=== PATIENT | female | born 1955 | race Caucasian/White ===

== ENCOUNTER → 2017-08-12 13:32 | Outpatient (CLI) | payer OTHER, SELFPAY ==
--- NOTE | 2017-08-12 13:33 | RAD_ITS ---
STUDY: X-RAY CHEST REASON FOR EXAM: Female, 62 years old. Cough TECHNIQUE: Frontal and lateral views of the chest COMPARISON: 02/28/2016 FINDINGS: The lungs are clear. There are no pleural effusions. There is no pneumothorax. The heart is normal in size. The visualized osseous structures are within normal limits. RAD/Chest PA and Lateral IMPRESSION: No acute thoracic pathology. Electronically Signed: Tk Caal, at 19:36 EST Tel , Service support ,
== END ==
PROVIDERS: Family Provider Family Medicine; PCP Family Medicine; Visit Provider Family Medicine
DX: J20.9 Acute bronchitis, unspecified (principal)
CPT/HCPCS: 71046

== ENCOUNTER → 2018-01-27 09:17 | Outpatient (CLI) | payer OTHER, SELFPAY ==
[2018-01-27 11:17] LABS: AST(SGOT) 17 U/L (15-37); Alanine Aminotransfer ALT/SGPT 22 U/L (13-56); Albumin, Serum 3.6 g/dL (3.2-5.0); Alkaline Phosphatase 52 U/L (45-117); Cholesterol 168 mg/dL (200); Globulin 3.5 g/dL (2.2-4.2); High Density Lipoprotein 66 mg/dL; Protein, Total 7.1 g/dL (6.4-8.2); Triglycerides 94 mg/dL; Very Low Density Lipoprotein 19 mg/dL (5-40)
== END ==
PROVIDERS: Family Provider Family Medicine; PCP Family Medicine; Visit Provider Internal Medicine Cardiovascular Disease
DX: I25.10 Atherosclerotic heart disease of native coronary artery without angina pectoris (principal); E78.5 Hyperlipidemia, unspecified
CPT/HCPCS: 36415; 80061; 80076

== ENCOUNTER → 2018-03-07 10:51 | Outpatient (CLI) | payer OTHER, SELFPAY ==
[2018-03-07 12:14] LABS: Absolute Lymphocyte Count 2.46 X10^3/ul (0.83-4.51); Absolute Neutrophil Count 2.7 X10^3/uL (2.0-7.7); Basophil# 0.04 X10^3/uL; Basophil% 0.7 % (0-1); Eosinophil# 0.13 X10^3/uL; Eosinophils% 2.2 % (0-5); Hemoglobin 13.2 g/dl (12.0-15.0); Lymphocyte # 2.46 X10^3/ul (4.0); Lymphocyte % 42.2 % (19-41); Mean Corpuscular Hgb 29.4 pg (27.0-32.0); Mean Corpuscular Volume 89.1 fL (81-99); Mean Platelet Vol. 9.1 fl (6.2-12.0); Monocyte# 0.52 X10^3/uL; Monocyte% 8.9 % (0-10); Neutrophil # 2.68 X10^3/uL (2.7-7.7); Platelet Count 282 K/mm3 (150-450); RBC Distribution Width CV 12.4 % (11.6-14.6); RBC Distribution Width SD 39.9 fl (35.1-43.9); Red Blood Count 4.49 M/mm3 (4.2-5.4); White Blood Count 5.8 K/mm3 (4.4-11.0)
[2018-03-07 12:22] LABS: Anion Gap 6 (5-15); BUN 19 mg/dL (7-18); BUN/Creat Ratio 20.3 RATIO (10-20); Calcium,Total 9.5 mg/dL (8.5-10.1); Chloride 101 mmol/L (98-107); Creatinine, Serum 0.94 mg/dL (0.55-1.02); EST Glomerular Filtration Rate 64 mL/min (>60); Est Glom Filt Rate - Afr Amer 77 mL/min (>60); Glucose 103 mg/dL (74-106); Potassium 4.2 mmol/L (3.5-5.1); Sodium Level 136 mmol/L (136-145); Thyroid Stim Hormone (TSH) 0.68 uIU/mL (0.358-3.74)
[2018-03-07 12:23] LABS: POSITIVE COUNT NO; POSITIVE DIFFERENTIAL NO; POSITIVE MORPHOLOGY NO
== END ==
PROVIDERS: Visit Provider Family Medicine
DX: I10 Essential (primary) hypertension (principal); F41.9 Anxiety disorder, unspecified
CPT/HCPCS: 36415; 80048; 84443; 85025

== ENCOUNTER → 2018-04-27 14:31 | Outpatient (CLI) | payer OTHER, SELFPAY ==
[2018-04-27 07:12] VITALS: BMI 27.8
== END ==
LOC: LAB 14:33 → LABSPEC 14:34
PROVIDERS: Referring Provider Nurse Practitioner Family; Visit Provider Nurse Practitioner Family
DX: J02.9 Acute pharyngitis, unspecified (principal)
CPT/HCPCS: 87880

== ENCOUNTER → 2018-09-08 13:14 | Outpatient (CLI) | payer OTHER, MEDICARE, SELFPAY ==
[2018-09-05 09:24] VITALS: BMI 27.8
--- NOTE | 2018-09-08 13:46 | CT_ITS ---
STUDY: CT MAXILLOFACIAL SINUSES REASON FOR EXAM: Female, 63 years old. Sinusitis. RADIATION DOSAGE (If Supplied By Facility): CTDIvol = ( 33.45 ) mGy, DLP = ( 834.91 ) mGycm TECHNIQUE: The patient was scanned in a multi detector CT scanner. High resolution axial imaging was performed without the administration of intravenous contrast material. Sagittal and coronal images were reconstructed. Individualized dose optimization techniques were used for this CT. COMPARISON: None. FINDINGS: FRONTAL SINUSES: Normal aeration, without mucosal inflammatory disease. ETHMOIDAL SINUSES: Normal aeration, without mucosal inflammatory disease. MAXILLARY SINUSES: Mild mucosal thickening of the left maxillary sinus. SPHENOIDAL SINUSES: Normal aeration, without mucosal inflammatory disease. There is patency of the bilateral maxillary infundibuli with normal uncinate processes, ethmoid bullae, and hiatus semilunaris. Normal bilateral middle turbinates. There is hypertrophy of the left inferior nasal turbinate. Normal midline nasal septum. There is patency of the bilateral nasal airways. The visualized osseous structures are normal. The visualized bilateral orbital contents are normal. CT/Sinus/Facial Bone IMPRESSION: Mild degree of mucosal thickening of left maxillary sinus with hypertrophy of the inferior turbinate in the left nasal fossa. Electronically Signed: Darryl Ramírez, at 14:59 EDT , Service support ,
== END ==
PROVIDERS: Family Provider Family Medicine; PCP Family Medicine; Referring Provider Otolaryngology; Visit Provider Otolaryngology
DX: J32.0 Chronic maxillary sinusitis (principal)
CPT/HCPCS: 70486; 87070; 87205

== ENCOUNTER 2018-10-20 05:28 | Day surgery (SDC) | payer OTHER, MEDICARE, SELFPAY ==
[2018-07-11 10:05] VITALS: BMI 27.8
[2018-10-10 11:51] VITALS: BMI 27.8
--- NOTE | 2018-10-11 04:01 | HP.PCM_ITS ---
- Problem List (1) Incomplete uterovaginal prolapse Status: Chronic Comment: combo case with urogyn, plan TVHBSO and pelvic floor repair (2) Stress incontinence Status: Chronic Comment: urogyn combo case planned History and Physical Date of Admission: 10/20/18 Intake Vital Signs 10/10/18 Body Mass Index (BMI) 27.8 10/10/18 Height 5 ft 8 in 10/10/18 Weight: 184 lb 10/10/18 Body Mass Index (BMI) 27.9 10/10/18 Blood Pressure 120/80 Intake Visit Reasons: [facility]AS [facility] VIVIAN LUGO Chief [facility] Darrion Lugo Forest Manager Required: No Is patient in pain?: No Allergies No Known Allergies Allergy (Verified 10/10/18 11:50) Medications Aspirin [Aspirin, Baby] 81 mg PO DAILY@0800 02/28/16 [History Confirmed 10/10/18] Calcium Carbonate/Vitamin D3 [Calcium 500 mg Chewable Tablet] 1 ea PO DAILY 02/28/16 [History Confirmed 10/10/18] Cholecalciferol (VIT D3) [Vitamin D3] 2,000 unit PO DAILY 02/28/16 [History Confirmed 10/10/18] Duloxetine HCl 30 mg PO DAILY 02/28/16 [History Confirmed 10/10/18] [place]-3 Fatty Acids [Fish Oil] 1,000 mg PO DAILY 02/28/16 [History Confirmed 10/10/18] Red Yeast Rice Extract [Red Yeast Rice] 600 mg PO BID 02/28/16 [History Confirmed 10/10/18] Ubidecarenone [Co Q-10] 100 mg PO DAILY 02/28/16 [History Confirmed 10/10/18] Vitamin E 1,000 unit PO DAILY 02/28/16 [History Confirmed 10/10/18] rosuvastatin 40 mg tablet 40 mg PO DAILY #90 tab 01/25/18 [Rx Confirmed 10/10/18] metoprolol tartrate 25 mg tablet 25 mg PO QDAY #90 tab 01/27/18 [Rx Confirmed 10/10/18] omeprazole 20 mg capsule,delayed release 20 mg PO DAILY 01/27/18 [History Confirmed 10/10/18] doxycycline hyclate 100 mg capsule 100 mg PO BID 21 Days #42 cap 09/05/18 [History Confirmed 10/10/18] trazodone 50 mg tablet 25 mg PO QHS tab 09/05/18 [History Confirmed 10/10/18] magnesium oxide 400 mg capsule 400 mg PO DAILY cap 10/10/18 [History Confirmed 10/10/18] Is last menstrual period known: No Post menopausal: No Patient : No : No PFSH Medical History Atherosclerosis of coronary artery of [place] heart without angina pectoris (Chronic) Back pain (Chronic) Heart disease (Chronic) Knee pain (Chronic) Migraines (Chronic) Fatigue (Resolved) Surgical History History of angioplasty (Chronic) History of knee replacement (Resolved) Family History Father Heart disease Sister Cancer Social History Smoking Status: Never smoker alcohol intake: never substance use type: does not use caffeine: Yes Type: tea Number of servings: 1 what type of physical activity do you participate in: walking seatbelt use: always do you feel safe at home: Yes HPI BETSY LUGO: Details: KELLEN GUY is a 63 year old who presents for Female Reproductive History Menopausal Symptoms: No night sweats Pregancy History 2 Elective abortions Hx Para 2 Spontaneous abortions Hx # Term Pregnancies Ectopic pregnancies Hx # Pregnancies Multiple births # of living children Past Pregnancies Del. Date Name GA/Weeks Outcome Route Bth Weight Gen Labor Lgth Anesthesia Del Locat Provider FOB Unknown Unknown ROS Const Constitutional: Denies fatigue, night sweats, weight gain or weight loss ENT ENT: Reports system reviewed and no additional complaints, except as docu Cardio Card: Denies chest pain Resp Resp: Denies cough or dyspnea GI GI: Reports as per HPI; denies abdominal pain, constipation, nausea or vomiting : Denies nipple discharge Musc Musc: Denies joint pain, back pain or muscle weakness Skin Skin/Breast: Denies hair loss, change in hair, dry skin, breast lump, breast pain, breast skin changes or nipple discharge Neuro Neuro: Reports system reviewed and no additional complaints, except as docu Psych Psych: Reports system reviewed and no additional complaints, except as docu Endo Endo: Denies cold intolerance, excessive sweating, heat intolerance or increased thirst Jostin/Lymph Hematologic/Lymphatic: Denies easy bleeding, Denies easy bruising, Denies enlarged lymph nodes Exam Const General: cooperative, no acute distress Nutritional Appearance: well nourished Orientation: oriented x3 [facility] Head: normal to inspection, normocephalic Ears: hearing grossly normal bilaterally, external ears normal Nose: external nose normal, nares normal Face and sinus: normal facial exam Neck Neck: normal visual inspection, no lymphadenopathy Thyroid: thyroid normal Chest Chest palpation & inspection: normal inspection of the chest Resp Effort & Inspection: normal respiratory effort Auscultation: clear to auscultation bilaterally Cardio Rate: regular rate Rhythm: regular rhythm Heart Sounds: S1 normal, S2 normal GI Inspection: normal to inspection, non-distended Palpation: soft, no hepatosplenomegaly General: bladder normal to palpation External Female Exam: normal external appearance, normal appearance of the urethra Urethra: normal appearance of the urethra Speculum Exam - Vagina: atrophic vaginal mucosa Speculum Exam - Cervix: normal appearance of the cervix Bimanual Exam- Vagina & Uterus: normal bimanual exam, bladder normal to palpation Bimanual Exam- Adnexa, other: normal adnexae, pelvic support normal Pelvic Support: normal Other: Pessary is laying flat in vagina-removed. No excoriations, lesions, bleeding or abnormal discharge. Previously had #4 and was replaced with #5 ring pessary with support and knob. Patient tolerated well Musc Other: gross motor intact no deficits, full bilateral strength Skin General: no rashes or lesions noted Neuro General: alert, awake, moves all extremities, no focal motor deficits Motor: muscle tone normal throughout Extrem General: normal to inspection, no pedal edema Psych Appearance: grossly normal Mental Status: mental status grossly normal Affect: normal affect Speech and Movement: speech and movement normal Assessment & Plan Problems 1. Stress incontinence N39.3 urogyn combo case planned 2. Incomplete uterovaginal prolapse N81.2 combo case with urogyn, plan TVHBSO and pelvic floor repair Plan plan TVHBSO and pelvic floor repair combo case with Urogyn. discussed surgical risks including risks of anesthesia, infection, bleeding, injury to bowel, bladder or blood vessels, and patient wishes to proceed with surgery. Coding Level of Care Code No Charge Diagnoses Stress incontinence N39.3 Incomplete uterovaginal prolapse N81.2 UPDATE- I have seen the patient and performed any clinically relevant updates to the history and physical exam. Heather Camejo MD
[2018-10-14 12:19] LABS: Hematocrit 37.3 % (37-47); Hemoglobin 12.3 g/dl (12.0-15.0); Mean Corpuscular Hgb 29.1 pg (27.0-32.0); Mean Corpuscular Volume 88.4 fL (81-99); Mean Platelet Vol. 9.4 fl (6.2-12.0); Platelet Count 287 K/mm3 (150-450); RBC Distribution Width CV 12.7 % (11.6-14.6); RBC Distribution Width SD 40.5 fl (35.1-43.9); Red Blood Count 4.22 M/mm3 (4.2-5.4); Scan Indicated on CBC? Y/N NO; White Blood Count 5.1 K/mm3 (4.4-11.0)
[2018-10-14 13:01] LABS: AST(SGOT) 15 U/L (15-37); Alanine Aminotransfer ALT/SGPT 28 U/L (13-56); Albumin, Serum 3.6 g/dL (3.2-5.0); Alkaline Phosphatase 59 U/L (45-117); Bilirubin, Direct 0.08 mg/dL (0.00-0.30); Cholesterol 157 mg/dL (200); High Density Lipoprotein 66 mg/dL; Protein, Total 6.6 g/dL (6.4-8.2); Triglycerides 63 mg/dL; Very Low Density Lipoprotein 13 mg/dL (5-40)
[2018-10-14 13:07] LABS: Anion Gap 8 (5-15); BUN 17 mg/dL (7-18); BUN/Creat Ratio 19.6 RATIO (10-20); Calcium,Total 8.9 mg/dL (8.5-10.1); Chloride 103 mmol/L (98-107); Creatinine, Serum 0.87 mg/dL (0.55-1.02); EST Glomerular Filtration Rate 70 mL/min (>60); Est Glom Filt Rate - Afr Amer 84 mL/min (>60); Glucose 95 mg/dL (74-106); Potassium 4.4 mmol/L (3.5-5.1); Sodium Level 135 mmol/L (136-145)
--- NOTE | 2018-10-18 08:34 | EKG12_ITS ---
Test Reason : PREOP Blood Pressure : / mmHG Vent. Rate : 056 BPM Atrial Rate : 056 BPM P-R Int : 160 ms QRS Dur : 078 ms QT Int : 424 ms P-R-T Axes : 044 017 036 degrees QTc Int : 409 ms Sinus bradycardia Otherwise normal ECG Confirmed by PERLA DAVILA, BJ ([id number]), newspaper copy editor FRANCY REA ([id number]) on 10/19/2018 1:51:07 PM Referred By: Heather Camejo Confirmed By:BJ DUNCAN MD
[2018-10-20] VITALS (13 sets, daily range): BP systolic 108–138; BP diastolic 64–80; PULSE 48–71; RESP 14–18; TEMP 36.1–36.8; O2SAT 95–100; BMI 27.3; BMI 27.2
--- NOTE | 2018-10-20 | HYST_PTH ---
PATIENT: KELLEN GUY LOC: [facility] [place] [facility] [place][id number] AGE/SX: 63/F ROOM: RE10/20/[address]: Dr. Heather Camejo MD : [id number] BED: DIS: 10/21/2018 SPEC #: [id number] RECD: 10/20/18 13:05 STATUS: ЕЛЕНА JENNIFER #: [id number] KAITLYN: 10/20/18 00:[address]: Heather Camejo DEPT: SURGICAL PATHOLOGY RECD BY: Jonh Verma ENTERED: 10/20/18 13:06 SP TYPE: HYSTERECT OTHR DR: MD Dr. Musa Queen MD Tissues: Uterus, NOS Procedures: Surgery Specimen Level V HEADER OPERATION: ERAS, hysterectomy, vaginal, total, bilateral salpingectomy PRE-OP DIAGNOSIS: Stress incontinence, incomplete uterovaginal prolapse TISSUE SUBMITTED: Uterus, bilateral fallopian tubes MICROSCOPIC DIAGNOSIS Uterus and bilateral fallopian tubes; vaginal hysterectomy with total bilateral salpingectomy: Cervix - chronic cervicitis with parakeratosis. Small nabothian cyst. Endometrium - adenomyomatous polyp with simple cystic change. Background inactive endometrium. Myometrium - adenomyosis. Leiomyomas with hyalinizing sclerosis. Fallopian tubes - no significant histopathologic finding. CE:madie 10/25/18 COMMENT Case has been reviewed in consultation with Dr. Cain who concurs with the above diagnosis. IDC:AM MICROSCOPIC DESCRIPTION Slides are reviewed. GROSS DESCRIPTION Received in fixative is one container labeled with the patient's name and designated uterus. The specimen consists of a uterus with attached cervix measuring 9.5 x 6 x 4.2 cm and weighing 78 gm. The ectocervix is unremarkable. The cervical os is oval in contour. The endocervical canal measures 4 cm in length and is grossly unremarkable. The triangular endometrial cavity measures 3.5 x 3 cm and contains a fleshy, pink polyp occupying 90% of the endometrial cavity and measuring 3 x 2.8 x 0.9 cm. The myometrium immediately beneath the polyp is not indurated. The endometrium is light staton, velvety and glistening and measures up to 0.1 cm in thickness. The myometrium is distorted by multiple spherical rubbery nodules ranging in size from 0.2 to 2 cm in greatest dimension. On cut sections, the nodules have a whorled appearance without areas of cyst formation or necrosis and with focal calcific change. The myometrium measures 1.5 cm in greatest thickness. Also present free in the container are two fallopian tube segments. One segment measures 2.2 cm in length and 0.4 cm in average diameter. The other fallopian tube segment measures 6 cm in length and 0.5 cm in average diameter. Watch Dial Stoner sections are submitted in ten cassettes as follows: 1 - anterior cervix, 2 - posterior cervix, 3 & 4 - endometrial polyp, 5 - anterior endometrial wall, 6 & 7 - posterior endometrial wall with myometrial nodules, 8 - largest, second largest and third largest myometrial masses, 9 - one fallopian tube, 10 - the other fallopian tube. / AM:madie 10/20/18 TC:1 CPT: 75806
[2018-10-20] MEDS: Gabapentin 600 MG Tablet PO (06:07)
[2018-10-20] MEDS: Acetaminophen 500 MG Tablet 1000 MG PO ×4 (06:07→23:23)
[2018-10-20] MEDS: Scopolamine 1mg/72hr Patch 1 PATCH TRANSDERM. (06:07)
[2018-10-20] MEDS: Celecoxib 200 MG Capsule 400 MG PO (06:08)
[2018-10-20] MEDS: Enoxaparin 40 MG/0.4 ML Syringe SC (06:08)
[2018-10-20 06:26] LABS: Bedside Glucose 101 mg/dL (70-110)
[2018-10-20] MEDS: Lactated Ringers 1,000 ML 40 ML IV (06:30)
[2018-10-20] MEDS: dexAMETHasone 10 MG/ML Vial 8 MG IV (06:33)
[2018-10-20] MEDS: Magnesium Sulfate 4gm/100mL 4 GM/100 ML IV.SOLN. IV (06:35)
[2018-10-20] MEDS: Cefazolin 2 GM in 0.9% Normal Saline 100 ML IV (07:28)
--- NOTE | 2018-10-20 07:40 | PCM.OPRPT ---
Problem List (1) Incomplete uterovaginal prolapse Status: Chronic Comment: combo case with urogyn, plan TVHBSO and pelvic floor repair (2) Stress incontinence Status: Chronic Comment: urogyn combo case planned Report of Operation Date of Procedure: 10/20/18 Pre-Operative Diagnosis: incomplete uterovaginal prolapse Post-Operative Diagnosis: Same Surgery/Procedure Performed:: tvh bs cysto a and p repair sling Description of Surgical Findings:: Normal uterus tubes and ovaries seafood and service meat manager: Aleksandra Mcmahon seafood and service meat manager: Flaca Lugo Type of Anesthesia:: General Specimen's removed: uterus tubes Drains: boland Estimated Blood Loss (mL): 150 cc Fluids Replaced: crystalloid Description of Procedure: Patient was taken to the operating room and was placed under general anesthesia was prepped and draped in normal sterile fashion in the dorsal lithotomy position. Preoperative antibiotics and SCDs and Boland catheter was placed inside the bladder. Weighted speculum was placed in the vagina and the anterior and posterior lip of the cervix was grasped with 2 Tommy clamps and circumferentially injected with dilute vasopressin. A circumferential incision was made with a scalpel and the posterior cul-de-sac was entered into sharply and a longneck speculum was placed. The anterior cul-de-sac was also dissected down and entered into sharply and the uterosacral ligaments were clamped cut and suture ligated bilaterally followed by the cardinal ligaments which were Clamped cut and suture ligated bilaterally with 0 Monocryl. The uterus serially descended and progressive bites were taken bilaterally up to the level of the utero-ovarian ligament bilaterally which was clamped transected and double ligated with 0 Monocryl suture and 0 Vicryl free tie. Bilateral fallopian tubes and ovaries were well visualized and noted be within normal limits and the bilateral fallopian tubes were transected across the base with a Raya clamp and removed and sutured with 0 Vicryl suture. Excellent hemostasis was noted. The vagina was closed with [id number] 0 Vicryl pop offs including the posterior and anterior peritoneum in the reapproximation. Excellent hemostasis was noted. See additional dictation for additional operative report. Grafts/Implants Used: See additional operative note - Complications None - Admit VTE Documentation VTE Present on Admission: No VTE Mechan Device Prophylaxis: SCD's
[2018-10-20] MEDS: Vasopressin 20 UNITS/ML Vial (08:00)
[2018-10-20] MEDS: Estrogens,Conj. 1 Tube 1 DOSE (10:13)
[2018-10-20] MEDS: Lubricating Jelly 60 GM Tube 30 GM TOPICAL (10:14)
--- NOTE | 2018-10-20 10:29 | PCM.OPRPT ---
Problem List (1) Stress incontinence Status: Chronic Comment: urogyn combo case planned (2) Incomplete uterovaginal prolapse Status: Chronic Comment: combo case with urogyn, plan TVHBSO and pelvic floor repair Report of Operation Date of Procedure: 10/20/18 Pre-Operative Diagnosis: Incomplete uterovaginal prolapse, stress urinary incontinence. Post-Operative Diagnosis: Same Surgery/Procedure Performed:: Anterior repair with dermis, bilateral sacrospinous ligament fixation, posterior repair, mid urethral sling and cystoscopy with bilateral ureteral catheterization. Description of Surgical Findings:: Patient did very well, the mass and the mid urethral sling both have very good positioning. sales floor team leader: None - Type of Anesthesia:: General Estimated Blood Loss (mL): 25 cc Description of Procedure: The patient is a 63-year-old female came to the office for evaluation and treatment of pelvic organ prolapse. She was evaluated with urodynamics and cystoscopy. After discussing all the risk benefits and alternatives, informed consent was obtained and she agreed to proceed with surgical intervention. Patient was taken to the operating room placed on the operating room table. Anesthesia monitored the head, neck, airway, IV access and vital signs throughout the case. Once anesthesia was appropriately administered the patient was placed into dorsal lithotomy position and was prepped and draped in usual sterile fashion. A Daly catheter was inserted and the bladder was drained. Dr. Siva Costello subsequently performed her portion of the case. Please see her operative report for details. Following closure of the vaginal cuff, the case was turned to wa. The anterior vaginal wall was injected submucosally with vasopressin. A midline vertical incision was made and sharp and blunt dissection ensued until bilaterally the initial spines were palpable in the sacral spinous ligaments were cleared and freed from surrounding tissues. The Capio device was used to obtain access to the sacral spinous ligament bilaterally with 2-0 Ethibond. At this time this was brought through the trimmed dermis. It was then brought through full thickness at the vaginal cuff. 2-0 PDS was used in intermittent suturing fashion to secure the dermis to the sidewall and the area adjacent to the bladder neck. Was also secured at the apex. The vaginal mucosa was then closed with running interlocking 2-0 Vicryl suture. The Ethibond sutures were tied down. Attention was then turned towards the posterior vaginal wall. The posterior submucosa was injected with vasopressin. An incision was made at the area of the perineal body. Blunt and sharp dissection was undertaken until the defect in the rectovaginal fascia was identified. The fascia was brought together and 2 layer closure with interrupted 2-0 Vicryl suture. Vaginal mucosa was then closed using 2-0 Vicryl in running interlocking fashion. At this time the attention was turned towards the area of the mid urethra which was injected submucosally with vasopressin as well. A midline vertical incision approximately 2 cm in length was then made and sharp and blunt dissection ensued into the periurethral spaces bilaterally until access was obtained to the obturator complexes. The alters mid urethral sling tines were passed using the trochars into the obturator complexes. The sling was tensioned using the tensioning suture and lay flat against the periurethral tissue without tension. At this time the tensioning suture was cut in the vaginal mucosa was closed using running interlocking 2-0 Vicryl. A cystourethroscopy was then performed. The patient had been given intravenous methylene blue. No ureteral jets were observed and the decision was made to intubate the ureteral orifices with a 5 [place] whistle-tip catheter. This was done and no occlusion was observed. The catheter passed easily to 25 cm bilaterally and there was no blood seen upon removal. At this time the scope was removed and the Daly catheter was replaced. The vagina was packed using Premarin cream and vaginal packing. The patient was awakened and taken to the recovery room in good condition. There were no immediate complications during this procedure. Grafts/Implants Used: [place] dermis - Complications None - Admit VTE Documentation VTE Present on Admission: Yes VTE Mechan Device Prophylaxis: SCD's VTE Pharm Prophylaxis ordered?: Yes
--- NOTE | 2018-10-20 10:36 | OP.PCM_ITS ---
Problem List (1) Stress incontinence Status: Chronic Comment: urogyn combo case planned (2) Incomplete uterovaginal prolapse Status: Chronic Comment: combo case with urogyn, plan TVHBSO and pelvic floor repair Report of Operation Date of Procedure: 10/20/18 Pre-Operative Diagnosis: Incomplete uterovaginal prolapse, stress urinary incontinence. Post-Operative Diagnosis: Same Surgery/Procedure Performed:: Anterior repair with dermis, bilateral sacrospinous ligament fixation, posterior repair, mid urethral sling and c ystoscopy with bilateral ureteral catheterization. Description of Surgical Findings:: Patient did very well, the mass and the mid urethral sling both have very good positioning. field geologist: None - Type of Anesthesia:: General Estimated Blood Loss (mL): 25 cc Description of Procedure: The patient is a 63-year-old female came to the office for evaluation and treatment of pelvic organ prolapse. She was evaluated with urodynamics and cystoscopy. After discussing all the risk benefits and alternatives, informed consent was obtained and she agreed to proceed with surgical intervention. Patient was taken to the operating room placed on the operating room table. Anesthesia monitored the head, neck, airway, IV access and vital signs throughout the case. Once anesthesia was appropriately administered the patient was placed into dorsal lithotomy position and was prepped and draped in usual sterile fashion. A Daly catheter was inserted and the bladder was drained. Dr. Siva Costello subsequently performed her portion of the case. Please see her operative report for details. Following closure of the vaginal cuff, the case was turned to ga. The anterior vaginal wall was injected submucosally with vasopressin. A midline vertical incision was made and sharp and blunt dissection ensued until bilaterally the initial spines were palpable in the sacral spinous ligaments were cleared and freed from surrounding tissues. The Capio device was used to obtain access to the sacral spinous ligament bilaterally with 2-0 Ethibond. At this time this was brought through the trimmed dermis. It was then brought through full thickness at the vaginal cuff. 2-0 PDS was used in intermittent suturing fashion to secure the dermis to the sidewall and the area adjacent to the bladder neck. Was also secured at the apex. The vaginal mucosa was then closed with running interlocking 2-0 Vicryl suture. The Ethibond sutures were tied down. Attention was then turned towards the posterior vaginal wall. The posterior submucosa was injected with vasopressin. An incision was made at the area of the perineal body. Blunt and sharp dissection was undertaken until the defect in the rectovaginal fascia was identified. The fascia was brought together and 2 layer closure with interrupted 2-0 Vicryl suture. Vaginal mucosa was then closed using 2-0 Vicryl in running interlocking fashion. At this time the attention was turned towards the area of the mid urethra which was injected submucosally with vasopressin as well. A midline vertical incision approximately 2 cm in length was then made and sharp and blunt dissection ensued into the periurethral spaces bilaterally until access was obtained to the obturator complexes. The alters mid urethral sling tines were passed using the trochars into the obturator complexes. The sling was tensioned using the tensioning suture and lay flat against the periurethral tissue without tension. At this time the tensioning suture was cut in the vaginal mucosa was closed using running interlocking 2-0 Vicryl. A cystourethroscopy was then performed. The patient had been given intravenous methylene blue. No ureteral jets were observed and the decision was made to intubate the ureteral orifices with a 5 [place] whistle-tip catheter. This was done and no occlusion was observed. The catheter passed easily to 25 cm bilaterally and there was no blood seen upon removal. At this time the scope was removed and the Daly catheter was replaced. The vagina was packed using Premarin cream and vaginal packing. The patient was awakened and taken to the recovery room in good condition. There were no immediate complications during this procedure. Grafts/Implants Used: [place] dermis - Complications None - Admit VTE Documentation VTE Present on Admission: Yes VTE Mechan Device Prophylaxis: SCD's VTE Pharm Prophylaxis ordered?: Yes
[2018-10-20] MEDS: Ondansetron 4 MG/2 ML Vial IV (10:57)
[2018-10-20] MEDS: Ketorolac 30 MG/ML Syringe IV ×3 (13:09→23:24)
[2018-10-20] MEDS: 0.9% NaCl Peripheral Flush Adult/Peds IV ×3 (13:09→23:24)
[2018-10-20] MEDS: Lactated Ringers 1,000 ML 70 ML IV (13:13)
[2018-10-20] MEDS: Cefazolin 1 GM/50 ML BAG IV ×2 (17:03→23:23)
[2018-10-20] MEDS: Atorvastatin Calcium 80 MG Tablet PO (20:59)
[2018-10-20] MEDS: traZODone 50 MG Tablet 25 MG PO (20:59)
[2018-10-20] MEDS: Docusate Sodium 100 MG Capsule PO (20:59)
[2018-10-21 05:22] VITALS: BP 129/70; PULSE 65; RESP 16; TEMP 37; O2SAT 95
[2018-10-21] MEDS: Ketorolac 30 MG/ML Syringe IV ×2 (05:26→12:31)
[2018-10-21] MEDS: 0.9% NaCl Peripheral Flush Adult/Peds IV (05:27)
[2018-10-21] MEDS: Acetaminophen 500 MG Tablet 1000 MG PO (06:25)
[2018-10-21 06:59] LABS: Hematocrit 34.8 % (37-47); Hemoglobin 11.6 g/dl (12.0-15.0); Mean Corp Hgb Conc 33.3 g/gl (32-36); Mean Corpuscular Hgb 29.4 pg (27.0-32.0); Mean Corpuscular Volume 88.1 fL (81-99); Platelet Count 258 K/mm3 (150-450); RBC Distribution Width CV 12.7 % (11.6-14.6); RBC Distribution Width SD 41.1 fl (35.1-43.9); Red Blood Count 3.95 M/mm3 (4.2-5.4); White Blood Count 11.1 K/mm3 (4.4-11.0)
[2018-10-21 07:00] LABS: Scan Indicated on CBC? Y/N NO
[2018-10-21 07:04] VITALS: O2SAT 97
--- NOTE | 2018-10-21 07:49 | NURSING ---
Both this patient and [facility], STRIKE PLATE ATTACHER aware that when pt has to void this morning that this nurse needs to perform a bladder scan and call the doctor with results. Pt not voided yet.
[2018-10-21 08:27] VITALS: BP 131/69; PULSE 61; RESP 18; TEMP 36.8; O2SAT 96
[2018-10-21] MEDS: Docusate Sodium 100 MG Capsule PO (08:51)
[2018-10-21] MEDS: DULoxetine Hcl 30 MG Capsule PO (08:51)
[2018-10-21] MEDS: Enoxaparin 40 MG/0.4 ML Syringe SC (08:51)
[2018-10-21] MEDS: Calcium Carb/Vitamin D 1 TABLET Tablet PO (08:51)
[2018-10-21 08:52] VITALS: PULSE 62
[2018-10-21] MEDS: Metoprolol Tartrate 25 MG Tablet PO (08:52)
[2018-10-21] MEDS: Pantoprazole Sodium 20 MG Tablet PO (08:59)
--- NOTE | 2018-10-21 09:05 | NURSING ---
Walked around the Unit twice with this nurse's assistance. Back in bed but informed that when she gets up to urinate, to sit up in chair. Pt feels urge to void but wants to wait a little longer.
--- NOTE | 2018-10-21 09:06 | PCM.PN.OB ---
Subjective: doing well no complaints pain controlled toelrating po and voiding - Physical Exam General: Alert, Oriented x3 Vital Signs Temp Pulse Resp BP Pulse Ox 98.2 F 62 18 131/69 H 96 10/21/18 08:27 10/21/18 08:52 10/21/18 08:27 10/21/18 08:27 10/21/18 08:27 Oxygen Flow Rate (L/min) 6 Oxygen Delivery Method Room Air Weight: 179 lb 14.355 oz Body Mass Index (BMI) 27.2 Intake and Output for Last 24 Hours 10/19/18 10/20/18 10/21/18 23:59 23:59 23:59 Intake Total 4050 / 4050 1190 / 1190 Output Total 1979 / 1979 1200 / 1200 Balance 2069 / 2069 - / Laboratory Tests Past 24 Hrs 10/21/18 06:15 WBC 11.1 H RBC 3.95 L Hgb 11.6 L Hct 34.8 L MCV 88.1 MCH 29.4 MCHC 33.3 RDW 12.7 RDW Differential 41.1 Plt Count 258 MPV 9.0 Medical Necessity - Tobacco Use Smoking Status: Never smoker Tobacco Use: Non-smoker Assessment/Plan All Active Problems (Last Reviewed 10/10/18 @ 11:51 by Nivia Burt) Pessary maintenance (Acute) Sinusitis (Acute) MILKA (acute kidney injury) (Acute) DVT (deep venous thrombosis) (Acute) pod 1 s/p tvh pelvic floor repair h/o dvt- 2 weeks of lovenox routien postop care
--- NOTE | 2018-10-21 09:09 | PCM.DC.VHY ---
Discharge Diet: No Restrictions Discharge Activity: Return to Normal Activity, May Not Drive, May Shower May resume sexual activity in: 6-8 weeks Call your doctor if your incision/area has: Continuous Slow Oozing, Sudden Increased Bleeding, Increased Pain/ Swelling, Increased Redness, Foul Smelling Discharge Call your doctor if you observe: Fever of 101 or Higher, Inability to urinate, Inability to have a bowel movement, Using more than one pad per hour Allergies/Adverse Reactions: Allergies No Known Allergies Allergy (Verified 10/13/18 10:52) Medications to take at Discharge Aspirin [Aspirin, Baby] 81 mg PO DAILY@0800 02/28/16 Calcium Carbonate/Vitamin D3 [Calcium 500 mg Chewable Tablet] 1 ea PO DAILY 02/28/16 Cholecalciferol (VIT D3) [Vitamin D3] 2,000 unit PO DAILY 02/28/16 Duloxetine HCl 30 mg PO DAILY 02/28/16 Dinosaur-3 Fatty Acids [Fish Oil] 1,000 mg PO DAILY 02/28/16 Red Yeast Rice Extract [Red Yeast Rice] 600 mg PO BID 02/28/16 Ubidecarenone [Co Q-10] 100 mg PO DAILY 02/28/16 Vitamin E 1,000 unit PO DAILY 02/28/16 rosuvastatin 40 mg tablet 40 mg PO DAILY #90 tab 01/25/18 metoprolol tartrate 25 mg tablet 25 mg PO QDAY #90 tab 01/27/18 omeprazole 20 mg capsule,delayed release 20 mg PO DAILY 01/27/18 trazodone 50 mg tablet 25 mg PO QHS tab 09/05/18 magnesium oxide 400 mg capsule 400 mg PO DAILY cap 10/10/18 Enoxaparin Sodium [Lovenox] 40 mg SQ DAILY 14 Days #20 ml 10/20/18 Naproxen [Naprosyn] 250 - 500 mg PO Q8H PRN PRN #30 tablet 10/20/18 Oxycodone HCl/Acetaminophen [Percocet 5-325] 1 - 2 tablet PO Q4H PRN PRN 7 Days #15 tablet 10/20/18 The following prescriptions were given: Oxycodone HCl/Acetaminophen [Percocet 5-325] 1 - 2 tablet PO Q4H PRN PRN 7 Days #15 tablet PRN Reason: Pain Naproxen [Naprosyn] 250 - 500 mg PO Q8H PRN PRN #30 tablet PRN Reason: MILD PAIN Enoxaparin Sodium [Lovenox] 40 mg SQ DAILY 14 Days #20 ml Primary Care Physician: Musa Rodríguez MD [Primary Care Provider] - Test Results: Test results from this visit will be discussed in further detail at your follow-up appointment, if applicable. Please Follow Up With: Heather Camejo MD - [phone]
--- NOTE | 2018-10-21 12:21 | NURSING ---
Bladder scanned pt after voiding 500cc. Bladder scanned showed 139 x1 and then with second picture showed 544ml. Both pictures, it urine inside the bladder was in all 4 qaudrants of the scanner. Not sure if Bladder Scanner working properly, so this nurse then had a different bladder scanner and scanned for 689ml. About 30min later, this nurse in to see if pt could void again. She did and voided 300ml and then was bladder scanned again using the second bladder scanner and obtained 388ml. This nurse called Dr. Lugo and informed. Order to Perform another post void residual when she voids next and that Dr. Lugo will be coming in to see her.
--- NOTE | 2018-10-21 12:31 | PCM.PN.GU ---
Physical Exam Subjective: Feeling great, no pain, wants to go home. Boland out and voiding. Objective: Bladder scan PVR 380cc after 300cc void. - Physical Exam Vital Signs Temp 98.2 F 10/21/18 08:27 Pulse 62 10/21/18 08:52 Resp 18 10/21/18 08:27 BP 131/69 H 10/21/18 08:27 Pulse Ox 96 10/21/18 08:27 Intake & Output 10/19/18 10/20/18 10/21/18 23:59 23:59 23:59 Intake Total 4050 / 4050 2590 / 2590 Output Total 1979 Balance 2070 / 2070 590 / 590 Weight: 81.6 kg Intake: Oral 1850 / 1850 1999 IV fluid/meds 2200 / 2200 590 / 590 IV #2 1500 / 1500 Output: Urine 1979 General: Alert, Oriented x3, Cooperative, No apparent distress HEENT: Atraumatic, Normocephalic Oral: Moist Mucosa Neck: Supple Lungs: Normal air movement Cardiovascular: Regular rate Abdomen: Soft Rectal: Exam deferred Laboratory Tests Past 24 Hrs 10/21/18 06:15 WBC 11.1 H RBC 3.95 L Hgb 11.6 L Hct 34.8 L MCV 88.1 MCH 29.4 MCHC 33.3 RDW 12.7 RDW Differential 41.1 Plt Count 258 MPV 9.0 Medical Necessity - Tobacco Use Smoking Status: Never smoker Tobacco Use: Non-smoker Assessment/Plan All Active Problems (Last Reviewed 10/10/18 @ 11:51 by Nivia Burt) Pessary maintenance (Acute) Sinusitis (Acute) MILKA (acute kidney injury) (Acute) DVT (deep venous thrombosis) (Acute) POD#1 pelvic floor reconstruction and hysterectomy. Home today with or without boland...await repeat void with PVR. Pain control, antibiotics, lovenox for 2 weeks.
--- NOTE | 2018-10-21 12:34 | DCINST_ITS ---
Discharge Diet: No Restrictions Discharge Activity: Return to Normal Activity, May Not Drive, May Shower May resume sexual activity in: 6-8 weeks Additional Activity Instructions:: no lifting over 5 pounds, no strenuous activity, no exercise, no intercourse, nothing per vagina except must continue estrogen cream. Call your doctor if your incision/area has: Continuous Slow Oozing, Sudden Increased Bleeding, Increased Pain/ Swelling, Increased Redness, Foul Smelling Discharge Call your doctor if you observe: Fever of 101 or Higher, Inability to urinate, Inability to have a bowel movement, Using more than one pad per hour, Calf disc omfort, Uncontrolled pain Allergies/Adverse Reactions: Allergies No Known Allergies Allergy (Verified 10/13/18 10:52) Medications to take at Discharge Aspirin [Aspirin, Baby] 81 mg PO DAILY@0800 02/28/16 Calcium Carbonate/Vitamin D3 [Calcium 500 mg Chewable Tablet] 1 ea PO DAILY 02/28/16 Cholecalciferol (VIT D3) [Vitamin D3] 2,000 unit PO DAILY 02/28/16 Duloxetine HCl 30 mg PO DAILY 02/28/16 [place]-3 Fatty Acids [Fish Oil] 1,000 mg PO DAILY 02/28/16 Red Yeast Rice Extract [Red Yeast Rice] 600 mg PO BID 02/28/16 Ubidecarenone [Co Q-10] 100 mg PO DAILY 02/28/16 Vitamin E 1,000 unit PO DAILY 02/28/16 rosuvastatin 40 mg tablet 40 mg PO DAILY #90 tab 01/25/18 metoprolol tartrate 25 mg tablet 25 mg PO QDAY #90 tab 01/27/18 omeprazole 20 mg capsule,delayed release 20 mg PO DAILY 01/27/18 trazodone 50 mg tablet 25 mg PO QHS tab 09/05/18 magnesium oxide 400 mg capsule 400 mg PO DAILY cap 10/10/18 Enoxaparin Sodium [Lovenox] 40 mg SQ DAILY 14 Days #20 ml 10/20/18 Naproxen [Naprosyn] 250 - 500 mg PO Q8H PRN PRN #30 tablet 10/20/18 Oxycodone HCl/Acetaminophen [Percocet 5-325] 1 - 2 tablet PO Q4H PRN PRN 7 Days #15 tablet 10/20/18 The following prescriptions were given: Oxycodone HCl/Acetaminophen [Percocet 5-325] 1 - 2 tablet PO Q4H PRN PRN 7 Days #15 tablet PRN Reason: Pain Naproxen [Naprosyn] 250 - 500 mg PO Q8H PRN PRN #30 tablet PRN Reason: MILD PAIN Enoxaparin Sodium [Lovenox] 40 mg SQ DAILY 14 Days #20 ml Primary Care Physician: Musa Rodríguez MD [Primary Care Provider] - Test Results: Test results from this visit will be discussed in further detail at your follow- up appointment, if applicable. Please Follow Up With: Flaca Lugo MD When: call office for appt Proposed Discharge Date: 10/21/18
--- NOTE | 2018-10-21 15:25 | NURSING ---
Pt bladder scanned after voiding 100ml. Bladder scan for 169ml. PT does not feel uncomfortable and is asymptomatic with the 169ml. Dr. Lugo is aware and is okay with pt going home but wants her to go to office on Wednesday10/24/18 for a bladder scan and to call if become asymptomatic before hand.
[2018-10-21 16:28] VITALS: BP 152/79; PULSE 64; RESP 16; TEMP 36.8; O2SAT 94
== END 2018-10-21 16:30 | disposition home or self-care (01) ==
LOC: SDC 05:29 → AC 05:30 → MS3 07:09
PROVIDERS: Internal Medicine Cardiovascular Disease; Urology; Family Provider Family Medicine; PCP Family Medicine; Referring Provider Obstetrics & Gynecology; Visit Provider Obstetrics & Gynecology
PROC: (CPT 58260; principal; 2018-10-20 07:10)
PROC: (CPT 57260; 2018-10-20 07:10)
DX: N81.2 Incomplete uterovaginal prolapse (principal); N39.3 Stress incontinence (female) (male); Z79.899 Other long term (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; Z79.82 Long term (current) use of aspirin; I25.10 Atherosclerotic heart disease of native coronary artery without angina pectoris; F32.9 Major depressive disorder, single episode, unspecified; I25.2 Old myocardial infarction; R00.1 Bradycardia, unspecified; I10 Essential (primary) hypertension; Z86.718 Personal history of other venous thrombosis and embolism
CPT/HCPCS: 57260; 57282; 57288; 58262; 36415; 80048; 80061; 80076; 82962; 85027; 86850; 86900; 88307; 93005; 94762; J7120; A4216; C1758; J2405; J3490; Q9968

== ENCOUNTER → 2018-12-19 | Outpatient (CLI) | payer OTHER, MEDICARE, SELFPAY ==
[2018-11-28 10:15] VITALS: BMI 27.2
[2018-12-19 18:02] LABS: Rheumatoid Factor < 10.0 IU/mL (<15)
[2018-12-19 18:17] LABS: Absolute Lymphocyte Count 2.01 X10^3/ul (0.83-4.51); Absolute Neutrophil Count 2.6 X10^3/uL (2.0-7.7); Basophil# 0.04 X10^3/uL; Basophil% 0.7 % (0-1); Eosinophil# 0.15 X10^3/uL; Eosinophils% 2.8 % (0-5); Hematocrit 39.3 % (37-47); Hemoglobin 12.9 g/dl (12.0-15.0); Lymphocyte # 2.01 X10^3/ul (4.0); Lymphocyte % 37.2 % (19-41); Mean Corp Hgb Conc 32.8 g/gl (32-36); Mean Corpuscular Volume 88.3 fL (81-99); Mean Platelet Vol. 9.7 fl (6.2-12.0); Monocyte# 0.58 X10^3/uL; Monocyte% 10.7 % (0-10); Neutrophil # 2.61 X10^3/uL (2.7-7.7); Neutrophil % 48.4 % (47-70); Platelet Count 338 K/mm3 (150-450); RBC Distribution Width CV 12.5 % (11.6-14.6); RBC Distribution Width SD 39.6 fl (35.1-43.9); Red Blood Count 4.45 M/mm3 (4.2-5.4); White Blood Count 5.4 K/mm3 (4.4-11.0)
[2018-12-19 18:29] LABS: POSITIVE COUNT NO; POSITIVE DIFFERENTIAL NO; POSITIVE MORPHOLOGY NO
[2018-12-19 18:35] LABS: Erythrocyte Sedimentation Rate 6 mm/hr (0-30)
[2018-12-21 16:07] LABS: SJOGREN'S Anti-SS-A test < 0.2 AI (0.0-0.9); SJOGREN'S Anti-SS-B test < 0.2 AI (0.0-0.9)
[2018-12-22 11:39] LABS: Anti-Nuclear Antibody Test Negative (.)
[2018-12-22 11:46] LABS: Angiotensin Convert Enzyme 25 U/L (14-82); Cytoplasmic Ab (C-ANCA) <1:20 titer (Neg:<1:20); Perinuclear Ab (P-ANCA) <1:20 titer (Neg:<1:20)
== END | disposition home or self-care (01) ==
PROVIDERS: Family Provider Family Medicine; PCP Family Medicine; Referring Provider Otolaryngology; Visit Provider Otolaryngology
DX: J31.0 Chronic rhinitis (principal)
CPT/HCPCS: 36415; 82164; 85025; 85652; 86038; 86235; 86256; 86431

== ENCOUNTER → 2019-03-29 08:14 | Outpatient (CLI) | payer OTHER, MEDICARE, SELFPAY ==
[2019-01-31 08:48] VITALS: BMI 27.2
[2019-03-29 14:28] LABS: Absolute Lymphocyte Count 2.04 X10^3/uL (0.83-4.51); Absolute Neutrophil Count 2.7 X10^3/uL (2.0-7.7); Basophil# 0.06 X10^3/uL; Basophil% 1.1 % (0-1); Eosinophil# 0.12 X10^3/uL; Eosinophils% 2.2 % (0-5); Hematocrit 41.3 % (37-47); Hemoglobin 13.4 g/dL (12.0-15.0); Lymphocyte # 2.04 X10^3/ul (4.0); Lymphocyte % 37.4 % (19-41); Mean Corp Hgb Conc 32.4 g/dL (32-36); Mean Corpuscular Hgb 29.5 pg (27.0-32.0); Mean Platelet Vol. 9.7 fl (6.2-12.0); Monocyte% 9.2 % (0-10); NRBC Flagged by Analyzer 0 % (0-5); Neutrophil # 2.73 X10^3/uL (2.7-7.7); Neutrophil % 49.9 % (47-70); Platelet Count 303 K/mm3 (150-450); RBC Distribution Width CV 12.2 % (11.6-14.6); RBC Distribution Width SD 40.4 fl (35.1-43.9); Red Blood Count 4.54 M/mm3 (4.2-5.4); White Blood Count 5.5 K/mm3 (4.4-11.0)
[2019-03-29 14:49] LABS: Vitamin D,25 Hydroxy 56.7 ng/mL (29.95-100.01)
[2019-03-29 15:00] LABS: ALB/GLOB Ratio 1.2 RATIO (0.9-2.4); AST(SGOT) 14 U/L (15-37); Alanine Aminotransfer ALT/SGPT 25 U/L (13-56); Albumin, Serum 3.9 g/dL (3.2-5.0); Alkaline Phosphatase 68 U/L (45-117); Anion Gap 7 (5-15); BUN 19 mg/dL (7-18); BUN/Creat Ratio 19.4 RATIO (10-20); Calcium,Total 9.1 mg/dL (8.5-10.1); Chloride 101 mmol/L (98-107); Cholesterol 176 mg/dL (200); Creatinine, Serum 0.98 mg/dL (0.55-1.02); EST Glomerular Filtration Rate 60 mL/min (>60); Est Glom Filt Rate - Afr Amer 73 mL/min (>60); Globulin 3.3 g/dL (2.2-4.2); Glucose 89 mg/dL (74-106); High Density Lipoprotein 71 mg/dL; Potassium 4.5 mmol/L (3.5-5.1); Protein, Total 7.2 g/dL (6.4-8.2); Sodium Level 133 mmol/L (136-145); T4 Free Direct 1.05 ng/dL (0.76-1.46); Thyroid Stim Hormone (TSH) 1.24 uIU/mL (0.358-3.74); Triglycerides 49 mg/dL; Very Low Density Lipoprotein 10 mg/dL (5-40)
== END ==
PROVIDERS: Family Provider Family Medicine; PCP Family Medicine; Visit Provider Family Medicine
DX: F33.9 Major depressive disorder, recurrent, unspecified (principal); I10 Essential (primary) hypertension; M85.80 Other specified disorders of bone density and structure, unspecified site; E78.5 Hyperlipidemia, unspecified
CPT/HCPCS: 36415; 80053; 80061; 82306; 84439; 84443; 85025

== ENCOUNTER → 2019-05-01 07:21 | Outpatient (CLI) | payer OTHER, MEDICARE, SELFPAY ==
[2019-01-31 08:48] VITALS: BMI 27.2
[2019-04-17 06:31] VITALS: BMI 27.2
--- NOTE | 2019-05-01 07:24 | BI_ITS ---
MAMMOGRAPHY - BILATERAL SCREENING - CAD and ERDD IMAGES REASON FOR EXAM: Female, 63 years old. Routine annual screening examination. PERTINENT HISTORY: Sister with breast cancer. TECHNIQUE: Digital examination. Mediolateral oblique (MLO) and craniocaudad (CC) views of both breasts were obtained. CAD: CAD was performed on this study. Redd images were reviewed. COMPARISON: Mammograms dated 03/31/2017, 10/16/2015 and 10/10/2014 FINDINGS: Breast Composition: There are scattered areas of fibroglandular density. There are no suspicious masses, suspicious cluster of microcalcifications, architectural distortion or secondary sign of malignancy identified in either breast. Focal fibroglandular densities are noted bilaterally. There are 2 well-circumscribed, stable, 2 mm isodense masses in the superior outer aspect of the right breast. Benign round calcifications are seen in the left breast. No other significant abnormalities are identified. CAD and Redd were reviewed. BI/SCREEN MAMM (CAD) W/REDD BILAT IMPRESSION: Stable bilateral screening mammogram. ASSESSMENT CATEGORY: BIRADS Category 2: Benign. A letter regarding these results will be sent to the patient by the facility within 30 days. FOLLOW UP RECOMMENDATION: Yearly follow up mammogram recommended. (A) Approximately 10% of breast cancers are not detected by mammography. A normal mammogram should not delay biopsy of a clinically suspicious abnormality. [id number] Electronically Signed: Magi Hubbard DO at 10:21 EST Tel , Service support ,
== END ==
PROVIDERS: Family Provider Family Medicine; PCP Family Medicine; Referring Provider Family Medicine; Visit Provider Family Medicine
DX: Z12.31 Encounter for screening mammogram for malignant neoplasm of breast (principal)
CPT/HCPCS: 77063; 77067

== ENCOUNTER 2020-03-17 18:28 | Emergency (ER) | payer OTHER, MEDICARE, SELFPAY ==
[2020-02-06 08:56] VITALS: BMI 25.0
[2020-03-17 18:28] VITALS: BP 142/76; PULSE 79; RESP 16; TEMP 36.3; O2SAT 97; BMI 24.7
[2020-03-17 18:31] VITALS: BP 142/76; PULSE 79; RESP 16; TEMP 36.3; O2SAT 97
--- NOTE | 2020-03-17 18:52 | CT_ITS ---
STUDY: CT BRAIN WITHOUT CONTRAST REASON FOR EXAM: Female, 64 years old. POE RADIATION DOSAGE (If Supplied By Facility): CTDIvol = ( 44.99 ) mGy, DLP = ( 796.11 ) mGycm TECHNIQUE: Transaxial CT imaging of the brain was performed without administration of intravenous contrast material. Individualized dose optimization techniques were used for this CT. COMPARISON: No relevant priors. FINDINGS: Normal soft tissue structures. Normal calvarium. Normal size ventricles and extra-axial spaces for the patient''s age. Normal white matter tracts of the cerebral hemispheres. Normal basal ganglia and thalami. Normal brainstem. Normal cerebellum. There is no intracranial hemorrhage. There are no findings of an acute ischemic infarction. There is complete opacification of the left maxillary sinus. CT/Brain/Head without Contrast IMPRESSION: Normal unenhanced CT scan of the brain. Electronically Signed: Sina Urbano MD at 20:13 EDT , Service support ,
--- NOTE | 2020-03-17 18:53 | ED.VIS.GEN ---
History of Present Illness Chief Complaint: Headache Informant: Patient Onset: Today Current Severity: Moderate Maximum Severity: Moderate Narrative: Patient present secondary to headache, body aches, and chills. She woke this morning with left-sided headache which wraps around the left side of the head into her neck. She had body aches and chills. [facility] which returned negative. Her respiratory panel is currently pending. Patient took Tylenol this morning and 1 tab of oxycodone approximately 6 hours ago. She does report nausea but no vomiting. She denies light sensitivity. She denies head trauma. - Past Medical History (1) Atherosclerosis of coronary artery of [place] heart without angina pectoris Status: Chronic (2) Essential (primary) hypertension Status: Chronic (3) Hyperlipidemia Status: Chronic (4) Old inferior wall myocardial infarction Status: Chronic (5) Paroxysmal supraventricular tachycardia Status: Chronic Comment: RFA-12/2006 (6) History of coronary artery stent placement Status: Resolved Comment: ECK-Yddru-DAT 01/1999 Past Medical History - Allergies and Home Meds Allergies/Adverse Reactions: Allergies No Known Allergies Allergy (Verified 03/17/20 19:12) Primary Care Physician: Musa Rodríguez MD [Primary Care Provider] - Surgical History: - - knee surgery, angioplasty of a main coronary artery in the past after chest pain. Lives: Spouse/ Significant Other Smoking Status: Never smoker - Family History Maternal Family History: Family History (Last Reviewed 02/06/20 @ 09:[address] Jagdeep Chauhan MD) Father Heart disease Sister Cancer Family History: Reports: No pertinent history Review of Systems General: Reports: Chills. Denies: Fever Eyes: Denies: Visual changes - bilaterally ENT: Denies: Bilateral ear pain, Sore throat Cardiovascular: Denies: Chest pain Respiratory: Denies: Dyspnea Gastrointestinal: Reports: Nausea. Denies: Abdominal pain, Vomiting Musculoskeletal: Reports: Myalgias. Denies: Swelling, Extremity Pain Neurological: Reports: Headache Hematologic: Denies: Easy bruising, Easy bleeding Allergy: Denies: Uticaria Physical Exam Vital Signs/Narrative: Vital Signs Temp Pulse Resp BP Pulse Ox 03/17/20 18:28 97.4 F L 79 16 142/76 H 97 Inital Vital Signs reviewed: Yes General: Well nourished, Well developed Head: Normocephalic ENT: Moist mucous membranes, Sinus tenderness, - - No meningismus Neck: Supple Cardiovascular: Regular rate, Regular rhythm Respiratory: No distress, CTA bilaterally Abdomen: Soft, Nontender Back: Nontender Extremities: Nontender Skin: Normal color Neurological: Alert, Oriented x3, Normal Strength, Normal Sensation Psychological: Normal affect Diagnostic/Tx/Re-eval Impressions Brain CT 03/17/20 18:52 IMPRESSION: Normal unenhanced CT scan of the brain. Electronically Signed: Sina Urbano MD at 20:13 EDT , Service support , 03/17/20 18:52 Brain/Head without Contrast [CT] Stat - Medical Decision Making Patient was given Toradol, Reglan, Benadryl, and IV fluids. Head CT is unremarkable. On repeat evaluation headache is significantly improved. She will be discharged home with her at this time. ED Disposition - Plan for ED Patient: Disposition: Home or Assisted Living Diagnosis: Cephalgia Instructions: ED Headache Unspecified Referrals: Musa Rodríguez MD [Primary Care Provider] - As Needed
[2020-03-17] MEDS: Metoclopramide 10 MG/2 ML Vial IV (19:04)
[2020-03-17] MEDS: Ketorolac 30 MG/ML Syringe IV (19:04)
[2020-03-17] MEDS: DiphenhydrAMINE 50 MG/ML Syringe 25 MG IV (19:04)
[2020-03-17] MEDS: 0.9% Normal Saline 1,000 ML 999 ML IV (19:04)
[2020-03-17 19:49] VITALS: BP 116/88; PULSE 68; RESP 16
[2020-03-17 21:00] VITALS: BP 137/78; PULSE 69; RESP 18
== END 2020-03-17 21:01 | disposition home or self-care (01) ==
PROVIDERS: Emergency Provider Emergency Medicine; PCP Family Medicine
DX: R51.9 Headache, unspecified (principal); M79.10 Myalgia, unspecified site; R68.83 Chills (without fever); R11.0 Nausea; I10 Essential (primary) hypertension; I25.2 Old myocardial infarction; E78.5 Hyperlipidemia, unspecified; I25.10 Atherosclerotic heart disease of native coronary artery without angina pectoris; Z95.5 Presence of coronary angioplasty implant and graft; Z79.82 Long term (current) use of aspirin; Z79.899 Other long term (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
CPT/HCPCS: 70450; 96361; 96374; 96375; 99283; A4216

== ENCOUNTER → 2020-05-28 09:35 | Outpatient (CLI) | payer OTHER, MEDICARE, SELFPAY ==
[2020-05-28 12:28] LABS: Absolute Lymphocyte Count 1.82 X10^3/uL (0.83-4.51); Absolute Neutrophil Count 3.8 X10^3/uL (2.0-7.7); Basophil# 0.06 X10^3/uL; Eosinophil# 0.09 X10^3/uL; Eosinophils% 1.4 % (0-5); Lymphocyte # 1.82 X10^3/ul (4.0); Lymphocyte % 29.3 % (19-41); Mean Corp Hgb Conc 32.5 g/dL (32-36); Mean Corpuscular Hgb 29.5 pg (27.0-32.0); Mean Corpuscular Volume 90.7 fL (81-99); Mean Platelet Vol. 9.1 fl (6.2-12.0); Monocyte# 0.48 X10^3/uL; Monocyte% 7.7 % (0-10); NRBC Flagged by Analyzer 0 % (0-5); Neutrophil # 3.75 X10^3/uL (2.7-7.7); Neutrophil % 60.4 % (47-70); Platelet Count 306 K/mm3 (150-450); RBC Distribution Width SD 39.8 fl (35.1-43.9); Red Blood Count 4.41 M/mm3 (4.2-5.4); White Blood Count 6.2 K/mm3 (4.4-11.0)
[2020-05-28 12:35] LABS: Cholesterol 162 mg/dL (200); High Density Lipoprotein 74 mg/dL; T4 Free Direct 1.04 ng/dL (0.76-1.46); Triglycerides 53 mg/dL; Very Low Density Lipoprotein 11 mg/dL (5-40); Vitamin D,25 Hydroxy 51.1 ng/mL
== END ==
PROVIDERS: PCP Family Medicine; Visit Provider Family Medicine
DX: I10 Essential (primary) hypertension (principal); I25.10 Atherosclerotic heart disease of native coronary artery without angina pectoris; M85.80 Other specified disorders of bone density and structure, unspecified site
CPT/HCPCS: 36415; 80061; 82306; 84439; 84443; 85025

== ENCOUNTER → 2020-06-21 07:24 | Outpatient (CLI) | payer OTHER, MEDICARE, SELFPAY ==
--- NOTE | 2020-06-21 07:25 | BI_ITS ---
MAMMOGRAPHY - BILATERAL SCREENING REASON FOR EXAM: Female, 64 years old. Routine annual screening examination. PERTINENT HISTORY: Sister with breast cancer. TECHNIQUE: Digital bilateral breast redd (3D mammographic acquisition) in the CC and MLO projections. 2-D mediolateral oblique (MLO) and craniocaudad (CC) views of both breasts were obtained. CAD: Full Field Digital Mammography with Computer Added Detection was performed. COMPARISON: Comparison is made with prior study dated 05/01/2019 and 03/31/2017. FINDINGS: Breast Composition: There are scattered areas of fibroglandular density. There are no dominant masses or suspicious calcifications. Stable 2 adjacent well-circumscribed 2 mm nodules in the superior outer aspect of the right breast. No other significant abnormalities are identified. There has been no significant change since the prior study. BI/SCRN MAMM (CAD)W/REDD BILAT IMPRESSION: Stable bilateral screening mammogram. Yearly follow-up mammogram recommended. (A) ASSESSMENT CATEGORY: BIRADS Category 2: Benign. A letter regarding these results will be sent to the patient by the facility within 30 days. Approximately 10% of breast cancers are not detected by mammography. A normal mammogram should not delay biopsy of a clinically suspicious abnormality. [id number] Electronically Signed: Darryl Ramírez, at 8:33 EST , Service support ,
== END ==
PROVIDERS: PCP Family Medicine; Referring Provider Family Medicine; Visit Provider Family Medicine
DX: Z12.31 Encounter for screening mammogram for malignant neoplasm of breast (principal)
CPT/HCPCS: 77063; 77067

== ENCOUNTER → 2021-04-08 | Outpatient (CLI) | payer MEDICARE, OTHER, SELFPAY | END | disposition home or self-care (01) | PROVIDERS: PCP Family Medicine; Referring Provider Otolaryngology; Visit Provider Otolaryngology | DX: Z03.818 Encounter for observation for suspected exposure to other biological agents ruled out (principal); Z11.59 Encounter for screening for other viral diseases | CPT/HCPCS: 87635; U0005; U0003 ==

== ENCOUNTER 2021-08-09 13:13 | Emergency (ER) | payer MEDICARE, OTHER, SELFPAY ==
[2021-08-09 13:13] VITALS: BP 142/83; PULSE 80; RESP 16; TEMP 36.6; O2SAT 100; BMI 27.3
--- NOTE | 2021-08-09 13:56 | ED.RN ---
Pt called out stating that her nose was bleeding again. Into room, pt states MD had just taken her nose clamp off. Clamp replaced. Dr Lange notified.
--- NOTE | 2021-08-09 13:59 | EX.ED.DYSGE1 ---
HPI History of Present Illness Chief Complaint: Nosebleed Informant: patient Onset/Context/Timing Onset: Today Context: Sudden Onset Timing: Continuous Quality: Red bleeding Location: Bilateral nares, left greater than right Worsened by: Sitting Relieved by: Walking Narrative Narrative: Patient presents with epistaxis that began today. Patient states she was washing dishes when she noted blood coming from her left nares. Patient states that it then started coming out of the right nares and then going down the back of her throat. Patient states it has been constant. Patient states it was better when she was up and walking. Patient states it seemed to get worse when she was sitting down. Patient denies any trauma or injury. Patient is not on any anticoagulants. [facility] Medical History Atherosclerosis of coronary artery of [place] heart without angina pectoris Back pain Blepharitis DVT (deep venous thrombosis) Essential (primary) hypertension Fatigue Hyperlipidemia Incomplete uterovaginal prolapse Knee pain Migraines Old inferior wall myocardial infarction (1998) Paroxysmal supraventricular tachycardia Stress incontinence Home Medications aspirin 81 mg PO DAILY@0800 02/28/16 [History Last Taken 02/28/16 08:00] cholecalciferol (vitamin D3) 2,000 unit PO DAILY 02/28/16 [History Last Taken 02/28/16 08:00] coenzyme Q10 100 mg PO DAILY 02/28/16 [History Last Taken 02/28/16 08:00] duloxetine 30 mg PO DAILY 02/28/16 [History Last Taken 02/28/16 08:00] omega 1-urq-fit-fish oil 1,000 mg PO DAILY 02/28/16 [History Last Taken 02/28/16 08:00] vitamin E 1,000 unit PO DAILY 02/28/16 [History Last Taken 02/28/16 08:00] omeprazole 20 mg capsule,delayed release 20 mg PO DAILY 01/27/18 [History Last Taken 10/20/18 04:30 20 MG] trazodone 50 mg tablet 25 mg PO QHS tab 09/05/18 [History Last Taken Unknown] calcium carbonate 600 mg-vitamin D3 12.5 mcg (500 unit) capsule 1 cap PO DAILY cap 02/06/20 [History Last Taken Unknown] metoprolol tartrate 25 mg tablet 25 mg PO QDAY #90 tab 02/06/20 [Rx Last Taken Unknown] red yeast rice extract (bulk) 1,200 ea PO DAILY g 02/06/20 [History Last Taken Unknown] rosuvastatin 40 mg tablet 40 mg PO DAILY #90 tab 02/21/21 [Rx Last Taken Unknown] cephalexin 500 mg PO Q6 #20 capsule 08/09/21 [Rx Last Taken Unknown] Allergy/AdvReac Type Severity Reaction Status Date / Time No Known Allergies Allergy Verified 08/09/21 13:13 Family History Father Heart disease Sister Cancer Surgical History History of coronary artery stent placement (01/1999) History of knee replacement History of left heart catheterization (12/2006) History of radiofrequency ablation procedure for cardiac arrhythmia (12/2006) History of total vaginal hysterectomy (TVH) (10/20/18) History of urologic surgery Social History Smoking Status: Never smoker alcohol intake: never substance use type: does not use caffeine: Yes Type: tea Number of servings: 1 what type of physical activity do you participate in: walking seatbelt use: always do you feel safe at home: Yes ROS ROS ED Constitutional Constitutional ED: Denies chills or fever(s) Eyes Eyes: Denies blurry vision or change in vision ENT ENT ED: Denies rhinorrhea or sore throat Cardiovascular Cardiovascular: Denies chest pain or palpitations Respiratory/Chest Respiratory/Chest: Denies cough or dyspnea Gastrointestinal Gastrointestinal: Denies nausea or vomiting Genitourinary Genitourinary ED: Denies dysuria or hematuria Musculoskeletal Musculoskeletal: Reports neck pain; Denies back pain Integumentary Denies abscess or rash Neurologic Neurologic: Reports headache(s); Denies weakness Allergic/Immunologic Allergic/Immunologic ED: Denies mouth swelling or urticaria EXAM Physical Exam Const Vital Signs: 08/09/21 13:13 Temperature 97.9 F Temperature Source Temporal Pulse Rate 80 Respiratory Rate 16 Blood Pressure 142/83 H Blood Pressure Mean 102 Pulse Ox 100 Oxygen Delivery Method Room Air Positive well nourished and well developed General Appearance ED: well developed and NAD HEENT Reports moist mucous membranes HEENT Narrative: There is dried blood noted in the left anterior nasal septum. There is no dried blood in the right nares. There is no bleeding in the oropharynx noted. There is no septal deviation or septal hematoma noted. Neck supple and no JVD Neuro oriented x3, CN's II-XII intact bilaterally and no sensory deficits noted Sensorium / Orientation: alert Motor Exam: strength 5/5 throughout Psych mental status grossly normal MDM MDM MDM Narrative Medical decision making narrative: The nasal clip was removed. There is no bleeding on initial exam however, patient did start bleeding later. Nasal clip was reapplied. Cottonballs soaked with [place] solution were applied. A moderate size clot was removed there is still some epistaxis noted from the anterior nasal septum in the left nares. An anterior rapid Rhino nasal packing was applied. The balloon was inflated. Patient tolerated the procedure well. There is no further bleeding around the packing. Patient wants to go home. Patient follows with Dr. Ngo for ENT. Patient was instructed to follow-up with him or her primary care physician in 2 days for packing removal. Patient was given a prescription for Keflex. Patient understood and was agreeable with the plan. All questions were answered. Lab Data Attestation: I reviewed the patient's lab results. Discharge Plan Triage Chief Complaint: Nosebleed ED Provider: López Lange Dx/Rx/DC Orders Clinical Impression: Anterior epistaxis Instructions: ED Epistaxis (Adult) Prescriptions: New cephalexin [cephalexin] 500 MG capsule 500 mg PO Q6 Qty: 20 RF: 0 No Action omeprazole 20 mg capsule,delayed release(DR/EC) 20 mg PO DAILY RF: 0 trazodone 50 mg tablet 25 mg PO QHS RF: 0 calcium carbonate-vitamin D3 [Calcium 600 with Vitamin D3] 600 mg(1,500mg) -500 unit capsule 1 cap PO DAILY RF: 0 metoprolol tartrate 25 mg tablet 25 mg PO QDAY Qty: 90 RF: 3 aspirin 81 MG tablet,chewable 81 mg PO DAILY@0800 RF: 0 cholecalciferol (vitamin D3) 1,000 UNIT tablet 2,000 unit PO DAILY RF: 0 omega 4-vae-mgk-fish oil 500 MG capsule,delayed release(DR/EC) 1,000 mg PO DAILY RF: 0 vitamin E 1,000 UNIT capsule 1,000 unit PO DAILY RF: 0 coenzyme Q10 100 MG capsule 100 mg PO DAILY RF: 0 duloxetine 30 MG capsule,delayed release(DR/EC) 30 mg PO DAILY RF: 0 red yeast rice extract (bulk) Powder 1,200 ea PO DAILY RF: 0 rosuvastatin 40 mg tablet 40 mg PO DAILY Qty: 90 RF: 3 Primary Care Provider: Musa Rodríguez Referrals: Erick Ngo MD [STAFF PHYSICIAN] - 2 Days Musa Rodríguez MD [Primary Care Provider] - Keep Hung appointment Disposition Disposition: Home, Self Care
[2021-08-09] MEDS: Mixture 30 ML Bottle TOPICAL (14:30)
== END 2021-08-09 15:45 | disposition home or self-care (01) ==
PROVIDERS: Emergency Provider Emergency Medicine; PCP Family Medicine; Visit Provider Emergency Medicine
DX: R04.0 Epistaxis (principal); I25.10 Atherosclerotic heart disease of native coronary artery without angina pectoris; E78.5 Hyperlipidemia, unspecified; I10 Essential (primary) hypertension; Z86.718 Personal history of other venous thrombosis and embolism; I25.2 Old myocardial infarction; G43.909 Migraine, unspecified, not intractable, without status migrainosus; Z79.82 Long term (current) use of aspirin; Z79.899 Other long term (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; Z95.5 Presence of coronary angioplasty implant and graft
CPT/HCPCS: 30901; 99282

== ENCOUNTER 2021-08-29 10:16 | Outpatient (CLI) | payer MEDICARE, OTHER, SELFPAY ==
--- NOTE | 2021-08-29 10:24 | BI_ITS ---
MAMMOGRAPHY - BILATERAL SCREENING REASON FOR EXAM: Female, 66 years old. Routine annual screening examination. PERTINENT HISTORY: Sister with breast cancer. TECHNIQUE: Digital bilateral breast redd (3D mammographic acquisition) in the CC and MLO projections. 2-D mediolateral oblique (MLO) and craniocaudad (CC) views of both breasts were obtained. CAD: Full Field Digital Mammography with Computer Added Detection was performed. COMPARISON: Comparison is made with prior study dated 12/19/2020 and 05/01/2019. FINDINGS: Breast Composition: There are scattered areas of fibroglandular density. There are no dominant masses or suspicious calcifications. No other significant abnormalities are identified. There has been no significant change since the prior study. BI/SCRN MAMM (CAD)W/REDD BILAT IMPRESSION: Stable bilateral screening mammogram. Yearly follow-up mammogram recommended. (A) ASSESSMENT CATEGORY: BIRADS Category 1: Negative. A letter regarding these results will be sent to the patient by the facility within 30 days. Approximately 10% of breast cancers are not detected by mammography. A normal mammogram should not delay biopsy of a clinically suspicious abnormality. [id number] Electronically Signed: Darryl Ramírez MD at 11:20 EDT ,
== END 2021-08-29 23:59 | disposition home or self-care (01) ==
PROVIDERS: PCP Family Medicine; Referring Provider Family Medicine; Visit Provider Family Medicine
DX: Z12.31 Encounter for screening mammogram for malignant neoplasm of breast (principal)
CPT/HCPCS: 77063; 77067

== ENCOUNTER → 2022-04-14 | Outpatient (CLI) | payer MEDICARE, OTHER, SELFPAY ==
[2022-04-14 11:13] LABS: AST(SGOT) 12 U/L (15-37); Alanine Aminotransfer ALT/SGPT 23 U/L (13-56); Albumin, Serum 3.5 g/dL (3.2-5.0); Alkaline Phosphatase 75 U/L (45-117); Bilirubin, Direct 0.14 mg/dL (0.00-0.30); Cholesterol 180 mg/dL (200); Globulin 3.4 g/dL (2.2-4.2); High Density Lipoprotein 81 mg/dL; Protein, Total 6.9 g/dL (6.4-8.2); Triglycerides 37 mg/dL; Very Low Density Lipoprotein 7 mg/dL (5-40)
== END | disposition home or self-care (01) ==
LOC: LAB 10:16
PROVIDERS: PCP Family Medicine; Referring Provider Internal Medicine Cardiovascular Disease; Visit Provider Internal Medicine Cardiovascular Disease
DX: E78.00 Pure hypercholesterolemia, unspecified (principal)
CPT/HCPCS: 36415; 80061; 80076

== ENCOUNTER 2022-05-07 16:21 | Outpatient (CLI) | payer MEDICARE, OTHER, SELFPAY | END 2022-05-07 23:59 | disposition home or self-care (01) | LOC: LABSPEC 16:23 | PROVIDERS: PCP Family Medicine; Visit Provider Otolaryngology | DX: J32.9 Chronic sinusitis, unspecified (principal) | CPT/HCPCS: 87070; 87077; 87186; 87205 ==

== ENCOUNTER 2022-05-11 06:44 | Outpatient (CLI) | payer MEDICARE, OTHER, SELFPAY ==
--- NOTE | 2022-05-11 06:45 | ECHOD_ITS ---
Reason For Study: CAD/ASHD Procedure This was a 2D Doppler, Color Flow transthoracic echocardiogram. Exam performed in department. Left Ventricle Normal LV size. Left ventricular systolic function is normal. The estimated ejection fraction is 60 %. No regional wall motion abnormalities noted. Right Ventricle Normal RV size. Normal systolic function. Atria Normal left atrium. Normal right atrium. Mitral Valve Normal mitral valve. Tricuspid Valve Normal tricuspid valve. Aortic Valve Normal aortic valve. Pulmonic Valve Normal pulmonic valve. Great Vessels Normal aortic root. The pulmonary artery is normal size. Normal inferior vena cava. Pericardium/Pleural No pericardial effusion. MMode/2D Measurements & Calculations LVIDd: 4.2 cm IVSd: 1.0 cm Ao root diam: 3.3 cm LVIDs: 2.3 cm LVPWd: 1.2 cm FS: 44.6 % LAV(MOD-bp): 35.0 ml LVAd ap4: 19.5 cm2 LVAd ap2: 18.3 cm2 LAV(MOD-bp) Indexed: 18.1 ml/m2 LVLd ap4: 7.5 cm LVLd ap2: 6.8 cm LAV(MOD-sp2): 40.0 ml EDV(MOD-sp4): 40.6 ml EDV(MOD-sp2): 39.2 ml LAV(MOD-sp4): 27.7 ml EDV(sp4-el): 43.2 ml EDV(sp2-el): 41.7 ml LVAs ap4: 8.0 cm2 LVAs ap2: 9.1 cm2 LVLs ap4: 6.0 cm LVLs ap2: 5.8 cm ESV(MOD-sp4): 8.9 ml ESV(MOD-sp2): 11.7 ml ESV(sp4-el): 9.1 ml ESV(sp2-el): 12.2 ml EF(MOD-sp4): 78.0 % EF(MOD-sp2): 70.1 % EF(sp4-el): 78.9 % SV(MOD-sp4): 31.6 ml SV(MOD-sp2): 27.4 ml SV(sp4-el): 34.1 ml LA dimension(2D): 3.2 cm LA A4 area: 12.6 cm2 RA A4 area: 9.9 cm2 Time Measurements MV dec time: 0.21 sec Doppler Measurements & Calculations MV E max solomon: 61.8 cm/sec Lat Peak E' Solomon: 7.9 cm/sec Med Peak E' Solomon: 5.4 cm/sec MV A max solomon: 60.7 cm/sec E/E' lat: 7.8 E/E' med: 11.4 MV E/A: 1.0 MV V2 max: 70.8 cm/sec MV dec slope: 292.6 cm/sec2 Ao V2 max: 126.5 cm/sec MV max P.0 mmHg Ao max P.4 mmHg MV V2 mean: 48.4 cm/sec Ao V2 mean: 92.8 cm/sec MV mean P.0 mmHg Ao mean P.8 mmHg MV V2 VTI: 21.0 cm Ao V2 VTI: 27.2 cm AV (velocity ratio): 0.76 LV V1 max: 100.1 cm/sec PA V2 max: 107.3 cm/sec LV V1 max P.0 mmHg PA V2 mean: 77.4 cm/sec LV V1 mean P.5 mmHg LV V1 mean: 74.6 cm/sec LV V1 VTI: 20.6 cm ECHO/Echo Complete Interpretation Summary Normal LV size. Left ventricular systolic function is normal. The estimated ejection fraction is 60 %. Normal left atrium. Ordering Physician: Jagdeep Chauhan Referring Physician: Musa Rodríguez Performed By: Janay Han RCS
== END 2022-05-11 23:59 | disposition home or self-care (01) ==
LOC: CVS 06:45
PROVIDERS: PCP Family Medicine; Visit Provider Internal Medicine Cardiovascular Disease
DX: I25.10 Atherosclerotic heart disease of native coronary artery without angina pectoris (principal); Z95.5 Presence of coronary angioplasty implant and graft
CPT/HCPCS: 78452; 93017; 93306; A9500; A4216

== ENCOUNTER → 2022-10-30 | Outpatient (CLI) | payer MEDICARE, OTHER, SELFPAY ==
[2022-10-30 10:21] LABS: Absolute Lymphocyte Count 1.29 X10^3/uL (0.83-4.51); Absolute Neutrophil Count 2.4 X10^3/uL (2.0-7.7); Basophil# 0.05 X10^3/uL; Basophil% 1.2 % (0-1); Eosinophil# 0.12 X10^3/uL; Eosinophils% 2.8 % (0-5); Hematocrit 36.1 % (37-47); Hemoglobin 11.5 g/dL (12.0-15.0); Lymphocyte # 1.29 X10^3/ul (0.83-4.51); Lymphocyte % 29.9 % (19-41); Mean Corp Hgb Conc 31.9 g/dL (32-36); Mean Corpuscular Hgb 29.4 pg (27.0-32.0); Mean Corpuscular Volume 92.3 fL (81-99); Mean Platelet Vol. 9.5 fl (6.2-12.0); Monocyte# 0.47 X10^3/uL; Monocyte% 10.9 % (0-10); NRBC Flagged by Analyzer 0 % (0-5); Neutrophil # 2.38 X10^3/uL (2.7-7.7); Platelet Count 313 K/mm3 (150-450); RBC Distribution Width CV 12.9 % (11.6-14.6); RBC Distribution Width SD 43.6 fl (35.1-43.9); Red Blood Count 3.91 M/mm3 (4.2-5.4); White Blood Count 4.3 K/mm3 (4.4-11.0)
[2022-10-30 10:31] LABS: AST(SGOT) 20 U/L (15-37); Alanine Aminotransfer ALT/SGPT 23 U/L (13-56); Albumin, Serum 3.4 g/dL (3.2-5.0); Alkaline Phosphatase 68 U/L (45-117); Bilirubin, Direct 0.12 mg/dL (0.00-0.30); Cholesterol 140 mg/dL (200); Globulin 3.1 g/dL (2.2-4.2); High Density Lipoprotein 67 mg/dL; Protein, Total 6.5 g/dL (6.4-8.2); Triglycerides 33 mg/dL; Very Low Density Lipoprotein 7 mg/dL (5-40); Vitamin B12 1369 pg/mL (211-911); Vitamin D,25 Hydroxy 79.5 ng/mL
[2022-10-30 10:36] LABS: ALB/GLOB Ratio 0.9 RATIO (0.9-2.4); AST(SGOT) 18 U/L (15-37); Alanine Aminotransfer ALT/SGPT 23 U/L (13-56); Albumin, Serum 3.3 g/dL (3.2-5.0); Alkaline Phosphatase 68 U/L (45-117); Anion Gap 9 (5-15); BUN 11 mg/dL (7-18); BUN/Creat Ratio 13.8 RATIO (10-20); Calcium,Total 9.2 mg/dL (8.5-10.1); Chloride 101 mmol/L (98-107); EST Glomerular Filtration Rate 76 mL/min (>60); Est Glom Filt Rate - Afr Amer 91 mL/min (>60); Ferritin 44 ng/mL (8-252); Globulin 3.5 g/dL (2.2-4.2); Glucose 114 mg/dL (74-106); Potassium 4.1 mmol/L (3.5-5.1); Protein, Total 6.8 g/dL (6.4-8.2); Sodium Level 137 mmol/L (136-145); Thyroid Stim Hormone (TSH) 1.65 uIU/mL (0.358-3.74)
== END | disposition home or self-care (01) ==
LOC: MTLAB 07:28
PROVIDERS: Internal Medicine Cardiovascular Disease; PCP Family Medicine; Referring Provider Family Medicine; Visit Provider Family Medicine
DX: G25.81 Restless legs syndrome (principal); K21.9 Gastro-esophageal reflux disease without esophagitis; I10 Essential (primary) hypertension; E78.00 Pure hypercholesterolemia, unspecified
CPT/HCPCS: 36415; 80053; 80061; 80076; 82306; 82607; 82728; 84443; 85025

== ENCOUNTER → 2022-11-10 | Outpatient (CLI) | payer MEDICARE, OTHER, SELFPAY ==
--- NOTE | 2022-11-10 13:07 | BI_ITS ---
MAMMOGRAPHY - BILATERAL SCREENING REASON FOR EXAM: Female, 67 years old. Routine annual screening examination. PERTINENT HISTORY: Sister with breast cancer. TECHNIQUE: Digital bilateral breast redd (3D mammographic acquisition) in the CC and MLO projections. 2-D mediolateral oblique (MLO) and craniocaudad (CC) views of both breasts were obtained. CAD: Full Field Digital Mammography with Computer Added Detection was performed. COMPARISON: Comparison is made with prior examination August 29, 2021 and June 21, 2020. FINDINGS: Breast Composition: There are scattered areas of fibroglandular density. There are no dominant masses or suspicious calcifications. No other significant abnormalities are identified. There has been no significant change since the prior study. BI/SCRN MAMM (CAD)W/REDD BILAT IMPRESSION: Stable bilateral screening mammogram. Yearly follow-up mammogram recommended. (A) ASSESSMENT CATEGORY: BIRADS Category 1: Negative. A letter regarding these results will be sent to the patient by the facility within 30 days. Approximately 10% of breast cancers are not detected by mammography. A normal mammogram should not delay biopsy of a clinically suspicious abnormality. [id number] Electronically Signed: Darryl Ramírez MD at 14:23 EDT ,
--- NOTE | 2022-11-10 13:28 | BD_ITS ---
STUDY: DUAL ENERGY X-RAY ABSORPTIOMETRY / DXA REASON FOR EXAM: Female, 67 years old. M810 TECHNIQUE: Bone Mineral Density (BMD) measurements of lumbar spine and bilateral hips were obtained. COMPARISON: Comparison is made with prior study dated December 03, 2016. FINDINGS: Lumbar Spine (L1-L4): g/cm2 (0.871) / T-score (-1.7) / Z-score (0.4) Findings are suggestive of osteopenia with a moderate fracture risk. Left Femur Total: g/cm2 (0.677) / T-score (-2.2) / Z-score (-0.7) Left Femoral Neck: g/cm2 (0.615) / T-score (-2.1) / Z-score (-0.4) Right Femur Total: g/cm2 (0.662) / T-score (-2.3) / Z-score (-0.8) Right Femoral Neck: g/cm2 (0.644) / T-score (-1.8) / Z-score (-0.1) The T-Scores on the most recent prior examination were: Lumbar Spine (L1-L4): There has been worsening of bone density since the previous examination. Left Femur Total: which represents a worsening of 2.9%. Right Femur Total: which represents a worsening of 0.2%. BD/Dexa Bone Density Study IMPRESSION: The patient is considered osteoporotic as outlined below according to World Ryan Organization (WHO) criteria with a high fracture risk. There has been worsening of bone density since the previous examination. Reference Information: The T-score is the number of standard deviations above or below the standard which is normal for young adults at their peak bone mineral density. The World Health Organization (WHO) interprets the T-scores as follows: Above -1 Normal bone density Between -1 and -2.5 Osteopenia Equal to / or below -2.5 Osteoporosis As a practical clinical guideline, osteopenia may be graded as follows: Mild -1 through -1.5 Moderate -1.6 through -2.0 Severe -2.1 through -2.4 The Z-score is the number of standard deviations above or below age-matched controls. A Z-score of less than -1.5 would be considered abnormal. References: 1. NIH Osteoporosis and Related Bone Diseases www osteo.org 2. International Society for Clinical Densitometry www iscd.org 3. National Osteoporosis Foundation www nof.org Electronically Signed: Darryl Ramírez MD at 14:04 EDT ,
== END | disposition home or self-care (01) ==
LOC: OPBD 13:05
PROVIDERS: PCP Family Medicine; Referring Provider Family Medicine; Visit Provider Family Medicine
DX: Z12.31 Encounter for screening mammogram for malignant neoplasm of breast (principal); Z13.820 Encounter for screening for osteoporosis; M81.0 Age-related osteoporosis without current pathological fracture; Z80.3 Family history of malignant neoplasm of breast
CPT/HCPCS: 77063; 77067; 77080

== ENCOUNTER 2022-12-21 07:07 | Outpatient (RCR) | payer MEDICARE, OTHER, SELFPAY ==
--- NOTE | 2022-12-21 07:59 | HP.PTEVAL ---
Patient's Visit Information Visit Information Visit Information: KELLEN GUY is a 67 year old F referred to Physical Therapy by Jessica Cintron DO with a diagnosis of OP. Date of Evaluation: 12/21/22 Physical Therapist: López Romero, DPT, OCS, CSCS Visit Plan Frequency: 5x /Week Plan: Educated patient on a few tweaks to her regular ex program which is already very comprehensive. Will relate these tweaks to her personal trainer and she will implement them without further skilled intervention. Add pull down and hip abduction to machine program add unilateral cheung carry to program add minisquat/minilung and step ups to lower body program. These have been emailed to her personal trainer at her request and verbally reviewed today. Subjective Subjective: Had bone density screen 4 yrs ago and was on boniva for 3 yrs, then off for a year and another bone density and still osteopenia. Works out with weights 3x/week, MWF weights on machines and dumbbells and 15 min cardio Spinning class o0n Thrusday. Also walks daily 6x/week 1.5-3 miles. Has had falls tripping on things(sidewalk) but has not broken anything. No spinning dizzyness, No neuropathy or DM. Sleep is OK. Not employed. Hobbies: Ex and yard work and cross words. Basic ADLs are going well. Pain in shoulders and elbows and LB and R knee needs TKA, had one on L. Likely form OA. Sometimes up to 5/10, 3/10 on daily basis. Workout: Leg press, hip adduction, walking 1.5-3 miles per day. elliptical MWF 15 minutes. Upper body: chest press, , shoulder press, tricep dips assisted, rows, then bicep curls 12#, bent over row 15#, modified push up, tricep extension. training with Gabrielle pedraza every now and then. Objective Objective: Walking normal, trasnfers easy and I bed and chair, steps reciprocal without rail. Good balance. strength hips 4/5, knees 4+/5 and ankles 4+/5 Flexibility is good in quad and HS. reflexes 2/3 patella and achilles coordination to reciprocal heel , toe and hand tap are good, heel to rios test is good. Sensation to gross slight touch in LE is WNL LE and UE AROM is WNL Balance/Special Test Scores Functional Gait Assessment Score: 29 % Disability: 3.3400 CATSIB Score (Max score 120 seconds): 120 Lower Extremity Functional Score: 41 Rehabilitation Potential Physical Therapy Diagnosis: OP diagnosis being managed well but could benefit from a few tweaks. Anticipated Interventions Text: Thank you for the opportunity to evaluate your patient. For Medicare and Medicare HMO plans, please review the plan of care and approve it. It will need to be FAXED BACK to us at [phone] for Medicare purposes. For Medicare only, by signing this I certify the plan of care. Please let me know if there are questions or concerns regarding this plan of care. Physician Signature: Date:
== END 2022-12-21 19:00 | disposition home or self-care (01) ==
LOC: PT 07:07
PROVIDERS: PCP Family Medicine; Referring Provider Family Medicine; Visit Provider Family Medicine
DX: M85.80 Other specified disorders of bone density and structure, unspecified site (principal)
CPT/HCPCS: 97161

== ENCOUNTER → 2023-04-13 | Outpatient (CLI) | payer MEDICARE, OTHER, SELFPAY ==
[2023-04-13 09:28] LABS: AST(SGOT) 18 U/L (15-37); Alanine Aminotransfer ALT/SGPT 24 U/L (13-56); Albumin, Serum 3.4 g/dL (3.2-5.0); Alkaline Phosphatase 73 U/L (45-117); Bilirubin, Direct 0.13 mg/dL (0.00-0.30); Cholesterol 157 mg/dL (200); Globulin 3.3 g/dL (2.2-4.2); High Density Lipoprotein 75 mg/dL; Protein, Total 6.7 g/dL (6.4-8.2); Triglycerides 45 mg/dL; Very Low Density Lipoprotein 9 mg/dL (5-40)
== END | disposition home or self-care (01) ==
LOC: LAB 08:12
PROVIDERS: PCP Family Medicine; Referring Provider Internal Medicine Cardiovascular Disease; Visit Provider Internal Medicine Cardiovascular Disease
DX: E78.00 Pure hypercholesterolemia, unspecified (principal)
CPT/HCPCS: 36415; 80061; 80076

== ENCOUNTER → 2023-09-20 | Outpatient (CLI) | payer MEDICARE, OTHER, SELFPAY ==
[2023-09-20 17:50] LABS: Absolute Lymphocyte Count 2.37 X10^3/uL (0.83-4.51); Absolute Neutrophil Count 3.2 X10^3/uL (2.0-7.7); Basophil# 0.06 X10^3/uL; Basophil% 0.9 % (0-1); Eosinophil# 0.13 X10^3/uL; Hematocrit 39.8 % (37-47); Hemoglobin 13.2 g/dL (12.0-15.0); Lymphocyte # 2.37 X10^3/ul (0.83-4.51); Lymphocyte % 36.7 % (19-41); Mean Corp Hgb Conc 33.2 g/dL (32-36); Mean Corpuscular Hgb 29.6 pg (27.0-32.0); Mean Corpuscular Volume 89.2 fL (81-99); Mean Platelet Vol. 8.9 fl (6.2-12.0); Monocyte% 10.9 % (0-10); NRBC Flagged by Analyzer 0 % (0-5); Neutrophil # 3.18 X10^3/uL (2.7-7.7); Neutrophil % 49.3 % (47-70); Platelet Count 332 K/mm3 (150-450); RBC Distribution Width SD 38.7 fl (35.1-43.9); Red Blood Count 4.46 M/mm3 (4.2-5.4); White Blood Count 6.5 K/mm3 (4.4-11.0)
[2023-09-20 18:14] LABS: ALB/GLOB Ratio 1.1 RATIO (0.9-2.4); AST(SGOT) 19 U/L (15-37); Alanine Aminotransfer ALT/SGPT 25 U/L (13-56); Albumin, Serum 3.8 g/dL (3.2-5.0); Alkaline Phosphatase 80 U/L (45-117); Anion Gap 6 (5-15); BUN 28 mg/dL (7-18); BUN/Creat Ratio 30.1 RATIO (10-20); Calcium,Total 9.5 mg/dL (8.5-10.1); Chloride 99 mmol/L (98-107); Creatinine, Serum 0.93 mg/dL (0.55-1.02); EST Glomerular Filtration Rate 63 mL/min (>60); Est Glom Filt Rate - Afr Amer 77 mL/min (>60); Globulin 3.4 g/dL (2.2-4.2); Glucose 110 mg/dL (74-106); Potassium 3.8 mmol/L (3.5-5.1); Protein, Total 7.2 g/dL (6.4-8.2); Sodium Level 134 mmol/L (136-145); Thyroid Stim Hormone (TSH) 0.97 uIU/mL (0.358-3.74); Troponin-I HS 4 pg/mL (3.0-54.0)
== END | disposition home or self-care (01) ==
LOC: MTLAB 15:54
PROVIDERS: PCP Family Medicine; Referring Provider Family Medicine; Visit Provider Family Medicine
DX: R07.9 Chest pain, unspecified (principal)
CPT/HCPCS: 36415; 80053; 84443; 84484; 85025

== ENCOUNTER → 2023-11-23 | Outpatient (CLI) | payer MEDICARE, OTHER, SELFPAY ==
--- NOTE | 2023-11-23 16:56 | STRESSREP_ITS ---
Stress Test Report Exercise myocardial perfusion stress test. 68-year-old lady with a history of chest pain Stress protocol: Resting EKG demonstrates normal sinus rhythm with a rate of 60 bpm resting blood pressure is 122/72 mmHg. The patient exercised according to the regular Matt protocol for a total duration of 9 minutes attaining a maximum heart rate of 144 bpm which was 96% of maximum predicted heart rate; the maximum workload was 10.1 metabolic equivalents. At rest there were no ST or T wave changes noted to suggest ischemia and at peak exercise upsloping ST changes only were noted which did not meet the criteria for ischemia. No clinical angina was noted the test was terminated due to the target heart rate being achieved/fatigue. The peak blood pressure was 170/80 mmHg. Rate-pressure product was 24,400. Myocardial perfusion protocol. 11.2 mCi of technetium 99m sestamibi was injected at rest. The patient exercised according to regular Matt protocol for total duration of 9 minutes and at peak exercise 33 point mCi of technetium 99m sestamibi was injected stress images were obtained stress and rest images were reconstructed in com paring the short axis vertical long and horizontal long axis. Gated images were also obtained. Perfusion SPECT analysis: Review of the stress images demonstrate normal uptake of tracer noted in all areas of the myocardium. The resting images similarly demonstrate normal uptake of tracer noted in all areas of the myocardium. No areas of reversibility are noted to suggest ischemia no previous infarct was noted. Gated SPECT analysis: The gated ejection fraction is 77%. Conclusion: Normal exercise myocardial perfusion stress test at a high workload Preserved ejection fraction.
== END | disposition home or self-care (01) ==
LOC: CVS 06:53
PROVIDERS: PCP Family Medicine; Referring Provider Physician Assistant Medical; Visit Provider Physician Assistant Medical
DX: R07.9 Chest pain, unspecified (principal); Z95.5 Presence of coronary angioplasty implant and graft
CPT/HCPCS: 78452; 93017; A9500; A4216

== ENCOUNTER → 2024-03-15 | Outpatient (CLI) | payer MEDICARE, OTHER, SELFPAY ==
[2024-03-15 10:15] LABS: Absolute Lymphocyte Count 1.29 X10^3/uL (0.83-4.51); Absolute Neutrophil Count 2.5 X10^3/uL (2.0-7.7); Basophil# 0.05 X10^3/uL; Basophil% 1.2 % (0-1); Eosinophil# 0.11 X10^3/uL; Eosinophils% 2.5 % (0-5); Hematocrit 36.6 % (37-47); Lymphocyte # 1.29 X10^3/ul (0.83-4.51); Lymphocyte % 29.7 % (19-41); Mean Corp Hgb Conc 32.8 g/dL (32-36); Mean Corpuscular Hgb 29.9 pg (27.0-32.0); Mean Platelet Vol. 9.1 fl (6.2-12.0); Monocyte% 9.2 % (0-10); NRBC Flagged by Analyzer 0 % (0-5); Neutrophil # 2.48 X10^3/uL (2.7-7.7); Neutrophil % 57.2 % (47-70); Platelet Count 313 K/mm3 (150-450); RBC Distribution Width CV 11.7 % (11.6-14.6); RBC Distribution Width SD 39.2 fl (35.1-43.9); Red Blood Count 4.02 M/mm3 (4.2-5.4); White Blood Count 4.3 K/mm3 (4.4-11.0)
[2024-03-15 11:20] LABS: ALB/GLOB Ratio 1.2 RATIO (0.9-2.4); AST(SGOT) 17 U/L (15-37); Alanine Aminotransfer ALT/SGPT 21 U/L (13-56); Albumin, Serum 3.5 g/dL (3.2-5.0); Alkaline Phosphatase 76 U/L (45-117); Anion Gap 7 (5-15); BUN 13 mg/dL (7-18); BUN/Creat Ratio 15.4 RATIO (10-20); Calcium,Total 9.2 mg/dL (8.5-10.1); Chloride 100 mmol/L (98-107); Creatinine, Serum 0.84 mg/dL (0.55-1.02); EST Glomerular Filtration Rate 71 mL/min (>60); Est Glom Filt Rate - Afr Amer 86 mL/min (>60); Glucose 114 mg/dL (74-106); Potassium 4.1 mmol/L (3.5-5.1); Protein, Total 6.5 g/dL (6.4-8.2); Sodium Level 133 mmol/L (136-145)
== END | disposition home or self-care (01) ==
LOC: MTLAB 07:08
PROVIDERS: PCP Family Medicine; Referring Provider Family Medicine; Visit Provider Family Medicine
DX: Z01.818 Encounter for other preprocedural examination (principal)
CPT/HCPCS: 36415; 80053; 85025

== ENCOUNTER → 2024-03-16 | Outpatient (CLI) | payer MEDICARE, OTHER, SELFPAY ==
--- NOTE | 2024-03-16 07:34 | CT_ITS ---
STUDY: CT RIGHTLOWER EXTREMITY WITHOUT CONTRAST REASON FOR EXAM: Female, 68 years old. templating for right TKA RADIATION DOSAGE (If Supplied By Facility): CTDIvol = ( 18.76 ) mGy, DLP = ( 2339.27 ) mGycm TECHNIQUE: Thin section transaxial imaging of the right extremity from the hip down to the ankle was obtained, with sagittal and coronal reconstructed images. Individualized dose optimization techniques were used for this CT. COMPARISON: X-ray of the right knee dated March 18, 2022 Hip findings: Mild proximal narrowing of the right hip joint. No fractures or avascular necrosis or loose bodies. The visualized hemipelvic structures are unremarkable. The soft tissues are unremarkable. Normal visualized soft tissue structures of the pelvis. Right pelvic surgical clip noted. Knee findings: Severe narrowing in the lateral compartment of the knee joint with [id number] contact and bulky peripheral and medial cortical osteophyte formation as well as osteoarthritic sclerosis and subchondral cystic changes which are milder. Mild DJD and peripheral cortical spurring in the medial compartment. Intact proximal tibiofibular articulation, with mild secondary osteoarthritis and cortical spurring. No demonstrated acute fractures of the knee joint. Small joint effusion noted. Moderate degenerative narrowing and osteoarthritis of the patellofemoral compartment. The quadriceps tendon is grossly normal. The patellar tendon is grossly normal. Normal Hoffa''s fat pad. The soft tissues are unremarkable. Ankle findings: Normal visualized distal tibia and fibula. Normal tibiotalar articulation and talar dome. Normal talus, calcaneus, navicular and cuboid tarsal bones. Normal subtalar, talonavicular and calcaneocuboid articulations. Normal navicular-cuneiform, cuneiform tarsal bones and intercuneiform articulations. Normal tarsometatarsal articulations and visualized metatarsi. The soft tissue structures are grossly normal. CT/Extremity Lower without Contra IMPRESSION: 1. Severe DJD of the lateral compartment of the knee joint. Electronically Signed: Davy Everett MD at 14:27 EDT ,
== END | disposition home or self-care (01) ==
LOC: CT 07:33
PROVIDERS: PCP Family Medicine
DX: M17.11 Unilateral primary osteoarthritis, right knee (principal)
CPT/HCPCS: 73700

== ENCOUNTER 2024-04-04 13:39 | Inpatient (IN) | payer MEDICARE, OTHER, SELFPAY ==
--- NOTE | 2024-03-16 08:15 | EKG12_ITS ---
Test Reason : PREOP Blood Pressure : / mmHG Vent. Rate : 049 BPM Atrial Rate : 049 BPM P-R Int : 156 ms QRS Dur : 080 ms QT Int : 438 ms P-R-T Axes : 056 040 054 degrees QTc Int : 395 ms Marked sinus bradycardia Abnormal ECG Confirmed by ELLIOT MERCHANT MD ([id number]), research editor FRANCY REA ([id number]) on 03/17/2024 5:57:03 AM Referred By: CRISTAL TAMAYO Confirmed By:ELLIOT MERCHANT MD
[2024-03-27 10:29] LABS: International Normalized Ratio 0.9; Prothrombin Time (Protime)PT. 12.6 SECONDS (11.7-14.9)
[2024-03-27 10:30] LABS: Partial Thromboplast Time 29.2 Seconds (24.1-36.2)
[2024-03-27 10:38] LABS: Magnesium 1.9 mg/dL (1.6-2.6)
[2024-03-27 11:46] LABS: Hemoglobin A1c 5.6 % (3.8-5.6)
[2024-03-28 04:08] LABS: Fructosamine 211 umol/L (0-285)
[2024-04-04] VITALS (13 sets, daily range): BP systolic 114–146; BP diastolic 54–105; PULSE 45–61; RESP 16; TEMP 36.1–36.9; O2SAT 97–100; BMI 23.6
--- NOTE | 2024-04-04 09:00 | SUR.PREOP ---
DR. HILL WAS CALLED ABOUT BLOOD GLUCOSE OF 48. PATIENT STATES THAT SHE DOESN'T EAT SUGAR AND BLOOD GLUCOSE ACTUALLY DROPS WITH SUGAR. SHE IS ASYMPTOMATIC. DR. HILL SAID HE IS GOING TO WAIT TO HANG ANY DEXTROSE BECAUSE HE IS AFRAID HER BG WILL DROP MORE.
[2024-04-04] MEDS: Lactated Ringers 1,000 ML 15 ML IV (09:22)
[2024-04-04] MEDS: Scopolamine 1mg/72hr Patch 1 PATCH TD (09:22)
[2024-04-04] MEDS: Magnesium 2 GM for ERAS IV (09:22)
[2024-04-04] MEDS: Celecoxib 200 MG Capsule 400 MG PO (09:23)
[2024-04-04] MEDS: Acetaminophen 500 MG Tablet 1000 MG PO ×3 (09:23→21:15)
[2024-04-04] MEDS: Gabapentin 600 MG Tablet PO (09:23)
--- NOTE | 2024-04-04 09:50 | PCM.PRE.AN2 ---
ASA Classification* ASA Classification ASA Classification: 3 Assessment & Plan Anesthesia* Anesthesia Assessment Anesthesia Assessment: Discussed sedation and/or anesthesia options, risks, benefits, and alternatives with patient/parents/legal guardian/POA. Questions invited. The patient/parents/legal guardian/POA seems to understand and agrees to proceed with anesthesia plan. Reviewed the physical assessment, medical history, allergy history and patient home medications list prior to surgery/procedure/anesthetic and documented any changes. Performed airway and anesthesia risk assessments. Anesthesia Type Anesthesia Type: Spinal and Block (Patient is consented for adductor canal block.) History Source History Obtained from:: Patient and Chart Anesthesia Focused Assessment* Temperature: 98 F Pulse Rate: 51 Blood Pressure: 134/86 Respiratory Rate: 16 Pulse Ox: 98 Oxygen Delivery Method: Room Air Airway Assessment Mouth opens: >3 cm Mallampati Score: II Teeth Condition: Caps/Crowns (Patient has a left lower implant. It is tight) and Partial (Patient has permanent bridge on top and bottom.) Neck Range of motion (ROM): Full ROM Focused Labs Anesthesia Preop lab: CBC WBC 4.3 K/mm3 (4.4-11.0) L 03/15/24 07:15 RBC 4.02 M/mm3 (4.2-5.4) L 03/15/24 07:15 Hgb 12.0 g/dL (12.0-15.0) 03/15/24 07:15 Hct 36.6 % (37-47) L 03/15/24 07:15 Plt Count 313 K/mm3 (150-450) 03/15/24 07:15 CHEMISTRY Potassium 4.1 mmol/L (3.5-5.1) 03/15/24 07:15 Sodium 133 mmol/L (136-145) L 03/15/24 07:15 Magnesium 1.9 mg/dL (1.6-2.6) 03/27/24 07:24 Phosphorus 3.6 mg/dL (2.5-4.9) 12/01/13 08:50 BUN 13 mg/dL (7-18) 03/15/24 07:15 Creatinine 0.84 mg/dL (0.55-1.02) 03/15/24 07:15 Glucose 114 mg/dL (74-106) H 03/15/24 07:15 POC Glucose 101 mg/dL (70-110) 10/20/18 06:05 TSH 0.97 uIU/mL (0.358-3.74) 09/20/23 15:57 COAG PT 12.6 SECONDS (11.7-14.9) 03/27/24 07:24 Pre-Assessment Diagnosis/Proposed Procedure Planned Operative Procedure(s): RIGHT TOTAL KNEE ARTHROPLASTY Anesthesia History Anesthesia History - director zone: Anesthesia History - director zone Hx Hospitalization No 03/24/24 11:34 Any Problems With Anesthesia No 03/24/24 11:34 Cholinesterase deficiency No 03/24/24 11:34 You/Your Family Experience No 03/24/24 11:34 fever (hyperthermia) with Relationship Recent Exposure to Contagious No 04/04/24 09:11 Disease Does patient have nerve No 03/24/24 11:34 stimulator Patient instructed to have device shut off --Does patient have Pacemaker No 04/04/24 09:11 or ICD? When Was Last Pacemaker Check QUESTION #4 FULL TEXT: You/Your Family Experience fever (hyperthermia) with Anesthesia Last Oral Intake Last Oral intake: Last Oral Intake NPO since 06:45 04/04/24 09:11 Meds taken in AM with sips of Yes 04/04/24 09:11 water? Meds patient instructed to PRILOSEC,METOPROLOL,LOSARTAN 04/04/24 09:11 take am of surgery ,CYMBALTA Any additional information?: Yes NPO since: 06:45 (Patient took her presurgical Ensure at 6:45 AM.) PONV PONV - director zone: PONV - director zone Female Yes 03/24/24 11:34 HX of Motion Sickness No 03/24/24 11:34 HX of N/V After Surgery No 03/24/24 11:34 Non-Smoker Yes 03/24/24 11:34 Duration of Surgery greater Yes 03/24/24 11:34 than 60 minutes Number of Risk Factors 3 03/24/24 11:34 PONV Score Moderate Risk 03/24/24 11:34 Height & Weight Height & Weight: Anesthesia: Height & Weight Height 5 ft 8 in 04/04/24 09:11 Weight: 70.6 kg 04/04/24 09:11 Body Mass Index (BMI) 23.6 04/04/24 09:11 Respiratory Assessment Respiratory Assessment - director zone: Respiratory Tract Infection Hx - director zone Hx Respiratory Tract Infection No 03/24/24 11:34 STOP Sleep Apnea STOP Sleep Apnea - director zone: STOP Sleep Apnea - director zone Hx Hypertension Yes: CONTROLLED WITH MED 03/24/24 11:34 Hx Sleep Apnea No 03/24/24 11:34 CPAP BIPAP Do you snore loudly (louder No 03/24/24 11:34 than talking or can be heard Do you often feel tired/ Yes 03/24/24 11:34 fatigued/ sleepy during daytime? Has anyone observed you stop No 03/24/24 11:34 breathing during sleep? STOP Results Positive 03/24/24 11:34 QUESTION #5 FULL TEXT : Do you snore loudly (louder than talking or can be heard through closed doors)? 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 Specify any problems Hx of Preganancy in last 3 No 03/24/24 11:34 Months Nurse Filling Out Transfusion DSCHRIBER 03/24/24 11:34 & Questions: Date: 03/24/24 03/24/24 11:34 Time: 11:35 03/24/24 11:34 Patient unable to answer at this time (ie. confused, unrespo /Reproduction History /Reproductive History - director zone: /Reproductive Hx- director zone Hx Now No 03/24/24 11:34 Gestational Age (in weeks): EDC: Hx Hx Para Hx Section SAB No 03/24/24 11:34 Active Medications Active Medications: Current Medications Generic Name Dose Route Start Last Admin Trade Name Freq PRN Reason Stop Dose Admin Acetaminophen 1,000 mg 04/04/24 10:45 04/04/24 09:23 Acetaminophen 500 Mg Tablet PO 04/04/24 10:46 1,000 mg X1 ONE Administration Celecoxib 400 mg 04/04/24 10:45 04/04/24 09:23 Celecoxib 200 Mg Capsule PO 04/04/24 10:46 400 mg X1 ONE Administration Dexamethasone Sodium Phosphate 10 mg 04/04/24 10:45 Dexamethasone 10 Mg/Ml Vial IV 04/04/24 10:46 X1 ONE Gabapentin 600 mg 04/04/24 10:45 04/04/24 09:23 Gabapentin 600 Mg Tablet PO 04/04/24 10:46 600 mg X1 ONE Administration Tranexamic Acid 1,000 mg/ 110 mls @ 660 mls/hr 04/04/24 10:45 Sodium Chloride IV 04/04/24 10:54 X1 ONE Tranexamic Acid 1,000 mg/ 110 mls @ 660 mls/hr 04/04/24 10:45 Sodium Chloride IV 04/04/24 10:54 X1 ONE Lactated Ringer's 1,000 mls @ 125 mls/hr 04/04/24 10:45 IV 04/04/24 18:44 .Q8H YAHAIRA Cefazolin Sodium 2 gm/ N/A 20 mls @ 400 mls/hr 04/04/24 10:45 IV 04/04/24 10:47 PREOP ONE Magnesium Sulfate 2 gm/ 104 mls @ 208 mls/hr 04/04/24 10:45 04/04/24 09:22 Dextrose IV 04/04/24 11:14 208 mls/hr X1 ONE Administration Lactated Ringer's 1,000 mls @ 15 mls/hr 04/04/24 09:00 04/04/24 09:22 IV 04/09/24 22:19 15 mls/hr .Q48H YAHAIRA Administration Protocol Insulin Human Lispro 1 - 6 unit 04/04/24 10:45 Insulin Lispro 100 Unit/Ml Insuln.Pen SC 04/04/24 18:00 Q4H PRN PRN BG>/= 180, SEE PROTOCOL Protocol Scopolamine HBr 1 patch 04/04/24 10:45 04/04/24 09:22 Scopolamine 1mg/72hr Patch TD 10/29/24 10:46 1 mg X1 ONE Administration PFSH Medical History (Updated 03/24/24 @ 11:41 by Olga Swenson) Wears glasses Post-menopausal Depression Arthritis Restless legs Back pain Gastric reflux Non-smoker History of pain when walking History of echocardiogram History of stress test Cardiology follow-up encounter Cellulitis, face Osteoarthritis of right knee Right knee pain Blepharitis COVID Acute right otitis media Paroxysmal supraventricular tachycardia Old inferior wall myocardial infarction (1998) Hyperlipidemia Essential (primary) hypertension Incomplete uterovaginal prolapse Atherosclerosis of coronary artery of [place] heart without angina pectoris Fatigue DVT (deep venous thrombosis) Home Medications ?Medication ?Instructions ?Recorded ?Last Taken ?Type aspirin 81 mg chewable tablet 81 mg PO DAILY@0800 SUPPLEMENT 02/28/16 03/27/24 History cholecalciferol (vitamin D3) 25 2,000 unit PO DAILY SUPPLEMENT 02/28/16 03/27/24 History mcg (1,000 unit) tablet coenzyme Q10 100 mg capsule 100 mg PO DAILY SUPPLEMENT 02/28/16 03/27/24 History omega 3-dha 60 mg-epa 90 mg-fish 1,000 mg PO DAILY SUPPLEMENT 02/28/16 03/27/24 History oil 500 mg capsule, delayed release omeprazole 20 mg capsule,delayed 20 mg PO DAILY GERD 01/27/18 04/04/24 History release trazodone 50 mg tablet 25 mg PO QHS SLEEP 09/05/18 04/03/24 History ibuprofen 200 mg capsule 800 mg PO Q6H PRN pain 03/18/22 Unknown History zinc sulfate 50 mg zinc (220 mg) 50 mg PO DAILY SUPPLEMENT 03/18/22 03/27/24 History capsule collagen,hydrolysate 500 mg-biotin 1 cap PO DAILY SUPPLEMENT 04/14/22 03/27/24 History 800 mcg-ascorbic acid 50 mg capsule (Collagen 1500 Plus C) duloxetine 60 mg capsule,delayed 60 mg PO DAILY DEPRESSION 04/14/22 04/04/24 History release fluticasone propionate 50 2 spray intranasal DAILY NASAL 04/14/22 04/04/24 History mcg/actuation nasal CONGESTION spray,suspension turmeric root extract 500 mg 500 mg PO BID SUPPLEMENT 04/14/22 03/13/24 History capsule rosuvastatin 40 mg tablet 40 mg PO DAILY CHOLESTEROL #90 tabs 01/18/23 04/04/24 Rx losartan 50 mg tablet 50 mg PO DAILY BP #90 tabs 03/17/23 04/04/24 Rx beet supplement 1 gummy PO DAILY SUPPLEMENT 10/20/23 03/27/24 History metoprolol tartrate 25 mg tablet 25 mg PO DAILY HEART 03/24/24 04/04/24 History Allergy/AdvReac Type Severity Reaction Status Date / Time No Known Allergies Allergy Verified 04/04/24 09:08 Family History Father Heart disease Sister Cancer Surgical History History of total left knee replacement History of left heart catheterization (12/2006) History of radiofrequency ablation procedure for cardiac arrhythmia (12/2006) History of coronary artery stent placement (01/1999) History of urologic surgery History of total vaginal hysterectomy (TVH) (10/20/18) History of knee replacement Social History Smoking Status: Never smoker alcohol intake: never substance use type: does not use caffeine: Yes Type: tea Number of servings: 1 what type of physical activity do you participate in: walking seatbelt use: always do you feel safe at home: Yes Review of Systems (Anesthesia) ROS Narrative System reviewed and no additional complaints, except as documented.
--- NOTE | 2024-04-04 09:54 | PCM.HP.BLA ---
History and Physical Date of Admission: 04/04/24 [facility] [address] [place] [address] OFFICE VISIT Date of Service: 03/24/24 MR#: [id number] Acct: [id number] Name: KELLEN GUY Rep #: [id number] : 1955 Provider: Dr. Marquis Jackson DO Age/Sex: 68/F [place] [facility] [place]: Signed Intake Vital Signs 11/26/2407:12 Height 5 ft 8 in Weight: 159 lb 8 oz BMI 24.2 Intake Visit Reasons: right knee Chief Complaint: right knee Accompanied by: Self Is patient in pain?: No Allergies No Known Allergies Allergy (Verified 03/24/24 10:08) Medications ?Medication ?Instructions ?Recorded ?Confirmed ?Type aspirin 81 mg chewable tablet 81 mg PO DAILY@0800 02/28/16 03/24/24 History cholecalciferol (vitamin D3) 25 2,000 unit PO DAILY 02/28/16 03/24/24 History mcg (1,000 unit) tablet coenzyme Q10 100 mg capsule 100 mg PO DAILY 02/28/16 03/24/24 History omega 3-dha 60 mg-epa 90 mg-fish 1,000 mg PO DAILY 02/28/16 03/24/24 History oil 500 mg capsule, delayed release omeprazole 20 mg capsule,delayed 20 mg PO DAILY 01/27/18 03/24/24 History release trazodone 50 mg tablet 25 mg PO QHS 09/05/18 03/24/24 History ibuprofen 200 mg capsule 800 mg PO Q6H PRN 03/18/22 03/24/24 History zinc sulfate 50 mg zinc (220 mg) 50 mg PO DAILY 03/18/22 03/24/24 History capsule collagen,hydrolysate 500 mg-biotin 1 cap PO 04/14/22 03/24/24 History 800 mcg-ascorbic acid 50 mg capsule (Collagen 1500 Plus C) duloxetine 60 mg capsule,delayed 60 mg PO DAILY 04/14/22 03/24/24 History release fluticasone propionate 50 1 spray intranasal DAILY 04/14/22 03/24/24 History mcg/actuation nasal spray,suspension turmeric root extract 500 mg 500 mg PO BID 04/14/22 03/24/24 History capsule rosuvastatin 40 mg tablet 40 mg PO DAILY #90 tabs 01/18/23 03/24/24 Rx losartan 50 mg tablet 50 mg PO DAILY #90 tabs 03/17/23 03/24/24 Rx beet supplement PO 10/20/23 03/24/24 History metoprolol tartrate 25 mg tablet See Rx Instructions .Route 01/10/24 03/24/24 Rx .COMPLEX #90 tabs Have you fallen in the past year?: No PFSH Medical History (Updated 11/26/23 @ 08:[address] Marquis Jackson DO) Osteoarthritis of right knee Cellulitis, face Right knee pain Blepharitis COVID Acute right otitis media Paroxysmal supraventricular tachycardia Old inferior wall myocardial infarction (1998) Hyperlipidemia Essential (primary) hypertension Stress incontinence Incomplete uterovaginal prolapse Atherosclerosis of coronary artery of [place] heart without angina pectoris Back pain Knee pain Migraines Fatigue DVT (deep venous thrombosis) Surgical History History of total left knee replacement History of left heart catheterization (12/2006) History of radiofrequency ablation procedure for cardiac arrhythmia (12/2006) History of coronary artery stent placement (01/1999) History of urologic surgery History of total vaginal hysterectomy (TVH) (10/20/18) History of knee replacement Family History Father Heart diseaseSister Cancer Social History Smoking Status: Never smoker alcohol intake: never substance use type: does not use caffeine: Yes Type: tea Number of servings: 1 what type of physical activity do you participate in: walking seatbelt use: always do you feel safe at home: Yes HPI right knee Details: This documentation accurately reflects the service provided and the decisions made by me, Dr. Marquis Jackson DO 03/24/24 0811. Part of today?s visit was documented by Hilda KAPADIA , acting as scribe. KELLEN GUY is a 68 year old F here today for Right knee Iovera treatment for her Right TKA d.o.s 04/04/2024. Explained how the Iovera treatment is done. Patient signed the consent for surgery and Iovera treatment. Patient was given the information and soap and drinks needed for surgery. Patient had no other questions. Ortho Exam General General: Yes no acute distress Neurologic: Yes alert Psychologic: Yes reasonable and appropriate Right Knee Skin/Wound: No erythema, No ecchymosis and No swelling Homans Sign: No Knee ROM: No ROM-Extension -20 to 0 (lacking 12) and No ROM-Flexion 0-140 (112) Examination: No Med jt line tenderness, Yes Lat jt line tenderness, Yes TTP inf pole patella, Yes Crepitus and Yes Pain with flexion Stability: NML: Anterior Drawer, NML: Posterior Drawer, NML: Valgus 0, NML: Valgus 30, NML: Varus 0 and NML: Varus 30 Patella Grind: No KNEE: no joint effusion no patellar instability no masses fixed valgus deformity noted Head: Normocephalic Atraumatic Chest: symmetrical rise, non-labored breathing, no audible wheeze Abdomen: no guarding, non-rigid Office Procedures Iovera Procedure Details:: Preoperative diagnosis :chronic knee pain Postoperative diagnosis: Same Procedure: Cryotherapy with Iovera device to anterior femoral cutaneous nerve and 2 branches of the infrapatellar saphenous nerve. Three nerves in total. Description of procedure: Patient was brought back to the procedure room the operative extremity was identified by both patient and physician. Entire extremity was cleaned with alcohol. The superior inferior and medial lateral borders of the patella were marked followed by the center of the patella. We then measured 12 cm proximal to this and with the knee in flexion marked the medial and lateral edges of the patella continuing proximally to give us our proximal treatment line.This was our treatment line for the anterior femoral cutaneous nerve. A second treatment line was made 5 cm medial to the inferior pole of the patella and 5 cm distally. The treatment lines were then prepped with Betadine and 1 last time with alcohol. Lidocaine 1% with epi was injected subcutaneously along the treatment lines. Using the Iovera device on the marked treatment lines device was activated allowing it to freeze and defrost with 1 minute cycles. Once all 3 nerve branches were treated across the 2 treatment lines patient was cleaned and a light dressing with 4 x 4 and Mk wrap was applied. Patient tolerated the procedure without complication. Supplemental Info 03/18/2022 x-ray right knee: Advanced lateral compartment arthrosis with valgus deformity moderate patellofemoral arthrosis mild to moderate medial compartment arthrosis 03/18/2022 x-ray left knee: Status post posterior stabilized cemented total knee arthroplasty with good interfaces and positioning Coding Level of Care Code Attention Shravan Diagnoses Primary osteoarthritis of right knee M17.11 Osteoarthritis type: primary Assessment and Plan Assessment and Plan (1) Osteoarthritis of right knee: Status: Acute Qualifiers: Osteoarthritis type: primary Qualified Code(s): M17.11 - Unilateral primary osteoarthritis, right knee Plan Iovera procedure performed today patient tolerated well Clinical Quality Measures Falls Risk Screening/Assistive Devices Have you fallen in the past year?: No 03/24/24 1059 <Electronically signed by Marquis Jackson DO> Date Marquis Jackson DO Cosigner Signature: Date (if applicable) CC: ~ I have examined the patient and the H&P has been reviewed. There are no clinical changes since date of exam.
[2024-04-04 10:17] LABS: Bedside Glucose 48 mg/dL (74-106)
[2024-04-04] MEDS: Cefazolin 2 GM in Syringe IV ×3 (10:45→22:29)
--- NOTE | 2024-04-04 10:45 | KNEE_PTH ---
PATHOLOGY RESULTS PATIENT: KELLEN GUY LOC: [facility]3 U#:[id number] AGE/SX: 68/F ROOM: KS319 RE04/04/[address]: Dr. Marquis Jackson DO : 1955 BED: 1 DIS: 04/05/2024 SPEC #: [id number] RECD: 04/04/24 13:58 STATUS: ЕЛЕНА RODRIGUEZ #: [id number] KAITLYN: 04/04/24 10:[address]: Marquis Jackson DEPT: SURGICAL PATHOLOGY RECD BY: Tyrone Newton ENTERED: 04/04/24 14:08 SP TYPE: TOTAL KNEE OTHR DR: María Cintron, [facility], DO Tissues: Knee, NOS Procedures: Decalcification bone/plaque Surgery Specimen Level IV HEADER OPERATION: Right total knee replacement robotic arm assist PRE-OP DIAGNOSIS: Osteoarthritis of right knee TISSUE SUBMITTED: Bone and soft tissue right knee MICROSCOPIC DIAGNOSIS Bone and soft tissue, right knee, total knee replacement/resection: Pieces of bone with degenerative osteoarthritic changes. CHRYSTAL: 04/07/2024 MICROSCOPIC DESCRIPTION Slides are reviewed. GROSS DESCRIPTION Received is one container designated bone and soft tissue right knee. The specimen consists of multiple fragments of staton-yellow bone measuring in aggregate 11.0 x 9.0 x 3.0 cm. No soft tissue is identified. A number of bony fragments contain articular surfaces consistent with tibial plateau and femoral condyle and displaying prominent osteophyte formation, eburnation and bone erosion. Car Rider sections are submitted in one cassette after decalcification. / CHRYSTAL. 04/04/2024 TC:5 CPT: 24694, 57908
[2024-04-04] MEDS: dexAMETHasone 10 MG/ML Vial IV (11:00)
[2024-04-04] MEDS: TXA 1000mg in NS100 100ml (IVPB at Incision) 660 MG IV (11:00)
[2024-04-04] MEDS: TXA 1000mg in NS100 100ml (IVPB at Closure) 660 MG IV (11:24)
[2024-04-04] MEDS: dexAMETHasone 4 MG/ML Vial (12:26)
[2024-04-04] MEDS: Epinephrine (1 mg/ml) 1 MG/ML VIAL (12:26)
[2024-04-04] MEDS: Bupivacaine 0.5% PF 10 ML VIAL (12:26)
[2024-04-04] MEDS: 0.9% Normal Saline (Pres. free 10 ML Vial (12:26)
--- NOTE | 2024-04-04 13:29 | OP.PCM_ITS ---
Operative Report (Standard) Operative Information Surgery/Procedure Performed: Right total knee arthroplasty Surgeon: Marquis Jackson Date of Procedure: 04/04/24 Procedure Start Time: 11:13 Procedure Stop Time: 13:15 Pre-Operative Diagnosis: Right knee DJD with valgus deformity Post-Operative Diagnosis: Same Select all DRAINS/GRAFTS/IMPLANTS that apply: None Type of Anesthesia: Spinal Estimated Blood Loss: 175 Specimen collected: Yes Description of specimen(s) removed: Bone and soft tissue Description of surgery: Preoperative diagnosis: Right knee DJD with valgus deformity Postoperative diagnosis: Same Procedure: Right total knee arthroplasty CT guided Robotic Assisted Implant: Carlin triathlon cemented, femoral component size4, tibial baseplate size 3, asymmetric patella size 35, polyethylene X3 size 10 CS Anesthesia: Spinal with adductor canal block Tourniquet time: 14 up then down and up another 13 during cementing minutes at 300 mmHg Complications: None Condition: Stable to PACU Estimated blood loss: 175 cc Care Partner Ady Olea. My physician grants assistant was a vital part of this case. He was important in appropriate retraction during the case, and protection of soft tissues during procedure. His intimate knowledge of the case and my steps aided in safe and expedient completion of the procedure as well as appropriate position of the extremity during the case. He was also vital in assisting with closure under my direct supervision. Indication for procedure: This is a 68-year-old female with long standing degenerative joint disease of the knee who has failed conservative treatment and wished to proceed with elective total knee arthroplasty. Risk benefits and alternatives were reviewed including; risk of bleeding, infection, nerve artery and tissue damage, continued pain, postoperative stiffness, venous thromboembolism, need for postoperative rehabilitation, mechanical feel to the knee, and expected postoperative course. The pre- operative CT and templating was performed with component sizing. Procedure: The patient was met in the preoperative holding area. The operative extremity was identified by both patient and physician and was marked. Patient was met by anesthesia. An adductor canal block was placed by anesthesia postoperatively the patient was brought back to the operating room on a wheeled cart and transferred to the operating table in the supine position. Anesthesia was started. A well-padded tourniquet was placed on the operative extremity. The patient was prepped and draped in the usual sterile fashion. A timeout was called to ensure the proper patient procedure and extremity were being contemplated. An esmarch was used to exsanguinate the extremity. The tourniquet was inflated. A 10 blade scalpel was used to make a midline incision down through the skin and subcutaneous tissue. Skin retractors placed. Bovie and Aquamantis were used to perform meticulous hemostasis. full-thickness flaps were elevated medial and lateral along the joint capsule. A deep blade scalpel was used to perform a medial parapatellar arthrotomy. The knee was brought to full extension. A bovie was used to release the soft tissues off the most proximal aspect of the medial tibial plateau, a three-quarter inch curved osteotome was also used in this process. The infrapatellar fat pad was excised. The suprapatellar fat pad was excised partially anteriorolateraly and portion t he anterioromedial pad was elevated from the femur. At this point our intra- articular femoral array was placed at a 45 degree angle proximal and posterior to the medial epicondyle. femoral checkpoint was placed at this time. Our tibial array was placed partially intra incisional 1 stab incision was made for the inferior pin with a 15 blade scaple, and pins were placed and attached to the tibial array , tibial checkpoint was placed in the proximal tibial metaphysis. Tourniquet was let down. At this point registration kent were taken throughout the knee . Once the knee was registered we then tensioned the medial and lateral ligaments in extension and 90 degrees of flexion. We then used these numbers to adjust our components within parameters to balance the knee in both flexion and extension once this was done on our monitor we then proceeded with using the robotic arm to make our tibial plateau cut, anterior and posterior chamfer and distal femur cuts. we removed the cut fragments with the use of a bovie and José, we did use a lamina patrol commander to insure we visualized and removed all posterior osteophytes and at this time also used the Aquamantis on the posterior joint capsule. we then trialed and achieved the desired plan with a well-balanced knee. we used the green probe to elvis the corresponding tibial rotation based on our CT template. Lug holes were drilled in the femur the tibia preparation was completed with the appropriate sized base plate pinned based on previous rotation elvsi. An appropriate sized fin punch was used on the tibia and the patella was prepared by first using a caliper to ensure sufficient bone stock and a patellar reamer to remove the desired amount of bone. lug holes drilled for an asymmetric poly. We then brought the knee through range of motion with excellent patellar tracking. We thoroughly irrigated the knee. Trial components were removed a posterior capsular injection was preformed with our standard cocktail. In addition the aqua Mantis was also used to aid in hemostasis. Components were cemented into place excess cement was removed with a Gordo elevator a Betadine rinse was allowed to sit for 5 minutes while the cement hardened. The Betadine was thoroughly irrigated with the pulse lavage followed by an Aricept rinse Aricept rinse was then used followed by several more liters of irrigation after it was allowed to sit. The joint capsule was closed with #1 Ethibond [id number] in the upper part of the arthrotomy and #1 Vicryl in the lower part of the arthrotomy. , Followed by 2-0 Vicryl in the subcutaneous tissues with abdirashid in the skin. Arrays and checkpoints were removed prior to closure all counts were correct stab incisions were closed with a staple standard dressing in the form of Mepi ilan AG for the main incision and a small Mepilex over the pin holes. Thigh-high CLOTILDE hose applied over top of dressing. Patient tolerated the procedure well and was directed to PACU in stable condition . There were no intraoperative complications. Surgical Findings: Degenerative joint disease Carbon Paper Machine Operator open cut examiner: Yes Pearl Glue Operator: Ady Olea Tasks completed by email marketing assistant: Closing and Retracting Complications Complications: No
--- NOTE | 2024-04-04 13:40 | RAD_ITS ---
STUDY: X-RAY - RIGHT KNEE REASON FOR EXAM: Female, 68 years old. Post op -- AP and Lateral xray of operative knee in PACU TECHNIQUE: 2 view(s) of the knee. COMPARISON: Comparison is made with prior study dated March 18, 2022. FINDINGS: Normal visualized distal femur. Normal visualized proximal tibia and fibula. Normal proximal tibiofibular articulation. The patient is status post total knee replacement. There is good alignment. Postoperative soft tissue changes appear RAD/Knee 1 or 2 Views IMPRESSION: Status post total knee replacement. There is good alignment. Postoperative soft tissue changes. Electronically Signed: Darryl Ramírez MD at 13:55 EDT ,
--- NOTE | 2024-04-04 13:51 | PCM.POST.ANE ---
Anesthesia: Postop Eval I Current Vital Signs Temperature: 97 F Pulse Rate: 56 Blood Pressure: 116/54 Respiratory Rate: 16 Pulse Ox: 98 Oxygen Delivery Method: Room Air Assessment Airway patent: Yes Spontaneous unlabored respirations: Yes Mental status: Awake and Calm nausea: No Vomiting: No Anesthesia Complication: No Fluid Hydration Crystalloid volume administer (ml): 1,000 Total IV fluid infused: 1,000 Progress Note Anesthesia document: Postop Eval 1 completed: Yes
[2024-04-04] MEDS: 0.9% Normal Saline (1000mL) 1,000 ML 125 ML IV (14:14)
[2024-04-04 14:32] LABS: Bedside Glucose 111 mg/dL (74-106)
--- NOTE | 2024-04-04 14:38 | POSTOPAN2_ITS ---
Anesthesia Postop Eval I Sum Postop Eval Completion status Anesthesia document: Postop Eval 1 completed: Yes Anesthesia Postop Eval I Summary Anesthesia Postop Eval I Summary: Anesthesia Postop Eval I: Assessment Summary Airway patent Yes 04/04/24 13:52 [email or web address] Spontaneous unlabored Yes 04/04/24 13:52 [email or web address] [email or web address] respirations Mental status Awake,Calm 04/04/24 13:52 [email or web address] nausea No 04/04/24 13:52 [email or web address] Vomiting No 04/04/24 13:52 [email or web address] Anesthesia Postop Eval I: Fluid Summary Crystalloid volume administer 1,000 04/04/24 13:52 [email or web address] (ml) Colloids volume administered ( ml) Blood Product volume administered (ml) Total IV fluid infused 1,000 04/04/24 13:52 [email or web address] Anesthesia Postop Eval I: Summary Notes Anesthesia Complication No 04/04/24 13:52 [email or web address] Anesthesia Complication Comment: Post-operative progress note Anesthesia: Postop Eval II Evaluation Mental status: Awake Pain Level: 0 nausea: No Vomiting: No
--- NOTE | 2024-04-04 14:38 | PCM.POSTANE2 ---
Anesthesia Postop Eval I Sum Postop Eval Completion status Anesthesia document: Postop Eval 1 completed: Yes Anesthesia Postop Eval I Summary Anesthesia Postop Eval I Summary: Anesthesia Postop Eval I: Assessment Summary Airway patent Yes 04/04/24 13:52 WAITER/WAITRESS [email or web address] Spontaneous unlabored Yes 04/04/24 13:52 WAITER/WAITRESS DINING [email or web address] respirations Mental status Awake,Calm 04/04/24 13:52 WAITER/WAITRESS DINING [email or web address] nausea No 04/04/24 13:52 WAITER/WAITRESS DINING [email or web address] Vomiting No 04/04/24 13:52 WAITER/WAITRESS DINING [email or web address] Anesthesia Postop Eval I: Fluid Summary Crystalloid volume administer 1,000 04/04/24 13:52 WAITER/WAITRESS DINING [email or web address] (ml) Colloids volume administered ( ml) Blood Product volume administered (ml) Total IV fluid infused 1,000 04/04/24 13:52 WAITER/WAITRESS DINING [email or web address] Anesthesia Postop Eval I: Summary Notes Anesthesia Complication No 04/04/24 13:52 WAITER/WAITRESS DINING [email or web address] Anesthesia Complication Comment: Post-operative progress note Anesthesia: Postop Eval II Evaluation Mental status: Awake Pain Level: 0 nausea: No Vomiting: No
[2024-04-04] MEDS: 0.9% Saline Lock 10 ML Syringe IV (20:24)
[2024-04-04] MEDS: Ketorolac 15 MG/ML Vial IV (20:24)
[2024-04-04] MEDS: traZODone 50 MG Tablet 25 MG PO (21:14)
[2024-04-04] MEDS: Senna/Docusate Sodium 1 Tablet 2 TABLET PO (21:15)
[2024-04-05 00:30] VITALS: BP 151/55; PULSE 48; RESP 14; TEMP 37.2; O2SAT 100
[2024-04-05 05:41] LABS: Hematocrit 30.7 % (37-47); Mean Corp Hgb Conc 32.6 g/dL (32-36); Mean Corpuscular Hgb 29.4 pg (27.0-32.0); Mean Corpuscular Volume 90.3 fL (81-99); Mean Platelet Vol. 9.2 fl (6.2-12.0); Platelet Count 299 K/mm3 (150-450); RBC Distribution Width CV 11.6 % (11.6-14.6); RBC Distribution Width SD 38.3 fl (35.1-43.9); White Blood Count 14.1 K/mm3 (4.4-11.0)
[2024-04-05] MEDS: Cefazolin 2 GM in Syringe IV (05:59)
[2024-04-05] MEDS: Acetaminophen 500 MG Tablet 1000 MG PO (06:00)
[2024-04-05] MEDS: APIXABAN 2.5 MG TABLET (WCH) PO (06:00)
[2024-04-05 06:03] LABS: Anion Gap 5 (5-15); BUN 13 mg/dL (7-18); BUN/Creat Ratio 14.3 RATIO (10-20); Calcium,Total 9.2 mg/dL (8.5-10.1); Chloride 105 mmol/L (98-107); Creatinine, Serum 0.91 mg/dL (0.55-1.02); EST Glomerular Filtration Rate 65 mL/min (>60); Est Glom Filt Rate - Afr Amer 79 mL/min (>60); Estimated Creatinine Clearance 58.03 ml/min; Glucose 169 mg/dL (74-106); Potassium 4.4 mmol/L (3.5-5.1); Sodium Level 136 mmol/L (136-145)
[2024-04-05] MEDS: Ketorolac 15 MG/ML Vial IV ×2 (06:10→13:41)
[2024-04-05 06:47] VITALS: BP 135/72; PULSE 56; RESP 14; TEMP 37; O2SAT 99
[2024-04-05 08:30] VITALS: BP 141/67; PULSE 61; RESP 16; TEMP 36.6; O2SAT 100
[2024-04-05] MEDS: Pantoprazole Sodium 20 MG Tablet PO (08:32)
[2024-04-05] MEDS: DULoxetine Hcl 60 MG Capsule PO (08:32)
[2024-04-05] MEDS: Cholecalciferol (VIT D3) 25 MCG TABLET (1,000 UNITS) 50 MCG PO (08:32)
[2024-04-05] MEDS: Senna/Docusate Sodium 1 Tablet 2 TABLET PO (08:32)
[2024-04-05] MEDS: Losartan Potassium 50 MG Tablet PO (08:32)
[2024-04-05 08:33] VITALS: PULSE 61
[2024-04-05] MEDS: Metoprolol Tartrate 25 MG Tablet PO (08:33)
--- OUTSIDE RECORDS SUMMARY | 2024-04-05 09:08 | XMS RPT_ITS | CCD ---
Author Organization [facility] Inform ion Partnership [facility] Care Team Providers Care Supervisor Sewer Maintenance Name Role Phone Heather Camejo MD Unavailable [phone] Valerie Lozada Unavailable Valerie Lozada Unavailable Heather Camejo MD Unavailable [phone] Nia Cintron DO Primary Care Provider NIA CINTRON Primary Care Unavailable Medications Completed/Discontinued Medications Medication Drug Class(es) Dates Sig (Normalized) Sig (Original) acetaminophen / HYDROcodone (12 sources) Opioid Agonist Start: 02-27-2010 End: 08-16-2012 VICODIN 5-500 MG TABS one to two tabs four times a day as needed for pain HYDROCODONE-ACETAMI NOPHEN [id number] Marlin Enciso Start: 02-27-2010 VICODIN 5-500 MG TABS one to two tabs four times a day as needed for pain HYDROCODONE-ACETAMINOPHEN [id number] Pascual Silva MD amoxicillin 500 mg oral tablet (12 sources) Penicillin-class Antibacterial Start: 06-09-2012 End: 10-11-2012 AMOXICILLIN 500 MG TABS Four tablets by mouth 30-60 minutes prior to procedure as needed AMOXICILLIN [id number] Faustino Luque MD aspirin 81 mg oral tablet (20 sources) Nonsteroidal Anti-inflammatory Drug Start: 11-22-2009 take 1 tablet by mouth once daily ASPIRIN 325 MG TABS One tablet by mouth daily ASPIRIN [id number] Josie Bergeron MS,PA-C Start: 11-22-2009 take 1 tablet by jeramie th once daily ASPIRIN 81 MG TABS One tablet by mouth daily ASPIRIN [id number] Jagdeep Chauhan MD Start: 11-22-2009 take 1 tablet by jeramie th once daily ASPIRIN 81 MG TABS One tablet by mouth daily ASPIRIN [id number] Jagdeep Chauhan MD Start: 11-22-2009 take 1 tablet by jeramie th once daily ASPIRIN EC 81 MG TBEC One tablet by mouth daily ASPIRIN [id number] Mesha Hernandez RN Calcium (1 source) Phosphate Binder, Calcium Start: 06-15-2008 CALCIUM 500 MG TAB Take one(1) tablet twice daily. 0 06/15/2008 Active Comment on above: Take one(1) tablet t wice daily. cefadroxil 500 mg oral capsule (12 sources) Cephalosporin Antibacterial Start: 02-27-2010 End: 10-11-2012 CEFADROXIL 500 MG CAPS one tab twice a day CEFADROXIL [id number] Jagdeep Chauhan MD CHOLECALCIFEROL, VITAMIN D3, (VITAMIN D-3 ORAL) (1 source) CHOLECALCIFEROL, VITAMIN D3, (VITAMIN D-3 ORAL) Take by mouth. 0 Active Comment on above: Take by mouth. CYANOCOBALAMIN, VITAMIN B-12, (VITAMIN B-12 ORAL) (1 source) CYANOCOBALAMIN, VITAMIN B-12, (VITAMIN B-12 ORAL) Take by mouth. 0 Active Comment on above: Take by mouth. DULoxetine 30 mg delayed release oral capsule (7 sources) Serotonin and Norepinephrine Reuptake Inhibitor Start: 06-30-2016 take 1 tablet by mouth once daily DULOXETINE HCL 30 MG CPEP One tablet by mouth daily DULOXETINE HCL [id number] Jagdeep Chauhan MD take 1 capsule by mouth once jaguar ly DULoxetine (CYMBALTA) 20 mg capsule Take 20 mg by mouth once daily. 0 Active Comment on above: Take 20 mg by mouth once daily. NAPROXEN-ESOMEPRA ZOLE (12 sources) Proton Pump Inhibitor, Nonsteroidal Anti-inflammatory Drug Start: 05-15-2013 End: 08-13-2013 take 1 tablet by mouth once daily VIMOVO 500-20 MG TBEC One tablet by mouth daily NAPROXEN-ESOMEPRAZOL E [id number] Neva Lindsay Start: 05-15-2013 End: 08-13-2013 take 1 tablet by mouth once daily VIMOVO 500-20 MG TBEC One tablet by mout h daily NAPROXEN-ESOMEPRAZOLE [id number] Neva Lindsay Start: 08-16-2012 take 1 tablet by jeramie th once daily VIMOVO 500-20 MG TBEC One tablet by mout h daily NAPROXEN-ESOMEPRAZOLE [id number] Marlin Enciso Start: 08-16-2012 End: 08-13-2013 take 1 tablet by mouth once daily VIMOVO 500-20 MG TBEC One tablet by mout h daily NAPROXEN-ESOMEPRAZOLE [id number] Neva Lindsay Start: 08-16-2012 take 1 tablet by jeramie th once daily VIMOVO 500-20 MG TBEC One tablet by mout h daily NAPROXEN-ESOMEPRAZOLE [id number] Marlin Enciso 12 hr guaiFENesin 600 mg extended release oral tablet (1 source) Start: 05-16-2017 take 2 tablets by mouth twice daily guaiFENesin (MUCINEX) 600 mg 12 hr tablet Indications: Acute bacterial rhinosinusitis Take 2 tablets by mouth twice daily. 30 tablet 0 05/16/2017 Active Comment on above: Take 2 tablets by mo uth twice daily. ibandronic acid 150 mg oral tablet (6 sources) Bisphosphonate Start: 01-26-2017 take 1 tablet by mouth every month BONIVA 150 MG TABS One tablet by mouth a month IBANDRONATE SODIUM [id number] Jagdeep Chauhan MD meloxicam 15 mg oral tablet (12 sources) Nonsteroidal Anti-inflammatory Drug Start: 11-24-2011 End: 08-16-2012 take 1 tablet by mouth once daily MOBIC 15 MG TABS One tablet by mouth daily MELOXICAM [id number] Marlin Lopeze metoprolol tartrate 25 mg oral tablet (20 sources) beta-Adrenergic Dasha Start: 02-06-2010 take 1 tablet by mouth once daily METOPROLOL TARTRATE 25 MG TABS One tablet by mouth daily METOPROLOL TARTRATE [id number] Jagdeep Chauhan MD Start: 02-06-2010 METOPROLOL TAR TRATE 25 MG TABS 1/2 tab in the morning METOPROLOL TARTRATE [id number] Jagdeep Chauhan MD Start: 09-14-2008 metoprolol suc cinate(TOPROL XL 25 MG 24 HR TAB) Take one/half(1/2) tablet daily. 0 0 09/14/2008 Active Comment on above: Take one/half(1/2) t ablet daily. MULTIPLE VITAMIN (10 sources) Start: 05-11-2011 MULTIVITAMINS TABS MULTIPLE VITAMIN [id number] Mili Allison Start: 05-11-2011 End: 10-27-2013 MULTIVITAMINS TABS 5 MULTIPLE VITAMIN [id number] Jagdeep Chauhan MD MULTIPLE VITAMIN (2 sources) Start: 05-11-2011 End: 10-27-2013 MULTIVITAMINS TABS 5 MULTIPLE VITAMIN [id number] Jagdeep Chauhan MD Start: 05-11-2011 MULTIVITAMINS TABS MULTIPLE VITAMIN [id number] Mili Allison nabumetone 750 mg oral tablet (12 sources) Nonsteroidal Anti-inflammatory Drug Start: 11-22-2009 End: 10-27-2013 take 1 tablet by mouth once daily NABUMETONE 750 MG TABS One tablet by mouth daily NABUMETONE [id number] Josie Bergeron MS,PA-C omega-3 fatty acids/vitamin e(FISH OIL 1,000 MG CAP) (1 source) Start: 01-15-2010 omega-3 fatty acids/vitamin e(FISH OIL 1,000 MG CAP) Take one tablet two times daily. 0 01/15/2010 Active Comment on above: Take one tablet two times daily. omeprazole 20 mg delayed release oral capsule (7 sources) Proton Pump Inhibitor Start: 07-02-2015 take 1 tablet by mouth once daily OMEPRAZOLE 20 MG CPDR One tablet by mouth daily OMEPRAZOLE [id number] Jagdeep Chauhan MD take 1 capsule by mouth once jaguar ly omeprazole (PRILOSEC) 10 mg capsule Take 10 mg by mouth once daily. 0 Active Comment on above: Take 10 mg by mouth once daily. RED YEAST RICE ORAL (1 source) RED YEAST RICE O RAL Take by mouth. 0 Active Comment on above: Take by mouth. rivaroxaban 10 mg oral tablet (20 sources) Factor Xa Inhibitor Start: 11-24-2011 End: 08-16-2012 take 1 tablet by mouth once daily XARELTO 10 MG TABS One tablet by mouth daily RIVAROXABAN [id number] Marlin Enciso Start: 09-07-2011 End: 11-08-2011 take 1 tablet by mouth once daily XARELTO 10 MG TABS One tablet by mouth daily RIVAROXABAN [id number] Neva Lindsay rOPINIRole 1 mg oral tablet (12 sources) Nonergot Dopamine Agonist Start: 05-08-2014 End: 07-02-2015 take 1 tablet by mouth once daily at bedtime as needed REQUIP 1 MG TABS One tablet by mouth daily at bedtime for restless leg as needed ROPINIROLE HCL [id number] Jagdeep Chauhan MD rosuvastatin calcium 40 mg oral tablet (19 sources) HMG-CoA Reductase Inhibitor Start: 11-22-2009 rosuvastatin calcium(CRESTOR 40 MG TAB) Take one tablet daily. 0 01/15/2010 Active Comment on above: Take one tablet malik y. traZODone hydrochloride 300 mg oral tablet (7 sources) Serotonin Reuptake Inhibitor Start: 06-30-2016 take 0.5 tablet by mouth at bedtime TRAZODONE HCL 300 MG TABS 1/2 tablet by mouth at bedtime for restless legs TRAZODONE HCL [id number] Jagdeep Chauhan MD traZODone (DESYR EL) 50 mg tablet Take 25 mg by mouth daily at bedtime. 0 Active Comment on above: Take 25 mg by mouth daily at bedtime. UBIDECARENONE/VITAMIN E MIXED (COQ10 SG 100 ORAL) (1 source) UBIDECARENONE/ TAMIN E MIXED (COQ10 SG 100 ORAL) Take by mouth. 0 Active Comment on above: Take by mouth. vitamin e 268 mg oral capsule (1 source) Start: 06-15-2008 VITAMIN E 400 UNIT CAP Take one(1) tablet twice daily. 0 06/15/2008 Active Comment on above: Take one(1) tablet t wice daily. Problems Active Problems Problem Classification Problem Date Documented Date Episodic/Chronic Coronary atherosclerosis and other heart disease (12 sources) Atherosclerotic heart disease of [place] coronary artery without angina pectoris; Translations: [Coronary arteriosclerosis] Onset: 10-15-2011 06-26-2016 Chronic Disorders of lipid metabolism (12 sources) Hypercholesterolemia; Translations: [Hyperlipidemia] Onset: 10-15-2011 10-15-2011 Chronic Heart valve disorders (12 sources) Mitral valve prolapse; Translations: [Nonrheumatic mitral (valve) prolapse] Onset: 10-15-2011 06-26-2016 Chronic Osteoarthritis (6 sources) Osteoarthritis of knee; Translations: [Osteoarthritis of knee, unspecified] 05-16-2013 Chronic Other upper respiratory infections (7 sources) Upper respiratory infection; Translations: [Acute upper respiratory infection] Onset: 11-22-2009 Resolved: 12-13-2009 11-22-2009 Episodic Unclassified (3 sources) Gynecologic examination ; Translations: [Encounter for gynecological examination (general) (routine) without abnormal findings] Onset: 02-09-2017 02-09-2017 Unclassified (3 sources) Screening for malignant neoplasm of cervix ; Translations: [Encounter for screening for malignant neoplasm of cervix] Onset: 02-09-2017 02-09-2017 Unclassified (3 sources) Screening for malignant neoplasm of colon ; Translations: [Encounter for screening for malignant neoplasm of colon] Onset: 02-09-2017 02-09-2017 Unclassified (2 sources) Long-term drug therapy; Translations: [Long-term (current) use of other medications] Onset: 05-07-2011 05-07-2011 Unclassified (2 sources) Procedure carried out on subject; Translations: [Encounter for other screening for malignant neoplasm of breast] Onset: 02-09-2017 02-09-2017 Past or Other Problems Problem Classification Problem Date Documented Da te Episodic/Chronic Immunizations and screening for infectious disease (3 sources) Encounter for screening for human papillomavirus (HPV); Translations: [Encounter for screening for human papillomavirus (HPV)] Onset: 02-09-2017 02-09-2017 Episodic Joint disorders and dislocations; trauma-related (12 sources) Tear of lateral meniscus of knee; Translations: [Other tear of lateral meniscus, current injury, left knee] Resolved: 09-28-2012 08-31-2011 Episodic Neoplasms of unspecified nature or uncertain behavior (6 sources) Neoplasm of uncertain behavior of skin; Translations: [Neoplasm of uncertain behavior of skin] Onset: 02-06-2010 02-26-2010 Episodic Other aftercare (10 sources) Other vermin exterminator (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; Translations: [Long-term (current) use of other medications] Onset: 05-07-2011 07-12-2015 Episodic Other and unspecified benign neoplasm (1 source) History of polyp of colon; Translations: [Personal history of colonic polyps] Onset: 06-15-2008 06-15-2008 Episodic Other connective tissue disease (11 sources) Pes anserinus bursitis; Translations: [Trochanteric bursitis] Onset: 05-11-2011 09-27-2012 Episodic Other connective tissue disease (1 source) Trochanteric bursitis; Translations: [Enthesopathy of hip region] Onset: 05-11-2011 05-11-2011 Episodic Other ear and sense organ disorders (6 sources) Unspecified perichondritis of external ear, unspecified ear; Translations: [Unspecified perichondritis of external ear, unspecified ear] Onset: 02-06-2010 02-26-2010 Episodic Other non-epithelial cancer of skin (6 sources) Personal history of other malignant neoplasm of skin; Translations: [Personal history of other malignant neoplasm of skin] Onset: 02-06-2010 02-26-2010 Episodic Other non-traumatic joint disorders (20 sources) Knee pain; Translations: [Hand joint pain] Onset: 09-26-2012 05-16-2013 Episodic Other non-traumatic joint disorders (1 source) Disorder of wrist joint; Translations: [Other specific arthropathies, not elsewhere classified, left wrist] Onset: 09-26-2012 09-26-2012 Episodic Other non-traumatic joint disorders (1 source) Hand joint pain; Translations: [Pain in unspecified hand] 09-27-2012 Episodic Other non-traumatic joint disorders (1 source) Knee joint effusion; Translations: [Effusion, unspecified knee] 08-25-2013 Episodic Other nutritional; endocrine; and metabolic disorders (6 sources) Body mass index (BMI) 26.0-26.9, adult; Translations: [Body mass index (BMI) 26.0-26.9, adult] Onset: 01-26-2017 01-26-2017 Episodic Phlebitis; thrombophlebitis and thromboembolism (6 sources) Deep venous thrombosis; Translations: [Acute embolism and thrombosis of unspecified vein] 08-31-2011 Episodic Spondylosis; intervertebral disc disorders; other back problems (6 sources) Sciatica; Translations: [Sciatica, unspecified side] 06-02-2011 Episodic Unclassified (3 sources) Encounter for other screening for malignant neoplasm of breast; Translations: [Encounter for other screening for malignant neoplasm of breast] Onset: 02-09-2017 02-09-2017 Episodic Unclassified (10 sources) Preoperative cardiovascular examination ; Translations: [Encounter for preprocedural cardiovascular examination] Onset: 10-27-2013 Resolved: 06-26-2016 10-27-2013 Results Test Name Value Interpretation Reference Range Facility [facility] 10-07-2022 [facility] Office Visit (UCWSTR ) JENN GUY ([id number]) 1955 F Date Time Provider Department 10/07/22 11:00 AM HÉCTOR TORREZ [facility] During your visit today, we recorded the following information about you: Temperature Pulse Respiration Blood pressure 98.5 degrees 94/minute 21/minute 108/64 Weight 68.8 kg MIKAELA Brady 10/07/2022 11:17 AM Signed This note was created using NoteWriter. Subjective Jenn Guy is a 67 year old female. HPI 67-year-old female presents for right ear pain, cough and body aches. Patient has had cough for the past few days. She also has right ear pain and body aches. No history of COPD or asthma. No fevers. She has had a runny nose. No sick contacts that she is aware. She has been taking Motrin. 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 Personal history of colonic polyps Pure hypercholesterolemia Unspecified sinusitis (chronic) PAST SURGICAL HISTORY Procedure Laterality Date ADENOIDECTOMY PRIMARY Adenoidectomy ARTHROSCOPY KNEE DIAGNOSTIC W/WO SYNOVIAL BX SPX 08/26/2011 Arthroscopy, knee ARTHRP KNE CONDYLEANDPLATU MEDIALANDLAT COMPARTMENTS 02/07/14 Knee replacement, total left COLONOSCOPY FLX DX W/COLLJ SPEC WHEN PFRMD 04/2004 Colonoscopy COLONOSCOPY FLX DX W/COLLJ SPEC WHEN PFRMD 09/14/08 CORONARY ENDARTERCOMY OPEN ANY METHOD Angioplasty ENDOMETRIAL BX W/WO ENDOCERVIX BX W/O DILAT SPX January 15, 2010 LIG/TRNSXJ FLP TUBE ABDL/VAG APPR UNI/BI Tubal ligation PAST SURGICAL HISTORY OF 2001 left knee arthroscopy PAST SURGICAL HISTORY OF 1996 left foot bunionectomy TONSILLECTOMY PRIMARY/SECONDARY Tonsillectomy ALLERGIES Patient has no known allergies. MEDICATIONS guaiFENesin (MUCINEX) 600 mg 12 hr tablet Take 2 tablets by mouth twice daily. CYANOCOBALAMIN, VITAMIN B-12, (VITAMIN B-12 ORAL) Take by mouth. omeprazole (PRILOSEC) 10 mg capsule Take 10 mg by mouth once daily. DULoxetine (CYMBALTA) 20 mg capsule Take 20 mg by mouth once daily. traZODone (DESYREL) 50 mg tablet Take 25 mg by mouth daily at bedtime. UBIDECARENONE/VITAMIN E MIXED (COQ10 SG 100 ORAL) Take by mouth. RED YEAST RICE ORAL Take by mouth. CHOLECALCIFEROL, VITAMIN D3, (VITAMIN D-3 ORAL) Take by mouth. rosuvastatin calcium(CRESTOR 40 MG TAB) Take one tablet daily. omega-3 fatty acids/vitamin e(FISH OIL 1,000 MG CAP) Take one tablet two times daily. metoprolol succinate(TOPROL XL 25 MG 24 HR TAB) Take one/half(1/2) tablet daily. CALCIUM 500 MG TAB Take one(1) tablet twice daily. VITAMIN E 400 UNIT CAP Take one(1) tablet twice daily. FAMILY HISTORY Problem Relation Age of Onset Cancer Paternal Aunt BREAST Cancer Paternal Aunt BREAST Cancer Paternal Grandmother COLON Heart Paternal Grandfather Heart Father Breast Cancer Sister 60 2011 Social History Tobacco Use Smoking status: Never Smokeless tobacco: Never Substance Use Topics Alcohol use: No Drug use: No Review of Systems Constitutional: Negative for chills and fever. HENT: Positive for ear pain and rhinorrhea. Negative for congestion and sore throat. Respiratory: Positive for cough. Negative for shortness of breath. Cardiovascular: Negative for chest pain. Gastrointestinal: Negative for diarrhea and vomiting. Musculoskeletal: Positive for myalgias. Objective BP 108/64 Pulse 94 Temp 36.9 ?C (98.5 ?F) Resp 21 Wt 68.8 kg (151 lb 9.6 oz) LMP 04/29/2006 SpO2 99% BMI 23.39 kg/m? Physical Exam Vitals and nursing note reviewed. Constitutional: General: She is not in acute distress. Appearance: Normal appearance. She is not toxic-appearing. HENT: Right Ear: Ear canal normal. A middle ear effusion is present. Left Ear: Tympanic membrane and ear canal normal. Ears: Comments: Small amount of clear fluid behind TM. Nose: Nose normal. Mouth/Throat: Mouth: Mucous membranes are moist. Pharynx: No oropharyngeal exudate or posterior oropharyngeal erythema. Eyes: Conjunctiva/sclera: Conjunctivae normal. Cardiovascular: Rate and Rhythm: Normal rate and regular rhythm. Pulmonary: Effort: Pulmonary effort is normal. Breath sounds: Normal breath sounds. Neurological: Mental Status: She is alert. Assessment and Plan ASSESSMENT/PLAN: 1. URI, acute - ICD9: 465.9, ICD10: J06.9 - Discussed viral etiology and rationale for treatment. - Symptomatic treatment with prn analgesia - Supportive care with fluids and rest -Recommend Flonase -Declines COVID/flu swab Diagnosis and treatment plan were discussed and questions were answered to the patient's satisfaction. Pt acknowledged understanding of concepts and follow up (more content not included)... Normal [facility] Lab Report: PAP I-G HPV Hi R iskon 02-13-2017 GE use only - for LinkLogic import when terms are not otherwise specified Negative Invalid Interpretation Code Negative [facility] Office Visit: new annualon 0 02-09-2017 Documentation of current medications (procedure) Done Invalid Interpretation Code [facility] Fall risk assessment No Invalid Interpretation Code [facility] Hemoglobin.gastroint estinal Ql (St) not done Invalid Interpretation Code [facility] Protein mass conc Done [facility] Tobacco smoking status NHIS Never Invalid Interpretation Code [facility] Tobacco smoking status NHIS Never smoker [facility] Tobacco use [facility] Never smoker Invalid Interpretation Code [facility] Office Visiton 01-26-2017 Documentation of current medications (procedure) Done Invalid Interpretation Code [facility] Work Phone: [phone] Fall risk assessment No Invalid Interpretation Code [facility] Work Phone: [phone] Lab Report: Lipid Profileon 07-10-2016 Cholesterol 157 mg/dL Invalid Interpretation Code 200 [facility] Work Phone: [phone] HDL Cholesterol 67 mg/dL Invalid Interpretation Code [facility] Work Phone: [phone] LDL Cholesterol 80 mg/dL Invalid Interpretation Code 0-130 [facility] Work Phone: [phone] Triglyceride 49 mg/dL Invalid Interpretation Code [facility] Phone: [phone] very low density lipoproteins 10 mg/dL Invalid Interpretation Code 5-40 [facility] Work Phone: [phone] Lab Report: Liver Profileon 07-10-2016 Alanine aminotransferase (ALT) 28 U/L Invalid Interpretation Code 12-78 [facility] Work Phone: [phone] Albumin 3.8 g/dL Invalid Interpretation Code 3.4-5.0 [facility] Work Phone: [phone] Alkaline phosphatase (ALP) 78 U/L Invalid Interpretation Code 45-117 [facility] Work Phone: [phone] ALP enzyme act/vol (Bld) 78 U/L 45-117 [facility] Aspartate aminotransferase (AST) 20 U/L Invalid Interpretation Code 15-37 [facility] Work Phone: [phone] Bilirubin (direct) 0.08 mg/dL Invalid Interpretation Code 0.00-0.30 [facility] Work Phone: [phone] Bilirubin (total) 0.40 mg/dL Invalid Interpretation Code 0.20-1.00 [facility] Work Phone: [phone] Globulin 3.2 g/dL Invalid Interpretation Code 2.3-3.5 [facility] Work Phone: [phone] Globulin mass conc (S) 3.2 g/dL 2.3-3.5 [facility] Protein 7.0 g/dL Invalid Interpretation Code 6.4-8.2 [facility] Work Phone: [phone] Clinical Lists 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: 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 Left ventricular Ejection fraction 60 % Invalid Interpretation Code [facility] Work Phone: [phone] Office Visit: new annualon 0 01-06-2016 MG Breast screening Normal Bilateral Invalid Interpretation Code [facility] Office Visiton 07-02-2015 Tobacco use [facility] Never smoker Invalid Interpretation Code [facility] Work Phone: [phone] Clinical Lists Update: 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 06-17-2015 BUN/Creatinine Ratio 26 mg/mg Invalid Interpretation Code [facility] Work Phone: [phone] Calcium 9.6 mg/dL Invalid Interpretation Code [facility] Work Phone: [phone] Chloride 101 mmol/L Invalid Interpretation Code [facility] Work Phone: [phone] CO2 23 mmol/L Invalid Interpretation Code [facility] Work Phone: [phone] CO2 ppres (BldV) 23 mmol/L [facility] Creatinine 0.72 mg/dL Invalid Interpretation Code [facility] Work Phone: [phone] Erythrocyte distribution width Ratio (RBC) 13.4 % [facility] Erythrocytes (RBC) 4.37 10*6/uL Invalid Interpretation Code [facility] Work Phone: [phone] Globulin 2.0 g/dL Invalid Interpretation Code [facility] Work Phone: [phone] Globulin mass conc (S) 2.0 g/dL [facility] Glucose 89 mg/dL Invalid Interpretation Code [facility] Work Phone: [phone] Glucose mass conc 89 mg/dL [facility] Hematocrit (HCT) 37.8 % Invalid Interpretation Code [facility] Work Phone: [phone] Hematocrit Volume Fraction (Bld) 37.8 % [facility] Hemoglobin (HGB) 12.9 g/dL Invalid Interpretation Code [facility] Work Phone: [phone] LDL/HDL ratio, serum 1.0 Invalid Interpretation Code [facility] Work Phone: [phone] MCH 29.5 pg Invalid Interpretation Code [facility] Work Phone: [phone] MCH Entitic mass (RBC) 29.5 pg [facility] MCHC 34.1 g/dL Invalid Interpretation Code [facility] Work Phone: [phone] MCHC mass conc (RBC) 34.1 g/dL [facility] MCV 87 fL Invalid Interpretation Code [facility] Work Phone: [phone] MCV Entitic volume (RBC) 87 fL [facility] Platelets 351 10*3/mm3 Invalid Interpretation Code [facility] Work Phone: [phone] Platelets #/vol (Bld) 351 10*3/mm3 [facility] Potassium 4.5 mmol/L Invalid Interpretation Code [facility] Work Phone: [phone] RBC #/vol (Bld) 4.37 10*6/uL [facility] RDW-CA 13.4 % Invalid Interpretation Code [facility] Work Phone: [phone] Sodium 138 mmol/L Invalid Interpretation Code [facility] Work Phone: [phone] Urea nitrogen 19 mg/dL Invalid Interpretation Code [facility] Work Phone: [phone] WBC #/vol (Bld) 5.6 10*3/uL [facility] WBC (Leukocytes) 5.6 10*3/uL Invalid Interpretation Code [facility] Work Phone: [phone] Lab Report: Maci 12-02-20 14 ALK 88 U/L Normal 50-136 [facility] GE use only - for LinkLogic import when terms are not otherwise specified 88 U/L Normal 50-136 [facility] Work Phone: [phone] Office Visiton 05-08-2014 cardiac risk group C Invalid Interpretation Code [facility] Work Phone: [phone] General cardiovascular disease 10Y risk [#] [place]D'Agost[place] o N/A Invalid Interpretation Code [facility] Work Phone: [phone] Lab Report: CBCDon 4 Absolute Neutrophil count 1.6 X10 3/UL Low 2.0-7.7 [facility] Work Phone: [phone] ANC 1.6 X10 3/UL Low 2.0-7.7 [facility] Basophils/100 leukocytes 1.1 % High 0-1 [facility] Work Phone: [phone] Basophils/100 WBC (Bld) 1.1 % High 0-1 [facility] Eosinophils/100 leukocytes 3.1 % Normal 0-5 [facility] Work Phone: [phone] Eosinophils/100 WBC (Bld) 3.1 % Normal 0-5 [facility] Lymphocytes/100 leukocytes 42.5 % High 19-41 [facility] Work Phone: [phone] Lymphocytes/100 WBC (Bld) 42.5 % High 19-41 [facility] Monocytes/100 leukocytes 8.2 % Normal 0-10 [facility] Work Phone: [phone] Monocytes/100 WBC (Bld) 8.2 % Normal 0-10 [facility] Neutrophils/100 leukocytes 45.1 % Low 47-70 [facility] Work Phone: [phone] Neutrophils/100 WBC (Bld) 45.1 % Low 47-70 [facility] Platelet mean volume Entitic volume (Bld) 9.6 fL Normal 6.2-12.0 [facility] PMV by Casimiro 9.6 fL Normal 6.2-12.0 [facility] Work Phone: [phone] Lab Report: CMPon 12-01-2013 Albumin/Globulin Ratio 1.2 {ratio} Normal 0.9-2.4 [facility] Work Phone: [phone] Anion gap 5 mmol/L Normal 5-15 [facility] Work Phone: [phone] Anion gap molar conc 5 mmol/L Normal 5-15 [facility] eGFR (non-black) 95 mL/min/{1.73_m2} Normal >60 [facility] Work Phone: [phone] eGFR (non-black) 78 mL/min/{1.73_m2} Normal >60 [facility] Work Phone: [phone] GFRAA 95 mL/min Normal >60 [facility] Lab Report: PHOSon 4 PHOS 3.6 mg/dL Normal 2.5-4.9 [facility] Phosphorus Concentratation-[place] om 3.6 mg/dL Normal 2.5-4.9 [facility] Work Phone: [phone] Lab Report: PTHINon 12-02-19 14 Parathyrin intact (PTH) 71 pg/mL Normal 14-72 [facility] Work Phone: [phone] Lab Report: TSHon 12-01-2013 Thyroid stimulating hormone (TSH) 0.87 u[iU]/mL Normal 0.358-3.74 [facility] Work Phone: [phone] Lab Report: VITDon 4 vitamin D 25-hydroxy, serum [id number] ng/mL Normal Units converted. See lab report for original value. [facility] Work Phone: [phone] VITD [id number] ng/mL Normal Units converted. See lab report for original value. [facility] Replaced Document: Anna Rice CG Observationson 10-27-2013 EKG QRS axis 30 deg [facility] electrocardiogram interpretation Sinus Bradycardia WITHIN NORMAL LIMITS Invalid Interpretation Code [facility] Work Phone: [phone] Interpretation Sinus Bradycardia WITHIN NORMAL LIMITS [facility] P [place] 46 deg [facility] P wave axis, electrocardiogram 46 deg Invalid Interpretation Code [facility] Work Phone: [phone] CA Interval 164 ms [facility] CA interval, electrocardiogram 164 ms Invalid Interpretation Code [facility] Work Phone: [phone] Pulse (Heart Rate) 53 /min Invalid Interpretation Code [facility] Work Phone: [phone] QRS axis, electrocardiogram 30 deg Invalid Interpretation Code [facility] Work Phone: [phone] QRS Duration 92 ms [facility] QRS duration, electrocardiogram 92 ms Invalid Interpretation Code [facility] Work Phone: [phone] QT Interval new path ms [facility] QT interval, electrocardiogram new path ms Invalid Interpretation Code [facility] Work Phone: [phone] [address] [place] 27 deg [facility] T wave axis, electrocardiogram 27 deg Invalid Interpretation Code [facility] Work Phone: [phone] Lab Reporton 04-22-2012 C reactive protein (CRP) mg/L Invalid Interpretation Code [facility] Work Phone: [phone] Replaced Document: AMYon Amylase 46 U/L Normal 25-115 [facility] Work Phone: [phone] Replaced Document: CRPon C reactive protein (CRP) mg/L Normal 0.0-3.0 [facility] Work Phone: [phone] Replaced Document: LIPASEon 04-22-2012 LIPASE 259 U/L Normal 70-290 [facility] lipase, serum 259 U/L Normal 70-290 [facility] Work Phone: [phone] Replaced Document: SEDon Erythrocyte sedimentation rate 14 mm/h Normal 0-30 [facility] Work Phone: [phone] Vital Signs Date Time Vital Sign Value Performing Clinician Faci litliza 10-07-2022 11:08-0400 Body temperature 98.49 [degF] Héctor AL Work Phone: [facility] 10-07-2022 11:08-0400 Body weight 68.77 kg Héctor AL Work Phone: [facility] 10-07-2022 11:08-0400 Diastolic blood pressure 64 mm[Hg] Krislyn Aberegg PA Work Phone: [facility] 10-07-2022 11:08-0400 Heart rate 94 /min Krislyn Aberegg PA Work Phone: [facility] 10-07-2022 11:08-0400 Respiratory rate 21 /min Krislyn Aberegg PA Work Phone: [facility] 10-07-2022 11:08-0400 SaO2% (BldA) [Mass fraction] 99 % Krislyn Aberegg PA Work Phone: [facility] 10-07-2022 11:08-0400 Systolic blood pressure 108 mm[Hg] Krislyn Aberegg PA Work Phone: [facility] 02-09-2017 08:16-0400 BMI (Body Mass Index) 27.94 kg/m2 Heather Camejo MD [facility] 02-09-2017 08:16-0400 Body Temperature 96.3 [degF] Heather Camejo MD [facility] 02-09-2017 08:16-0400 BP Diastolic 79 mm[Hg] Heather Camejo MD [facility] 02-09-2017 08:16-0400 BP Systolic 130 mm[Hg] Heather Camejo MD [facility] 02-09-2017 08:16-0400 Height 172.72 cm Heather Camejo MD [facility] 02-09-2017 08:16-0400 Pulse (Heart Rate) 60 /min Heather Camejo MD [facility] 02-09-2017 08:16-0400 Respiratory Rate 16 /min Heather Camejo MD [facility] 02-09-2017 08:16-0400 Weight 83.37 kg Heather Camejo MD [facility] 01-26-2017 09:17-0400 BMI (Body Mass Index) 26.66 kg/m2 [facility] Work Phone: 01-26-2017 09:17-0400 BP Diastolic 72 mm[Hg] [facility] Work Phone: 01-26-2017 09:17-0400 BP Systolic 130 mm[Hg] [facility] Work Phone: 01-26-2017 09:170400 Height 175.26 cm [facility] Work Phone: 01-26-2017 09:17-0400 Pulse (Heart Rate) 56 /min [facility] Work Phone: 01-26-2017 09:17-0400 Respiratory Rate 20 /min [facility] Work Phone: 01-26-2017 09:17-0400 Weight 81.9 kg [facility] Work Phone: 06-30-2016 10:12-0500 BSA (Body Surface Area) 1.97 m2 [facility] Work Phone: 10-27-2013 09:00-0400 Heart rate 53 /min Heather Camejo MD [facility] 03-06-2010 14:10-0400 Body Temperature 96.2 [degF] [facility] Work Phone: Encounters Encounter Date Encounter Type Care Provider Facility Start: 10-07-2022 End: 10-07-2022 ambulatory NIA CINTRON Facility:[facility] Start: 10-07-2022 End: 10-07-2022 Patient encounter procedure Héctor AL Work Phone: [facility] Comment on above: URI, acute (Primary Dx) Procedures Date Procedure Procedure Detail Performing Clinician Start: 02-09-2017 Gynecologic examination Composition Teacher annual exam Heather castillo MD Start: 02-09-2017 Screening for malignant neoplasm of cervix Screening for cervical cancer Heather Camejo MD Start: 02-09-2017 Screening for malignant neoplasm of colon Screening for colon cancer Heather Camejo MD Start: 01-26-2017 End: 01-26-2017 BENNETT Chauhan MD Start: 01-26-2017 End: 01-26-2017 Follow Up Appt 1 year Jagdeep Chauhan MD Start: 07-07-2016 End: 07-10-2016 *Hepatic Function Panel [facility] Start: 07-07-2016 End: 07-10-2016 Lipid panel [AGGREGATE] [facility] Start: 06-30-2016 End: 06-30-2016 Follow Up Appt 6 months [facility] Start: 06-30-2016 End: 06-30-2016 MMM Jagdeep Chauhan MD Start: 10-16-2015 Mallory AL Work Phone: Start: 07-02-2015 End: 07-02-2015 BENNETT Chauhan MD Start: 07-02-2015 End: 07-02-2015 Follow Up Appt 1 year Jagdeep Chauhan MD Start: 11-05-2014 End: 07-12-2015 Lipid panel [AGGREGATE] [facility] Start: 05-08-2014 End: 05-08-2014 DITCHING MACHINE OPERATOR Jagdeep Chauhan MD Start: 05-08-2014 End: 05-08-2014 Follow Up Appt 1 year Jagdeep Chauhan MD Start: 05-07-2014 End: 05-08-2014 *Hepatic Function Panel [facility] Start: 05-07-2014 End: 05-08-2014 Lipid panel [AGGREGATE] [facility] B[facility] Start: 11-05-2013 End: 12-01-2013 *Hepatic Function Panel [facility] Start: 11-05-2013 End: 12-01-2013 Lipid panel [AGGREGATE] [facility] Start: 10-27-2013 End: 10-27-2013 BENNETT Chauhan MD Start: 10-27-2013 End: 11-24-2013 Echocardiography Jagdeep Chauhan MD Start: 10-27-2013 End: 10-27-2013 Electrocardiogram, complete Jagdeep Chauhan MD Start: 10-27-2013 End: 11-24-2013 Nuclear stress test -adenosine Jagdeep Chauhan MD Start: 10-27-2013 End: 06-26-2016 Preoperative cardiovascular examination PRE-OPERATIVE CARDIOVASCULAR EXAMINATION Heather Camejo MD Start: 08-10-2013 End: 11-24-2013 *Hepatic Function Panel [facility] B[facility] Start: 08-10-2013 End: 11-24-2013 Lipid panel [AGGREGATE] Vonnie Boo Start: 05-01-2013 End: 05-11-2013 *Hepatic Function Panel Vonnie Boo Start: 05-01-2013 End: 05-11-2013 Lipid panel [AGGREGATE] [facility] Start: 10-11-2012 End: 05-08-2014 DITCHING MACHINE OPERATOR Jagdeep Chauhan MD Start: 10-11-2012 End: 05-08-2014 Follow Up Appt 1 year Jagdeep Chauhan MD Start: 10-05-2012 End: 10-11-2012 *Hepatic Function Panel Faustino Luque MD Start: 10-05-2012 End: 10-11-2012 Lipid panel [AGGREGATE] Faustino Luque MD Start: 04-13-2012 End: 04-25-2012 *Hepatic Function Panel Faustino Luque MD Start: 04-13-2012 End: 04-25-2012 Lipid panel [AGGREGATE] Faustino Luque MD Start: 10-15-2011 End: 10-15-2011 Follow Up Appt 1 year Faustino Luque MD Start: 10-09-2011 End: 10-09-2011 *Hepatic Function Panel Faustino Luque MD Start: 10-09-2011 End: 10-09-2011 Lipid panel [AGGREGATE] Faustino Luque MD Start: 09-14-2008 Gina AL Work Phone: Plan of Treatment Date Care Activity Detail Author Start: 02-05-2023 [facility] Start: 06-07-2022 ADVANCE DIRECTIVE DISCUSSION ADVANCE DIRECTIVE DISCUSSION [facility] Start: 06-07-2022 DEPRESSION ASSESSMENT DEPRESSION ASSESSMENT [facility] Start: 10-06-2021 Urine microalbumin profile DTAP,TDAP,TD (2 - Td or Tdap) [facility] Start: 07-10-2021 LIPID SCREEN LIPID SCREEN [facility] Start: 2018 BONE DENSITY BONE DENSITY [facility] Start: 2018 PNEUMOCOCCAL: 65+ (1 - PCV) PNEUMOCOCCAL: 65+ (1 - PCV) [facility] Start: 01-27-2018 End: 01-27-2018 Appointment Appointment [facility] Work Phone: Start: 02-09-2017 End: 02-09-2017 Appointment Appointment [facility] Work Phone: Start: 02-09-2017 End: 03-03-2017 Mammogram, screening Mammogram, Screening, both breasts [facility] Start: 02-08-2017 DIABETES SCREEN DIABETES SCREEN [facility] Start: 01-26-2017 End: 01-26-2017 DITCHING MACHINE OPERATOR DITCHING MACHINE OPERATOR [facility] Work Phone: Start: 01-26-2017 End: 01-26-2017 Follow Up Appt 1 year Follow Up Appt 1 year [facility] Work Phone: Start: 01-07-2017 End: 07-10-2016 *Hepatic Function Panel *Hepatic Function Panel [facility] Work Phone: Start: 01-07-2017 End: 07-10-2016 Lipid panel [AGGREGATE] *Lipid Profile CC PCP [facility] Work Phone: Start: 10-15-2016 Mammography MAMMOGRAM [facility] Start: 07-07-2016 End: 07-03-2016 *Hepatic Function Panel *Hepatic Function Panel [facility] Work Phone: Start: 07-07-2016 End: 07-03-2016 Lipid panel [AGGREGATE] *Lipid Profile CC PCP [facility] Work Phone: Start: 06-30-2016 End: 06-30-2016 Follow Up Appt 6 months Follow Up Appt 6 months [facility] Work Phone: Start: 06-30-2016 End: 06-30-2016 MMM MMM [facility] Work Phone: Start: 07-02-2015 End: 07-02-2015 DITCHING MACHINE OPERATOR DITCHING MACHINE OPERATOR [facility] Work Phone: Start: 07-02-2015 End: 07-02-2015 Follow Up Appt 1 year Follow Up Appt 1 year [facility] Work Phone: Start: 11-05-2014 End: 07-12-2015 Lipid panel [AGGREGATE] *Lipid Profile CC PCP [facility] Work Phone: Start: 05-08-2014 End: 05-08-2014 DITCHING MACHINE OPERATOR DITCHING MACHINE OPERATOR [facility] Work Phone: Start: 05-08-2014 End: 05-08-2014 Follow Up Appt 1 year Follow Up Appt 1 year [facility] Work Phone: Start: 05-07-2014 End: 05-08-2014 *Hepatic Function Panel *Hepatic Function Panel [facility] Work Phone: Start: 05-07-2014 End: 05-08-2014 Lipid panel [AGGREGATE] *Lipid Profile CC PCP [facility] Work Phone: Start: 11-05-2013 End: 12-01-2013 *Hepatic Function Panel *Hepatic Function Panel [facility] Work Phone: Start: 11-05-2013 End: 12-01-2013 Lipid panel [AGGREGATE] *Lipid Profile CC PCP [facility] Work Phone: Start: 10-27-2013 End: 10-27-2013 DITCHING MACHINE OPERATOR DITCHING MACHINE OPERATOR [facility] Work Phone: Start: 10-27-2013 End: 10-27-2013 Echocardiography Echocardiogram (complete) [facility] Work Phone: Start: 10-27-2013 End: 10-27-2013 Electrocardiogram, complete EKG (In office) [facility] Work Phone: Start: 10-27-2013 End: 10-27-2013 Follow Up Appt 6 months Follow Up Appt 6 months [facility] Work Phone: Start: 10-27-2013 End: 10-27-2013 Nuclear stress test -adenosine Nuclear stress test -adenosine [facility] Work Phone: Start: 09-14-2013 Colonoscopy COLONOSCOPY [facility] Start: 09-14-2013 COLORECTAL CANCER SCREENING COLORECTAL CANCER SCREENING [facility] Start: 08-10-2013 End: 11-24-2013 *Hepatic Function Panel *Hepatic Function Panel [facility] Work Phone: Start: 08-10-2013 End: 11-24-2013 Lipid panel [AGGREGATE] *Lipid Profile CC PCP [facility] Work Phone: Start: 05-01-2013 End: 05-11-2013 *Hepatic Function Panel *Hepatic Function Panel [facility] Work Phone: Start: 05-01-2013 End: 05-11-2013 Lipid panel [AGGREGATE] *Lipid Profile CC PCP [facility] Work Phone: Start: 10-11-2012 End: 05-08-2014 DITCHING MACHINE OPERATOR DITCHING MACHINE OPERATOR [facility] Work Phone: Start: 10-11-2012 End: 05-08-2014 Follow Up Appt 1 year Follow Up Appt 1 year [facility] Work Phone: Start: 10-05-2012 End: 10-11-2012 *Hepatic Function Panel *Hepatic Function Panel [facility] Work Phone: Start: 10-05-2012 End: 10-11-2012 Lipid panel [AGGREGATE] *Lipid Profile [facility] Work Phone: Start: 04-13-2012 End: 04-25-2012 *Hepatic Function Panel *Hepatic Function Panel [facility] Work Phone: Start: 04-13-2012 End: 04-25-2012 Lipid panel [AGGREGATE] *Lipid Profile [facility] Work Phone: Start: 11-06-2011 End: 10-09-2011 *Hepatic Function Panel *Hepatic Function Panel [facility] Work Phone: Start: 11-06-2011 End: 10-09-2011 Lipid panel [AGGREGATE] *Lipid Profile [facility] Work Phone: Start: 10-15-2011 End: 10-15-2011 Follow Up Appt 1 year Follow Up Appt 1 year [facility] Work Phone: Start: 2003 SHINGRIX VACCINE (1 of 2) SHINGRIX VACCINE (1 of 2) [facility] Start: 1998 COLOGUARD (FIT-DNA) COLOGUARD (FIT-DNA) [facility] Start: [address] COLONOGRAPHY [facility] Start: 1998 FECAL OCCULT BLOOD FECAL OCCULT BLOOD [facility] Start: 1998 SIGMOIDOSCOPY SIGMOIDOSCOPY [facility] Start: 1971 HEPATITIS C SCREENING HEPATITIS C SCREENING [facility] Start: 01-26-1956 COVID-19 VACCINE (#1) COVID-19 VACCINE (#1) [facility] Patient Education [facility] Work Phone: Immunizations Immunization Date Immunization Notes Care Provider John leonardo 10-07-2011 tetanus toxoid, redu aria diphtheria toxoid, and acellular pertussis vaccine, adsorbed Héctor Torrez PA Work Phone: [facility] Payers Date Payer Category Payer Unknown MMO MMO [employer] PPO [id number] 2019-Present [phone] [address] [place] [address] PPO [id number] 2019 Unknown [id number] 2018 Medicare MEDICARE MEDICAR E A AND B [id number] 2018-Present [phone] [address] [address] [place] [address] Medicare 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) [facility] Start: 1955 Sex Assigned At Not on file C [facility] Medical Equipment Procedure Code Equipment Code Equipment Original Text Equipment Identifier Dates Felice Bn Smpx P Radpq Fd Strl - [id number] Start: 02-07-2014 Comment on above: Description: simplex P bone cement Ins Tib 4 9mm Kn X3 Uhmwpe Ps - [id number] Start: 02-07-2014 Comment on above: Description: triathl on X3 tibial bearing insert - ps Comp Pat 10mm 35mm Asym Trthln - [id number] Start: 02-07-2014 Comment on above: Description: triathl on X3 asymmetric patella Baseplt Tib Trthln 4 Kn [facility] - [id number] Start: 02-07-2014 Comment on above: Description: triathl on primary tibial baseplate Progress note 10-07-2022 Note Date & Type Note Facility 10-07-2022 Note HNO ID: [id number] Author: MIKAELA Brady Service: ? Author Type: Physician Distribution Clerk Type: Progress Notes Filed: 10/07/2022 11:17 AM Note Text: This note was created using [employer]. Subjective Jenn Guy is a 67 year old female. HPI 67-year-old female presents for right ear pain, cough and body aches. Patient has had cough for the past few days. She also has right ear pain and body aches. No history of COPD or asthma. No fevers. She has had a runny nose. No sick contacts that she is aware. She has been taking Motrin. 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 Personal history of colonic polyps Pure hypercholesterolemia Unspecified sinusitis (chronic) PAST SURGICAL HISTORY Procedure Laterality Date ADENOIDECTOMY PRIMARY Adenoidectomy ARTHROSCOPY KNEE DIAGNOSTIC W/WO SYNOVIAL BX SPX 08/26/2011 Arthroscopy, knee ARTHRP KNE CONDYLEANDPLATU MEDIALANDLAT COMPARTMENTS 02/07/14 Knee replacement, total left COLONOSCOPY FLX DX W/COLLJ SPEC WHEN PFRMD 04/2004 Colonoscopy COLONOSCOPY FLX DX W/COLLJ SPEC WHEN PFRMD 09/14/08 CORONARY ENDARTERCOMY OPEN ANY METHOD Angioplasty ENDOMETRIAL BX W/WO ENDOCERVIX BX W/O DILAT SPX January 15, 2010 LIG/TRNSXJ FLP TUBE ABDL/VAG APPR UNI/BI Tubal ligation PAST SURGICAL HISTORY OF 2001 left knee arthroscopy PAST SURGICAL HISTORY OF 1996 left foot bunionectomy TONSILLECTOMY PRIMARY/SECONDARY Tonsillectomy ALLERGIES Patient has no known allergies. MEDICATIONS guaiFENesin (MUCINEX) 600 mg 12 hr tablet Take 2 tablets by mouth twice daily. CYANOCOBALAMIN, VITAMIN B-12, (VITAMIN B-12 ORAL) Take by mouth. omeprazole (PRILOSEC) 10 mg capsule Take 10 mg by mouth once daily. DULoxetine (CYMBALTA) 20 mg capsule Take 20 mg by mouth once daily. traZODone (DESYREL) 50 mg tablet Take 25 mg by mouth daily at bedtime. UBIDECARENONE/VITAMIN E MIXED (COQ10 SG 100 ORAL) Take by mouth. RED YEAST RICE ORAL Take by mouth. CHOLECALCIFEROL, VITAMIN D3, (VITAMIN D-3 ORAL) Take by mouth. rosuvastatin calcium(CRESTOR 40 MG TAB) Take one tablet daily. omega-3 fatty acids/vitamin e(FISH OIL 1,000 MG CAP) Take one tablet two times daily. metoprolol succinate(TOPROL XL 25 MG 24 HR TAB) Take one/half(1/2) tablet daily. CALCIUM 500 MG TAB Take one(1) tablet twice daily. VITAMIN E 400 UNIT CAP Take one(1) tablet twice daily. FAMILY HISTORY Problem Relation Age of Onset Cancer Paternal Aunt BREAST Cancer Paternal Aunt BREAST Cancer Paternal Grandmother COLON Heart Paternal Grandfather Heart Father Breast Cancer Sister 60 2012 Social History Tobacco Use Smoking status: Never Smokeless tobacco: Never Substance Use Topics Alcohol use: No Drug use: No Review of Systems Constitutional: Negative for chills and fever. HENT: Positive for ear pain and rhinorrhea. Negative for congestion and sore throat. Respiratory: Positive for cough. Negative for shortness of breath. Cardiovascular: Negative for chest pain. Gastrointestinal: Negative for diarrhea and vomiting. Musculoskeletal: Positive for myalgias. Objective BP 108/64 Pulse 94 Temp 36.9 ?C (98.5 ?F) Resp 21 Wt 68.8 kg (151 lb 9.6 oz) LMP 04/29/2006 SpO2 99% BMI 23.39 kg/m? Physical Exam Vitals and nursing note reviewed. Constitutional: General: She is not in acute distress. Appearance: Normal appearance. She is not toxic-appearing. HENT: Right Ear: Ear canal normal. A middle ear effusion is present. Left Ear: Tympanic membrane and ear canal normal. Ears: Comments: Small amount of clear fluid behind TM. Nose: Nose normal. Mouth/Throat: Mouth: Mucous membranes are moist. Pharynx: No oropharyngeal exudate or posterior oropharyngeal erythema. Eyes: Conjunctiva/sclera: Conjunctivae normal. Cardiovascular: Rate and Rhythm: Normal rate and regular rhythm. Pulmonary: Effort: Pulmonary effort is normal. Breath sounds: Normal breath sounds. Neurological: Mental Status: She is alert. Assessment and Plan ASSESSMENT/PLAN: 1. URI, acute - ICD9: 465.9, ICD10: J06.9 - Discussed viral etiology and rationale for treatment. - Symptomatic treatment with prn analgesia - Supportive care with fluids and rest -Recommend Flonase -Declines COVID/flu swab Diagnosis and treatment plan were discussed and questions were answered to the patient's satisfaction. Pt acknowledged understanding of concepts and follow up plan. Specific signs and symptoms that would indicate the need for higher level of care were discussed in detail warranting prompt ER evaluation. MIKAELA Brady [facility] History of Present illness Narrative 10-07-2022 MIKAELA Brady - 10/07/2022 11:15 AM EDT Note Date & Type Note Facility 10-07-2022 History of Presen t illness Narrative This note was created using [employer] a Division of [employer]. Subjective Jenn Guy is a 67 year old female. HPI 67-year-old female presents for right ear pain, cough and body aches. Patient has had cough for the past few days. She also has right ear pain and body aches. No history of COPD or asthma. No fevers. She has had a runny nose. No sick contacts that she is aware. She has been taking Motrin. 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 Personal history of colonic polyps Pure hypercholesterolemia Unspecified sinusitis (chronic) PAST SURGICAL HISTORY Procedure Laterality Date ADENOIDECTOMY PRIMARY <AGE 10 Adenoidectomy ARTHROSCOPY KNEE DIAGNOSTIC W/WO SYNOVIAL BX SPX 08/26/2011 Arthroscopy, knee ARTHRP KNE CONDYLE&PLATU MEDIAL&LAT COMPARTMENTS 02/07/14 Knee replacement, total left COLONOSCOPY FLX DX W/COLLJ SPEC WHEN PFRMD 04/2004 Colonoscopy COLONOSCOPY FLX DX W/COLLJ SPEC WHEN PFRMD 09/14/08 CORONARY ENDARTERCOMY OPEN ANY METHOD Angioplasty ENDOMETRIAL BX W/WO ENDOCERVIX BX W/O DILAT SPX January 15, 2010 LIG/TRNSXJ FLP TUBE ABDL/VAG APPR UNI/BI Tubal ligation PAST SURGICAL HISTORY OF 2001 left knee arthroscopy PAST SURGICAL HISTORY OF 1996 left foot bunionectomy TONSILLECTOMY PRIMARY/SECONDARY <AGE 10 Tonsillectomy ALLERGIES Patient has no known allergies. MEDICATIONS guaiFENesin (MUCINEX) 600 mg 12 hr tablet Take 2 tablets by mouth twice daily. CYANOCOBALAMIN, VITAMIN B-12, (VITAMIN B-12 ORAL) Take by mouth. omeprazole (PRILOSEC) 10 mg capsule Take 10 mg by mouth once daily. DULoxetine (CYMBALTA) 20 mg capsule Take 20 mg by mouth once daily. traZODone (DESYREL) 50 mg tablet Take 25 mg by mouth daily at bedtime. UBIDECARENONE/VITAMIN E MIXED (COQ10 SG 100 ORAL) Take by mouth. RED YEAST RICE ORAL Take by mouth. CHOLECALCIFEROL, VITAMIN D3, (VITAMIN D-3 ORAL) Take by mouth. rosuvastatin calcium(CRESTOR 40 MG TAB) Take one tablet daily. omega-3 fatty acids/vitamin e(FISH OIL 1,000 MG CAP) Take one tablet two times daily. metoprolol succinate(TOPROL XL 25 MG 24 HR TAB) Take one/half(1/2) tablet daily. CALCIUM 500 MG TAB Take one(1) tablet twice daily. VITAMIN E 400 UNIT CAP Take one(1) tablet twice daily. FAMILY HISTORY Problem Relation Age of Onset Cancer Paternal Aunt BREAST Cancer Paternal Aunt BREAST Cancer Paternal Grandmother COLON Heart Paternal Grandfather Heart Father Breast Cancer Sister 60 2012 Social History Tobacco Use Smoking status: Never Smokeless tobacco: Never Substance Use Topics Alcohol use: No Drug use: No Review of Systems Constitutional: Negative for chills and fever. HENT: Positive for ear pain and rhinorrhea. Negative for congestion and sore throat. Respiratory: Positive for cough. Negative for shortness of breath. Cardiovascular: Negative for chest pain. Gastrointestinal: Negative for diarrhea and vomiting. Musculoskeletal: Positive for myalgias. Objective BP 108/64 Pulse 94 Temp 36.9 C (98.5 F) Resp 21 Wt 68.8 kg (151 lb 9.6 oz) LMP 04/29/2006 SpO2 99% BMI 23.39 kg/m Physical Exam Vitals and nursing note reviewed. Constitutional: General: She is not in acute distress. Appearance: Normal appearance. She is not toxic-appearing. HENT: Right Ear: Ear canal normal. A middle ear effusion is present. Left Ear: Tympanic membrane and ear canal normal. Ears: Comments: Small amount of clear fluid behind TM. Nose: Nose normal. Mouth/Throat: Mouth: Mucous membranes are moist. Pharynx: No oropharyngeal exudate or posterior oropharyngeal erythema. Eyes: Conjunctiva/sclera: Conjunctivae normal. Cardiovascular: Rate and Rhythm: Normal rate and regular rhythm. Pulmonary: Effort: Pulmonary effort is normal. Breath sounds: Normal breath sounds. Neurological: Mental Status: She is alert. Assessment and Plan ASSESSMENT/PLAN: 1. URI, acute - ICD9: 465.9, ICD10: J06.9 - Discussed viral etiology and rationale for treatment. - Symptomatic treatment with prn analgesia - Supportive care with fluids and rest -Recommend Flonase -Declines COVID/flu swab Diagnosis and treatment plan were discussed and questions were answered to the patient's satisfaction. Pt acknowledged understanding of concepts and follow up plan. Specific signs and symptoms that would indicate the need for higher level of care were discussed in detail warranting prompt ER evaluation. MIKAELA Brady documented in this encounter [facility] Evaluation note Note Date & Type Note Facility Evaluation note Diagnosis URI, acute- Primary Acute upper respiratory infections of unspecified site documented in this encounter [facility] Summary Purpose Family History No Family History Records Found Advance Directives No Advanced Directives Records Found Additional Source Comments Source Comments (unrecognize d section and content) In the event this informatio n is protected by the Federal Confidentiality of Alcohol and Drug Abuse Patient Records regulations: The Federal rules restrict any use of the information to criminally investigate or prosecute any alcohol or drug abuse patient.[facility] Reason for Visit (unrecogniz ed section and content) Reason Comments Ear Pain Right ear pain, coug h, body aches x 2 days Care Teams (unrecognized sec tion and content) 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 This clinical summary was aggregated from multiple sources. Caution should be exercised in using it in the provision of clinical care. This summary normalizes information from multiple sources, and as a consequence, information in this document may materially change the coding, format and clinical context of patient data. In addition, data may be omitted in some cases. CLINICAL DECISIONS SHOULD BE BASED ON THE PRIMARY CLINICAL RECORDS. [employer] provides no warranty or guarantee of the accuracy or completeness of information in this document.
--- NOTE | 2024-04-05 12:02 | DCINST_ITS ---
Discharge Instructions Diet Discharge Diet: No restrictions Dressing / Incision Call your doctor if you observe: Shortness of breath and Chest pain Additional Dressing/Incision Instructions:: Ice and elevate lower extremities 2 weeks while not ambulating. Ambulation is encouraged. Weight bearing as tolerated. Use assistive devise for stability. Encourage FULL knee extension and flexion 1 time EVERY time you get up and down and MULTIPLE times per day. No showering until 72 hours after surgery. May begin showering postop day #3. Remove the dressing prior to shower and gently wash with warm water and antibacterial soap then pat dry and place abdominal pad (or plain gauze) and CLOTILDE hose over top. This is to be done daily. Do not submerge for 3 weeks. If not showering daily after the initial 72 hours then you must clean incision and change dressing daily after the dressing comes off, must come off by 7 days postop. Do not allow animals near the incision area. Keep clean. Follow anti- coagulation recommendations as prescribed. Do not take any NSAIDs while on blood thinner. Do not take any additional narcotic pain medication other than what was prescribed on your surgery day without discussing with physician. Narcotic medication can be addictive. Do not drink alcohol while taking narcotics. Supplement narcotic prescription with acetaminophen 1000 mg 4 times a day. Start physical therapy. If you are not currently scheduled for physical therapy or you are unsure of appointment time please call office [facility] to arrange. Call Dr. Jackson with any concerns. Follow Up Care Please Follow Up With: Marquis Jackson DO When: 2 weeks Test Results: Test results from this visit will be discussed in further detail at your follow- up appointment, if applicable. Discharge Plan Admission Admit Date/Time: 04/04/24 13:39 Primary Reason for Your Visit: Right total knee arthroplasty Attending Provider: Marquis Jackson Primary Care Provider: María Cintron Discharge Orders/Prescriptions Prescriptions: New acetaminophen 500 mg tablet 1,000 mg PO Q6H PRN (Reason: fever or pain) Qty: 90 0RF oxycodone 5 mg tablet 5 - 10 mg PO Q6H PRN (Reason: pain) 7 Days Qty: 60 0RF Eliquis 2.5 mg tablet 2.5 mg PO BID Qty: 28 0RF Rx Instructions: Begin morning after surgery. Continued omeprazole 20 mg capsule,delayed release(DR/EC) 20 mg PO DAILY trazodone 50 mg tablet 25 mg PO QHS duloxetine 60 mg capsule,delayed release(DR/EC) 60 mg PO DAILY fluticasone propionate 50 mcg/actuation spray,suspension 2 spray intranasal DAILY turmeric root extract 500 mg capsule 500 mg PO BID Collagen 1500 Plus C 500 mg-800 mcg- 50 mg capsule 1 cap PO DAILY zinc sulfate 50 mg zinc (220 mg) capsule 50 mg PO DAILY beet supplement 1 gummy PO DAILY aspirin 81 MG tablet,chewable 81 mg PO DAILY@0800 Patient Comments: [facility] cholecalciferol (vitamin D3) 1,000 UNIT tablet 2,000 unit PO DAILY Patient Comments: Supplement omega 8-urn-kwh-fish oil 500 MG capsule,delayed release(DR/EC) 1,000 mg PO DAILY Patient Comments: Supplement coenzyme Q10 100 MG capsule 100 mg PO DAILY metoprolol tartrate 25 mg tablet 25 mg PO DAILY Rx Instructions: TAKE 1 TABLET DAILY rosuvastatin 40 mg tablet 40 mg PO DAILY Qty: 90 3RF losartan 50 mg tablet 50 mg PO DAILY Qty: 90 3RF Held ibuprofen 200 mg capsule 800 mg PO Q6H PRN (Reason: pain) Hold Instructions: May resume after completion of blood thinner if needed Other Ambulatory Orders: 12 Lead EKG (Routine) Timeframe: 20240316 Location: None Selected Ordered By: Dr. Marquis Jackson Referrals / Follow Up: María Cintron DO [Primary Care Provider] - Disposition Disposition (needs filled in before D/C Order can be placed): Home, Self Care
--- NOTE | 2024-04-05 12:10 | PCM.PN.ORT ---
Subjective Subjective Seen and examined.. She states she has 0 out of 10 pain. No complaints or concerns wishes to be discharged home performing straight leg raises ambulating well Objective Data Objective Data Vital Signs: Vital Signs Temp Pulse Resp BP Pulse Ox O2 Del Method O2 Flow Rate 97.8 F 61 16 141/67 H 100 Room Air 2 04/05/24 08:30 04/05/24 08:33 04/05/24 08:30 04/05/24 08:30 04/05/24 08:30 04/05/24 08:30 04/04/24 14:56 Oxygen Flow Rate (L/min) 2 Oxygen Delivery Method Room Air Weight: 155 lb 10.342 oz Body Mass Index (BMI) 23.6 Intake & Output: Intake and Output for Last 24 Hours 04/03/24 04/04/24 04/05/24 23:59 23:59 23:59 Intake Total 3084 / 3084 270 / 270 Balance 3084 / 3084 270 / 270 Lab / Micro Data 04/05/24 04:53 04/05/24 04:53 Labs: Laboratory Results - last 24 hr 04/04/24 14:11: POC Glucose 111 H 04/05/24 04:53: WBC 14.1 H, RBC 3.40 L, Hgb 10.0 L, Hct 30.7 L, MCV 90.3, MCH 29.4, MCHC 32.6, RDW Std Deviation 38.3, RDW Coeff of Iris 11.6, Plt Count 299, MPV 9.2, Sodium 136, Potassium 4.4, Chloride 105, Carbon Dioxide 26.0, Anion Gap 5, BUN 13, Creatinine 0.91, Estim Creat Clear Calc 58.03, Est GFR (MDRD) Af Amer 79, Est GFR (MDRD) Non-Af 65, BUN/Creatinine Ratio 14.3, Glucose 169 H, Calcium 9.2 Micro: Microbiology 03/27/24 07:24 Swab (Method) Nasal Screen MRSA/MSSA - Final Radiography Diagnostic Testing: Radiology Impression Knee X-Ray 04/04/24 13:40 IMPRESSION: Status post total knee replacement. There is good alignment. Postoperative soft tissue changes. Electronically Signed: Darryl Ramírez MD at 13:55 EDT , Physical Exam Const alert, oriented x3 and no apparent distress General Appearance: cooperative Extremity Extremity Narrative: Right knee dressing clean dry intact compartments soft neurovascular intact EHL tibialis anterior gastrocsoleus intact sensation light touch Assessment & Plan Assessment/Plan (1) S/P total knee arthroplasty: QUALIFIERS: Laterality: right Qualified Code(s): Z96.651 - Presence of right artificial knee joint PLAN: Plan Postop day #1 right total knee arthroplasty. Patient is doing very well her pain is controlled she wishes to be discharged home follow-up in the office in 2 weeks
--- NOTE | 2024-04-05 12:12 | DS.PCM_ITS ---
Providers Date of Admission: 04/04/24 Primary Care Physician: María Cintron DO Reason For Visit: ERAS, Right Total Knee Replacement Robotic Arm Ass Diagnosis Discharge Diagnosis (1) S/P total knee arthroplasty: Status: Acute Code(s): Z96.659 - Presence of unspecified artificial knee joint Qualifiers: Laterality: right Qualified Code(s): Z96.651 - Presence of right artificial knee joint Plan Postop day #1 right total knee arthroplasty. Patient is doing very well her pain is controlled she wishes to be discharged home follow-up in the office in 2 weeks Medications at Discharge Home Medications aspirin 81 mg chewable tablet 81 mg PO DAILY@0800 SUPPLEMENT 02/28/16 cholecalciferol (vitamin D3) 25 mcg (1,000 unit) tablet 2,000 unit PO DAILY SUPPLEMENT 02/28/16 coenzyme Q10 100 mg capsule 100 mg PO DAILY SUPPLEMENT 02/28/16 omega 3-dha 60 mg-epa 90 mg-fish oil 500 mg capsule, delayed release 1,000 mg PO DAILY SUPPLEMENT 02/28/16 omeprazole 20 mg capsule,delayed release 20 mg PO DAILY GERD 01/27/18 trazodone 50 mg tablet 25 mg PO QHS SLEEP 09/05/18 ibuprofen 200 mg capsule 800 mg PO Q6H PRN pain 03/18/22 zinc sulfate 50 mg zinc (220 mg) capsule 50 mg PO DAILY SUPPLEMENT 03/18/22 collagen,hydrolysate 500 mg-biotin 800 mcg-ascorbic acid 50 mg capsule (Collagen 1500 Plus C) 1 cap PO DAILY SUPPLEMENT 04/14/22 duloxetine 60 mg capsule,delayed release 60 mg PO DAILY DEPRESSION 04/14/22 fluticasone propionate 50 mcg/actuation nasal spray,suspension 2 spray intranasal DAILY NASAL CONGESTION 04/14/22 turmeric root extract 500 mg capsule 500 mg PO BID SUPPLEMENT 04/14/22 rosuvastatin 40 mg tablet 40 mg PO DAILY CHOLESTEROL #90 tabs 01/18/23 losartan 50 mg tablet 50 mg PO DAILY BP #90 tabs 03/17/23 beet supplement 1 gummy PO DAILY SUPPLEMENT 10/20/23 metoprolol tartrate 25 mg tablet 25 mg PO DAILY HEART 03/24/24 acetaminophen 500 mg tablet 1,000 mg (2 x 500 mg) PO Q6H PRN fever or pain #90 tabs 04/05/24 apixaban 2.5 mg tablet (Eliquis) 2.5 mg PO BID #28 tabs 04/05/24 oxycodone 5 mg tablet 5 - 10 mg (1 - 2 x 5 mg) PO Q6H PRN pain 7 days #60 tabs 04/05/24 Hospital Course Operations total knee replacement Summary of Care Provided Hospital Course: Who has long history of degenerative joint disease to the knee who has failed conservative treatment and wished to undergo elective total knee arthroplasty. Patient underwent the aformentioned procedure on the admission date without any intraoperative complications. Patient did receive pre-and postoperative antibiotics which were discontinued within 23 hours postoperatively. Patient did receive spinal anesthesia as well as an adductor canal block postoperatively. pain was controlled with IV and transition to p.o. pain medication Patient will be discharged home with oxycodone and will continue Tylenol as well. Patient had minimal intraoperative blood loss and 2gm tranexamic acid was administered there was no need for postoperative blood transfusion Patients vital signs remained stable. Patient was started on both mechanical and chemical DVT per prophylaxis postoperatively in the form of SCDs CLOTILDE hose and Eliquis 2.5 mg twice daily for which she will continue for 2 additional weeks post hospital discharge. thigh high clotilde hose placed over top of the meplix silver dressing. This should be removed 72 hrs post operatively and showering begun daily at that time with warm water and antibacterial soap. not to submerge for 3 weeks. To change dressing daily after first dressing change. Patient will follow-up in the office in 2 weeks. No intrahospital complications. Weight / BMI Weight Weight: 155 lb 10.342 oz Body Mass Index (BMI) 23.6 ABG / Lab / Microbiology Data 04/05/24 04:53 04/05/24 04:53 Laboratory: Laboratory Results - last 24 hr 04/04/24 14:11: POC Glucose 111 H 04/05/24 04:53: WBC 14.1 H, RBC 3.40 L, Hgb 10.0 L, Hct 30.7 L, MCV 90.3, MCH 29.4, MCHC 32.6, RDW Std Deviation 38.3, RDW Coeff of Iris 11.6, Plt Count 299, MPV 9.2, Sodium 136, Potassium 4.4, Chloride 105, Carbon Dioxide 26.0, Anion Gap 5, BUN 13, Creatinine 0.91, Estim Creat Clear Calc 58.03, Est GFR (MDRD) Af Amer 79, Est GFR (MDRD) Non-Af 65, BUN/Creatinine Ratio 14.3, Glucose 169 H, Calcium 9.2 Microbiology: Microbiology 03/27/24 07:24 Swab (Method) Nasal Screen MRSA/MSSA - Final Radiography Diagnostic Testing: Radiology Impression Knee X-Ray 04/04/24 13:40 IMPRESSION: Status post total knee replacement. There is good alignment. Postoperative soft tissue changes. Electronically Signed: Darryl Ramírez MD at 13:55 EDT , D/C Instructions Discharge Diet: No restrictions Call your doctor if you observe: Shortness of breath and Chest pain Additional Dressing/Incision Instructions: Ice and elevate lower extremities 2 weeks while not ambulating. Ambulation is encouraged. Weight bearing as tolerated. Use assistive devise for stability. Encourage FULL knee extension and flexion 1 time EVERY time you get up and down and MULTIPLE times per day. No showering until 72 hours after surgery. May begin showering postop day #3. Remove the dressing prior to shower and gently wash with warm water and antibacterial soap then pat dry and place abdominal pad (or plain gauze) and CLOTILDE hose over top. This is to be done daily. Do not submerge for 3 weeks. If not showering daily after the initial 72 hours then you must clean incision and change dressing daily after the dressing comes off, must come off by 7 days postop. Do not allow animals near the incision area. Keep clean. Follow anti- coagulation recommendations as prescribed. Do not take any NSAIDs while on blood thinner. Do not take any additional narcotic pain medication other than what was prescribed on your surgery day without discussing with physician. Narcotic medication can be addictive. Do not drink alcohol while taking narcotics. Supplement narcotic prescription with acetaminophen 1000 mg 4 times a day. Start physical therapy. If you are not currently scheduled for physical therapy or you are unsure of appointment time please call office [facility] to arrange. Call Dr. Jackson with any concerns. Please Follow Up With: Marquis Jackson DO When: 2 weeks Meaningful Use Info Meaningful Use Meaningful Use Diagnoses (Choose all that apply): None applicable Ischemic Stroke Statin Dosing Therapy Reference: STATIN DOSE THERAPY REFERENCE: * Patients > 75 years receive moderate or high dose statin therapy. * Patients 75 years or YOUNGER should receive HIGH intensity statin dose unless contraindicated. You will be required to document reason for non-treatment if statin daily dose does not meet guidelines. HIGH DOSE STATIN THERAPY DAILY Atorvastatin > than or = to 40 mg Rosuvastatin > than or = to 20 mg Amlodipine + Atorvastatin > than or = to 2.5/40 mg Ezetimibe + Simvastatin 10/80 mg Simvastatin 80mg Discharge Plan Admission Admit Date/Time: 04/04/24 13:39 Primary Reason for Your Visit: Right total knee arthroplasty Attending Provider: Marquis Jackson Primary Care Provider: María Cintron Discharge Orders/Prescriptions Prescriptions: New acetaminophen 500 mg tablet 1,000 mg PO Q6H PRN (Reason: fever or pain) Qty: 90 0RF oxycodone 5 mg tablet 5 - 10 mg PO Q6H PRN (Reason: pain) 7 Days Qty: 60 0RF Eliquis 2.5 mg tablet 2.5 mg PO BID Qty: 28 0RF Rx Instructions: Begin morning after surgery. Continued omeprazole 20 mg capsule,delayed release(DR/EC) 20 mg PO DAILY trazodone 50 mg tablet 25 mg PO QHS duloxetine 60 mg capsule,delayed release(DR/EC) 60 mg PO DAILY fluticasone propionate 50 mcg/actuation spray,suspension 2 spray intranasal DAILY turmeric root extract 500 mg capsule 500 mg PO BID Collagen 1500 Plus C 500 mg-800 mcg- 50 mg capsule 1 cap PO DAILY zinc sulfate 50 mg zinc (220 mg) capsule 50 mg PO DAILY beet supplement 1 gummy PO DAILY aspirin 81 MG tablet,chewable 81 mg PO DAILY@0800 Patient Comments: [facility] cholecalciferol (vitamin D3) 1,000 UNIT tablet 2,000 unit PO DAILY Patient Comments: Supplement omega 0-new-uqo-fish oil 500 MG capsule,delayed release(DR/EC) 1,000 mg PO DAILY Patient Comments: Supplement coenzyme Q10 100 MG capsule 100 mg PO DAILY metoprolol tartrate 25 mg tablet 25 mg PO DAILY Rx Instructions: TAKE 1 TABLET DAILY rosuvastatin 40 mg tablet 40 mg PO DAILY Qty: 90 3RF losartan 50 mg tablet 50 mg PO DAILY Qty: 90 3RF Held ibuprofen 200 mg capsule 800 mg PO Q6H PRN (Reason: pain) Hold Instructions: May resume after completion of blood thinner if needed Other Ambulatory Orders: 12 Lead EKG (Routine) Timeframe: [id number] Location: None Selected Ordered By: Dr. Marquis Jackson Referrals / Follow Up: Mraía Cintron DO [Primary Care Provider] - Disposition Disposition (needs filled in before D/C Order can be placed): Home, Self Care
--- NOTE | 2024-04-05 12:20 | CASEMGMT ---
HOMER SPRING Assessment: Face to Face with pt for initial transition planning/care coordination assessment. HOMER SPRING introduced self and role at [facility], pt voices understanding and consents to assessment. Pt is A&O x4 and answers all questions appropriately at this time. Pt sitting up in chair in no distress ready for dc. Care providers, pharmacy, and demographics verified/updated. Admitting Dx: R TKR Strata Score: 1 PCP:Abdulaziz Specialists:Renetta, ortho; Huber, ENT; Tien, cardio Preferred Pharmacy: [facility] as meds have already been called in Insurance: [facility], MMO Prescription Benefit: yes [place]: Jono Courtney, ; Sue Mott, dtr Living Arrangements: Pt lives in a single story home with 3 steps to enter with a rail. Pt reports prior to surgery she was I in ADL/IADLs. Pt denies concerns at home. Transportation: Pt drives self and denies concerns with transportation. Pt will transport her until she can drive again. DME:bennie, [facility], [facility] HHC/SNF: Denies hx of Pt states no concerns with going home at time of dc. Pt has outpt therapy set up at [facility] to start on Wednesday. Pt states no further concerns/needs. CM to follow. Advised pt to ask CM if any further question/concerns/needs arise, voices understanding. Pt Goal: Home with outpt therapy Plan: Home with outpt therapy [facility] CM
--- NOTE | 2024-04-05 12:38 | CASEMGMT ---
TC to [facility], cost of eliquis is zero as savings card applied.
[2024-04-05] MEDS: 0.9% Saline Lock 10 ML Syringe IV (13:41)
[2024-04-05 13:45] VITALS: BP 132/61; PULSE 57; RESP 18; TEMP 36.7; O2SAT 100
--- NOTE | 2024-04-05 14:58 | PHA.DC_ITS ---
Pharmacy [place] Med Reconciliation Pharmacy Service has performed discharge medication reconciliation for this patient. Medication education papers prepared, patient discharged when counseling attempted. The patient's discharge medication list was reviewed for discrepancies and discrepancies were resolved. Medications at Discharge Home Medications aspirin 81 mg chewable tablet 81 mg PO DAILY@0800 SUPPLEMENT 02/28/16 cholecalciferol (vitamin D3) 25 mcg (1,000 unit) tablet 2,000 unit PO DAILY SUP PLEMENT 02/28/16 coenzyme Q10 100 mg capsule 100 mg PO DAILY SUPPLEMENT 02/28/16 omega 3-dha 60 mg-epa 90 mg-fish oil 500 mg capsule, delayed release 1,000 mg PO DAILY SUPPLEMENT 02/28/16 omeprazole 20 mg capsule,delayed release 20 mg PO DAILY GERD 01/27/18 trazodone 50 mg tablet 25 mg PO QHS SLEEP 09/05/18 ibuprofen 200 mg capsule 800 mg PO Q6H PRN pain 03/18/22 zinc sulfate 50 mg zinc (220 mg) capsule 50 mg PO DAILY SUPPLEMENT 03/18/22 collagen,hydrolysate 500 mg-biotin 800 mcg-ascorbic acid 50 mg capsule (Collagen 1500 Plus C) 1 cap PO DAILY SUPPLEMENT 04/14/22 duloxetine 60 mg capsule,delayed release 60 mg PO DAILY DEPRESSION 04/14/22 fluticasone propionate 50 mcg/actuation nasal spray,suspension 2 spray intranasal DAILY NASAL CONGESTION 04/14/22 turmeric root extract 500 mg capsule 500 mg PO BID SUPPLEMENT 04/14/22 rosuvastatin 40 mg tablet 40 mg PO DAILY CHOLESTEROL #90 tabs 01/18/23 losartan 50 mg tablet 50 mg PO DAILY BP #90 tabs 03/17/23 beet supplement 1 gummy PO DAILY SUPPLEMENT 10/20/23 metoprolol tartrate 25 mg tablet 25 mg PO DAILY HEART 03/24/24 acetaminophen 500 mg tablet 1,000 mg (2 x 500 mg) PO Q6H PRN fever or pain #90 tabs 04/05/24 apixaban 2.5 mg tablet (Eliquis) 2.5 mg PO BID #28 tabs 04/05/24 oxycodone 5 mg tablet 5 - 10 mg (1 - 2 x 5 mg) PO Q6H PRN pain 7 days #60 tabs 04/05/24
== END 2024-04-05 14:14 | disposition home or self-care (01) | DRG 470 ==
LOC: MS3 04-05 08:18 → ACINP 04-05 08:43
PROVIDERS: Anesthesiology; Admitting Provider Orthopaedic Surgery; PCP Family Medicine; Referring Provider Orthopaedic Surgery; Visit Provider Orthopaedic Surgery
PROC: 0SRC0JZ Replacement of Right Knee Joint with Synthetic Substitute, Open Approach (ICD-10-PCS; CPT 27447; principal; 2024-04-04 10:15)
DX: M17.11 Unilateral primary osteoarthritis, right knee (principal); E78.5 Hyperlipidemia, unspecified; I10 Essential (primary) hypertension; I25.10 Atherosclerotic heart disease of native coronary artery without angina pectoris; I25.2 Old myocardial infarction; M21.061 Valgus deformity, not elsewhere classified, right knee; G89.29 Other chronic pain; Z79.01 Long term (current) use of anticoagulants; Z79.82 Long term (current) use of aspirin; Z79.899 Other long term (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; Z95.5 Presence of coronary angioplasty implant and graft; Z96.652 Presence of left artificial knee joint
CPT/HCPCS: 36415; 73560; 80048; 82962; 82985; 83036; 83735; 85027; 85610; 85730; 86850; 86900; 86901; 87077; 87081; 88305; 88311; 93005; 94668; 97162; 97166; C1776; J7030; J7120; A4216; J3490

== ENCOUNTER → 2024-04-20 | Outpatient (CLI) | payer MEDICARE, OTHER, SELFPAY ==
[2024-04-20 12:22] LABS: Absolute Lymphocyte Count 1.01 X10^3/uL (0.83-4.51); Absolute Neutrophil Count 7.6 X10^3/uL (2.0-7.7); Basophil# 0.08 X10^3/uL; Basophil% 0.9 % (0-1); Eosinophil# 0.07 X10^3/uL; Eosinophils% 0.8 % (0-5); Hematocrit 31.1 % (37-47); Hemoglobin 10.2 g/dL (12.0-15.0); Lymphocyte # 1.01 X10^3/ul (0.83-4.51); Lymphocyte % 10.8 % (19-41); Mean Corp Hgb Conc 32.8 g/dL (32-36); Mean Corpuscular Hgb 30.7 pg (27.0-32.0); Mean Corpuscular Volume 93.7 fL (81-99); Mean Platelet Vol. 8.5 fl (6.2-12.0); Monocyte# 0.51 X10^3/uL; Monocyte% 5.5 % (0-10); NRBC Flagged by Analyzer 0 % (0-5); Neutrophil % 81.6 % (47-70); Platelet Count 463 K/mm3 (150-450); RBC Distribution Width CV 12.7 % (11.6-14.6); RBC Distribution Width SD 43.3 fl (35.1-43.9); Red Blood Count 3.32 M/mm3 (4.2-5.4); White Blood Count 9.3 K/mm3 (4.4-11.0)
[2024-04-20 13:28] LABS: ALB/GLOB Ratio 0.9 RATIO (0.9-2.4); AST(SGOT) 11 U/L (15-37); Alanine Aminotransfer ALT/SGPT 14 U/L (13-56); Albumin, Serum 3.2 g/dL (3.2-5.0); Alkaline Phosphatase 86 U/L (45-117); Anion Gap 7 (5-15); BUN 14 mg/dL (7-18); BUN/Creat Ratio 15.4 RATIO (10-20); Calcium,Total 9.5 mg/dL (8.5-10.1); Chloride 99 mmol/L (98-107); Creatinine, Serum 0.91 mg/dL (0.55-1.02); EST Glomerular Filtration Rate 65 mL/min (>60); Est Glom Filt Rate - Afr Amer 78 mL/min (>60); Globulin 3.5 g/dL (2.2-4.2); Glucose 114 mg/dL (74-106); Magnesium 1.8 mg/dL (1.6-2.6); Potassium 4.1 mmol/L (3.5-5.1); Protein, Total 6.7 g/dL (6.4-8.2); Sodium Level 132 mmol/L (136-145); Thyroid Stim Hormone (TSH) 0.814 uIU/mL (0.358-3.740)
[2024-04-20 13:38] LABS: Vitamin B12 463 pg/mL (211-911)
== END | disposition home or self-care (01) ==
LOC: VSLAB 11:04
PROVIDERS: PCP Family Medicine; Visit Provider Family Medicine
DX: R55 Syncope and collapse (principal); R42 Dizziness and giddiness; R68.89 Other general symptoms and signs
CPT/HCPCS: 36415; 80053; 82607; 83735; 84443; 85025

== ENCOUNTER → 2024-05-05 | Outpatient (CLI) | payer MEDICARE, OTHER, SELFPAY ==
[2024-05-05 10:16] LABS: Absolute Lymphocyte Count 0.87 X10^3/uL (0.83-4.51); Absolute Neutrophil Count 3.9 X10^3/uL (2.0-7.7); Basophil# 0.06 X10^3/uL; Basophil% 1.1 % (0-1); Color, Urine Yellow (Yellow); Eosinophil# 0.08 X10^3/uL; Eosinophils% 1.5 % (0-5); Glucose, Dipstick Normal (Normal); Hematocrit 35.8 % (37-47); Hemoglobin 11.4 g/dL (12.0-15.0); Ketone-Dipstick Negative (Negative); Leukocyte Esterase-Dipstick 500 /ul (Negative); Lymphocyte # 0.87 X10^3/ul (0.83-4.51); Lymphocyte % 16.1 % (19-41); Mean Corp Hgb Conc 31.8 g/dL (32-36); Mean Corpuscular Hgb 29.4 pg (27.0-32.0); Mean Corpuscular Volume 92.3 fL (81-99); Mean Platelet Vol. 8.7 fl (6.2-12.0); Monocyte# 0.48 X10^3/uL; Monocyte% 8.9 % (0-10); NRBC Flagged by Analyzer 0 % (0-5); Neutrophil # 3.92 X10^3/uL (2.7-7.7); Neutrophil % 72.2 % (47-70); Nitrite-Dipstick Negative (Negative); Occult Blood-Urine 50 /ul (Negative); Platelet Count 523 K/mm3 (150-450); Protein-Dipstick 15 mg/dl (Negative); RBC Distribution Width CV 12.7 % (11.6-14.6); RBC Distribution Width SD 42.8 fl (35.1-43.9); Red Blood Count 3.88 M/mm3 (4.2-5.4); Specific Gravity, Urine 1.015 (1.002-1.030); Urine Bilirubin Dipstick Negative (Negative); Urine Clarity Sl. Cloudy (Clear); Urine Urobilinogen Normal (Normal); Urine pH 6.5 (5.0 - 8.0); White Blood Count 5.4 K/mm3 (4.4-11.0)
[2024-05-05 10:36] LABS: AST(SGOT) 9 U/L (15-37); Alanine Aminotransfer ALT/SGPT 12 U/L (13-56); Albumin, Serum 3.4 g/dL (3.2-5.0); Alkaline Phosphatase 96 U/L (45-117); Anion Gap 6 (5-15); BUN 13 mg/dL (7-18); CRP < 2.90 mg/L (0.0-3.0); Calcium,Total 9.7 mg/dL (8.5-10.1); Chloride 105 mmol/L (98-107); EST Glomerular Filtration Rate 58 mL/min (>60); Est Glom Filt Rate - Afr Amer 70 mL/min (>60); Globulin 3.5 g/dL (2.2-4.2); Glucose 119 mg/dL (74-106); Potassium 3.7 mmol/L (3.5-5.1); Protein, Total 6.9 g/dL (6.4-8.2); Sodium Level 136 mmol/L (136-145)
[2024-05-05 10:38] LABS: Erythrocyte Sedimentation Rate 11 mm/hr (0-30)
== END | disposition home or self-care (01) ==
LOC: MTLAB 09:15
PROVIDERS: PCP Family Medicine; Referring Provider Family Medicine; Visit Provider Family Medicine
DX: R63.4 Abnormal weight loss (principal); R53.83 Other fatigue
CPT/HCPCS: 36415; 80053; 81002; 85025; 85652; 86140

== ENCOUNTER → 2024-05-06 | Outpatient (CLI) | payer MEDICARE, OTHER, SELFPAY | END | disposition home or self-care (01) | LOC: LAB 11:19 | PROVIDERS: PCP Family Medicine; Visit Provider Family Medicine | DX: R63.4 Abnormal weight loss (principal); R53.83 Other fatigue | CPT/HCPCS: 82274 ==

== ENCOUNTER → 2024-05-12 | Outpatient (CLI) | payer MEDICARE, OTHER, SELFPAY ==
--- NOTE | 2024-05-12 16:11 | CT_ITS ---
STUDY: CTA CHEST REASON FOR EXAM: Female, 68 years old. FELDMAN, R/O PE, SOB RADIATION DOSAGE (If Supplied By Facility): CTDIvol = ( 7.37 ) mGy, DLP = ( 274.76 ) mGycm TECHNIQUE: The examination was performed with the intravenous administration of IV 100mL Isovue-370. Post-processing of the angiographic images was performed, with multiplanar reformation and 3D reconstruction. The protocol utilizes one or more of the following dose reduction techniques: automated exposure control, adjustment of mA and/or kV according to patient size,and/or use of iterative reconstruction technique. COMPARISON: FINDINGS: Normal enhancement of the main pulmonary artery and right and left pulmonary arteries. Normal enhancement of the bilateral peripheral pulmonary arteries. There is no demonstrated pulmonary embolism. Normal thoracic aorta and visualized great vessels. There is no demonstrated aortic dissection. Normal heart and pericardium. Normal mediastinum. Normal hilar regions. Normal visualized trachea and bronchi. The lungs are well expanded. Normal pulmonary parenchyma. Normal pleura. Normal chest wall structures. Normal osseous structures. Normal visualized upper abdomen. CT/CTA Chest W/WO Contrast IMPRESSION: No demonstrated pulmonary embolism or arterial dissection. Electronically Signed: Erik Lea DO at 16:57 EST ,
== END | disposition home or self-care (01) ==
LOC: CT 16:10
PROVIDERS: PCP Family Medicine; Referring Provider Physician Assistant Medical; Visit Provider Physician Assistant Medical
DX: R06.09 Other forms of dyspnea (principal)
CPT/HCPCS: 71275; Q9967

== ENCOUNTER 2024-05-23 05:55 | Day surgery (SDC) | payer MEDICARE, OTHER, SELFPAY ==
--- NOTE | 2024-05-19 13:55 | PAT.ANE_ITS ---
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 When Was Last Pacemaker Check QUESTION #4 FULL TEXT: You/Your Family Experience fever (hyperthermia) with Anesthesia Last Oral Intake Last Oral intake: Last Oral Intake NPO since Meds taken in AM with sips of water? Meds patient instructed to take am of surgery PONV PONV - simulation specialist: PONV - simulation specialist Female Yes 05/19/24 13:27 HX of Motion Sickness No 05/19/24 13:27 HX of N/V After Surgery No 05/19/24 13:27 Non-Smoker Yes 05/19/24 13:27 Duration of Surgery greater No 05/19/24 13:27 than 60 minutes Number of Risk Factors 2 05/19/24 13:27 PONV Score Moderate Risk 05/19/24 13:27 Height & Weight Height & Weight: Anesthesia: Height & Weight Height 5 ft 8 in 05/11/24 10:52 Respiratory Assessment Respiratory Assessment - simulation specialist: Respiratory Tract Infection Hx - simulation specialist Hx Respiratory Tract Infection No 05/19/24 13:27 STOP Sleep Apnea STOP Sleep Apnea - simulation specialist: STOP Sleep Apnea - simulation specialist Hx Hypertension Yes: CONTROLLED WITH MED 05/19/24 13:27 Hx Sleep Apnea No 05/19/24 13:27 CPAP BIPAP Do you snore loudly (louder No 05/19/24 13:27 than talking or can be heard Do you often feel tired/ Yes 05/19/24 13:27 fatigued/ sleepy during daytime? Has anyone observed you stop No 05/19/24 13:27 breathing during sleep? STOP Results Positive 05/19/24 13:27 QUESTION #5 FULL TEXT : Do you snore loudly (louder than talking or can be heard through closed doors)? 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 Specify any problems Hx of Preganancy in last 3 No 05/19/24 13:27 Months Nurse Filling Out Transfusion DSCHRIBER 05/19/24 13:27 & Questions: Date: 05/19/24 05/19/24 13:27 Time: 13:05/19/24 13:27 Patient unable to answer at this time (ie. confused, unrespo /Reproduction History /Reproductive History - simulation specialist: /Reproductive Hx- simulation specialist Hx Now Gestational Age (in weeks): EDC: Hx Hx Para Hx Section SAB No 05/19/24 13:27 PFSH Medical History (Updated 05/17/24 @ 09:02 by Dianna Capellan) Wears glasses Post-menopausal Depression Arthritis Restless legs Back pain Gastric reflux Non-smoker History of pain when walking History of echocardiogram History of stress test Cardiology follow-up encounter Chest pain Acute sinusitis Cellulitis, face Osteoarthritis of right knee Right knee pain Blepharitis COVID Acute right otitis media Paroxysmal supraventricular tachycardia Old inferior wall myocardial infarction (1998) Hyperlipidemia Essential (primary) hypertension Incomplete uterovaginal prolapse Atherosclerosis of coronary artery of [place] heart without angina pectoris Fatigue DVT (deep venous thrombosis) Home Medications ?Medication ?Instructions ?Recorded ?Last Taken ?Type aspirin 81 mg chewable tablet 81 mg PO DAILY@0800 SUPPLEMENT 02/28/16 03/27/24 History cholecalciferol (vitamin D3) 25 2,000 unit PO DAILY SUPPLEMENT 02/28/16 03/27/24 History mcg (1,000 unit) tablet coenzyme Q10 100 mg capsule 100 mg PO DAILY SUPPLEMENT 02/28/16 03/27/24 History omega 3-dha 60 mg-epa 90 mg-fish 1,000 mg PO DAILY SUPPLEMENT 02/28/16 03/27/24 History oil 500 mg capsule, delayed release omeprazole 20 mg capsule,delayed 20 mg PO DAILY GERD 01/27/18 04/04/24 History release trazodone 50 mg tablet 25 mg PO QHS SLEEP 09/05/18 04/03/24 History zinc sulfate 50 mg zinc (220 mg) 50 mg PO DAILY SUPPLEMENT 03/18/22 03/27/24 History capsule collagen,hydrolysate 500 mg-biotin 1 cap PO DAILY SUPPLEMENT 04/14/22 03/27/24 History 800 mcg-ascorbic acid 50 mg capsule (Collagen 1500 Plus C) duloxetine 60 mg capsule,delayed 60 mg PO DAILY DEPRESSION 04/14/22 04/04/24 History release fluticasone propionate 50 2 spray intranasal DAILY NASAL 04/14/22 04/04/24 History mcg/actuation nasal CONGESTION spray,suspension turmeric root extract 500 mg 1,000 mg PO DAILY SUPPLEMENT 04/14/22 03/13/24 History capsule rosuvastatin 40 mg tablet 40 mg PO DAILY CHOLESTEROL #90 tabs 01/18/23 04/04/24 Rx losartan 50 mg tablet 50 mg PO DAILY BP #90 tabs 03/17/23 04/04/24 Rx beet supplement 1 gummy PO DAILY SUPPLEMENT 10/20/23 03/27/24 History metoprolol tartrate 25 mg tablet 25 mg PO DAILY HEART 03/24/24 04/04/24 History acetaminophen 500 mg tablet 1,000 mg (2 x 500 mg) PO Q6H PRN 04/05/24 Unknown Rx fever or pain #90 tabs Allergy/AdvReac Type Severity Reaction Status Date / Time No Known Allergies Allergy Verified 05/19/24 13:24 Family History Father Heart disease Sister Cancer Surgical History (Updated 05/19/24 @ 13:39 by Olga Swenson) Hx of total knee arthroplasty History of total left knee replacement History of left heart catheterization (12/2006) History of radiofrequency ablation procedure for cardiac arrhythmia (12/2006) History of coronary artery stent placement (01/1999) History of urologic surgery History of total vaginal hysterectomy (TVH) (10/20/18) History of knee replacement Social History Smoking Status: Never smoker alcohol intake: never substance use type: does not use caffeine: Yes Type: tea Number of servings: 1 what type of physical activity do you participate in: walking seatbelt use: always do you feel safe at home: Yes Audit: Pertinent Findings Pertinent Findings EKG Perinent findings: 03/2024 SB Stress test pertinent findings: 11/2017 neg, ef77% Consult pertinent findings: cardio 10/20/23 CAD RCA stent SVT stable Recommendation Anesthesia Recommendation Anesthesia recommendation: OPTIMIZED for anesthesia
[2024-05-23] VITALS (8 sets, daily range): BP systolic 125–146; BP diastolic 76–83; PULSE 59–71; RESP 16–18; TEMP 36.2–36.6; O2SAT 97–100; BMI 22.4
[2024-05-23] MEDS: 0.9% Normal Saline (1000mL) 1,000 ML 15 ML IV (06:33)
--- NOTE | 2024-05-23 07:04 | PCM.PRE.AN2 ---
ASA Classification* ASA Classification ASA Classification: 3 Assessment & Plan Anesthesia* Anesthesia Assessment Anesthesia Assessment: Discussed sedation and/or anesthesia options, risks, benefits, and alternatives with patient/parents/legal guardian/POA. Questions invited. The patient/parents/legal guardian/POA seems to understand and agrees to proceed with anesthesia plan. Reviewed the physical assessment, medical history, allergy history and patient home medications list prior to surgery/procedure/anesthetic and documented any changes. Performed airway and anesthesia risk assessments. Anesthesia Type Anesthesia Type: General Anesthesia Focused Assessment* Temperature: 97.9 F Pulse Rate: 71 Blood Pressure: 125/81 Respiratory Rate: 18 Pulse Ox: 100 Airway Assessment Mouth opens: >3 cm Mallampati Score: II Focused Labs Anesthesia Preop lab: CBC WBC 5.4 K/mm3 (4.4-11.0) 05/05/24 09:17 RBC 3.88 M/mm3 (4.2-5.4) L 05/05/24 09:17 Hgb 11.4 g/dL (12.0-15.0) L 05/05/24 09:17 Hct 35.8 % (37-47) L 05/05/24 09:17 Plt Count 523 K/mm3 (150-450) H 05/05/24 09:17 CHEMISTRY Potassium 3.7 mmol/L (3.5-5.1) 05/05/24 09:17 Sodium 136 mmol/L (136-145) 05/05/24 09:17 Magnesium 1.8 mg/dL (1.6-2.6) 04/20/24 11:05 Phosphorus 3.6 mg/dL (2.5-4.9) 12/01/13 08:50 BUN 13 mg/dL (7-18) 05/05/24 09:17 Creatinine 1.00 mg/dL (0.55-1.02) 05/05/24 09:17 Glucose 119 mg/dL (74-106) H 05/05/24 09:17 POC Glucose 111 mg/dL (74-106) H 04/04/24 14:11 TSH 0.814 uIU/mL (0.358-3.740) 04/20/24 11:05 COAG PT 12.6 SECONDS (11.7-14.9) 03/27/24 07:24 Pre-Assessment Diagnosis/Proposed Procedure Planned Operative Procedure(s): RIGHT KNEE MANIPULATION UNDER ANDESTHESIA/STEROID INJECTION IN OR Anesthesia History 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 When Was Last Pacemaker Check QUESTION #4 FULL TEXT: You/Your Family Experience fever (hyperthermia) with Anesthesia Last Oral Intake Last Oral intake: Last Oral Intake NPO since 22:00 05/23/24 06:27 Meds taken in AM with sips of Yes 05/23/24 06:27 water? 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 installer Female Yes 05/19/24 13:27 HX of Motion Sickness No 05/19/24 13:27 HX of N/V After Surgery No 05/19/24 13:27 Non-Smoker Yes 05/19/24 13:27 Duration of Surgery greater No 05/19/24 13:27 than 60 minutes Number of Risk Factors 2 05/19/24 13:27 PONV Score Moderate Risk 05/19/24 13:27 Height & Weight Height & Weight: Anesthesia: Height & Weight Height 5 ft 8 in 05/23/24 06:27 Weight: 67 kg 05/23/24 06:27 Body Mass Index (BMI) 22.4 05/23/24 06:27 Respiratory Assessment Respiratory Assessment - solar electric/photovoltaic installer: Respiratory Tract Infection Hx - solar electric/photovoltaic installer Hx Respiratory Tract Infection No 05/19/24 13:27 STOP Sleep Apnea STOP Sleep Apnea - solar electric/photovoltaic installer: STOP Sleep Apnea - solar electric/photovoltaic installer Hx Hypertension Yes: CONTROLLED WITH MED 05/19/24 13:27 Hx Sleep Apnea No 05/19/24 13:27 CPAP BIPAP Do you snore loudly (louder No 05/19/24 13:27 than talking or can be heard Do you often feel tired/ Yes 05/19/24 13:27 fatigued/ sleepy during daytime? Has anyone observed you stop No 05/19/24 13:27 breathing during sleep? STOP Results Positive 05/19/24 13:27 QUESTION #5 FULL TEXT : Do you snore loudly (louder than talking or can be heard through closed doors)? 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 Specify any problems Hx of Preganancy in last 3 No 05/19/24 13:27 Months Nurse Filling Out Transfusion DSCHRIBER 05/19/24 13:27 & Questions: Date: 05/19/24 05/19/24 13:27 Time: 13:28 05/19/24 13:27 Patient unable to answer at this time (ie. confused, unrespo /Reproduction History /Reproductive History - solar electric/photovoltaic installer: /Reproductive Hx- solar electric/photovoltaic installer Hx Now Gestational Age (in weeks): EDC: Hx Hx Para Hx Section SAB No 05/19/24 13:27 Active Medications Active Medications: Current Medications Generic Name Dose Route Start Last Admin Trade Name Freq PRN Reason Stop Dose Admin Cefazolin Sodium 2 gm/ N/A 20 mls @ 400 mls/hr 05/23/24 07:30 IV 05/23/24 07:32 PREOP ONE Sodium Chloride 1,000 mls @ 15 mls/hr 05/23/24 06:10 05/23/24 06:33 IV 05/26/24 00:49 15 mls/hr .Q48H YAHAIRA Administration Protocol PFSH Medical History Wears glasses Post-menopausal Depression Arthritis Restless legs Back pain Gastric reflux Non-smoker History of pain when walking History of echocardiogram History of stress test Cardiology follow-up encounter Chest pain Acute sinusitis Cellulitis, face Osteoarthritis of right knee Right knee pain Blepharitis COVID Acute right otitis media Paroxysmal supraventricular tachycardia Old inferior wall myocardial infarction (1998) Hyperlipidemia Essential (primary) hypertension Incomplete uterovaginal prolapse Atherosclerosis of coronary artery of [place] heart without angina pectoris Fatigue DVT (deep venous thrombosis) Home Medications ?Medication ?Instructions ?Recorded ?Last Taken ?Type aspirin 81 mg chewable tablet 81 mg PO DAILY@0800 SUPPLEMENT 02/28/16 05/22/24 History cholecalciferol (vitamin D3) 25 2,000 unit PO DAILY SUPPLEMENT 02/28/16 05/22/24 History mcg (1,000 unit) tablet coenzyme Q10 100 mg capsule 100 mg PO DAILY SUPPLEMENT 02/28/16 05/22/24 History omega 3-dha 60 mg-epa 90 mg-fish 1,000 mg PO DAILY SUPPLEMENT 02/28/16 05/22/24 History oil 500 mg capsule, delayed release omeprazole 20 mg capsule,delayed 20 mg PO DAILY GERD 01/27/18 05/23/24 History release trazodone 50 mg tablet 25 mg PO QHS SLEEP 09/05/18 05/22/24 History zinc sulfate 50 mg zinc (220 mg) 50 mg PO DAILY SUPPLEMENT 03/18/22 05/22/24 History capsule collagen,hydrolysate 500 mg-biotin 1 cap PO DAILY SUPPLEMENT 04/14/22 05/22/24 History 800 mcg-ascorbic acid 50 mg capsule (Collagen 1500 Plus C) duloxetine 60 mg capsule,delayed 60 mg PO DAILY DEPRESSION 04/14/22 04/04/24 History release fluticasone propionate 50 2 spray intranasal DAILY NASAL 04/14/22 05/23/24 History mcg/actuation nasal CONGESTION spray,suspension turmeric root extract 500 mg 1,000 mg PO DAILY SUPPLEMENT 04/14/22 05/22/24 History capsule rosuvastatin 40 mg tablet 40 mg PO DAILY CHOLESTEROL #90 tabs 01/18/23 05/22/24 Rx losartan 50 mg tablet 50 mg PO DAILY BP #90 tabs 03/17/23 05/23/24 Rx beet supplement 1 gummy PO DAILY SUPPLEMENT 10/20/23 05/22/24 History metoprolol tartrate 25 mg tablet 25 mg PO DAILY HEART 03/24/24 05/23/24 History acetaminophen 500 mg tablet 1,000 mg (2 x 500 mg) PO Q6H PRN 04/05/24 05/22/24 Rx fever or pain #90 tabs Allergy/AdvReac Type Severity Reaction Status Date / Time No Known Allergies Allergy Verified 05/19/24 13:24 Family History Father Heart disease Sister Cancer Surgical History Hx of total knee arthroplasty History of total left knee replacement History of left heart catheterization (12/2006) History of radiofrequency ablation procedure for cardiac arrhythmia (12/2006) History of coronary artery stent placement (01/1999) History of urologic surgery History of total vaginal hysterectomy (TVH) (10/20/18) History of knee replacement Social History Smoking Status: Never smoker alcohol intake: never substance use type: does not use caffeine: Yes Type: tea Number of servings: 1 what type of physical activity do you participate in: walking seatbelt use: always do you feel safe at home: Yes Review of Systems (Anesthesia) ROS Narrative System reviewed and no additional complaints, except as documented.
--- NOTE | 2024-05-23 07:24 | PCM.HP.BLA ---
History and Physical Date of Admission: 05/23/24 [facility] [address] [place] [address] OFFICE VISIT Date of Service: 05/17/24 MR#: [id number] Acct: [id number] Name: KELLEN GUY Rep #: [id number] : 1955 Provider: Dr. Marquis Jackson DO Age/Sex: 68/F Location: [facility] Status: Signed Intake Vital Signs 04/04/2415:51 Height 5 ft 8 in Intake Visit Reasons: RIGHT KNEE Chief Complaint: 6 week post-op Accompanied by: Self Is patient in pain?: Yes Pain scale (1-10): 1 Allergies No Known Allergies Allergy (Verified 05/17/24 09:01) Medications ?Medication ?Instructions ?Recorded ?Confirmed ?Type aspirin 81 mg chewable tablet 81 mg PO DAILY@0800 SUPPLEMENT 02/28/16 05/17/24 History cholecalciferol (vitamin D3) 25 2,000 unit PO DAILY SUPPLEMENT 02/28/16 05/17/24 History mcg (1,000 unit) tablet coenzyme Q10 100 mg capsule 100 mg PO DAILY SUPPLEMENT 02/28/16 05/17/24 History omega 3-dha 60 mg-epa 90 mg-fish 1,000 mg PO DAILY SUPPLEMENT 02/28/16 05/17/24 History oil 500 mg capsule, delayed release omeprazole 20 mg capsule,delayed 20 mg PO DAILY GERD 01/27/18 05/17/24 History release trazodone 50 mg tablet 25 mg PO QHS SLEEP 09/05/18 05/17/24 History zinc sulfate 50 mg zinc (220 mg) 50 mg PO DAILY SUPPLEMENT 03/18/22 05/17/24 History capsule collagen,hydrolysate 500 mg-biotin 1 cap PO DAILY SUPPLEMENT 04/14/22 05/17/24 History 800 mcg-ascorbic acid 50 mg capsule (Collagen 1500 Plus C) duloxetine 60 mg capsule,delayed 60 mg PO DAILY DEPRESSION 04/14/22 05/17/24 History release fluticasone propionate 50 2 spray intranasal DAILY NASAL 04/14/22 05/17/24 History mcg/actuation nasal CONGESTION spray,suspension turmeric root extract 500 mg 500 mg PO BID SUPPLEMENT 04/14/22 05/17/24 History capsule rosuvastatin 40 mg tablet 40 mg PO DAILY CHOLESTEROL #90 tabs 01/18/23 05/17/24 Rx losartan 50 mg tablet 50 mg PO DAILY BP #90 tabs 03/17/23 05/17/24 Rx beet supplement 1 gummy PO DAILY SUPPLEMENT 10/20/23 05/17/24 History metoprolol tartrate 25 mg tablet 25 mg PO DAILY HEART 03/24/24 05/17/24 History acetaminophen 500 mg tablet 1,000 mg (2 x 500 mg) PO Q6H PRN 04/05/24 05/17/24 Rx fever or pain #90 tabs Have you fallen in the past year?: No PFSH Medical History Chest pain Acute sinusitis Wears glasses Post-menopausal Depression Arthritis Restless legs Back pain Gastric reflux Non-smoker History of pain when walking History of echocardiogram History of stress test Cardiology follow-up encounter Cellulitis, face Osteoarthritis of right knee Right knee pain Blepharitis COVID Acute right otitis media Paroxysmal supraventricular tachycardia Old inferior wall myocardial infarction (1998) Hyperlipidemia Essential (primary) hypertension Incomplete uterovaginal prolapse Atherosclerosis of coronary artery of [place] heart without angina pectoris Fatigue DVT (deep venous thrombosis) Surgical History History of total left knee replacement History of left heart catheterization (12/2006) History of radiofrequency ablation procedure for cardiac arrhythmia (12/2006) History of coronary artery stent placement (01/1999) History of urologic surgery History of total vaginal hysterectomy (TVH) (10/20/18) History of knee replacement Family History Father Heart diseaseSister Cancer Social History Smoking Status: Never smoker alcohol intake: never substance use type: does not use caffeine: Yes Type: tea Number of servings: 1 what type of physical activity do you participate in: walking seatbelt use: always do you feel safe at home: Yes HPI RIGHT KNEE Details: This documentation accurately reflects the service provided and the decisions made by me, Dr. Marquis Jackson, DO 05/17/24 0753. Part of today?s visit was documented by Dianna Arellano ATC, acting as scribe. KELLEN GUY is a 68 year old F here today for s/p right total knee arthroplasty CT guided Robotic Assisted DOS 04/04/2024. Patient rates her pain a 1/10 today. She states she has not been feeling well for the past 4 weeks, she feels nauseous and shaky all of the time. Last week she was diagnosed with a UTI and currently taking medication for that. Patient states she was prescribed Tramadol from us and she stopped taking it. She took it two times and it didn't do anything. She states since she hasn't been taking any pain medication because she has been feeling good. Patient states physical therapy is going alright. She states she has been doing everything they ask but she is not getting her range of motion back. She states some days are hard and she can't finish because of feeling sick. Ortho Exam General General: Yes no acute distress and Yes well groomed Neurologic: Yes alert and Yes oriented x3 Psychologic: Yes reasonable and appropriate Right Knee Skin/Wound: No erythema, No ecchymosis and No swelling Knee ROM: No ROM-Extension -20 to 0 (12) and No ROM-Flexion 0-140 (98) Stability: NML: Valgus 0, NML: Valgus 30, NML: Varus 0 and NML: Varus 30 Patella Translation: 1 Patella Grind: No KNEE: lacking 12 degrees EXT 98 FLEX Left Knee Patella Translation: 1 Head: Normocephalic Atraumatic Chest: symmetrical rise, non-labored breathing, no audible wheeze Abdomen: no guarding, non-rigid Supplemental Info 04/04/2024 right total knee arthroplasty: Dr. Jackson 03/18/2022 x-ray right knee: Advanced lateral compartment arthrosis with valgus deformity moderate patellofemoral arthrosis mild to moderate medial compartment arthrosis 03/18/2022 x-ray left knee: Status post posterior stabilized cemented total knee arthroplasty with good interfaces and positioning Coding Level of Care Code Global Post Op Diagnoses Stiffness of right knee M25.661 Assessment and Plan Assessment and Plan (1) Stiffness of right knee: Orders: Orders Knee 3 Views Today Z96.651 - Presence of right artificial knee joint Plan Due to her limited range of motion at this point 6 weeks postop would recommend manipulation under anesthesia with intra-articular steroid injection. Risk benefits alternatives were reviewed including risk of bleeding soft tissue injury ligament injury fracture continued pain continued stiffness. . She should stop with physical therapy right now but should resume physical therapy right after the manipulation. Recommended she resume physical therapy immediately after. Recommended to continue with her recumbent bike at home as this will help with her range of motion. Explained to patient the risks following a manipulation. Will move forward with the TESSIE on Thursday May 23, 2024. Patient was in agreement with the plan. Follow up in a month after the TESSIE procedure or sooner if pain, swelling, numbness or associated symptoms, or concerns develop. All questions answered. Patient in agreement of plan. Clinical Quality Measures Falls Risk Screening/Assistive Devices Have you fallen in the past year?: No 05/17/24 1006 <Electronically signed by Marquis Jackson DO> Date Marquis Jackson DO I have examined the patient and the H&P has been reviewed. There are no clinical changes since date of exam.
[2024-05-23] MEDS: Cefazolin 2 GM in Syringe IV (07:29)
[2024-05-23] MEDS: MethylPREDNISolone Acetate 40 MG/ML Vial (07:38)
[2024-05-23] MEDS: Bupiv/Epi 0.25% 30 ML Vial (07:38)
--- NOTE | 2024-05-23 07:40 | PCM.OPRPT ---
Operative Report (Standard) Operative Information Date of Procedure: 05/23/24 Pre-Operative Diagnosis: Right knee arthrofibrosis Post-Operative Diagnosis: Same Surgery/Procedure Performed: Manipulation under anesthesia digital production operator: No Type of Anesthesia: IV Sedation RN Documented Start/Stop Times: Operation Date: 05/23/24 07:30 Case Time Into Pre-Op 05/23/24 06:06 Out of Pre-Op 05/23/24 07:26 Anesthesia Start 05/23/24 07:29 Into Room 05/23/24 07:29 Procedure Start 05/23/24 07:34 Procedure End 05/23/24 07:39 Anesthesia End 05/23/24 07:42 Out of Room 05/23/24 07:42 Into Recovery 05/23/24 07:43 Procedure Start Time: 07:34 Procedure Stop Time: 07:39 Select all DRAINS/GRAFTS/IMPLANTS that apply: None Estimated Blood Loss: 0 Specimen collected: No Description of surgery: Preoperative diagnosis: Arthrofibrosis right knee Postoperative diagnosis: Same Procedure: Manipulation under anesthesia [with intra-articular steroid injection] Anesthesia: General EBL: None Complications: None Condition: Able to PACU Indication for procedure: This is a 68-year-old female who underwent total knee arthroplasty approximately 6 weeks ago who is failed to gain her range of motion wish to undergo an elective manipulation under anesthesia to increase range of motion. risk benefits and alternatives were reviewed including risk of bleeding infection nerve, artery, bone, tissue damage, blood clot need for further surgery and continued pain. Procedure: Patient was met in the preoperative holding area once again the operative extremity was identified by both patient and physician and was marked. Patient was brought back to the operating room anesthesia was started. A timeout was called into the proper patient procedure and extremity were being contemplated. The pre-operative range of motion was [lacking 12 degrees of] extension and achieving [98 ]degrees flexion. After patient was adequately anesthetized extension manipulation was performed followed by patellar mobilization followed by gradual flexion scar tissue was palpated being released with no concerning signs for tendon rupture or fracture. Postoperative range of motion was much improved with [near full ]extension and 135 degrees of flexion. Following the manipulation using sterile technique from the superior lateral position an intra-articular injection with 40 mg of depomedrol and 8 cc 0.25%marcaine with epi was injected. bandaid applied Surgical Findings: Arthrofibrosis Complications Complications: No
--- NOTE | 2024-05-23 07:42 | DCINST_ITS ---
Discharge Instructions Diet Discharge Diet: No restrictions Dressing / Incision Call your doctor if you observe: Shortness of breath and Chest pain Additional Dressing/Incision Instructions:: Encourage full knee flexion and extension regularly. Start physical therapy immediately. May shower and return to activities as normal. Keep pain controlled with medications as discussed with Dr. Jackson in order to keep full range of motion. Ice and elevate next 72 hours. Follow-up with Dr. Jackson and call with any questions or concerns. Follow Up Care Please Follow Up With: Marquis Jackson, DO When: 2 weeks Test Results: Test results from this visit will be discussed in further detail at your follow- up appointment, if applicable. Discharge Plan Admission Primary Reason for Your Visit: Right knee arthrofibrosis Attending Provider: Marquis Jackson Primary Care Provider: Maraí Cintron Instructions Print Language: Lithuanian Discharge Orders/Prescriptions Prescriptions: New oxycodone 5 mg tablet 5 - 10 mg PO Q4H PRN (Reason: pain) 4 Days Qty: 30 0RF No Action omeprazole 20 mg capsule,delayed release(DR/EC) 20 mg PO DAILY trazodone 50 mg tablet 25 mg PO QHS duloxetine 60 mg capsule,delayed release(DR/EC) 60 mg PO DAILY fluticasone propionate 50 mcg/actuation spray,suspension 2 spray intranasal DAILY turmeric root extract 500 mg capsule 1,000 mg PO DAILY Collagen 1500 Plus C 500 mg-800 mcg- 50 mg capsule 1 cap PO DAILY zinc sulfate 50 mg zinc (220 mg) capsule 50 mg PO DAILY beet supplement 1 gummy PO DAILY aspirin 81 MG tablet,chewable 81 mg PO DAILY@0800 Patient Comments: Heart Health cholecalciferol (vitamin D3) 1,000 UNIT tablet 2,000 unit PO DAILY Patient Comments: Supplement omega 7-ytv-mlm-fish oil 500 MG capsule,delayed release(DR/EC) 1,000 mg PO DAILY Patient Comments: Supplement coenzyme Q10 100 MG capsule 100 mg PO DAILY metoprolol tartrate 25 mg tablet 25 mg PO DAILY Rx Instructions: TAKE 1 TABLET DAILY acetaminophen 500 mg tablet 1,000 mg PO Q6H PRN (Reason: fever or pain) Qty: 90 0RF rosuvastatin 40 mg tablet 40 mg PO DAILY Qty: 90 3RF losartan 50 mg tablet 50 mg PO DAILY Qty: 90 3RF Referrals / Follow Up: Abdulaziz,María VSC, DO [Primary Care Provider] - Disposition Disposition (needs filled in before D/C Order can be placed): Home, Self Care
--- NOTE | 2024-05-23 07:49 | PCM.POST.ANE ---
Anesthesia: Postop Eval I Current Vital Signs Temperature: 97.2 F Pulse Rate: 66 Blood Pressure: 144/77 Respiratory Rate: 16 Pulse Ox: 98 Oxygen Delivery Method: Room Air Assessment Airway patent: Yes Spontaneous unlabored respirations: Yes Mental status: Awake and Calm nausea: No Vomiting: No Anesthesia Complication: No Fluid Hydration Crystalloid volume administer (ml): 300 Total IV fluid infused: 300 Progress Note Anesthesia document: Postop Eval 1 completed: Yes
--- NOTE | 2024-05-23 10:11 | POSTOPAN2_ITS ---
Anesthesia Postop Eval I Sum Postop Eval Completion status Anesthesia document: Postop Eval 1 completed: Yes Anesthesia Postop Eval I Summary Anesthesia Postop Eval I Summary: Anesthesia Postop Eval I: Assessment Summary Airway patent Yes 05/23/24 07:49 ABLE BODIED [email or web address] Spontaneous unlabored Yes 05/23/24 07:49 ABLE BODIED [email or web address] respirations Mental status Awake,Calm 05/23/24 07:49 ABLE BODIED [email or web address] nausea No 05/23/24 07:49 ABLE BODIED [email or web address] Vomiting No 05/23/24 07:49 ABLE BODIED [email or web address] Anesthesia Postop Eval I: Fluid Summary Crystalloid volume administer 300 05/23/24 07:49 ABLE BODIED [email or web address] (ml) Colloids volume administered ( ml) Blood Product volume administered (ml) Total IV fluid infused 300 05/23/24 07:49 ABLE BODIED [email or web address] Anesthesia Postop Eval I: Summary Notes Anesthesia Complication No 05/23/24 07:49 ABLE BODIED [email or web address] Anesthesia Complication Comment: Post-operative progress note Anesthesia: Postop Eval II Evaluation Mental status: Awake Pain Level: 0 nausea: No Vomiting: No
--- NOTE | 2024-05-23 10:11 | PCM.POSTANE2 ---
Anesthesia Postop Eval I Sum Postop Eval Completion status Anesthesia document: Postop Eval 1 completed: Yes Anesthesia Postop Eval I Summary Anesthesia Postop Eval I Summary: Anesthesia Postop Eval I: Assessment Summary Airway patent Yes 05/23/24 07:49 VAULT [email or web address] Spontaneous unlabored Yes 05/23/24 07:49 VAULT [email or web address] respirations Mental status Awake,Calm 05/23/24 07:49 [email or web address] [email or web address] nausea No 05/23/24 07:49 VAULT [email or web address] Vomiting No 05/23/24 07:49 VAULT [email or web address] Anesthesia Postop Eval I: Fluid Summary Crystalloid volume administer 300 05/23/24 07:49 VAULT [email or web address] (ml) Colloids volume administered ( ml) Blood Product volume administered (ml) Total IV fluid infused 300 05/23/24 07:49 VAULT [email or web address] Anesthesia Postop Eval I: Summary Notes Anesthesia Complication No 05/23/24 07:49 VAULT [email or web address] Anesthesia Complication Comment: Post-operative progress note Anesthesia: Postop Eval II Evaluation Mental status: Awake Pain Level: 0 nausea: No Vomiting: No
== END 2024-05-23 10:00 | disposition home or self-care (01) ==
LOC: SDC 05:55 → AC 05:56
PROVIDERS: PCP Family Medicine; Referring Provider Orthopaedic Surgery; Visit Provider Orthopaedic Surgery
PROC: (CPT 27570; principal; 2024-05-23 07:25)
DX: M25.661 Stiffness of right knee, not elsewhere classified (principal); I25.10 Atherosclerotic heart disease of native coronary artery without angina pectoris; I10 Essential (primary) hypertension; K21.9 Gastro-esophageal reflux disease without esophagitis; E78.5 Hyperlipidemia, unspecified; Z96.651 Presence of right artificial knee joint; Z79.82 Long term (current) use of aspirin; Z79.899 Other long term (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
CPT/HCPCS: 27570; 01380; J2405

== ENCOUNTER 2024-07-07 08:00 | Outpatient (RCR) | payer MEDICARE, OTHER, SELFPAY ==
--- NOTE | 2024-04-10 08:14 | HP.PTEVAL_ITS ---
Patient's Visit Information Visit Information Visit Information: KELLEN GUY is a 68 year old F referred to Physical Therapy by Dr. Marquis Jackson DO with a diagnosis of R TKA DOS: 04/04/24. Date of Evaluation: 04/07/24 Physical Therapist: Kamaljit Larry DPT Visit Plan Frequency: 3x /Week Duration: 6 Weeks Plan: 1) ROM progressing as tolerated. 2) edema control with vaso/ice 3) quad activation progressing to functional strengthening. 4) gait progression/stairs. Subjective Subjective: Pt. is here today for her initial evaluation with diagnosis of R TKA DOS: 04/04/24. Pt. arrives without AD with reports overall doing well. Pt. reports pain is minimal. She has been doing her exercises as recommended. Pt. reports no N/T. No chest pain and no calf pain. Pt. is having some trouble with sleeping, difficulty getting comfortable. Pt. is walking in her home without issues. Icing as prescribed. Pt. is hopeful to get back to all recreational activities without limitations. Pain R knee: Pain Intensity (Out of 10): 3 Pain Intensity Range: 2 and 6 Objective Objective: POSTURE: Pt. has good posture in stance. Pt. has normal wt shifting, slight lack of TKE on R side in stance. PALPATION: pt. has good healing incsion. NO signs of infection. Marked edema 4 cm difference between BLEs at mid patella. NEURO: normal sensation and patient is able to rise on heels and toes without is sues. ROM: R knee: 0-4-89deg. PROM. Pt. has some slight pain at end ranges of motion. TIghtness noted in same region. MMT: LLE: knee: ext 34.5#, flexion 21.9#; hip: flexion 23.1#. RLE: ext 2#, flexion 7#; hip: flexion 5# GAIT: Pt. ambulates without AD with good tolerance. Pt. has sight lack of TKE and knee flexion during pattern. stairs: step to pattern noted TU.8sec 30sec sit to stand: 10 Balance/Special Test Scores WOMAC Total Score: 45 WOMAC Percentatge: 53.1300 Goals Goal 1:: LTG: Pt. to be I with HEP. Goal Time Frame: 4-6 Weeks Goal 2:: STG: pt. to have increased R knee ROM to 0-0-120deg. Goal Time Frame: 2-4 Weeks Goal 3:: LTG: PT. to have full symmetrical RLE strength. Goal Time Frame: 6-8 Weeks Goal 4:: LTG: Pt. to have normal gait pattern without AD without increase in R knee pain Goal Time Frame: 6-8 Weeks Goal 5:: LTG: Pt. to complete 30sec sit to stand rep test with 17 reps. Goal Time Frame: 6-8 Weeks Goal 6:: LTG: Pt. to negotiate steps with reciprocal pattern without limitations. Goal Time Frame: 6-8 Weeks Rehabilitation Potential Physical Therapy Diagnosis: Pt. has signs and symptoms consistent with R TKA. Pt. has marked hypombility, weakness, and decreased ROM. She would benfit from PT to address the above limitations. Rehabilitation Potential: Excellent Anticipated Interventions Patient/Client Instruction: Educate patient on: Condition, Plan of Care, Risk Factors and Benefits of Fitness Program For the Purpose of:: To facilitate caregiver knowledge, To improve self management, To prevent re-injury, To improve ability to perform tasks related to life management and To improve tolerance to ADL's Therapeutic Exercise to Include: Strength training, Power training, Balance training, Body mechanics, Postural training, Flexibilty training, Gait and locomotor training, Passive ROM and Active ROM For the Purpose of:: To decrease pain, To decrease swelling/inflammation, To increase ROM, To improve nutrient delivery to tissue, To increase oxygenation perfusion, To improve muscle performance and motor function, To improve ability to perform ADL's, To increase tolerance to activity/condition/position, To decrease soft tissue restriction, To increase flexibility/ROM, To improve endurance and To improve balance Cryotherapy (ice pack, ice massage): Yes Vasopneumatic device: Yes For the Purpose of:: To decrease pain, To decrease swelling/inflammation and To increase ROM Text: Thank you for the opportunity to evaluate your patient. For Medicare and Medicare HMO plans, please review the plan of care and approve it. It will need to be FAXED BACK to us at [phone] for Medicare purposes. For Medicare only, by signing this I certify the plan of care. Please let me know if there are questions or concerns regarding this plan of care. Physician Signature: Date:
--- NOTE | 2024-06-06 09:54 | HP.PTREVAL_ITS ---
Re-Evaluation Intro: Dr. Marquis Jackson, DO, It has been my pleasure to treat KELLEN GUY over the last 22 visits for R TKA DOS: 04/04/24. Please see the progress note below for an update on the physical therapy plan of care! Subjective Subjective: Pt. reports still not feeling well overall. She does better if she drinks a Gatorade, but still frequently nauseated. She comes to PT after doing some gym strengthening exercises. Objective Objective/Function: Pt. comes in today is still fairly stiff with her motions. Spent treatment working on ROM. I was able to achieve full knee extension with over pressure, but only able to get 113deg of flexion with PT over pressure. Functional mobility she is doing well, but requires some instruction to increase knee flexion during swing phase. She does do well on our stairs, but they are slightly more shallow than normal stairs. I talked to her about frequent stretching and ROM. This should be her focus. She does like doing gym exercises which is okay, but does have to spend time working on ROM frequently throughout the day. Plan Plan Plan: Pt. wants to work on exercises I at this point in time. I did stress to her about getting full motion, pt. reports she will continue these exercises multiple times per day. She is to follow up with physician later this week. I will keep her case open pending physician advise. Balance/Gait/Functional tests Balance/Special Test Scores Lower Extremity Functional Score: 50 WOMAC Total Score: 45 WOMAC Percentage: 53.1300 Goals Goals Goal 1:: LTG: Pt. to be I with HEP. Goal Time Frame: 4-6 Weeks Goal Progress: Goal Met Goal 2:: STG: pt. to have increased R knee ROM to 0-0-120deg. Goal Time Frame: 2-4 Weeks Goal Progress: Progressing Goal 3:: LTG: PT. to have full symmetrical RLE strength. Goal Time Frame: 6-8 Weeks Goal Progress: Progressing Goal 4:: LTG: Pt. to have normal gait pattern without AD without increase in R knee pain Goal Time Frame: 6-8 Weeks Goal Progress: Progressing Goal 5:: LTG: Pt. to complete 30sec sit to stand rep test with 17 reps. Goal Time Frame: 6-8 Weeks Goal Progress: Goal Met Goal 6:: LTG: Pt. to negotiate steps with reciprocal pattern without limitat ions. Goal Time Frame: 6-8 Weeks Goal Progress: Progressing Anticipated Interventions Anticipated Interventions Patient/Client Instruction: Educate patient on: Condition, Plan of Care, Risk Factors and Benefits of Fitness Program For the Purpose of:: To facilitate caregiver knowledge, To improve self management, To prevent re-injury, To improve ability to perform tasks related to life management and To improve tolerance to ADL's Therapeutic Exercise to Include: Strength training, Power training, Balance training, Body mechanics, Postural training, Flexibilty training, Gait and locomotor training, Passive ROM and Active ROM For the Purpose of:: To decrease pain, To decrease swelling/inflammation, To increase ROM, To improve nutrient delivery to tissue, To increase oxygenation perfusion, To improve muscle performance and motor function, To improve ability to perform ADL's, To increase tolerance to activity/condition/position, To decrease soft tissue restriction, To increase flexibility/ROM, To improve endurance and To improve balance Cryotherapy (ice pack, ice massage): Yes Vasopneumatic device: Yes For the Purpose of:: To decrease pain, To decrease swelling/inflammation and To increase ROM Re-Evaluation Ending Re-evaluation ending: Please do not hesitate to contact me at [phone] by phone or if you have questions or concerns regarding this new plan of care! Sincerely, Kamaljit Larry DPT
--- NOTE | 2024-07-07 08:43 | HP.PTDCSUM ---
Discharge Summary D/C summary: It has been my pleasure to treat KELLEN GUY referred by Dr. Marquis Jackson DO, with the diagnosis of R TKA DOS: 04/04/24 for a total of 30 visit(s). Discharge Date: Please see the following information for a summary of their discharge status. Subjective Subjective: Pt. reports overall doing well. Pt. reports being 90% better overall. Pt. reports I have my good days and day ones.' Pt. is coming Pain R knee: Pain Intensity (Out of 10): 1 Overall Improvement % Improvement: 90 Objective Objective/Function: ROM: 0-0-114deg. PROM 0-0-119deg. Pt. has pain at end range of flexion, tightness noted as well. MMT: RLE: knee: ext41.9#, flexion 23.9# LLE: ext 52.4#, flexion 24.7# GAIT: pt. ambulates well with out AD with reciprocal pattern. Pt. does have some slight soreness but overall doing well. STAIRS: Pt. complete with 1 HR with reciprocal pattern with mild increase NW. Goals Goal 1:: LTG: Pt. to be I with HEP. Goal Progress: Goal Met Goal 2:: STG: pt. to have increased R knee ROM to 0-0-120deg. Goal Progress: Progressing Goal 3:: LTG: PT. to have full symmetrical RLE strength. Goal Progress: Progressing Goal 4:: LTG: Pt. to have normal gait pattern without AD without increase in R knee pain Goal Progress: Goal Met Goal 5:: LTG: Pt. to complete 30sec sit to stand rep test with 17 reps. Goal Progress: Goal Met Goal 6:: LTG: Pt. to negotiate steps with reciprocal pattern without limitations. Goal Progress: Goal Met Plan Plan: Pt. to be DC from PT at this point in time. D/C Information d/c sentence: If there are questions or concerns regarding this patient's physical therapy, please feel free to call me at [phone]. Thank you for the referral of this patient. Sincerely, Kamaljit Purdy Sipos, DPT Balance/Gait/Functional tests Balance/Special Test Scores Lower Extremity Functional Score: 50 WOMAC Total Score: 7 WOMAC Percentage: 92.7100 Improvement % Improvement: 90
== END 2024-07-07 19:00 | disposition home or self-care (01) ==
LOC: PT 08:00
PROVIDERS: PCP Family Medicine; Referring Provider Orthopaedic Surgery; Visit Provider Orthopaedic Surgery
DX: Z96.651 Presence of right artificial knee joint (principal); M17.11 Unilateral primary osteoarthritis, right knee
CPT/HCPCS: 97016; 97110; 97140; 97161; 97530

== ENCOUNTER 2024-07-11 08:47 | Day surgery (SDC) | payer MEDICARE, OTHER, SELFPAY ==
--- NOTE | 2024-07-07 14:46 | PAT.ANESEVAL ---
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 When Was Last Pacemaker Check QUESTION #4 FULL TEXT: You/Your Family Experience fever (hyperthermia) with Anesthesia Last Oral Intake Last Oral intake: Last Oral Intake NPO since Meds taken in AM with sips of water? Meds patient instructed to take am of surgery PONV PONV - product design manager: PONV - product design manager Female Yes 07/07/24 13:18 HX of Motion Sickness No 07/07/24 13:18 HX of N/V After Surgery No 07/07/24 13:18 Non-Smoker Yes 07/07/24 13:18 Duration of Surgery greater No 07/07/24 13:18 than 60 minutes Number of Risk Factors 2 07/07/24 13:18 PONV Score Moderate Risk 07/07/24 13:18 Height & Weight Height & Weight: Anesthesia: Height & Weight Height 5 ft 8 in 06/19/24 12:53 Respiratory Assessment Respiratory Assessment - product design manager: Respiratory Tract Infection Hx - product design manager Hx Respiratory Tract Infection No 07/07/24 13:18 STOP Sleep Apnea STOP Sleep Apnea - product design manager: STOP Sleep Apnea - product design manager Hx Hypertension Yes: CONTROLLED WITH MED 07/07/24 13:18 Hx Sleep Apnea No 07/07/24 13:18 CPAP BIPAP Do you snore loudly (louder No 07/07/24 13:18 than talking or can be heard Do you often feel tired/ Yes 07/07/24 13:18 fatigued/ sleepy during daytime? Has anyone observed you stop No 07/07/24 13:18 breathing during sleep? STOP Results Positive 07/07/24 13:18 QUESTION #5 FULL TEXT : Do you snore loudly (louder than talking or can be heard through closed doors)? 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 Specify any problems Hx of Preganancy in last 3 No 07/07/24 13:18 Months Nurse Filling Out Transfusion DSCHRIBER 07/07/24 13:18 & Questions: Date: 07/07/24 07/07/24 13:18 Time: 13:18 07/07/24 13:18 Patient unable to answer at this time (ie. confused, unrespo /Reproduction History /Reproductive History - product design manager: /Reproductive Hx- product design manager Hx Now Gestational Age (in weeks): EDC: Hx Hx Para Hx Section SAB No 07/07/24 13:18 PFSH Medical History (Updated 07/07/24 @ 13:21 by Olga Sewnson) Nausea Wears glasses Post-menopausal Depression Arthritis Restless legs Back pain Gastric reflux Non-smoker History of pain when walking History of echocardiogram History of stress test Cardiology follow-up encounter Chest pain Acute sinusitis Cellulitis, face Osteoarthritis of right knee Right knee pain Blepharitis COVID Acute right otitis media Paroxysmal supraventricular tachycardia Old inferior wall myocardial infarction (1998) Hyperlipidemia Essential (primary) hypertension Incomplete uterovaginal prolapse Atherosclerosis of coronary artery of [place] heart without angina pectoris Fatigue DVT (deep venous thrombosis) Home Medications ?Medication ?Instructions ?Recorded ?Last Taken ?Type cholecalciferol (vitamin D3) 25 2,000 unit PO DAILY SUPPLEMENT 02/28/16 05/22/24 History mcg (1,000 unit) tablet omeprazole 20 mg capsule,delayed 20 mg PO DAILY GERD 01/27/18 05/23/24 History release trazodone 50 mg tablet 25 mg PO QHS SLEEP 09/05/18 05/22/24 History zinc sulfate 50 mg zinc (220 mg) 50 mg PO DAILY SUPPLEMENT 03/18/22 05/22/24 History capsule collagen,hydrolysate 500 mg-biotin 1 cap PO DAILY SUPPLEMENT 04/14/22 05/22/24 History 800 mcg-ascorbic acid 50 mg capsule (Collagen 1500 Plus C) duloxetine 60 mg capsule,delayed 60 mg PO DAILY DEPRESSION 04/14/22 04/04/24 History release fluticasone propionate 50 2 spray intranasal DAILY NASAL 04/14/22 05/23/24 History mcg/actuation nasal CONGESTION spray,suspension turmeric root extract 500 mg 1,000 mg PO DAILY SUPPLEMENT 04/14/22 05/22/24 History capsule rosuvastatin 40 mg tablet 40 mg PO DAILY CHOLESTEROL #90 tabs 01/18/23 05/22/24 Rx losartan 50 mg tablet 50 mg PO DAILY BP #90 tabs 03/17/23 05/23/24 Rx beet supplement 1 gummy PO DAILY SUPPLEMENT 10/20/23 05/22/24 History metoprolol tartrate 25 mg tablet 25 mg PO DAILY HEART 03/24/24 05/23/24 History omega 7-bdd-nae-fish oil 1,200 mg 1 cap PO DAILY 07/07/24 Unknown History (144 mg-216 mg) capsule (Fish Oil) Allergy/AdvReac Type Severity Reaction Status Date / Time No Known Allergies Allergy Verified 07/07/24 13:16 Family History Father Heart disease Sister Cancer Surgical History (Updated 07/07/24 @ 13:21 by Olga Swenson) Hx of right knee surgery Hx of total knee arthroplasty History of total left knee replacement History of left heart catheterization (12/2006) History of radiofrequency ablation procedure for cardiac arrhythmia (12/2006) History of coronary artery stent placement (01/1999) History of urologic surgery History of total vaginal hysterectomy (TVH) (10/20/18) History of knee replacement Social History Smoking Status: Never smoker alcohol intake: never substance use type: does not use caffeine: Yes Type: tea Number of servings: 1 what type of physical activity do you participate in: walking seatbelt use: always do you feel safe at home: Yes Audit: Pertinent Findings Pertinent Findings Stress test pertinent findings: 11/23/2023 normal myocardial perfusion stress test high workload EF 77 Echo (EF%) pertinent findings: 05/11/2022 normal size function EF 60% Consult pertinent findings: Cardiology 05/11/2024 history of coronary artery stent placement RCA stable paroxysmal supraventricular tachycardia chronic stable essential hypertension chronic stable Recommendation Anesthesia Recommendation Anesthesia recommendation: OPTIMIZED for anesthesia
[2024-07-11] VITALS (8 sets, daily range): BP systolic 122–143; BP diastolic 67–100; PULSE 55–64; RESP 16–22; TEMP 36.2–36.6; O2SAT 97–100; BMI 22.8
--- NOTE | 2024-07-11 | GASB_PTH ---
PATIENT: KELLEN GUY LOC: EN U#:[id number] AGE/SX: 68/F ROOM: RE07/11/[address]: Dr. Tk Daley MD : 1955 BED: DIS: 07/11/2024 SPEC #: [id number] RECD: 07/11/24 12:53 STATUS: ЕЛЕНА REAndrew #: [id number] KAITLYN: 07/11/24 00:[address]: Tk Daley DEPT: SURGICAL PATHOLOGY RECD BY: Jonh Verma ENTERED: 07/11/24 12:54 SP TYPE: Gastric Bx OTHR DR: María Cintron, [facility], DO Tissues: A - Gastric mucous membrane B - Gastric mucous membrane C - Gastric mucous membrane Procedures: Surgery Specimen Level IV HEADER OPERATION: EGD, biopsy PRE-OP DIAGNOSIS: Nausea TISSUE SUBMITTED: A- Antrum biopsy, B- Gastric polyp biopsy, C- Gastroesophageal junction biopsy MICROSCOPIC DIAGNOSIS A. Antrum, biopsy: Mild gastritis. See microscopic description and comment. B. Gastric polyp, biopsy: Suggestive of fragments of fundic gland polyp. C. Gastroesophageal junction, biopsy: Fragments of gastroesophageal mucosa with minimal chronic inflammation. Intestinal metaplasia (goblet cell metaplasia) not identified. See comment. 07/12/2024 COMMENT A. The results of immunohistochemistry for Helicobacter pylori will be reported separately ([id number]). C. Alcian blue/PAS stain with matched control is used in the evaluation of the specimen. MICROSCOPIC DESCRIPTION Slides are reviewed. A. The specimen shows fragments of gastric mucosa with chronic inflammatory cell infiltrates in the lamina propria consisting of lymphocytes and plasma cells, consistent with mild chronic gastritis. GROSS DESCRIPTION A. Received in fixative is one container labeled with the patient's name and designated Antrum biopsy. The specimen consists of two irregular fragments of light [place] soft tissue that in aggregate measure 0.8 x 0.4 x 0.1 cm. The specimen is totally submitted in one cassette. B. Received in fixative is one container labeled with the patient's name and designated Gastric polyp biopsy. The specimen consists of multiple irregular fragments of light [place] soft tissue that measuring in aggregate 0.5 x 0.5 x 0.1 cm. The specimen is totally submitted in one cassette. C. Received in fixative is one container labeled with the patient's name and designated GE junction biopsy. The specimen consists of multiple irregular fragments of light [place] soft tissue that measuring in aggregate 0.6 x 0.5 x 0.1 cm. The specimen is totally submitted in one cassette. MS/mr 07/11/2024 TC:3 CPT:33197x7,07915
--- NOTE | 2024-07-11 09:19 | PCM.PRE.AN2 ---
ASA Classification* ASA Classification ASA Classification: 2 Assessment & Plan Anesthesia* Anesthesia Assessment Anesthesia Assessment: Discussed sedation and/or anesthesia options, risks, benefits, and alternatives with patient/parents/legal guardian/POA. Questions invited. The patient/parents/legal guardian/POA seems to understand and agrees to proceed with anesthesia plan. Reviewed the physical assessment, medical history, allergy history and patient home medications list prior to surgery/procedure/anesthetic and documented any changes. Performed airway and anesthesia risk assessments. Anesthesia Type Anesthesia Type: MAC History Source History Obtained from:: Patient and Chart Anesthesia Focused Assessment* Temperature: 97.2 F Pulse Rate: 59 Blood Pressure: 143/76 Respiratory Rate: 16 Pulse Ox: 100 Oxygen Delivery Method: Room Air Airway Assessment Mouth opens: >3 cm Mallampati Score: II Teeth Condition: Caps/Crowns (Patient has left lower crown. Permanent bridge on right upper and lower. All tight.) Neck Range of motion (ROM): Full ROM Focused Labs Anesthesia Preop lab: CBC WBC 5.4 K/mm3 (4.4-11.0) 05/05/24 09:17 05/05/24 RBC 3.88 M/mm3 (4.2-5.4) L 05/05/24 09:17 05/05/24 Hgb 11.4 g/dL (12.0-15.0) L 05/05/24 09:17 05/05/24 Hct 35.8 % (37-47) L 05/05/24 09:17 05/05/24 Plt Count 523 K/mm3 (150-450) H 05/05/24 09:17 05/05/24 CHEMISTRY Potassium 3.7 mmol/L (3.5-5.1) 05/05/24 09:17 05/05/24 Sodium 136 mmol/L (136-145) 05/05/24 09:17 05/05/24 Magnesium 1.8 mg/dL (1.6-2.6) 04/20/24 11:05 04/20/24 Phosphorus 3.6 mg/dL (2.5-4.9) 12/01/13 08:50 12/01/13 BUN 13 mg/dL (7-18) 05/05/24 09:17 05/05/24 Creatinine 1.00 mg/dL (0.55-1.02) 05/05/24 09:17 05/05/24 Glucose 119 mg/dL (74-106) H 05/05/24 09:17 05/05/24 POC Glucose 111 mg/dL (74-106) H 04/04/24 14:11 04/04/24 TSH 0.814 uIU/mL (0.358-3.740) 04/20/24 11:05 04/20/24 COAG PT 12.6 SECONDS (11.7-14.9) 03/27/24 07:24 03/27/24 Pre-Assessment Diagnosis/Proposed Procedure Planned Operative Procedure(s): EGD Anesthesia History 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 When Was Last Pacemaker Check QUESTION #4 FULL TEXT: You/Your Family Experience fever (hyperthermia) with Anesthesia Last Oral Intake Last Oral intake: Last Oral Intake NPO since 07:30 07/11/24 08:59 Meds taken in AM with sips of Yes 07/11/24 08:59 water? 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 Female Yes 07/07/24 13:18 HX of Motion Sickness No 07/07/24 13:18 HX of N/V After Surgery No 07/07/24 13:18 Non-Smoker Yes 07/07/24 13:18 Duration of Surgery greater No 07/07/24 13:18 than 60 minutes Number of Risk Factors 2 07/07/24 13:18 PONV Score Moderate Risk 07/07/24 13:18 Height & Weight Height & Weight: Anesthesia: Height & Weight Height 5 ft 8 in 07/11/24 08:59 Weight: 68.039 kg 07/11/24 08:59 Body Mass Index (BMI) 22.8 07/11/24 08:59 Respiratory Assessment Respiratory Assessment - electroplating worker: Respiratory Tract Infection Hx - electroplating worker Hx Respiratory Tract Infection No 07/07/24 13:18 STOP Sleep Apnea STOP Sleep Apnea - electroplating worker: STOP Sleep Apnea - electroplating worker Hx Hypertension Yes: CONTROLLED WITH MED 07/07/24 13:18 Hx Sleep Apnea No 07/07/24 13:18 CPAP BIPAP Do you snore loudly (louder No 07/07/24 13:18 than talking or can be heard Do you often feel tired/ Yes 07/07/24 13:18 fatigued/ sleepy during daytime? Has anyone observed you stop No 07/07/24 13:18 breathing during sleep? STOP Results Positive 07/07/24 13:18 QUESTION #5 FULL TEXT : Do you snore loudly (louder than talking or can be heard through closed doors)? 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 Specify any problems Hx of Preganancy in last 3 No 07/07/24 13:18 Months Nurse Filling Out Transfusion DSCHRIBER 07/07/24 13:18 & Questions: Date: 07/07/24 07/07/24 13:18 Time: 13:18 07/07/24 13:18 Patient unable to answer at this time (ie. 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: /Reproductive Hx- electroplating worker Hx Now Gestational Age (in weeks): EDC: Hx Hx Para Hx Section SAB No 07/07/24 13:18 PFSH Medical History Nausea Wears glasses Post-menopausal Depression Arthritis Restless legs Back pain Gastric reflux Non-smoker History of pain when walking History of echocardiogram History of stress test Cardiology follow-up encounter Chest pain Acute sinusitis Cellulitis, face Osteoarthritis of right knee Right knee pain Blepharitis COVID Acute right otitis media Paroxysmal supraventricular tachycardia Old inferior wall myocardial infarction (1998) Hyperlipidemia Essential (primary) hypertension Incomplete uterovaginal prolapse Atherosclerosis of coronary artery of [place] heart without angina pectoris Fatigue DVT (deep venous thrombosis) Home Medications ?Medication ?Instructions ?Recorded ?Last Taken ?Type cholecalciferol (vitamin D3) 25 2,000 unit PO DAILY SUPPLEMENT 02/28/16 05/22/24 History mcg (1,000 unit) tablet omeprazole 20 mg capsule,delayed 20 mg PO DAILY GERD 01/27/18 05/23/24 History release trazodone 50 mg tablet 25 mg PO QHS SLEEP 09/05/18 05/22/24 History zinc sulfate 50 mg zinc (220 mg) 50 mg PO DAILY SUPPLEMENT 03/18/22 05/22/24 History capsule collagen,hydrolysate 500 mg-biotin 1 cap PO DAILY SUPPLEMENT 04/14/22 05/22/24 History 800 mcg-ascorbic acid 50 mg capsule (Collagen 1500 Plus C) duloxetine 60 mg capsule,delayed 60 mg PO DAILY DEPRESSION 04/14/22 04/04/24 History release fluticasone propionate 50 2 spray intranasal DAILY NASAL 04/14/22 05/23/24 History mcg/actuation nasal CONGESTION spray,suspension turmeric root extract 500 mg 1,000 mg PO DAILY SUPPLEMENT 04/14/22 05/22/24 History capsule rosuvastatin 40 mg tablet 40 mg PO DAILY CHOLESTEROL #90 tabs 01/18/23 07/11/24 Rx losartan 50 mg tablet 50 mg PO DAILY BP #90 tabs 03/17/23 07/11/24 Rx beet supplement 1 gummy PO DAILY SUPPLEMENT 10/20/23 05/22/24 History metoprolol tartrate 25 mg tablet 25 mg PO DAILY HEART 03/24/24 07/11/24 07:30 History omega 8-exy-mlb-fish oil 1,200 mg 1 cap PO DAILY 07/07/24 Unknown History (144 mg-216 mg) capsule (Fish Oil) Allergy/AdvReac Type Severity Reaction Status Date / Time No Known Allergies Allergy Verified 07/11/24 08:57 Family History Father Heart disease Sister Cancer Surgical History Hx of right knee surgery Hx of total knee arthroplasty History of total left knee replacement History of left heart catheterization (12/2006) History of radiofrequency ablation procedure for cardiac arrhythmia (12/2006) History of coronary artery stent placement (01/1999) History of urologic surgery History of total vaginal hysterectomy (TVH) (10/20/18) History of knee replacement Social History Smoking Status: Never smoker alcohol intake: never substance use type: does not use caffeine: Yes Type: tea Number of servings: 1 what type of physical activity do you participate in: walking seatbelt use: always do you feel safe at home: Yes Review of Systems (Anesthesia) ROS Narrative System reviewed and no additional complaints, except as documented.
--- NOTE | 2024-07-11 09:45 | IMM_PTH ---
PATIENT: KELLEN GYU LOC: EN U#:[id number] AGE/SX: 68/F ROOM: RE07/11/[address]: Dr. Tk Daley MD : 1955 BED: DIS: 07/11/2024 SPEC #: [id number] RECD: 07/11/24 13:17 STATUS: ЕЛЕНА REQ #: [id number] KAITLYN: 07/11/24 09:[address]: Tk Daley DEPT: IMMUNOHISTOCHEMISTRY RECD BY: Eddi Tamez ENTERED: 07/11/24 13:17 SP TYPE: IMMUNO OTHR DR: María Cintron, [facility], DO Tissues: A - Gastric mucous membrane Procedures: H Pylori (initial) PHYSICIAN & INSTITUTION [place] [id number] SPECIMEN INFORMATION: Tissue Source: A- Antrum biopsy Clinical Info: Nausea Specimen Number: [id number] CPT code: 04574 METHODOLOGY: Deparaffinized sections of prefer/formalin-fixed tissue or PAP/DQ stained slides are incubated with monoclonal/polyclonal antibodies/oligonucleotide probes. Localization is made via biotin free immunoperoxidase method. Appropriate controls are performed and reacted as expected. Results on target cell population are indicated in the following table: RESULTS: ANTIBODY / CLONE RESULT Block A H Pylori (polyclonal) negative These tests were developed and their performance characteristics determined by [facility]. They may not have been cleared or approved by the U.S. Food and Drug Administration. The FDA has determined that such clearance or approval is not necessary. The above immunohistochemical/dualISH markers are ordered and reviewed by the Pathologist. INTERPRETATION: A. Antrum, biopsy: Negative for Helicobacter pylori organisms. 07/12/2024
--- NOTE | 2024-07-11 10:26 | HP.PCM_ITS ---
HPI - General General Date of Admission: 07/11/24 Date of Service: 07/11/24 Chief Complaint: nausea HPI Narrative The patient is a 68-year-old female with complaints of persistent daily nausea and weight loss. She states that this been going on for the past couple of months. She has lost about 10 pounds. She has only had 1 episode of emesis. No blood in her stools. No hematemesis. Her last EGD was about 5 years ago and was apparently unremarkable. She presents today for EGD. [facility] Medical History Nausea Wears glasses Post-menopausal Depression Arthritis Restless legs Back pain Gastric reflux Non-smoker History of pain when walking History of echocardiogram History of stress test Cardiology follow-up encounter Chest pain Acute sinusitis Cellulitis, face Osteoarthritis of right knee Right knee pain Blepharitis COVID Acute right otitis media Paroxysmal supraventricular tachycardia Old inferior wall myocardial infarction (1998) Hyperlipidemia Essential (primary) hypertension Incomplete uterovaginal prolapse Atherosclerosis of coronary artery of [place] heart without angina pectoris Fatigue DVT (deep venous thrombosis) Home Medications ?Medication ?Instructions ?Recorded ?Last Taken ?Type cholecalciferol (vitamin D3) 25 2,000 unit PO DAILY [place] PPLEMENT 02/28/16 05/22/24 History mcg (1,000 unit) tablet omeprazole 20 mg capsule,delayed 20 mg PO DAILY GERD 0 01/27/18 05/23/24 History release trazodone 50 mg tablet 25 mg PO QHS SLEEP 09/05/18 05/22/24 History zinc sulfate 50 mg zinc (220 mg) 50 mg PO DAILY SUPPLE MENT 03/18/22 05/22/24 History capsule collagen,hydrolysate 500 mg-biotin 1 cap PO DAILY SUPP LEMENT 04/14/22 05/22/24 History 800 mcg-ascorbic acid 50 mg capsule (Collagen 1500 Plus C) duloxetine 60 mg capsule,delayed 60 mg PO DAILY DEPRES CATHY 04/14/22 04/04/24 History release fluticasone propionate 50 2 spray intranasal DAILY ELPIDIO AL 04/14/22 05/23/24 History mcg/actuation nasal CONGESTION spray,suspension turmeric root extract 500 mg 1,000 mg PO DAILY SUPPLEM ENT 04/14/22 05/22/24 History capsule rosuvastatin 40 mg tablet 40 mg PO DAILY CHOLESTEROL # 90 tabs 01/18/23 07/11/24 Rx losartan 50 mg tablet 50 mg PO DAILY BP #90 tabs 1 07/11/24 Rx beet supplement 1 gummy PO DAILY SUPPLEMENT 10/20/23 05/22/24 History metoprolol tartrate 25 mg tablet 25 mg PO DAILY HEART 03/24/24 07/11/24 07:30 History omega 0-ubx-znl-fish oil 1,200 mg 1 cap PO DAILY 07/07 Unknown History (144 mg-216 mg) capsule (Fish Oil) Allergy/AdvReac Type Severity Reaction Status Date / Time No Known Allergies Allergy Verified 07/11/24 08:57 Family History Father Heart disease Sister Cancer Surgical History Hx of right knee surgery Hx of total knee arthroplasty History of total left knee replacement History of left heart catheterization (12/2006) History of radiofrequency ablation procedure for cardiac arrhythmia (12/2006) History of coronary artery stent placement (01/1999) History of urologic surgery History of total vaginal hysterectomy (TVH) (10/20/18) History of knee replacement Social History Smoking Status: Never smoker alcohol intake: never substance use type: does not use caffeine: Yes Type: tea Number of servings: 1 what type of physical activity do you participate in: walking seatbelt use: always do you feel safe at home: Yes ROS Constitutional Constitutional: Reports systems reviewed and no addt'l complaints, except as documented Eyes Eyes: Reports systems reviewed and no addt'l complaints, except as documented ENT HEENT: Reports systems reviewed and no addt'l complaints, except as documented Cardiovascular Cardiovascular: Reports systems reviewed and no addt'l complaints, except as documented Respiratory/Chest Respiratory/Chest: Reports systems reviewed and no addt'l complaints, except as documented Gastrointestinal Gastrointestinal: Reports systems reviewed and no addt'l complaints, except as documented Genitourinary Genitourinary: Reports systems reviewed and no addt'l complaints, except as documented Vital Signs Vital Signs Vital Signs: 07/11/24 08:59 07/11/24 08:59 07/11/24 09:25 Temperature 97.2 F L 97.2 F L Temperature Source Temporal Pulse Rate 59 L 59 L Respiratory Rate 16 16 Respiratory Pattern Normal Blood Pressure 143/76 H 143/76 H Blood Pressure Mean 98 Blood Pressure Source Monitor Blood Pressure Position Semi-Fowlers Blood Pressure Location Left Arm Pulse Ox 100 100 Oxygen Delivery Method Room Air Room Air Weight Weight: 150 lb Body Mass Index (BMI) 22.8 Physical Exam Const alert, oriented x3 and no apparent distress Assessment & Plan Assessment/Plan (1) Nausea: Charges/Coding Visit Charges Inpatient E&M: 94201 Init Hosp L1
--- NOTE | 2024-07-11 11:01 | OP.EGD_ITS ---
Patient Name: Jenn Courtney Procedure Date: 07/11/2024 10:20 AM Date of : 1955 Age: 68 Procedure: Upper GI endoscopy Indications: Diagnostic procedure Providers: Tk Daley MD Referring MD: María Cintron Do Medicines: Monitored Anesthesia Care Patient Profile: Refer to note in patient chart for documentation of history and physical. Patient has symptoms of acute nausea. Complications: No immediate complications. Estimated blood loss: Minimal. Procedure: Pre-Anesthesia Assessment: - Prior to the procedure, a History and Physical was performed, and patient medications and allergies were reviewed. The patient's tolerance of previous anesthesia was also reviewed. The risks and benefits of the procedure and the sedation options and risks were discussed with the patient. All questions were answered, and informed consent was obtained. Prior Anticoagulants: The patient has taken no anticoagulant or antiplatelet agents. ASA Grade Assessment: II - A patient with mild systemic disease. After reviewing the risks and benefits, the patient was deemed in satisfactory condition to undergo the procedure. After obtaining informed consent, the endoscope was passed under direct vision. Throughout the procedure, the patient's blood pressure, pulse, and oxygen saturations were monitored continuously. The gastroscope was introduced through the mouth, and advanced to the duodenal bulb. The upper GI endoscopy was accomplished without difficulty. The patient tolerated the procedure well. Moderate Sedation: See the other procedure note for documentation of moderate sedation with intraservice time. Scope In: 10:42:39 AM Scope Out: 10:51:48 AM Total Procedure Duration Time 0 hours 9 minutes 9 seconds Findings: The examined esophagus was normal. Mucosa was biopsied with a cold forceps for histology randomly at the gastroesophageal junction. Verification of patient identification for the specimen was done by the nurse using the patient's name, date and medical record number. Estimated blood loss was minimal. Multiple 2 mm semi-pedunculated polyps with no bleeding and no stigmata of recent bleeding were found in the gastric body. The polyp was removed with a cold biopsy forceps. Resection and retrieval were complete. Verification of patient identification for the specimen was done by the nurse using the patient's name, date and medical record number. Estimated blood loss was minimal. The exam of the stomach was otherwise normal. Antrum biopsied for H Pylori No gross lesions were noted in the duodenal bulb. Impression: - Normal esophagus. Biopsied. - Multiple gastric polyps. Resected and retrieved. - No gross lesions in the duodenal bulb. Recommendation: - Discharge patient to home (ambulatory). - High fiber diet indefinitely. - Await pathology results. - Continue present medications. Procedure Code(s): --- Professional --- 76503, Esophagogastroduodenoscopy, flexible, transoral; with biopsy, single or multiple Diagnosis Code(s): --- Professional --- K31.7, Polyp of stomach and duodenum CPT copyright 2021 [employer]. All rights reserved. The codes documented in this report are preliminary and upon forensic medical examiner review may be revised to meet current compliance requirements. Tk Daley MD 07/11/2024 11:00:51 AM This report has been signed electronically. Number of Addenda: 0 Note Initiated On: 07/11/2024 10:20 AM
--- NOTE | 2024-07-11 11:01 | OP.CCLET_ITS ---
07/11/2024 María Cintron Do Re : Upper GI endoscopy procedure for Jenn Courtney Dear Abdulaziz This procedure was performed on Thursday, July 11, 2024. My impressions and recommendations are as follows: Impressions : - Normal esophagus. Biopsied. - Multiple gastric polyps. Resected and retrieved. - No gross lesions in the duodenal bulb. Recommendations : - Discharge patient to home (ambulatory). - High fiber diet indefinitely. - Await pathology results. - Continue present medications. My findings are described in the full procedure note, which is enclosed. If I can be of further assistance, please feel free to contact me at . Sincerely, Tk Daley MD 07/11/2024 11:00:51 AM This report has been signed electronically.
--- NOTE | 2024-07-11 11:02 | PCM.POST.ANE ---
Anesthesia: Postop Eval I Current Vital Signs Temperature: 97.8 F Pulse Rate: 64 Blood Pressure: 122/100 Respiratory Rate: 22 Pulse Ox: 97 Oxygen Delivery Method: Room Air Assessment Airway patent: Yes Spontaneous unlabored respirations: Yes Mental status: Awake and Calm nausea: No Vomiting: No Anesthesia Complication: No Fluid Hydration Crystalloid volume administer (ml): 10 Total IV fluid infused: 10 Progress Note Anesthesia document: Postop Eval 1 completed: Yes
--- NOTE | 2024-07-11 15:21 | POSTOPAN2_ITS ---
Anesthesia Postop Eval I Sum Postop Eval Completion status Anesthesia document: Postop Eval 1 completed: Yes Anesthesia Postop Eval I Summary Anesthesia Postop Eval I Summary: Anesthesia Postop Eval I: Assessment Summary Airway patent Yes 07/11/24 11:03 EMERGENCY ROOM [email or web address] Spontaneous unlabored Yes 07/11/24 11:03 EMERGENCY ROOM RN.[email or web address] respirations Mental status Awake,Calm 07/11/24 11:03 EMERGENCY ROOM [email or web address] nausea No 07/11/24 11:03 EMERGENCY ROOM RN.DBAK Vomiting No 07/11/24 11:03 EMERGENCY ROOM [email or web address].[email or web address] Anesthesia Postop Eval I: Fluid Summary Crystalloid volume administer 10 07/11/24 11:03 EMERGENCY ROOM [email or web address] (ml) Colloids volume administered ( ml) Blood Product volume administered (ml) Total IV fluid infused 10 07/11/24 11:03 EMERGENCY ROOM RN.DBAK Anesthesia Postop Eval I: Summary Notes Anesthesia Complication No 07/11/24 11:03 EMERGENCY ROOM RN.DBAK Anesthesia Complication Comment: Post-operative progress note Anesthesia: Postop Eval II Evaluation Mental status: Awake and Calm Pain Level: 0 nausea: No Vomiting: No
--- NOTE | 2024-07-11 15:21 | PCM.POSTANE2 ---
Anesthesia Postop Eval I Sum Postop Eval Completion status Anesthesia document: Postop Eval 1 completed: Yes Anesthesia Postop Eval I Summary Anesthesia Postop Eval I Summary: Anesthesia Postop Eval I: Assessment Summary Airway patent Yes 07/11/24 11:03 TIMBER [email or web address] Spontaneous unlabored Yes 07/11/24 11:03 TIMBER DEADENER.[email or web address] respirations Mental status Awake,Calm 07/11/24 11:03 TIMBER [email or web address] nausea No 07/11/24 11:03 TIMBER [email or web address] Vomiting No 07/11/24 11:03 TIMBER [email or web address] Anesthesia Postop Eval I: Fluid Summary Crystalloid volume administer 10 07/11/24 11:03 TIMBER [email or web address] (ml) Colloids volume administered ( ml) Blood Product volume administered (ml) Total IV fluid infused 10 07/11/24 11:03 TIMBER [email or web address] Anesthesia Postop Eval I: Summary Notes Anesthesia Complication No 07/11/24 11:03 TIMBER [email or web address] Anesthesia Complication Comment: Post-operative progress note Anesthesia: Postop Eval II Evaluation Mental status: Awake and Calm Pain Level: 0 nausea: No Vomiting: No
== END 2024-07-11 11:44 | disposition home or self-care (01) ==
LOC: EN 08:48 → AC 08:49
PROVIDERS: PCP Family Medicine; Referring Provider Family Medicine; Visit Provider Surgery
PROC: 0DJ08ZZ Inspection of Upper Intestinal Tract, Via Natural or Artificial Opening Endoscopic (ICD-10-PCS; CPT 43235; principal; 2024-07-11 09:40)
DX: K21.00 Gastro-esophageal reflux disease with esophagitis, without bleeding (principal); I25.10 Atherosclerotic heart disease of native coronary artery without angina pectoris; K31.7 Polyp of stomach and duodenum; I10 Essential (primary) hypertension; E78.5 Hyperlipidemia, unspecified; K29.70 Gastritis, unspecified, without bleeding; Z79.899 Other long term (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
CPT/HCPCS: 43239; 88305; 88342; A4216

== ENCOUNTER → 2024-07-28 | Outpatient (CLI) | payer MEDICARE, OTHER, SELFPAY | END | disposition home or self-care (01) | LOC: LABSPEC 15:41 | PROVIDERS: PCP Family Medicine; Referring Provider Otolaryngology; Visit Provider Otolaryngology | DX: J32.9 Chronic sinusitis, unspecified (principal) | CPT/HCPCS: 87070; 87077; 87186; 87205 ==

== ENCOUNTER → 2024-08-18 | Outpatient (CLI) | payer MEDICARE, OTHER, SELFPAY ==
--- NOTE | 2024-08-18 11:35 | RAD_ITS ---
EXAM: XR Chest, 2 Views CLINICAL INDICATION: SOB TECHNIQUE: Frontal and lateral views of the chest. COMPARISON: No relevant prior studies available. FINDINGS: LUNGS AND PLEURAL SPACES: Unremarkable. No consolidation. No pneumothorax. HEART: Unremarkable. No cardiomegaly. MEDIASTINUM: Unremarkable. Normal mediastinal contour. BONES/JOINTS: Unremarkable. No acute fracture. RAD/Chest PA and Lateral IMPRESSION: No acute cardiopulmonary process. Reading Location: [facility]
[2024-08-18 12:55] LABS: Absolute Lymphocyte Count 2.31 X10^3/uL (0.83-4.51); Basophil# 0.04 X10^3/uL; Basophil% 0.6 % (0-1); Eosinophils% 1.4 % (0-5); Hematocrit 35.8 % (37-47); Hemoglobin 11.6 g/dL (12.0-15.0); Lymphocyte # 2.31 X10^3/ul (0.83-4.51); Lymphocyte % 33.1 % (19-41); Mean Corp Hgb Conc 32.4 g/dL (32-36); Mean Corpuscular Volume 89.5 fL (81-99); Mean Platelet Vol. 9.1 fl (6.2-12.0); Monocyte# 0.56 X10^3/uL; NRBC Flagged by Analyzer 0 % (0-5); Neutrophil # 3.96 X10^3/uL (2.7-7.7); Neutrophil % 56.8 % (47-70); Platelet Count 351 K/mm3 (150-450); RBC Distribution Width CV 13.1 % (11.6-14.6); RBC Distribution Width SD 42.9 fl (35.1-43.9)
[2024-08-18 14:12] LABS: Anion Gap 12 (5-15); BUN 16 mg/dL (4-19); BUN/Creat Ratio 21.6 RATIO (10-20); Calcium,Total 9.5 mg/dL (7.6-11.0); Carbon Dioxide 23.6 mmol/L (21.0-32.0); Chloride 98 mmol/L (98-108); Creatinine, Serum 0.74 mg/dL (0.70-1.20); EST Glomerular Filtration Rate 86 (>60); Glucose 93 mg/dL (70-99); Potassium 4.1 mmol/L (3.3-5.1); Sodium Level 133 mmol/L (133-145)
== END | disposition home or self-care (01) ==
LOC: RAD 11:26
PROVIDERS: PCP Family Medicine; Referring Provider Physician Assistant Medical; Visit Provider Physician Assistant Medical
DX: I25.10 Atherosclerotic heart disease of native coronary artery without angina pectoris (principal); R06.02 Shortness of breath; R07.89 Other chest pain
CPT/HCPCS: 36415; 71046; 80048; 85025

== ENCOUNTER → 2024-09-07 | Outpatient (CLI) | payer MEDICARE, OTHER, SELFPAY ==
[2024-09-07 13:18] LABS: Erythrocyte Sedimentation Rate 9 mm/hr (0-30)
[2024-09-07 14:38] LABS: CRP < 3.00 mg/L (0.0-3.0); Cholesterol 172 mg/dL (<=200); High Density Lipoprotein 75 mg/dL; Low Density Lipoprotein Calc. 87 mg/dL; Magnesium 1.9 mg/dL (1.5-2.2); Rheumatoid Factor < 10.0 IU/mL (<15); Thyroid Stim Hormone (TSH) 0.991 uIU/mL (0.300-4.200); Triglycerides 52 mg/dL; Very Low Density Lipoprotein 10 mg/dL (5-40); Vitamin B12 475 pg/mL (180-914)
[2024-09-08 13:08] LABS: ANTINUCLEAR ANTIBODIES DIRECT Negative (Negative)
== END | disposition home or self-care (01) ==
LOC: VSLAB 12:18
PROVIDERS: PCP Family Medicine; Visit Provider Family Medicine
DX: M79.10 Myalgia, unspecified site (principal); E78.2 Mixed hyperlipidemia; M85.80 Other specified disorders of bone density and structure, unspecified site
CPT/HCPCS: 36415; 80061; 81374; 82306; 82607; 83735; 84443; 85652; 86038; 86140; 86431

== ENCOUNTER → 2024-10-17 | Outpatient (CLI) | payer MEDICARE, OTHER, SELFPAY ==
--- NOTE | 2024-10-17 13:10 | CT_ITS ---
PROCEDURE: LIMITED CHEST CT CARDIAC ONLY REASON FOR EXAM: CP TECHNIQUE: Supine chest CT with contrast. One or more dose reduction techniques were used (e.g., Automated exposure control, adjustment of the mA and/or kV according to patient size, use of iterative reconstruction technique). COMPARISON: Comparison is made with prior examination dated May 12, 2024. FINDINGS: Hardware: None Lymph nodes: None Heart and Vasculature: Normal heart size. No pericardial effusion. Coronary Artery Calcifications: Present Lungs and Airways: Findings suggestive of mild scarring at the lung bases and possible mild emphysematous changes. Pleura: Unremarkable Upper Abdomen: Unremarkable Bones: Bone windows are unremarkable. CT/Limited Chest CT Cardiac Only IMPRESSION: Coronary artery calcification (CAC) is is present Reading Location: [id number]
[2024-10-17 13:18] VITALS: BP 157/70; PULSE 65; RESP 16; TEMP 35.9; O2SAT 100; BMI 23.6
[2024-10-17 13:31] VITALS: BP 157/70; PULSE 65
[2024-10-17] MEDS: Nitroglycerin SL (ED/IMG/CATH) 0.4 MG TABLET SL (13:31)
[2024-10-17 13:37] VITALS: BP 146/71; PULSE 71; RESP 16; O2SAT 95
--- NOTE | 2024-10-18 17:32 | CCTA_ITS ---
CCTA w/Cont Coronary Arteries Date of Study:: 10/17/24 Chest pain Coronary Calcium Scoring: High-resolution Computed Tomographic imaging of the chest was performed on [10/17/2024 ], with particular attention paid to the coronary arteries. Intravenous contrast agent was administered per protocol and images reconstructed and displayed. LEFT MAIN CORONARY ARTERY: Arises from the left main coronary cusp no significant stenosis noted [] LEFT ANTERIOR DESCENDING CORONARY ARTERY: This arises from the left main coronary artery with significant calcification noted in the proximal to mid coronary artery obscuring ability to determine extent of stenosis. [] LEFT CIRCUMFLEX CORONARY ARTERY: Extensive proximal to mid segment calcification also present distal mild disease present. [] RIGHT CORONARY ARTERY: Arises from the right coronary cusp with calcification likely secondary to the stent present. Distal right coronary artery is well- visualized. [] [] [] Calcium Scoring Interpretation: Different methods to categorize the overall amount of coronary plaque. Overall amount CAC SIS Visual of coronary plaque P1 Mild -100 <2 1-2 vessels with mild amount of plaque P2 Moderate 101-300 3-4 1-2 vessels with moderate amount, 3 vessels with mild amount of plaque P3 Severe 301-999 5-7 3 vessels with moderate amount, 1 vessel with severe amount of plaque P4 Extensive >1000 >8 2-3 vessels with severe amount of plaque Conclusion: Significant coronary calcification noted in the LAD and circumflex artery obscuring ability to determine extent of stenosis.
== END | disposition home or self-care (01) ==
LOC: CT 13:04
PROVIDERS: PCP Family Medicine; Referring Provider Physician Assistant Medical; Visit Provider Physician Assistant Medical
DX: R94.39 Abnormal result of other cardiovascular function study (principal)
CPT/HCPCS: 75574; 76380; Q9967

== ENCOUNTER → 2024-11-13 | Outpatient (CLI) | payer MEDICARE, OTHER, SELFPAY ==
[2024-11-13 10:01] LABS: Absolute Lymphocyte Count 1.72 X10^3/uL (0.83-4.51); Absolute Neutrophil Count 3.2 X10^3/uL (2.0-7.7); Basophil# 0.05 X10^3/uL; Basophil% 0.9 % (0-1); Eosinophil# 0.19 X10^3/uL; Eosinophils% 3.4 % (0-5); Hematocrit 38.8 % (37-47); Hemoglobin 12.7 g/dL (12.0-15.0); Lymphocyte # 1.72 X10^3/ul (0.83-4.51); Lymphocyte % 30.7 % (19-41); Mean Corp Hgb Conc 32.7 g/dL (32-36); Mean Corpuscular Hgb 28.7 pg (27.0-32.0); Mean Corpuscular Volume 87.6 fL (81-99); Monocyte# 0.45 X10^3/uL; NRBC Flagged by Analyzer 0 % (0-5); Neutrophil # 3.19 X10^3/uL (2.7-7.7); Neutrophil % 56.8 % (47-70); Platelet Count 358 K/mm3 (150-450); RBC Distribution Width CV 12.4 % (11.6-14.6); RBC Distribution Width SD 39.7 fl (35.1-43.9); Red Blood Count 4.43 M/mm3 (4.2-5.4); White Blood Count 5.6 K/mm3 (4.4-11.0)
[2024-11-13 10:20] LABS: Anion Gap 11 (5-15); BUN 15 mg/dL (4-19); Calcium,Total 9.8 mg/dL (7.6-11.0); Carbon Dioxide 25.5 mmol/L (21.0-32.0); Chloride 99 mmol/L (98-108); EST Glomerular Filtration Rate 69 (>60); Glucose 114 mg/dL (70-99); Potassium 4.6 mmol/L (3.3-5.1); Sodium Level 135 mmol/L (133-145)
== END | disposition home or self-care (01) ==
LOC: MTLAB 07:34
PROVIDERS: PCP Family Medicine; Referring Provider Nurse Practitioner Gerontology; Visit Provider Nurse Practitioner Gerontology
DX: I25.10 Atherosclerotic heart disease of native coronary artery without angina pectoris (principal); R07.9 Chest pain, unspecified; R53.83 Other fatigue; Z95.5 Presence of coronary angioplasty implant and graft
CPT/HCPCS: 36415; 80048; 85025

== ENCOUNTER 2024-12-05 07:01 | Day surgery (SDC) | payer MEDICARE, OTHER, SELFPAY ==
--- NOTE | 2024-11-09 14:57 | PCM.HP.BLA ---
History and Physical Date of Admission: 12/05/24 KELLEN GUY, is a 69 F who presents to the cardiac cytology laboratory manager for a cardiac catheterization following significant coronary calcification noted on a coronary calcium score. She has a history of known coronary artery disease status post inferior myocardial infarction 1998 with angioplasty to RCA. In 2006, she underwent repeat cardiac catheterization with demonstrated patency of the right coronary artery stent. She also had episodes of supraventricular tachyarrhythmia for which she underwent radiofrequency ablation in December 2006. She also has a history of hyperlipidemia. Stress test in November 2023 was negative for ischemia. She underwent a coronary angiography CT on 10/18/2024 which demonstrated significant coronary calcification noted in the LAD, and circumflex artery obscuring ability to determine extent of stenosis. She will proceed with a cardiac catheterization to further assess this. From a cardiac standpoint, the patient is doing well. She does have occasional fluttering sensation. She does have an occasional chest pain-located midsternal-left chest. She notices this pain more with rest. She denies pressure or heaviness. She denies SOB, Orthopnea, and PND. She does not have bleeding issues; no blood in urine, stool, or nosebleeds. She does acknowledge a decrease in energy level. She denies myalgias, or claudication. She does not have edema, or sudden weight gain. She denies lightheadedness, dizziness, syncopal or near syncopal episodes, and headaches. Intake Vital Signs See EMR Allergies See EMR Medications See EMR [facility] Medical History Nausea Wears glasses Post-menopausal Depression Arthritis Restless legs Back pain Gastric reflux Non-smoker History of pain when walking History of echocardiogram History of stress test Cardiology follow-up encounter Chest pain Acute sinusitis Cellulitis, face Osteoarthritis of right knee Right knee pain Blepharitis COVID Acute right otitis media Paroxysmal supraventricular tachycardia Old inferior wall myocardial infarction (1998) Hyperlipidemia Essential (primary) hypertension (~08/18/24) Incomplete uterovaginal prolapse Atherosclerosis of coronary artery of [place] heart without angina pectoris Fatigue DVT (deep venous thrombosis) Surgical History Hx of right knee surgery Hx of total knee arthroplasty History of total left knee replacement History of left heart catheterization (12/2006) History of radiofrequency ablation procedure for cardiac arrhythmia (12/2006) History of coronary artery stent placement (01/1999) History of urologic surgery History of total vaginal hysterectomy (TVH) (10/20/18) History of knee replacement Family History Father Heart diseaseSister Cancer Social History Smoking Status: Never smoker alcohol intake: never substance use type: does not use caffeine: Yes Type: tea Number of servings: 1 what type of physical activity do you participate in: walking seatbelt use: always do you feel safe at home: Yes ROS Const Const: Positive for fatigue; Negative for weakness, headache(s) or frequent falls Eyes Eyes: Negative for blurry vision ENT ENT: Negative for headache(s), dizziness or Nosebleed/epistaxis Cardio Chest Pain: Yes Frequency: weekly Onset: at rest Location: mid sternal and left chest Palpitations: Yes Edema: None Muscle aches with walking: None Resp Respiratory: Negative for SOB with activity, SOB at rest or SOB orthopnea\SOB lying down GI GI: Negative nausea, vomiting, heartburn, bright, red blood in stools or black,tarry stools : Negative for hematuria Neuro Neuro: Negative for dizziness, lightheadedness, near syncope, syncope, frequent falls, headache(s), weakness or blurry vision Endo Endo: Positive for fatigue Cardiology Exam Const Appearance: cooperative, healthy appearing, comfortable and no acute distress Nutritional Appearance: well nourished Orientation: alert, awake and oriented x3 Head Head: normal to inspection Ears: hearing grossly normal bilaterally Nose: external nose normal Face and Sinus: face symmetric Mouth: oral mucosae normal Eyes General: appearance normal, both eyes and all related structures Eyelids: eyelids normal EOM: EOM intact bilaterally Neck Neck: normal visual inspection and no JVD Carotids: normal carotid upstroke Chest Chest inspection: normal inspection of the chest, symmetric chest movement and normal respiratory effort; Negative cough Auscultation: Bilateral: Clear to Auscultation Cardio Rate: bradycardic Rhythm: regular rhythm Heart sounds: S1 normal and S2 normal; Negative rub, gallop or murmur GI GI: normal to inspection Neuro General: patient alert, patient awake, patient oriented x3 and CN's II-XI intact bilaterally Skin Skin: no rashes or lesions noted Extremities Pulses: Normal: Right Posterior Tibial Pulse, Left Posterior Tibial Pulse, Right Radial Pulse and Left Radial Pulse Lower Extremity Edema: None: Bilateral Psych Psychological: normal affect Supplemental Info Supplemental Information Echocardiogram 05/11/2022: Normal LV size. Left ventricular systolic function is normal. The estimated ejection fraction is 60 %. Normal left atrium. Stress Test From 11/23/2023: Conclusion: Normal exercise myocardial perfusion stress test at a high workload Preserved ejection fraction. Coronary Angiography CT 10/18/24 LEFT MAIN CORONARY ARTERY: Arises from the left main coronary cusp no significant stenosis noted LEFT ANTERIOR DESCENDING CORONARY ARTERY: This arises from the left main coronary artery with significant calcification noted in the proximal to mid coronary artery obscuring ability to determine extent of stenosis. LEFT CIRCUMFLEX CORONARY ARTERY: Extensive proximal to mid segment calcification also present distal mild disease present. RIGHT CORONARY ARTERY: Arises from the right coronary cusp with calcification likely secondary to the stent present. Distal right coronary artery is well-visualized. Conclusion: Significant coronary calcification noted in the LAD and circumflex artery obscuring ability to determine extent of stenosis. Assessment and Plan Assessment and Plan (1) History of coronary artery stent placement: Status: Resolved Comment: [id number] 01/1999 Plan: Patient has a history of coronary artery disease with stent placement to her RCA in 1998. Her EKG from today demonstrates sinus bradycardia with a heart rate of 58 bpm. She does acknowledge occasional chest pain, and fatigue. Her most recent coronary angiography CT on 10/18/2024 demonstrated significant coronary calcification noted in the LAD, and circumflex artery obscuring ability to determine extent of stenosis. This was reviewed with patient. Would like to proceed with a cardiac catheterization to further assess this. Depending on results, further recommendations will be made. Catheterization instructions were reviewed, and she verbalizes understanding.
[2024-12-04 08:44] VITALS: BMI 23.4
--- OUTSIDE RECORDS SUMMARY | 2024-12-05 07:07 | XMS RPT_ITS | CCD ---
Author Organization [facility] Care Team Providers Care Heat Plant Specialist Name Role Phone Heather Camejo MD Unavailable [phone] Valerie Lozada Unavailable Valerie Lozada Unavailable Heather Camejo MD Unavailable [phone] Dr[address] Musa Rodríguez Primary Care Provider Dr. Musa Rodríguez Referring Provider Dr. Marquis Jackson Attending Provider Dr. Jagdeep Chauhan Attending Provider MIKAELA Mcduffie Attending Provider MIKAELA Kate Attending Provider Nia Cintron DO Primary Care Provider Dr. Musa Rodríguez Referring Provider Unavailable MIKAELA Orr Attending Provider DO Nia Cintron Primary Care Provider María Cintron DO Primary Care Provider María Cintron DO Attending Provider María Cintron DO Referring Provider Sue Orr Attending Provider Sue Orr Referring Provider Dr. Marquis Jackson DO Attending Provider Dr. Jagdeep Chauhan MD Attending Provider Dr. Marquis Jackson DO Referring Provider Renetta COOK, Dr. Cho Other Provider Edi DAVILA, Dr. Tk Stahl Attending Provider Edi DAVILA, Dr. Tk Stahl Other Provider Huber DAVILA, Dr. Mcfarland Attending Provider Huber DAVILA, Dr. Mcfarland Referring Provider Abdulaziz DO, María Primary Care Provider Abdulaziz DO, María Referring Provider Sue Orr Attending Provider [phone] Sue Orr Referring Provider Abdulaziz COOK, María Attending Provider Nia Cintron DO Primary Care Provider María Cintron DO Primary Care Provider Renetta COOK, Dr. Cho Attending Provider Renetta COOK, Dr. Cho Referring Provider María Cintron DO Referring Provider Edi DAVILA, Dr. Tk Stahl Attending Provider Tien DAVILA, Dr. Gannon Attending Provider [phone] Sue Orr Other Provider Raya Mcgregor Attending Provider [phone] María Cintron DO Primary Care Provider Abdulaziz COOK, María Referring Provider Renetta COOK, Dr. Cho Attending Provider Dr. Jagdeep Chauhan MD Referring Provider [phone] Tien DAVILA, Dr. Gannon Other Provider Raya Mcgregor Referring Provider NIA CINTRON [facility] DUDLEY Nevarez Referring Unavail able DUDLEY KATHLEEN Attending Unavail able ABDULAZIZNIA Primary Care Unavailabl e Abdulaziz VS, María Attending Unavailable Abdulaziz VS, María Referring Unavailable Abdulaziz VS, María Primary Care Unavailable Sue Orr Attending Unavail able Sue Orr Referring Unavail able Abdulaziz VS, María Primary Care Unavailable Tk Daley Attending Unavailable Abdulaziz VSC, María Referring Unavailable Abdulaziz VSC, María Primary Care Unavailable Bartolo Ngo Attending Unavailabl e Wartmann, Christopher Referring Unavailabl e Abdulaziz VS, María Primary Care Unavailable Sue Orr Attending Unavail able Sue Orr Referring Unavail able Abdulaziz VS, María Primary Care Unavailable Jagdeep Chauhan Attending Unavailable Abdulaziz VS, María Primary Care Unavailable Marquis Jackson Admitting Unavailable Marquis Jackson Attending Unavailable Abdulaziz VS, María Primary Care Unavailable Marquis Jackson Referring Unavailable Tk Daley Attending Unavailable Abdulaziz VSC, María Primary Care Unavailable Abdulaziz VSC, María Referring Unavailable Marquis Jackson Attending Unavailable Abdulaziz VS, María Referring Unavailable Abdulaziz VS, María Primary Care Unavailable Abdulaziz VSC, María Attending Unavailable Abdulaziz VS, María Primary Care Unavailable Raya Corona NP Attending Unavailable Raya Corona NP Referring Unavailable Abdulaziz VS, María Primary Care Unavailable Abdulaziz VSC, María Attending Unavailable Abdulaziz VSC, María Primary Care Unavailable Abdulaziz VSC, María Attending Unavailable Abdulaziz VSC, María Primary Care Unavailable Abdulaziz VSC, María Referring Unavailable Abdulaziz VSC, María Attending Unavailable Abdulaziz VS, María Primary Care Unavailable Sue Orr Attending Unavail able Sue Orr Referring Unavail able Abdulaziz VS, María Primary Care Unavailable Ragini Vilallobos Attending Unavailable Ragini Villalobos Referring Unavailable Abdulaziz VSC, María Primary Care Unavailable Borruso, Marquis Consulting Unavailable Tien, Jagdeep Attending Unavailable Abdulaziz VS, Mraía Primary Care Unavailable Cj ENGEL, Raya Attending Unavailable Abdulaziz VS, María Referring Unavailable Abdulaziz VS, María Primary Care Unavailable Borruso, Marquis Attending Unavailable Abdulaziz VSC, María Referring Unavailable Abdulaziz VS, María Primary Care Unavailable Sue Orr Attending Unavail able Abdulaziz VS, María Referring Unavailable Abdulaziz VS, María Primary Care Unavailable Borruso, Marquis Attending Unavailable Abdulaziz VS, María Primary Care Unavailable Borruso, Marquis Referring Unavailable Tien, Jagdeep Attending Unavailable Abdulaziz VS, María Primary Care Unavailable Tien, [place] Attending Unavailable Tien, [place] Referring Unavailable Abdulaziz VS, María Primary Care Unavailable Borruso, Marquis Attending Unavailable Abdulaziz VS, María Referring Unavailable Abdulaziz VS, María Primary Care Unavailable Sue Orr Attending Unavail able Abdulaziz VS, María Referring Unavailable Abdulaziz VS, María Primary Care Unavailable Borruso, Marquis Admitting Unavailable Borruso, Marquis Attending Unavailable Borruso, Marquis Referring Unavailable Abdulaziz VSC, María Primary Care Unavailable Borruso, Marquis Consulting Unavailable Borruso, Marquis Admitting Unavailable Borruso, Marquis Attending Unavailable Borruso, Marquis Referring Unavailable Abdulaziz VS, María Primary Care Unavailable Borruso, Marquis Consulting Unavailable Tien, [place] Attending Unavailable Tien, Jagdeep Referring Unavailable Abdulaziz VS, María Primary Care Unavailable Tien, Jagdeep Consulting Unavailable Tien, [place] Attending Unavailable Sue Orr Referring Unavail able Abdulaziz VS, María Primary Care Unavailable Sue Orr Consulting Unavail able Borruso, Marquis Attending Unavailable Borruso, Marquis Referring Unavailable Abdulaziz VSC, María Primary Care Unavailable Borruso, Marquis Consulting Unavailable Borruso, Marquis Attending Unavailable Abdulaziz VSC, María Referring Unavailable Abdulaziz VS, María Primary Care Unavailable Tien, Jagdeep Attending Unavailable Sue Orr Referring Unavail able Abdulaziz VSC, [facility] Primary Care Unavailable Jagdeep Chauhan Attending Unavailable Ragini Villalobos Referring Unavailable [facility], [facility] Primary Care Unavailable Tk Daley Attending Unavailable [facility], [facility] Referring Unavailable [facility], [facility] Primary Care Unavailable Tk Daley Consulting Unavailable Marquis Jackson Attending Unavailable [facility], María Referring Unavailable [facility], [facility] Primary Care Unavailable Marquis Jackson Attending Unavailable [facility], María Referring Unavailable [facility], [facility] Primary Care Unavailable Marquis Jackson Attending Unavailable Marquis Jackson Referring Unavailable [facility], [facility] Primary Care Unavailable Medications Current Medications Medication Drug Class(es) Dates Sig (Normalized) Sig (Original) ascorbic acid/collagen hydr (COLLAGEN SKIN RENEWAL ORAL) (3 sources) ascorbic acid/collagen hydr (COLLAGEN SKIN RENEWAL ORAL) Take by mouth once daily. Active aspirin 81 mg delayed release oral tablet (20 sources) Nonsteroidal Anti-inflammatory Drug Start: 08-18-2024 Aspirin (Adult Low Dose Aspirin) 81 mg tablet,delayed release (DR/EC) Active 81 mg PO daily August 18, 2024 12:00am Start: 02-28-2016 End: 06-19-2024 take 1 tablet by mouth once daily Aspirin 81 MG tablet,chewable Discontinued 81 mg PO DAILY@0800 February 28, 2016 12:00am June 19, 2024 1:54pm Start: 11-22-2009 take 1 tablet by jeramie th once daily ASPIRIN 325 MG TABS One tablet by mouth daily ASPIRIN [id number] Josie Bergeron MS,PA-C Start: 11-22-2009 take 1 tablet by jeramie th once daily ASPIRIN 81 MG TABS One tablet by mouth daily ASPIRIN [id number] Jagdeep Chauhan MD Start: 11-22-2009 take 1 tablet by jeramie th once daily ASPIRIN 81 MG TABS One tablet by mouth daily ASPIRIN [id number] Jagdeep Chauhan MD Start: 11-22-2009 take 1 tablet by jeramie th once daily ASPIRIN EC 81 MG TBEC One tablet by mouth daily ASPIRIN [id number] Mesha Hernandez RN Calcium (5 sources) Phosphate Binder, Calcium Start: 06-15-2008 CALCIUM 500 MG TAB Take one(1) tablet twice daily. 0 06/15/2008 Active Comment on above: Take one(1) tablet t wice daily. cholecalciferol 0.025 mg oral tablet (11 sources) Vitamin D Start: 02-28-2016 take 2 tablets by mouth once daily Cholecalciferol (Vitamin D3) 1,000 UNIT tablet Active 2000 U PO DAILY February 28, 2016 12:00am Start: 02-28-2016 take 2000 [IU] by mo [facility] once daily Cholecalciferol (Vitamin D3) Active 2000 UNIT PO DAILY February 28, 2016 12:00am CHOLECALCIFEROL, VITAMIN D3, (VITAMIN D-3 ORAL) (5 sources) take 125 ug by mouth once daily CHOLECALCIFEROL, VITAMIN D3, (VITAMIN D-3 ORAL) Take 125 mcg by mouth once daily. Active CHOLECALCIFEROL, VITAMIN D3, (VITAMIN D-3 ORAL) Take by mouth. Active CHOLECALCIFEROL, VITAMIN D3, (VITAMIN D-3 ORAL) Take by mouth. 0 Active Comment on above: Take by mouth. Elvcdcke-Rlqape-Ogy orbic Acid (Collagen 1500 Plus C) 500 mg-800 mcg- 50 mg capsule (10 sources) Start: 04-14-2022 take 1 capsule by mouth once daily Ofxztuas-Kadijp-Taan rbic Acid (Collagen 1500 Plus C) 500 mg-800 mcg- 50 mg capsule Active 1 NMA PO DAILY April 14, 2022 1:00am Start: 04-14-2022 Collagen-Bioti n-Ascorbic Acid (Collagen 1500 Plus C) 500 mg- 800 mcg- 50 mg capsule Active 1 CAP PO April 14, 2022 1:00am Start: 04-14-2022 Collagen-Bioti n-Ascorbic Acid (Collagen 1500 Plus C) 500 mg- 800 mcg- 50 mg capsule Active 1 CAP PO April 14, 2022 12:00am CYANOCOBALAMIN, VITAMIN B-12 , (VITAMIN B-12 ORAL) (5 sources) CYANOCOBALAMIN, VITAMIN B-12, (VITAMIN B-12 ORAL) Take by mouth. Active CYANOCOBALAMIN, VITAMIN B-12, (VITAMIN B-12 ORAL) Take by mouth. 0 Active Comment on above: Take by mouth. DULoxetine 60 mg delayed release oral capsule (20 sources) Serotonin and Norepinephrine Reuptake Inhibitor Start: take 1 capsule by mouth once daily Duloxetine 60 mg capsule,delayed release(DR/EC) Active 60 mg PO DAILY April 14, 2022 1:00am Start: 02-28-2016 End: 04-14-2022 take 1 capsule by mouth once daily Duloxetine 30 MG capsule,delayed release(DR/EC) Discontinued 30 mg PO DAILY February 28, 2016 12:00am April 14, 2022 10:42am take 3 capsules by m out once daily DULoxetine (CYMBALTA) 20 mg capsule Take 60 mg by mouth once daily. Active take 1 capsule by mo [facility] once daily DULoxetine (CYMBALTA) 20 mg capsule Take 20 mg by mouth once daily. Active Comment on above: Take 20 mg by mouth once daily. fluticasone propionate 0.05 mg/actuat metered dose nasal spray (11 sources) Corticosteroid Start: 04-14-2022 Fluticasone Propionate 50 mcg/actuation spray,suspension Active 2 NMA INTRANASAL DAILY April 14, 2022 1:00am Start: 04-14-2022 Fluticasone Pr opionate Active 1 SPRAY INTRANASAL DAILY April 14, 2022 1:00am 12 hr guaiFENesin 600 mg extended release oral tablet (5 sources) Start: 05-16-2017 take 2 tablets by mouth twice daily guaiFENesin (MUCINEX) 600 mg 12 hr tablet Indications: Acute bacterial rhinosinusitis Take 2 tablets by mouth twice daily. 30 tablet 05/16/2017 Active Comment on above: Take 2 tablets by [facility] twice daily. losartan potassium 50 mg oral tablet (20 sources) Angiotensin 2 Receptor Dasha Start: 09-18-2024 losartan (COZAAR) 50 mg tablet Take 25 mg by mouth once daily. 09/18/2024 Active Start: 04-14-2022 End: 03-17-2023 take 1 tablet by mouth once daily Losartan 50 mg table t Active 50 mg PO DAILY March 17, 2023 9:33am Carroll 8-Fvr-Pfy-Fish Oil (6 sources) Start: 02-28-2016 take 1000 mg by mouth once daily Carroll 7-Jlc-Zdx-Fish Oil Active 1000 MG PO DAILY February 28, 2016 8:12pm Start: 02-28-2016 take 1000 mg by mout h once daily Carroll 6-Xtn-Toa-Fish Oil Active 1000 MG PO DAILY February 28, 2016 12:00am Start: 02-28-2016 take 1000 mg by mout h once daily Carroll 2-Hci-Khq-Fish Oil Active 1000 MG PO DAILY February 27, 2016 11:00pm Carroll 4-Dis-Yxx-Fish Oil (Fish Oil) 1,200 (144-216) mg capsule (5 sources) Start: 07-07-2024 Carroll 1-Xta-Dgd-Fish Oil (Fish Oil) 1,200 (144-216) mg capsule Active 1 NMA PO DAILY July 07, 2024 1:00am omega-3 fatty acids/vitamin e(FISH OIL 1,000 MG CAP) (5 sources) Start: 01-15-2010 omega-3 fatty acids/vitamin e(FISH OIL 1,000 MG CAP) Take one tablet two times daily. 0 01/15/2010 Active Comment on above: Take one tablet two times daily. omeprazole 20 mg delayed release oral capsule (20 sources) Proton Pump Inhibitor Start: 01-27-2018 take 1 capsule by mouth once daily Omeprazole 20 mg capsule,delayed release(DR/EC) Active 20 mg PO DAILY January 27, 2018 12:00am Start: 07-02-2015 take 1 tablet by jeramie once daily OMEPRAZOLE 20 MG CPDR One tablet by mouth daily OMEPRAZOLE [id number] Jagdeep Chauhan MD take 2 capsules by m outh once daily omeprazole (PRILOSEC) 10 mg capsule Take 20 mg by mouth once daily. Active take 1 capsule by mo uth once daily omeprazole (PRILOSEC) 10 mg capsule Take 10 mg by mouth once daily. Active Comment on above: Take 10 mg by mouth once daily. Red Yeast Rice Extract (Bulk) (12 sources) Start: 02-06-2020 Red Yeast Rice Extract (Bulk) Active 1200 EACH PO DAILY February 06, 2020 8:01am Start: 02-06-2020 Red Yeast Rice Extract (Bulk) Active 1200 EACH PO DAILY February 06, 2020 9:01am Start: 02-28-2016 End: 02-06-2020 take 600 mg by mouth twice daily Red Yeast Rice Extract (Bulk) Discontinued 600 MG PO TWICE A DAY February 28, 2016 10:58pm February 06, 2020 9:02am Start: 02-28-2016 End: 02-06-2020 take 600 mg by mouth twice daily Red Yeast Rice Extract (Bulk) Discontinued 600 MG PO TWICE A DAY February 28, 2016 12:00am February 06, 2020 9:02am Start: 02-28-2016 End: 02-06-2020 take 600 mg by mouth twice daily Red Yeast Rice Extract (Bulk) Discontinued 600 MG PO TWICE A DAY February 27, 2016 11:00pm February 06, 2020 8:02am RED YEAST RICE ORAL (5 sources) RED YEAST RICE O RAL Take by mouth. Active RED YEAST RICE O RAL Take by mouth. 0 Active Comment on above: Take by mouth. rosuvastatin calcium 40 mg oral tablet (20 sources) HMG-CoA Reductase Inhibitor Start: 11-22-2009 End: 01-18-2023 rosuvastatin calcium(CRESTOR 40 MG TAB) Take one tablet daily. 0 01/15/2010 Active Comment on above: Take one tablet malik y. traZODone hydrochloride 50 mg oral tablet (20 sources) Serotonin Reuptake Inhibitor Start: 09-05-2018 Trazodone 50 mg tablet Active 25 mg PO AT BEDTIME September 05, 2018 9:25am Start: 09-05-2018 take 25 mg by mouth at bedtime Trazodone Active 25 MG PO AT BEDTIME September 05, 2018 9:25am Start: 01-27-2018 End: 09-05-2018 take 1 tablet by mouth once daily Trazodone 50 mg tablet Discontinued 50 mg PO DAILY January 27, 2018 12:00am September 05, 2018 9:27am Start: 06-30-2016 take 0.5 tablet by m outh at bedtime TRAZODONE HCL 300 MG TABS 1/2 tablet by mouth at bedtime for restless legs TRAZODONE HCL [id number] Jagdeep Chauhan MD Comment on above: Take 25 mg by mouth daily at bedtime. Turmeric extract (3 sources) TURMERIC ORAL Ta ke by mouth once daily. Active Turmeric Root Extract (5 sources) Start: 04-14-2022 take 500 mg by mouth twice daily Turmeric Root Extract Active 500 MG PO TWICE A DAY April 14, 2022 1:00am Start: 04-14-2022 take 500 mg by mouth twice jaguar ly Turmeric Root Extract Active 500 MG PO TWICE A DAY April 14, 2022 12:00am Turmeric Root Extract 500 mg capsule (5 sources) Start: 04-14-2022 take 1 capsule by mouth once daily Turmeric Root Extract 500 mg capsule Active 1000 mg PO DAILY April 14, 2022 1:00am ubidecarenone 10 mg oral capsule (16 sources) Start: 08-21-2024 Coenzyme Q10 ( Co Q-10) 10 mg capsule Active 10 mg PO ONCE August 21, 2024 12:00am Start: 02-28-2016 End: 06-19-2024 take 10 capsules by mouth once daily Coenzyme Q10 100 MG capsule Discontinued 100 mg PO DAILY February 28, 2016 12:00am June 19, 2024 1:54pm UBIDECARENONE/VITAMIN E MIXE D (COQ10 SG 100 ORAL) (5 sources) UBIDECARENONE/ TAMIN E MIXED (COQ10 SG 100 ORAL) Take by mouth once daily. Active UBIDECARENONE/ TAMIN E MIXED (COQ10 SG 100 ORAL) Take by mouth. Active UBIDECARENONE/ TAMIN E MIXED (COQ10 SG 100 ORAL) Take by mouth. 0 Active Comment on above: Take by mouth. Zinc (3 sources) ZINC ORAL Take b y mouth once daily. Active zinc sulfate 220 mg oral capsule (10 sources) Start: 03-18-2022 take 1 capsule by mouth once daily Zinc Sulfate 50 mg zinc (220 mg) capsule Active 50 mg PO DAILY March 18, 2022 12:00am Completed/Discontinued Medications Medication Drug Class(es) Dates Sig (Normalized) Sig (Original) acetaminophen 500 mg oral tablet (5 sources) Start: 04-05-2024 End: 06-09-2024 take 2 tablets by mouth every six hours as needed for pain Acetaminophen 500 mg tablet Discontinued 1000 mg PO EVERY 6 HOURS as needed for fever or pain April 05, 2024 12:06pm June 09, 2024 10:52am acetaminophen / HYDROcodone (12 sources) Opioid Agonist Start: 02-27-2010 End: 08-16-2012 VICODIN 5-500 MG TABS one to two tabs four times a day as needed for pain HYDROCODONE-ACETAMI BOO [id number] Marlin Enciso Start: 02-27-2010 VICODIN 5-500 MG TABS one to two tabs four times a day as needed for pain HYDROCODONE-ACETAMINOPHEN [id number] Pascual Silva MD acetaminophen 325 mg / oxyCODONE hydrochloride 5 mg oral tablet (11 sources) Opioid Agonist Start: 10-20-2018 End: 10-27-2018 Oxycodone-Acetaminophen 1 TABLET tablet Discontinued 1 - 2 {tbl} PO EVERY 4 HOURS NEEDED as needed for Pain 19 12October 20, 2018 12:00am October 26, 2018 12:00am October 27, 2018 12:06am Start: 10-20-2018 End: 10-27-2018 take 1 tablet by mouth every four hours as needed Oxycodone-Acetaminophen Discontinued 1 - 2 TABLET PO EVERY 4 HOURS NEEDED 19 12October 20, 2018 12:00am October 27, 2018 12:06am amoxicillin 500 mg oral capsule (20 sources) Penicillin-class Antibacterial Start: 09-01-2024 End: 10-17-2024 take 4 tablets by mouth every hour Amoxicillin 500 mg capsule Discontinued 2000 mg PO TWICE A DAY September 01, 2024 12:00am October 17, 2024 1:15pm take 4 tabs within 1 hr. prior to dental work. Start: 03-22-2021 End: 04-01-2021 take 1 tablet by mouth twice daily Amoxicillin 875 mg tablet Discontinued 875 mg PO TWICE A DAY 26 03March 22, 2021 12:00am March 31, 2021 12:00am April 01, 2021 12:01am Start: 07-08-2017 End: 07-18-2017 take 2 capsules by mouth twice daily Amoxicillin 500 mg capsule Discontinued 1000 mg PO TWICE A DAY 40 July 08, 2017 1:00am July 17, 2017 1:00am July 18, 2017 1:06am Start: 07-08-2017 End: 07-18-2017 take 1000 mg by mouth twice daily Amoxicillin Discontinued 1000 MG PO TWICE A DAY 40 July 08, 2017 1:00am July 18, 2017 1:06am Start: 06-09-2012 End: 10-11-2012 AMOXICILLIN 500 MG TABS Four tablets by mouth 30-60 minutes prior to procedure as needed AMOXICILLIN [id number] Faustino Luque MD amoxicillin 875 mg / clavulanate 125 mg oral tablet (20 sources) Penicillin-class Antibacterial Start: 05-01-2022 End: 05-11-2022 Amoxicillin-Pot Clavulanate 875-125 mg tablet Discontinued 1 {tbl} PO Q12H 20 May 01, 2022 1:00am May 10, 2022 1:00am May 11, 2022 1:03am Start: 05-01-2022 End: 05-11-2022 take 1 tablet by mouth every twelve hours Amoxicillin-Pot Clavulanate Discontinued 1 TABLET PO Q12H 20 May 01, 2022 1:00am May 11, 2022 1:03am Start: 07-10-2018 End: 07-20-2018 Amoxicillin-Pot Clavulanate 875-125 mg tablet Discontinued 1 {tbl} PO Q12H 20 July 10, 2018 1:00am July 19, 2018 1:00am July 20, 2018 1:07am Start: 07-10-2018 End: 07-20-2018 take 1 tablet by mouth every twelve hours Amoxicillin-Pot Clavulanate Discontinued 1 TABLET PO Q12H 20 July 10, 2018 1:00am July 20, 2018 1:07am apixaban 2.5 mg oral tablet (5 sources) Factor Xa Inhibitor Start: 04-05-2024 End: 05-11-2024 take 1 tablet by mouth twice daily in the morning Apixaban (Eliquis) 2.5 mg tablet Discontinued 2.5 mg PO TWICE A DAY April 05, 2024 12:00am May 11, 2024 12:13pm Begin morning after surgery. azithromycin 250 mg oral tablet (11 sources) Macrolide Antimicrobial Start: 04-27-2018 End: 07-04-2018 take 2-5 tablets by mouth once daily Azithromycin 250 mg tablet Discontinued 0 PO .COMPLEX April 27, 2018 1:00am July 04, 2018 10:01am take 500 mg today (day 1), then 250 mg for 4 days (days 2-5) PO beet supplement (5 sources) Start: 10-20-2023 End: 08-18-2024 beet supplement Discontinued 1 gummy PO DAILY October 20, 2023 12:00am August 18, 2024 10:29am calcium carbonate 1500 mg / cholecalciferol 500 unt oral capsule (20 sources) Vitamin D Start: 02-06-2020 End: 03-18-2022 Calcium Carbonate-Vitamin D3 (Calcium 600 With Vitamin D3) 600 mg(1,500mg) -500 unit capsule Discontinued 1 NMA PO DAILY February 06, 2020 12:00am March 18, 2022 9:00am Start: 02-06-2020 End: 03-18-2022 take 1 capsule by mouth once daily Calcium Carbonate-Vitamin D3 (Calcium 600 With Vitamin D3) 600 mg(1,500mg) -500 unit capsule Discontinued 1 CAP PO DAILY February 06, 2020 12:00am March 18, 2022 9:00am Start: 02-28-2016 End: 02-06-2020 Calcium Carbonate-Vitamin D3 1 EACH tablet,chewable Discontinued 1 NMA PO DAILY February 28, 2016 12:00am February 06, 2020 9:02am Start: 02-28-2016 End: 02-06-2020 Calcium Carbonate-Vitamin D3 Discontinued 1 EACH PO DAILY February 28, 2016 12:00am February 06, 2020 9:02am cefadroxil 500 mg oral capsule (12 sources) Cephalosporin Antibacterial Start: 02-27-2010 End: 10-11-2012 CEFADROXIL 500 MG CAPS one tab twice a day CEFADROXIL [id number] Jagdeep Chauhan MD cephalexin 500 mg oral capsule (20 sources) Cephalosporin Antibacterial Start: 08-09-2021 End: 03-18-2022 take 1 capsule by mouth every six hours Cephalexin 500 MG capsule Discontinued 500 mg PO EVERY 6 HOURS August 09, 2021 1:00am March 18, 2022 9:00am Start: 06-24-2020 End: 07-04-2020 take 1 capsule by mouth every twelve hours Cephalexin 500 mg capsule Discontinued 500 mg PO Q12H 26 03June 24, 2020 1:00am July 03, 2020 1:00am July 04, 2020 1:03am Start: 10-21-2018 End: 10-24-2018 take 1 capsule by mouth every twelve hours Cephalexin 500 MG capsule Discontinued 500 mg PO EVERY 12 HOURS 6 3 October 21, 2018 12:00am October 23, 2018 12:00am October 24, 2018 12:08am doxycycline monohydrate 100 mg oral capsule (10 sources) Tetracycline-class Drug Start: 04-09-2022 End: 10-20-2023 take 1 capsule by mouth twice daily Doxycycline Monohydrate 100 mg capsule Discontinued 100 mg PO TWICE A DAY April 09, 2022 12:00am October 20, 2023 8:51am 0.4 ml enoxaparin sodium 100 mg/ml prefilled syringe (11 sources) Low Molecular Weight Heparin Start: 10-20-2018 End: 11-17-2018 inject 40 mg by subcutaneous injection once daily Enoxaparin 40 MG/0.4 ML syringe Discontinued 40 mg SQ DAILY October 20, 2018 12:00am November 16, 2018 12:00am November 17, 2018 12:06am NAPROXEN-ESOMEPR AZOLE (12 sources) Proton Pump Inhibitor, Nonsteroidal Anti-inflammatory Drug Start: 05-15-2013 End: 08-13-2013 take 1 tablet by mouth once daily VIMOVO 500-20 MG TBEC One tablet by mouth daily NAPROXEN-ESOMEPR AZOLE [id number] Neva Lindsay Start: 05-15-2013 End: 08-13-2013 take 1 tablet by mouth once daily VIMOVO 500-20 MG TBEC One tablet by mout h daily NAPROXEN-ESOMEPRAZOLE [id number] Neva Lindsay Start: 08-16-2012 take 1 tablet by jeramie th once daily VIMOVO 500-20 MG TBEC One tablet by mout h daily NAPROXEN-ESOMEPRAZOLE [id number] Marlin Enciso Start: 08-16-2012 End: 08-13-2013 take 1 tablet by mouth once daily VIMOVO 500-20 MG TBEC One tablet by mout h daily NAPROXEN-ESOMEPRAZOLE [id number] Neva Lindsay Start: 08-16-2012 take 1 tablet by jeramie th once daily VIMOVO 500-20 MG TBEC One tablet by mout h daily NAPROXEN-ESOMEPRAZOLE [id number] Marlin Enciso ibandronic acid 150 mg oral tablet (6 sources) Bisphosphonate Start: 01-26-2017 take 1 tablet by mouth every month BONIVA 150 MG TABS One tablet by mouth a month IBANDRONATE SODIUM [id number] Jagdeep Chauhan MD ibuprofen 200 mg oral capsule (10 sources) Nonsteroidal Anti-inflammatory Drug Start: 03-18-2022 End: 05-11-2024 take 4 capsules by mouth every six hours as needed for pain Ibuprofen 200 mg capsule Discontinued 800 mg PO EVERY 6 HOURS as needed for pain March 18, 2022 12:00am May 11, 2024 12:13pm On Hold: May resume after completion of blood thinner if needed Start: 03-18-2022 take 800 mg by mouth every six hours Ibuprofen Active 800 MG PO EVERY 6 HOURS March 18, 2022 12:00am magnesium oxide 400 mg oral capsule (11 sources) Start: 10-10-2018 End: 02-06-2020 take 1 capsule by mouth once daily Magnesium Oxide 400 mg capsule Discontinued 400 mg PO DAILY October 10, 2018 12:00am February 06, 2020 9:02am meloxicam 15 mg oral tablet (12 sources) Nonsteroidal Anti-inflammatory Drug Start: 11-24-2011 End: 08-16-2012 take 1 tablet by mouth once daily MOBIC 15 MG TABS One tablet by mouth daily MELOXICAM [id number] Marlin Enciso metoprolol tartrate 25 mg oral tablet (20 sources) beta-Adrenergic Dasha Start: 09-13-2017 End: 03-24-2024 Metoprolol Tartrate 25 mg tablet Discontinued 0 .ROUTE .COMPLEX 90 January 10, 2024 8:09am March 24, 2024 11:29am TAKE 1 TABLET DAILY Start: 09-13-2017 End: 09-13-2017 take 1 tablet by mouth twice daily Metoprolol Tartrate 25 mg tablet Discontinued 25 mg PO TWICE A DAY September 13, 2017 12:00am September 13, 2017 2:01pm Start: 02-06-2010 take 1 tablet by jeramie th once daily METOPROLOL TARTRATE 25 MG TABS One tablet by mouth daily METOPROLOL TARTRATE [id number] Jagdeep Chauhan MD Start: 02-06-2010 METOPROLOL TAR TRATE 25 MG TABS 1/2 tab in the morning METOPROLOL TARTRATE [id number] Jagdeep Chauhan MD Start: 09-14-2008 End: 09-13-2017 take 1 tablet by mouth once daily, then take 1 tablet by mouth every twenty-four hours metoprolol succinate(TOPROL XL 25 MG 24 HR TAB) Take 25 mg by mouth once daily. 0 0 09/14/2008 Active Comment on above: Take one/half(1/2) t ablet daily. MULTIPLE VITAMIN (10 sources) Start: 05-11-2011 MULTIVITAMINS TABS MULTIPLE VITAMIN [id number] Mili Krystal Estefany Start: 05-11-2011 End: 10-27-2013 MULTIVITAMINS TABS MULTIPLE VITAMIN [id number] Jagdeep Chauhan MD MULTIPLE VITAMIN (2 sources) Start: 05-11-2011 End: 10-27-2013 MULTIVITAMINS TABS MULTIPLE VITAMIN [id number] Jagdeep Chauhan MD Start: 05-11-2011 MULTIVITAMINS TABS MULTIPLE VITAMIN [id number] Mili Krystal Allison nabumetone 750 mg oral tablet (12 sources) Nonsteroidal Anti-inflammatory Drug Start: 11-22-2009 End: 10-27-2013 take 1 tablet by mouth once daily NABUMETONE 750 MG TABS One tablet by mouth daily NABUMETONE [id number] Josie Bergeron MS,PA-C naproxen 250 mg oral tablet (11 sources) Nonsteroidal Anti-inflammatory Drug Start: 10-20-2018 End: 11-03-2018 take 250-500 mg by mouth every eight hours as needed for pain Naproxen 250 MG tablet Discontinued 250 - 500 mg PO EVERY 8 HOURS NEEDED as needed for MILD PAIN October 20, 2018 12:00am November 03, 2018 10:24am Carroll 5-Lwi-Osz-Fish Oil 500 MG capsule,delayed release(DR/EC) (5 sources) Start: 02-28-2016 End: 06-19-2024 Carroll 9-Zih-Btg-Fish Oil 500 MG capsule,delayed release(DR/EC) Discontinued 1000 mg PO DAILY February 28, 2016 12:00am June 19, 2024 1:55pm oseltamivir 75 mg oral capsule (11 sources) Neuraminidase Inhibitor Start: 08-08-2018 End: 08-13-2018 take 1 capsule by mouth twice daily Oseltamivir 75 mg capsule Discontinued 75 mg PO TWICE A DAY 03 11August 08, 2018 1:00am August 12, 2018 1:00am August 13, 2018 1:07am oxyCODONE hydrochloride 5 mg oral tablet (10 sources) Opioid Agonist Start: 05-23-2024 End: 06-09-2024 take 5-10 mg by mouth every four hours as needed for pain Oxycodone 5 mg tablet Discontinued 5 - 10 mg PO Q4H as needed for pain 30 May 23, 2024 June 09, 2024 10:52am Start: 04-05-2024 End: 05-11-2024 take 5-10 mg by mouth every six hours as needed for pain Oxycodone 5 mg tablet Discontinued 5 - 10 mg PO EVERY 6 HOURS as needed for pain 60 April 05, 2024 May 11, 2024 11:54am predniSONE 20 mg oral tablet (11 sources) Start: 03-22-2021 End: 03-27-2021 take 2 tablets by mouth once daily Prednisone 20 mg tablet Discontinued 40 mg PO DAILY 03 11March 22, 2021 12:00am March 26, 2021 12:00am March 27, 2021 12:01am Start: 03-22-2021 End: 03-27-2021 take 40 mg by mouth once daily Prednisone Discontinued 40 MG PO DAILY 03 11March 22, 2021 12:00am March 27, 2021 12:01am Red Yeast Rice Extract (Bulk) powder (5 sources) Start: 02-06-2020 End: 10-20-2023 Red Yeast Rice Extract (Bulk) powder Discontinued 1200 NMA PO DAILY February 06, 2020 9:01am October 20, 2023 8:52am rivaroxaban 10 mg oral tablet (20 sources) Factor Xa Inhibitor Start: 11-24-2011 End: 08-16-2012 take 1 tablet by mouth once daily XARELTO 10 MG TABS One tablet by mouth daily RIVAROXABAN [id number] Marlin Enciso Start: 09-07-2011 End: 11-08-2011 take 1 tablet by mouth once daily XARELTO 10 MG TABS One tablet by mouth daily RIVAROXABAN [id number] [place]a [place] Angélica rOPINIRole 1 mg oral tablet (12 sources) Nonergot Dopamine Agonist Start: 05-08-2014 End: 07-02-2015 take 1 tablet by mouth once daily at bedtime as needed REQUIP 1 MG TABS One tablet by mouth daily at bedtime for restless leg as needed ROPINIROLE HCL [id number] Jagdeep Chauhan MD traMADol hydrochloride 50 mg oral tablet (5 sources) Opioid Agonist Start: 04-24-2024 End: 05-11-2024 take 50-100 mg by mouth every six hours as needed for pain Tramadol 50 mg tablet Discontinued 50 - 100 mg PO EVERY 6 HOURS as needed for pain 42 April 24, 2024 1:00am May 11, 2024 12:13pm vitamin e 450 mg oral capsule (16 sources) Start: 02-28-2016 End: 03-18-2022 take 1 capsule by mouth once daily Vitamin E 1,000 UNIT capsule Discontinued 1000 U PO DAILY February 28, 2016 12:00am March 18, 2022 9:01am Start: 06-15-2008 VITAMIN E 400 UNIT CAP Take one(1) tablet twice daily. 0 06/15/2008 Active Comment on above: Take one(1) tablet t wice daily. Problems Active Problems Problem Classification Problem Date Documented Date Episodic/Chronic Acute and unspecified renal failure (11 sources) Injury of kidney; Translations: [Acute kidney failure, unspecified] 01-18-2019 Episodic Cardiac dysrhythmias (20 sources) Paroxysmal supraventricular tachycardia; Translations: [Supraventricular tachycardia] Onset: 05-11-2024 Chronic Comment on above: Coronary atherosclerosis and other heart disease (20 sources) Atherosclerotic heart disease of [place] coronary artery without angina pectoris; Translations: [Coronary arteriosclerosis] Onset: 06-07-1998 06-26-2016 Chronic Coronary atherosclerosis and other heart disease (4 sources) Presence of coronary angioplasty implant and graft; Translations: [Percutaneous transluminal coronary angioplasty status] Onset: 01-05-1999 Episodic Disorders of lipid metabolism (20 sources) Hypercholesterolemia; Translations: [Hyperlipidemia] Onset: 10-15-2011 10-15-2011 Chronic Comment on above: ON MED Essential hypertension (20 sources) Essential hypertension; Translations: [Essential (primary) hypertension] Onset: 08-05-2024 Chronic Comment on above: CONTROLLED WITH MED Headache; including migraine (11 sources) Headache; Translations: [Headache] 03-18-2020 Episodic Heart valve disorders (12 sources) Mitral valve prolapse; Translations: [Nonrheumatic mitral (valve) prolapse] Onset: 10-15-2011 06-26-2016 Chronic Immunizations and screening for infectious disease (15 sources) Encounter for screening for human papillomavirus (HPV); Translations: [Contact with and (suspected) exposure to other viral communicable diseases] Onset: 02-09-2017 02-09-2017 Episodic Inflammation; infection of eye (except that caused by tuberculosis or sexually transmitteddisease) (11 sources) Blepharitis; Translations: [Unspecified blepharitis unspecified eye, unspecified eyelid] 04-13-2022 Episodic Nonspecific chest pain (5 sources) Chest pain; Translations: [Chest pain, unspecified] 04-13-2024 Episodic Osteoarthritis (19 sources) Osteoarthritis of knee; Translations: [Osteoarthritis of right knee joint] Onset: 04-23-2024 05-16-2013 Chronic Other aftercare (7 sources) Follow-up status; Translations: [Encounter for other orthopedic aftercare] 04-19-2024 Episodic Other connective tissue disease (15 sources) History of total knee arthroplasty; Translations: [Presence of left artificial knee joint] 04-13-2022 Chronic Other connective tissue disease (2 sources) Presence of right artificial knee joint; Translations: [Presence of right artificial knee joint] Onset: 04-18-2024 Chronic Other connective tissue disease (5 sources) Aching leg syndrome; Translations: [Pain in leg, unspecified] 08-21-2024 Episodic Other connective tissue disease (2 sources) Pes anserinus bursitis of left knee; Translations: [Other bursitis of knee, left knee] 11-29-2024 Episodic Other connective tissue disease (2 sources) Tendinitis; Translations: [Other specified enthesopathies of unspecified lower limb, excluding foot] 11-29-2024 Episodic Other connective tissue disease (1 source) Other bursitis of knee, left knee; Translations: [Pes anserinus bursitis of left knee] Onset: 11-29-2024 Episodic Other connective tissue disease (1 source) Other specified enthesopathies of unspecified lower limb, excluding foot; Translations: [Quadriceps tendonitis] Onset: 11-29-2024 Episodic Other connective tissue disease (1 source) Myalgia, unspecified site; Translations: [Myalgia, unspecified site] Onset: 09-12-2024 Episodic Other lower respiratory disease (5 sources) Dyspnea on exertion; Translations: [Other forms of dyspnea] 05-12-2024 Episodic Other nervous system disorders (1 source) Other chronic pain; Translations: [Chronic pain of left knee] Onset: 11-29-2024 Chronic Other nervous system disorders (5 sources) Acute postoperative pain; Translations: [Other acute postprocedural pain] 04-05-2024 Episodic Other non-traumatic joint disorders (14 sources) Pain in right knee; Translations: [Right knee pain] Onset: 11-29-2024 04-13-2022 Episodic Other non-traumatic joint disorders (2 sources) Knee stiff; Translations: [Stiffness of right knee, not elsewhere classified] 05-17-2024 Episodic Other upper respiratory disease (11 sources) Anterior epistaxis; Translations: [Epistaxis] 08-17-2021 Episodic Other upper respiratory infections (1 source) Chronic sinusitis, unspecified; Translations: [Chronic sinusitis, unspecified] Onset: 08-09-2024 Chronic Other upper respiratory infections (19 sources) Upper respiratory infection; Translations: [Acute sinusitis] Onset: 11-22-2009 Resolved: 12-13-2009 11-22-2009 Episodic Otitis media and related conditions (20 sources) Acute right otitis media; Translations: [Otitis media, unspecified, right ear] 04-13-2022 Episodic Skin and subcutaneous tissue infections (10 sources) Cellulitis of face; Translations: [Cellulitis of face] 04-13-2022 Episodic Unclassified (5 sources) Encounter for other screening for malignant neoplasm of breast; Translations: [Abnormal result of other cardiovascular function study] Onset: 02-09-2017 02-09-2017 Episodic Unclassified (3 sources) Gynecologic examination ; [...] malignant neoplasm of breast] Onset: 02-09-2017 02-09-2017 Unclassified (4 sources) Pain in both knees, unspecified chronicity 11-08-2024 Urinary tract infections (5 sources) Urinary tract infectious disease; Translations: [Urinary tract infection, site not specified] 05-17-2024 Episodic Viral infection (11 sources) Disease caused by 2019-nCoV; Translations: [COVID-19] 04-13-2022 Episodic Past or Other Problems Problem Classification Problem Date Documented Da te Episodic/Chronic Joint disorders and dislocations; trauma-related (12 sources) Tear of lateral meniscus of knee; Translations: [Other tear of lateral meniscus, current injury, left knee] Resolved: 09-28-2012 08-31-2011 Episodic Nausea and vomiting (13 sources) Nausea; Translations: [Nausea] Onset: 07-19-2024 06-19-2024 Episodic Neoplasms of unspecified nature or uncertain behavior (6 sources) Neoplasm of uncertain behavior of skin; Translations: [Neoplasm of uncertain behavior of skin] Onset: 02-06-2010 02-26-2010 Episodic Other aftercare (10 sources) Other 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 exterminator (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; Translations: [Long-term (current) use of other medications] Onset: 05-07-2011 07-12-2015 Episodic Other and unspecified benign neoplasm (5 sources) History of polyp of colon; Translations: [Personal [...] unspecified ear] Onset: 02-06-2010 02-26-2010 Episodic Other lower respiratory disease (1 source) Other forms of dyspnea; Translations: [Other forms of dyspnea] Onset: 06-15-2024 Episodic Other nervous system disorders (1 source) Other acute postprocedural pain; Translations: [Other acute postprocedural pain] Onset: 04-18-2024 Episodic Other non-epithelial cancer of skin (6 [...] Translations: [Effusion, unspecified knee] 08-25-2013 Episodic Other non-traumatic joint disorders (3 sources) Pain in left knee; Translations: [Pain in both knees, unspecified chronicity] Onset: 08-21-2024 Episodic Other non-traumatic joint disorders (1 source) Stiffness of right knee, not elsewhere classified; Translations: [Stiffness of right knee, not elsewhere classified] Onset: 06-22-2024 Episodic Other nutritional; endocrine; and metabolic disorders (6 sources) Body mass index (BMI) 26.0-26.9, adult; Translations: [Body mass index (BMI) 26.0-26.9, adult] Onset: 01-26-2017 01-26-2017 Episodic Other nutritional; endocrine; and metabolic disorders (1 source) Abnormal weight loss; Translations: [Abnormal weight loss] Onset: 06-04-2024 Episodic Phlebitis; thrombophlebitis and thromboembolism (6 sources) Deep venous thrombosis; Translations: [Acute embolism and thrombosis of unspecified vein] 08-31-2011 Episodic Spondylosis; intervertebral disc disorders; other back problems (6 sources) Sciatica; Translations: [Sciatica, unspecified side] 06-02-2011 Episodic Syncope (1 source) Syncope and collapse; Translations: [Syncope and collapse] Onset: 05-08-2024 Episodic Unclassified (10 sources) Preoperative cardiovascular examination ; Translations: [Encounter for preprocedural cardiovascular examination] Onset: 10-27-2013 Resolved: 06-26-2016 10-27-2013 Results Test Name Value Interpretation Reference Range Facility [facility] 11-29-2024 CNOV Office Visit (ORMD[facility] ) -- JENN GUY ([id number]) 1955 F Date Time Provider Department 11/29/24 8:40 AM DUDLEY KATHLEEN During your visit today, we recorded the following information about you: Weight Height 69.9 kg 1.702 m Dudley Kathleen MD 11/29/2024 8:53 AM Signed CONSULT ORTHOPAEDIC: KNEE PRIMARY CARE PHYSICIAN: Nia Cintron DO REFERRING PROVIDER: No referring provider defined for this encounter. ASSESSMENT AND PLAN This is a 69-year-old female presents with bilateral knee pain. Patient underwent a left total knee replacement with Dr. Najera in 2013 and right TKA at [facility]. Patient presents with bilateral knee pain. Unfortunate she states she is always had some low-grade knee pain since her left total knee replacement. Patient denies any fevers or chills denies any trauma or falls. Denies any history of blood clots history of blood thinners history of immunosuppressive medication no history of smoking no history of diabetes. Patient has tried conservative treatment as well as activity modification continues to have pain. Impression: Left knee pain after total knee replacement done in 2013, right knee pain after TKA at [facility]SH -Discussed the patient that she is very tight over her hamstrings and the pes bursa going into the area. She is tender over these areas as well. Has some quadriceps tendinitis of her right knee. She had her right knee done in March and is less than a year out. Denies any fevers or chills denies any problems with swelling. No signs of infection. Discussed that she can try physical therapy with emphasis on hamstring stretching on the left and quadricep stretching on the right. She will follow-up as needed. Diagnoses: (M17.11) Primary osteoarthritis of right knee (primary encounter diagnosis) (M25.562, G89.29) Chronic pain of left knee (M70.52) Pes anserinus bursitis of left knee (M76.899) Quadriceps tendonitis Risk Factors for Total Knee Arthroplasty (TKA) Major Risk Factors Obesity Unknown Risk High: BMI > 40 Moderate: BMI 30-40 Normal: BMI < 30 Diabetes normal High: A1C > 8 Moderate: A1C 7-8 Normal: A1C < 7 Hx of DVT / PE normal High: dx of DVT / PE Normal: no dx of DVT / PE Smoking normal High: Current smoker Normal: Non smoker Narcotics Use Moderate Risk High:NarxCare >=300 Moderate: 100-299 Normal: 0-99 Depression Unknown Risk High: PHQ-9 >14 Moderate: PHQ-9 5-14 Normal: PHQ-9 < 5 Area Deprivation Index (TYRELL) normal High: TYRELL Score > 75 Moderate: TYRELL 50-75 Normal: TYRELL < 50 Obesity: height and/or weight are out of date (There is no height and/or weight reading in the past 365 days, so the below BMI readings may be inaccurate) BMI Readings from Last 3 Encounters: 11/29/24 : 24.14 kg/m? 10/07/22 : 23.39 kg/m? 05/16/17 : 27.93 kg/m? Area Deprivation Index (TYRELL) 11/29/2024 TYRELL Score National Score 36 Patient Health Questionnaire (PHQ-9) No data to display (0-4) minimal depression, (5-9) mild depression, (10-14) moderate depression, (15-19) moderately severe depression, (20-27) severe depression Bone Density Risk Screen Jenn Guy is at risk for bone loss and has not had a bone densitometry scan in the last 2 years (date of last scan: None on file). Recommend a bone densitometry scan and if indicated on the bone density results, a consult to a bone health specialist (Rheumatology, Endocrinology, or Women's Health) for bone assessment. Risk Factors: Dx of Chronic Kidney Disease (CKD) Additional Risk Factors NarxCare score NARX Narcotics: 140 (11/29/2024 8:41 AM) Malnutrition: No Malnutrition Screening Tool (MST) score on file- please complete the MST screening tool (click here to open) and refresh the note. ACTIVE PROBLEM LIST Personal History of Colonic Polyps SUBJECTIVE CHIEF COMPLAINT: Knee Pain HPI: Jenn Guy is a 69 year old patient with the presenting complaint of New and Knee Pain of the Left Knee and New and Knee Pain of the Right Knee. Jenn Guy has had progressive problems with the knee(s) most of the day over the past 2 3 years interfering with activities which include walking. The problem began limiting activities 3+ years ago. Jenn reports a current pain level of 2 . She describes the pain as Tightness, Dull, Sharp. The pain is Continuous, and has lasted for 4 Months. Interventions tried include Medication, Reposition, Relaxation. FALL RISK: Jenn is not currently at risk for falls. PROMIS Physical Function Score No data to display FUNCTIONAL STATUS: Climb a flight of stairs or walk up a hill (5.50 METs) PREVIOUS TREATMENTS: Past anti-inflammatory medications (not necessarily for this reason for visit): nabumetone Attempted Weight Loss Medical Treatments: OTC NSAIDS for 3 Months or Greater (Ibuprofen) Physical Therapy: PT Three Months or Greater 1-2 (more content not included)... Normal [facility] No Panel Informationon 11-29 Radiology Study observation (narrative) [facility] XR KNEE 4V AP/PA/LAT/MERCH B ILon 11-29-2024 XR KNEE 4V AP/PA/LAT/MERCH MIMI * * *Final Report* * * DATE OF EXAM: Nov 29 2024 8:28AM OSCAR 5618 - XR KNEE 4V AP/PA/LAT/MERCH MIMI / PROCEDURE REASON: multiple diagnoses * * * * Physician Interpretation * * * * EXAM(s): XR KNEE 4V AP/PA/LAT/MERCH MIMI EXAM DATE/TIME: 11/29/2024 8:28 AM HISTORY: 69 years old Clinical information: Pain in both knees, unspecified chronicity Pain in both knees, unspecified chronicity Pt c/o anterior pain of her right knee and posterior pain of her left knee Weightbearing/slightly flexed 45 degrees/ [employer] TECHNIQUE: Images: XR KNEE 4V AP/PA/LAT/MERCH MIMI Comparison: 02/14/2015. RESULT: Findings: Right :No fractures or dislocations are seen. Interval placement of RIGHT total knee Arthroplasty. The components of the arthroplasty are in good alignment with respect to bones and each other. Left :No fractures or dislocations are seen. The components of the LEFT total knee arthroplasty appear stable.. There is no evidence of loosening of the components. IMPRESSION: Findings as discussed in results portion of report Loan Service Officer: PINKY Transcribe Date/Time: Nov 29 2024 12:43P Dictated by : RAJ CUEVAS DO This examination was interpreted and the report reviewed and electronically signed by: RAJ CUEVAS DO on Nov 29 2024 12:44PM EST [id number] [facility] XR Knee - bilateral 4 Viewso n 11-29-2024 IMPRESSION: Findings as discussed in results portion of report Loan Service Officer: PINKY Transcribe Date/Time: Nov 29 2024 12:43P Dictated by : RAJ CUEVAS DO This examination was interpreted and the report reviewed and electronically signed by: RAJ CUEVAS DO on Nov 29 2024 12:44PM EST [facility] * * *Final Report* * * DATE OF EXAM: Nov 29 2024 8:28AM OSCAR 5618 - XR KNEE 4V AP/PA/LAT/MERCH MIMI / PROCEDURE REASON: multiple diagnoses * * * * Physician Interpretation * * * * EXAM(s): XR KNEE 4V AP/PA/LAT/MERCH MIMI EXAM DATE/TIME: 11/29/2024 8:28 AM HISTORY: 69 years old Clinical information: Pain in both knees, unspecified chronicity Pain in both knees, unspecified chronicity Pt c/o anterior pain of her right knee and posterior pain of her left knee Weightbearing/slightly flexed 45 degrees/ [employer] TECHNIQUE: Images: XR KNEE 4V AP/PA/LAT/MERCH MIMI Comparison: 02/14/2015. RESULT: Findings: Right :No fractures or dislocations are seen. Interval placement of RIGHT total knee Arthroplasty. The components of the arthroplasty are in good alignment with respect to bones and each other. Left :No fractures or dislocations are seen. The components of the LEFT total knee arthroplasty appear stable.. There is no evidence of loosening of the components. [facility] * * *Final Report* * * DATE OF EXAM: Nov 29 2024 8:28AM OSCAR 5618 - XR KNEE 4V AP/PA/LAT/MERCH MIMI / PROCEDURE REASON: multiple diagnoses * * * * Physician Interpretation * * * * EXAM(s): XR KNEE 4V AP/PA/LAT/MERCH MIMI EXAM DATE/TIME: 11/29/2024 8:28 AM HISTORY: 69 years old Clinical information: Pain in both knees, unspecified chronicity Pain in both knees, unspecified chronicity Pt c/o anterior pain of her right knee and posterior pain of her left knee Weightbearing/slightly flexed 45 degrees/ [employer] TECHNIQUE: Images: XR KNEE 4V AP/PA/LAT/MERCH MIMI Comparison: 02/14/2015. RESULT: Findings: Right :No fractures or dislocations are seen. Interval placement of RIGHT total knee Arthroplasty. The components of the arthroplasty are in good alignment with respect to bones and each other. Left :No fractures or dislocations are seen. The components of the LEFT total knee arthroplasty appear stable.. There is no evidence of loosening of the components. IMPRESSION IMPRESSION: Findings as discussed in results portion of report Loan Service Officer: PSCB Transcribe Date/Time: Nov 29 2024 12:43P Dictated by : RAJ CUEVAS DO This examination was interpreted and the report reviewed and electronically signed by: RAJ CUEVAS DO on Nov 29 2024 12:44PM EST [facility] XR Knee - bilateral 4 ViewsO rdered By: [facility] Provider on 11-29-2024 [facility] XR LEG FRONTL HIP-ANKL MECH AXISon 11-29-2024 XR LEG FRONTL HIP-ANKL MECH AXIS * * *Final Report* * * DATE OF EXAM: Nov 29 2024 8:28AM OSCAR 5216 - XR LEG FRONTL HIP-ANKL MECH AXIS / PROCEDURE REASON: multiple diagnoses * * * * Physician Interpretation * * * * EXAM(s): XR LEG FRONTL HIP-ANKL MECH AXIS EXAM DATE/TIME: 11/29/2024 8:28 AM HISTORY: 69 years old Clinical information: Pain in both knees, unspecified chronicity Pain in both knees, unspecified chronicity Pt c/o anterior pain of her right knee and posterior pain of her left knee TECHNIQUE: Images: XR LEG FRONTL HIP-ANKL MECH AXIS Comparison: None. EXAM: XR LEG FRONTAL SCANOGRAM LENGTHS, XR LEG FRONTL HIP-ANKL MECH AXIS RESULT: Findings: AP view of the full lengths of the bilateral lower extremities was obtained with cm ruler markings. Measurements will be obtained by the ordering service. Bone density appears decreased. No fractures or dislocations are seen. IMPRESSION: Findings as discussed in results portion of report Loan Service Officer: PINKY Transcribe Date/Time: Nov 29 2024 12:42P Dictated by : RAJ CUEVAS DO This examination was interpreted and the report reviewed and electronically signed by: RAJ CUEVAS DO on Nov 29 2024 12:43PM EST [id number] [facility] XR Lower extremity - bilater al AP W standingon 11-29-2024 IMPRESSION: Findings as discussed in results portion of report Loan Service Officer: PINKY Transcribe Date/Time: Nov 29 2024 12:42P Dictated by : RAJ CUEVAS DO This examination was interpreted and the report reviewed and electronically signed by: RAJ CUEVAS DO on Nov 29 2024 12:43PM EST [facility] * * *Final Report* * * DATE OF EXAM: Nov 29 2024 8:28AM OSCAR 5216 - XR LEG FRONTL HIP-ANKL MECH AXIS / PROCEDURE REASON: multiple diagnoses * * * * Physician Interpretation * * * * EXAM(s): XR LEG FRONTL HIP-ANKL MECH AXIS EXAM DATE/TIME: 11/29/2024 8:28 AM HISTORY: 69 years old Clinical information: Pain in both knees, unspecified chronicity Pain in both knees, unspecified chronicity Pt c/o anterior pain of her right knee and posterior pain of her left knee TECHNIQUE: Images: XR LEG FRONTL HIP-ANKL MECH AXIS Comparison: None. EXAM: XR LEG FRONTAL SCANOGRAM LENGTHS, XR LEG FRONTL HIP-ANKL MECH AXIS RESULT: Findings: AP view of the full lengths of the bilateral lower extremities was obtained with cm ruler markings. Measurements will be obtained by the ordering service. Bone density appears decreased. No fractures or dislocations are seen. [facility] Provider, Chapis Arriaga - 11/29/2024 * * *Final Report* * * DATE OF EXAM: Nov 29 2024 8:28AM OSCAR 5216 - XR LEG FRONTL HIP-ANKL MECH AXIS / PROCEDURE REASON: multiple diagnoses * * * * Physician Interpretation * * * * EXAM(s): XR LEG FRONTL HIP-ANKL MECH AXIS EXAM DATE/TIME: 11/29/2024 8:28 AM HISTORY: 69 years old Clinical information: Pain in both knees, unspecified chronicity Pain in both knees, unspecified chronicity Pt c/o anterior pain of her right knee and posterior pain of her left knee TECHNIQUE: Images: XR LEG FRONTL HIP-ANKL MECH AXIS Comparison: None. EXAM: XR LEG FRONTAL SCANOGRAM LENGTHS, XR LEG FRONTL HIP-ANKL MECH AXIS RESULT: Findings: AP view of the full lengths of the bilateral lower extremities was obtained with cm ruler markings. Measurements will be obtained by the ordering service. Bone density appears decreased. No fractures or dislocations are seen. IMPRESSION IMPRESSION: Findings as discussed in results portion of report Loan Service Officer: PINKY Transcribe Date/Time: Nov 29 2024 12:42P Dictated by : RAJ CUEVAS DO This examination was interpreted and the report reviewed and electronically signed by: RAJ CUEVAS DO on Nov 29 2024 12:43PM [facility] Absolute lymphocyte countOrd ered By: Raya Corona on 11-13-2024 Lymphocytes Auto (Unsp spec) [#/Vol] 1.72 10*3/uL 0.83-4.51 [facility] Absolute neutrophil countOrd ered By: Raya Corona on 06-09-2025 Neutrophils (Bld) [#/Vol] 3.2 10*3/uL 2.0-7.7 [facility] Anion gap in Serum or Plasma Ordered By: Raya Corona on 11-13-2024 Anion gap [Moles/Vol] 11 mmol/L 5- [facility] Automated lymphocyte count a s percentage of total leukocytesOrdered By: Raya Corona on 11-13-2024 Lymphocytes/100 WBC Auto (Unsp spec) 30.7 % [facility] BUN/creatinine ratioOrdered By: Raya Corona on 11-13-2024 Urea nitrogen/Creatinine [Mass ratio] 17.0 mg/mg - [facility] Basic Metabolic Profile (BMP )on 11-13-2024 BUN/CRE 17.0 RATIO Normal - [facility] Comment on above: Performed By: #### L 500.2500, L100.0100 ####[facility] [address] [place], [address] Calcium [Mass/Vol] 9.8 mg/dL Normal 7.6-11.0 [facility] Comment on above: Performed By: #### L 500.2500, L100.0100 ####[facility] [address] [place], [address] Chloride [Moles/Vol] 99 mmol/L Normal 98-108 [facility] Comment on above: Performed By: #### L 500.2500, L100.0100 ####[facility] [address] [place], [address] CO2 [Moles/Vol] 25.5 mmol/L Normal 21.0-32.0 [facility] Comment on above: Performed By: #### L 500.2500, L100.0100 ####[facility] [address] [place], [address] Creatinine [Mass/Vol] 0.90 mg/dL Normal 0.70-1.20 [facility] Comment on above: Performed By: #### L 500.2500, L100.0100 ####[facility] [address] [place], [address] GAP 11 Normal 5-15 [facility] Comment on above: Performed By: #### L 500.2500, L100.0100 ####[facility] [address] [place], [address] GFR/1.73 sq M.predicted among non-blacks MDRD (S/P/Bld) [Vol rate/Area] 69 mL/min/{1.73_m2} Normal >60 [facility] Comment on above: Result Comment: mL/m in/1.73m2 CKD-EPI Creatinine Equation (2020) Performed By: #### L 500.2500, L100.0100 ####[facility] [address] [place], [address] Glucose [Mass/Vol] 114 mg/dL High 70-99 [facility] Comment on above: Performed By: #### L 500.2500, L100.0100 ####[facility] [address] [place], [address] Potassium [Moles/Vol] 4.6 mmol/L Normal 3.3-5.1 [facility] Comment on above: Performed By: #### L 500.2500, L100.0100 ####[facility] [address] [place], [address] Sodium [Moles/Vol] 135 mmol/L Normal 133-145 [facility] Comment on above: Performed By: #### L 500.2500, L100.0100 ####[facility] [address] [place], [address] Urea nitrogen [Mass/Vol] 15 mg/dL Normal 4-19 [facility] Comment on above: Performed By: #### L 500.2500, L100.0100 ####[facility] [address] [place], [address] Basophil percentageOrdered B y: Raya Corona on 11-13-2024 Basophils/100 WBC (Bld) 0.9 % 0-1 [facility] CBC W/Diff, Automatedon Absolute Lymph 1.72 X10 3/uL Normal 0.83-4.51 [facility] Comment on above: Performed By: #### L 500.2500, L100.0100 ####[facility] [address] [place], [address] Absolute Neut 3.2 X10 3/uL Normal 2.0-7.7 [facility] Comment on above: Performed By: #### L 500.2500, L100.0100 ####[facility] [address] [place], [address] Basophils/100 WBC (Bld) 0.9 % Normal 0-1 [facility] Comment on above: Performed By: #### L 500.2500, L100.0100 ####[facility] [address] [place], [address] Eosinophils/100 WBC (Bld) 3.4 % Normal 0-5 [facility] Comment on above: Performed By: #### L 500.2500, L100.0100 ####[facility] [address] [place], [address] Erythrocyte distribution width (RBC) [Ratio] 12.4 % Normal 11.6-14.6 [facility] Comment on above: Performed By: #### L 500.2500, L100.0100 ####[facility] [address] [place], [address] Hematocrit (Bld) [Volume fraction] 38.8 % Normal 37-47 [facility] Comment on above: Performed By: #### L 500.2500, L100.0100 ####[facility] [address] [place], [address] Hemoglobin (Bld) [Mass/Vol] 12.7 g/dL Normal 12.0-15.0 [facility] Comment on above: Performed By: #### L 500.2500, L100.0100 ####[facility] [address] [place], [address] IG% 0.200 Normal 0.0-0.9 [facility] Comment on above: Result Comment: IG% - Immature Granulocytes (promyelocytes, myelocytes andmetamyelocytes) > 1% indicates that a LEFT SHIFT is Present. Performed By: #### L 500.2500, L100.0100 ####[facility] [address] [place], [address] Lymphocytes/100 WBC (Bld) 30.7 % Normal 19-41 [facility] Comment on above: Performed By: #### L 500.2500, L100.0100 ####[facility] [address] [place], [address] MCH (RBC) [Entitic mass] 28.7 pg Normal 27.0-32.0 [facility] Comment on above: Performed By: #### L 500.2500, L100.0100 ####[facility] [address] [place], [address] MCHC (RBC) [Mass/Vol] 32.7 g/dL Normal 32-36 [facility] Comment on above: Performed By: #### L 500.2500, L100.0100 ####[facility] [address] [place], [address] MCV (RBC) [Entitic vol] 87.6 fL Normal 81-99 [facility] Comment on above: Performed By: #### L 500.2500, L100.0100 ####[facility] [address] [place], [address] Monocytes/100 WBC (Bld) 8.0 % Normal 0-10 [facility] Comment on above: Performed By: #### L 500.2500, L100.0100 ####[facility] [address] [place], [address] Neutrophils/100 WBC (Bld) 56.8 % Normal 47-70 [facility] Comment on above: Performed By: #### L 500.2500, L100.0100 ####[facility] [address] [place], [address] Nucleated RBC (Bld) [#/Vol] 0 10*3/uL Normal 0-5 [facility] Comment on above: Performed By: #### L 500.2500, L100.0100 ####[facility] [address] [place], [address] Platelet mean volume (Bld) [Entitic vol] 9.0 fL Normal 6.2-12.0 [facility] Comment on above: Performed By: #### L 500.2500, L100.0100 ####[facility] [address] [place], [address] Platelets (Bld) [#/Vol] 358 10*3/uL Normal 150-450 [facility] Comment on above: Performed By: #### L 500.2500, L100.0100 ####[facility] [address] [place], [address] RBC (Bld) [#/Vol] 4.43 10*6/uL Normal 4.2-5.4 [facility] Comment on above: Performed By: #### L 500.2500, L100.0100 ####[facility] [address] [place], [address] RDW SD 39.7 fl Normal 35.1-43.9 [facility] Comment on above: Performed By: #### L 500.2500, L100.0100 ####[facility] [address] [place], [address] WBC (Bld) [#/Vol] 5.6 10*3/uL Normal 4.4-11.0 [facility] Comment on above: Performed By: #### L 500.2500, L100.0100 ####[facility] [address] [place], [place], [address] Carbon dioxide, total [Moles /volume] in Central venous bloodOrdered By: Raya Corona on 11-13-2024 CO2 [Moles/Vol] 25.5 mmol/L 21.0-32.0 [facility] Chloride assayOrdered By: Sacha Corona on 11-13-2024 Chloride [Moles/Vol] 99 mmol/L 98-108 [facility] Eosinophil percentageOrdered By: Raya Corona on 11-13-2024 Eosinophils/100 WBC (Bld) 3.4 % 0-5 [facility] Erythrocyte distribution wid th ratioOrdered By: aRya Corona on 11-13-2024 Erythrocyte distribution width (RBC) [Ratio] 12.4 % 11.6-14.6 [facility] Erythrocyte distribution wid th standard deviationOrdered By: Raya Coorna on 11-13-2024 Erythrocyte distribution width (RBC) [Ratio] 39.7 fl 35.1-43.9 [facility] Glomerular filtration rate ( GFR) estimation/1.73 sq m using serum, plasma, or whole bOrdered By: Raya Corona on 11-13-2024 GFR/1.73 sq M.predicted among non-blacks MDRD (S/P/Bld) [Vol rate/Area] 69 mL/min/{1.73_m2} >60 [facility] Comment on above: mL/min/1.73m2 CKD-EP I Creatinine Equation (2020) Hematocrit Auto (Bld) [Volum e fraction]Ordered By: Raya Corona on 11-13-2024 Hematocrit (Bld) [Volume fraction] 38.8 % 37-47 [facility] Hemoglobin measurementOrdere d By: Raya Corona on 11-13-2024 Hemoglobin (Bld) [Mass/Vol] 12.7 g/dL 12.0-15.0 [facility] Immature granulocytes/100 WB C Auto (Bld)Ordered By: Raya Corona on 11-13-2024 Immature granulocytes/100 WBC (Bld) 0.200 % 0.0-0.9 [facility] Comment on above: IG% - Immature Granu locytes (promyelocytes, myelocytes and metamyelocytes) > 1% indicates that a LEFT SHIFT is Present. MCV (mean corpuscular volume ) determinationOrdered By: Raya Corona on 11-13-2024 MCV (RBC) [Entitic vol] 87.6 fL 81-99 [facility] Mean corpuscular hemoglobin (MCH) determinationOrdered By: Raya Corona on 11-13-2024 MCH (RBC) [Entitic mass] 28.7 pg 27.0-32.0 [facility] Mean corpuscular hemoglobin concentration (MCHC) determinationOrdered By: Raya Corona on 11-13-2024 MCHC (RBC) [Mass/Vol] 32.7 g/dL 32-36 [facility] Mean platelet volume determi nationOrdered By: Raya Corona on 11-13-2024 Platelet mean volume (Bld) [Entitic vol] 9.0 fL 6.2-12.0 [facility] Monocyte percentageOrdered B y: Raya Corona on 11-13-2024 Monocytes/100 WBC (Bld) 8.0 % 0-10 [facility] Neutrophil percentageOrdered By: Raya Corona on 11-13-2024 Neutrophils/100 WBC (Bld) 56.8 % 47-70 [facility] Nucleated red blood cell per centageOrdered By: Raya Corona on 11-13-2024 Nucleated RBC/100 WBC (Bld) [Ratio] 0 % 0-5 [facility] Platelet countOrdered By: Sacha Corona on 11-13-2024 Platelets (Bld) [#/Vol] 358 10*3/uL 150-450 [facility] Potassium measurement (mass/ volume)Ordered By: Raya Corona on 11-13-2024 Potassium (Unsp spec) [Mass/Vol] 4.6 mmol/L 3.3-5.1 [facility] RBC Auto (Bld) [#/Vol]Ordere d By: Raya Corona on 11-13-2024 RBC (Bld) [#/Vol] 4.43 10*6/uL 4.2-5.4 [facility] Serum creatinine measurement (mass/volume)Ordered By: Raya Corona on 11-13-2024 Creatinine [Mass/Vol] 0.90 mg/dL 0.70-1.20 [facility] Serum glucose measurement (m ass/volume)Ordered By: Raya Corona on 11-13-2024 Glucose [Mass/Vol] 114 mg/dL High 70-99 [facility] Serum or plasma calcium pualina urement (mass/volume)Ordered By: Raya Corona on 11-13-2024 Calcium [Mass/Vol] 9.8 mg/dL 7.6-11.0 [facility] Serum or plasma urea nitroge n measurement (mass/volume)Ordered By: Raya Corona on 11-13-2024 Urea nitrogen [Mass/Vol] 15 mg/dL 4-19 [facility] Sodium levelOrdered By: Lindsey Corona on 11-13-2024 Sodium [Moles/Vol] 135 mmol/L 133-145 [facility] White blood cell (WBC) count Ordered By: Raya Corona on 11-13-2024 WBC (Bld) [#/Vol] 5.6 10*3/uL 4.4-11.0 [facility] Cardiology Visit Reporton Cardiology Visit Report Normal [facility] CNPNon 10-18-2024 JUST[facility] Tele[facility] -- JENN GUY ([id number]) 1955 F Date Time Provider Department 10/18/24 COTESTIVEN During your visit today, we recorded the following information about you: Sunita Harris, HOMER 10/19/2024 9:29 AM Signed Is this upcoming visit related to a covid vaccine reaction? No Did the patient have confirmed or presumed COVID-19 infection after July 2019 and are continuing to have symptoms for at least 90 days (antibody testing NOT accepted): Yes Date of positive test and/or presumed infection(s): February 2022 Type of test (home test or PCR): Pcr With which COVID infection(s) did your long COVID symptoms begin: 02/26 COVID vaccine type and dates (if not already on file): no We have a few questions about any ongoing symptoms to help prepare you and your provider for your visit. 3. Is the patient seeing us for taste/smell changes? No 4. Is patient traveling far (1 hour+) or coming from another state*: No ) 5. Please verify the following are on file in patient's chart, and enter if not found - medication list Yes - allergies Yes - preferred pharmacy Yes - PCP Yes 6. Please inform patient of the below information if they have not been sent ClearMyMail appt reminder: [facility] functions as a referral service. You will have an initial visit as well as one follow-up visit in which all [facility] testing, imaging, and labs will be discussed. From there on it is expected that you continue to follow up with your PCP and the specialist(s) established through this program. 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 COVID [facility] intake team is not able to assist with disability requests, including work restrictions or clearances as we do not do active treatment and management of long-COVID symptoms, and are not actively involved in long-term care after your 2 visits. Your primary care provider and the consulted specialists we discuss during our visit(s) are better suited for assisting with disability requests. Those providers are welcome use our office note and testing to help support their plans of care. Patients will be expected to have labs, testing, and consults done through [facility]; we cannot fax orders to outside facilities, and do not have access to outside providers. Please be prepared that you may need to travel to [place] multiple times to get all testing done and see the consulted specialist(s). Please arrive 15 minutes early to your appointment. If you are more than 10 minutes late to your appointment you may be asked to reschedule. One week prior to your appointment you should pre-check in via ClearMyMail to complete questionnaires that will provide valuable information to your provider to aid in your visit. You may receive a telephone call to remind you if we see they have not been completed in advance of your visit. If you have outside testing you would like to be entered into your chart, please fax it to [phone]. Records brought in same day of visit may not be reviewed until after the visit due to time constraints. *FYI Current [facility] states are [place], [place], [place], and [place] as of 12/2023. This means patients can only be seen in-person for consults AND follow-ups due to state laws. Sunita Harris RN 10/19/2024 9:29 AM Signed Addended by: SUNITA HARRIS on: 10/19/2024 09:29 AM Modules accepted: Orders Allergies As of Date: 10/18/2024 (No Known Allergies) Date Reviewed: 10/07/2022 Reviewed by: Yadi Kessler MA - Fully Assessed Reason for Visit: Intake [[id number]] Cmt: [facility] pre-visit phone call Prescriptions as of 10/19/2024 - losartan (COZAAR) 50 mg tablet Take 25 mg by mouth once daily. - ascorbic acid/collagen hydr (COLLAGEN SKIN RENEWAL ORAL) Take by mouth once daily. - TURMERIC ORAL Take by mouth once daily. - ZINC ORAL Take by mouth once daily. - guaiFENesin (MUCINEX) 600 mg 12 hr tablet Take 2 tablets by mouth twice daily. - CYANOCOBALAMIN, VITAMIN B-12, (VITAMIN B-12 ORAL) Take by mouth. - omeprazole (PRILOSEC) 10 mg capsule Take 20 mg by mouth once daily. - DULoxetine (CYMBALTA) 20 mg capsule Take 60 mg by mouth once daily. - traZODone (DESYREL) 50 mg tablet Take 25 mg by mouth daily at bedtime. - UBIDECARENONE/VITAMIN E MIXED (COQ10 SG 100 ORAL) Take by mouth. - RED YEAST RICE ORAL Take by mouth. - CHOLECALCIFEROL, VITAMIN D3, (VITAMIN D-3 ORAL) Take by mouth. - rosuvastatin calcium(CRESTOR 40 MG TAB) Take one tablet daily. - omega-3 fatty acids/vitamin e(FISH OIL 1,000 MG CAP) Take one tablet two times daily. - metoprolol succinate(TOPROL XL 25 MG 24 HR TAB) Take 25 mg by mouth once daily. - CALCIUM 500 MG TAB Take one(1) tablet twice daily. - VITAMIN E 400 UNIT CAP Take one(1) tablet twice daily. Problem List As Of Date (more content not included)... Normal [facility] Coronary Angiography CTon Coronary Angiography CT Normal [facility] Limited Chest CT Cardiac Onl yon 10-17-[address] Cardiac Only Normal [facility] HLA B27on 09-15-2024 HLA B27 Negative Normal . [facility] Comment on above: Result Comment: HLA- B*27 ZhvlwaqgT03 allele interpretation for all loci based on IMGT/HLAdatabase version 3.58This test was developed and its performance characteristicsdetermined by [employer]. It has not been cleared or approvedby the Food and Drug Administration.The FDA has determined that such clearance or approval isnot necessary.[facility] CLIA ID Number [id number] test was performed using Polymerase Chain Reaction(PCR) and Sequence Specific Oligonucleotide Probes (SSOP)technique. Sequence Based Typing (SBT) may be used as asupplemental method when necessary.If you have questions, please call [address] customer serviceat or email at [email or web address].Performed at: [facility] [id number] [place], [place] [id number] Director: Beatriz Mccollum LD, Phone: [phone] Performed By: #### L 503.0106, L3410.1400, L500.4100, L501.5200, L506.1001, L3100.5475, L501.9520, L505.7010, L101.9900, L501.6710 ####[facility] [address] [place], [address] ANTINUCLEAR ANTIBODIES DIREC Ton 09-08-2024 DARRON,DIRECT Negative Normal Negative [facility] Comment on above: Result Comment: Perf ormed at: - [facility] [id number] Director: Priyank Muller PhD, Phone: [phone] Performed By: #### L 503.0106, L3410.1400, L500.4100, L501.5200, L506.1001, L3100.5475, L501.9520, L505.7010, L101.9900, L501.6710 ####[facility] [address] [place], [address] DARRON serumOrdered By: María Cintron on 09-07-2024 Anti-Nuclear Antibody Screen Negative Negative [facility] Comment on above: Performed at: [place] [id number] Director: Priyank Muller PhD, Phone: [phone] CRPon 09-07-2024 C-REACTIVE PROT < 3.00 Normal 0.0-3.0 [facility] Comment on above: Performed By: #### L 503.0106, L3410.1400, L500.4100, L501.5200, L506.1001, L3100.5475, L501.9520, L505.7010, L101.9900, L501.6710 ####[facility] [address] [place], [address] CRP [Mass/Vol]Ordered By: Bal Cintron on 09-07-2024 C-Reactive Protein Extended Range < 3.00 mg/L 0.0-3.0 [facility] Calculated very low density lipoprotein (VLDL) cholesterol measurementOrdered By: María Cintron on 09-07-2024 Calculated very low density lipoprotein (VLDL) cholesterol measurement 10 mg/dL 5-40 [facility] VLDL Cholesterol 10 mg/dL 5-40 [facility] Erythrocyte Sed Rateon 09-07 SED RATE 9 mm/hr Normal 0-30 [facility] Comment on above: Performed By: #### L 503.0106, L3410.1400, L500.4100, L501.5200, L506.1001, L3100.5475, L501.9520, L505.7010, L101.9900, L501.6710 ####[facility] [address] [place], [address] Erythrocyte sedimentation ra teOrdered By: María Cintron on 09-07-2024 ESR (Bld) [Velocity] 9 mm/h 0-30 [facility] LDL calc ser/plasOrdered By: María Cintron on 09-07-2024 Cholesterol in LDL [Mass/Vol] 87 mg/dL [facility] Comment on above: Rsoyvtvvdg=978-978 m g/dL & Higher Jeig=185 mg/dL or greater LDL Cholesterol, Calculated 87 mg/dL [facility] Comment on above: Fmrncxltmd=126-057 m g/dL & Higher Ocqn=258 mg/dL or greater Lipid Profileon 09-07-2024 CHOL:HDL 2.30 Normal [facility] Comment on above: Performed By: #### L 503.0106, L3410.1400, L500.4100, L501.5200, L506.1001, L3100.5475, L501.9520, L505.7010, L101.9900, L501.6710 ####[facility] [address] [place], [place], [phone]) Cholesterol [Mass/Vol] 172 mg/dL Normal <=200 [facility] Comment on above: Result Comment: Chol esterol level, Desirable <200 mg/dLBorderline high cholesterol 200-239 mg/dLHigh cholesterol >=240 mg/dLRecommendations of the NCEP Adult Treatment Panel for thefollowing risk-cutoff thresholds for the [place] Americanpulation. Performed By: #### L 503.0106, L3410.1400, L500.4100, L501.5200, L506.1001, L3100.5475, L501.9520, L505.7010, L101.9900, L501.6710 ####[facility] [address] [place], [place], [phone] Cholesterol in HDL [Mass/Vol] 75 mg/dL Normal [facility] Comment on above: Result Comment: Tracee onal Cholesterol Education Program (NCEP) guidelines:<40 mg/dL: Low HDL-cholesterol (major risk factor for CHD)>= 60 mg/dL: High HDL-cholesterol (negative risk factor forCHD)HDL-cholesterol is affected by a number of factors, e.g.smoking, exercise, hormones, sex and age. Performed By: #### L 503.0106, L3410.1400, L500.4100, L501.5200, L506.1001, L3100.5475, L501.9520, L505.7010, L101.9900, L501.6710 ####[facility] [address] [place], [address] Cholesterol in LDL [Mass/Vol] 87 mg/dL Normal [facility] Comment on above: Result Comment: Bord mburdk=545-206 mg/dL Higher Zisl=752 mg/dL or greater Performed By: #### L 503.0106, L3410.1400, L500.4100, L501.5200, L506.1001, L3100.5475, L501.9520, L505.7010, L101.9900, L501.6710 ####[facility] [address] [place], [address] Cholesterol in VLDL [Mass/Vol] 10 mg/dL Normal 5-40 [facility] Comment on above: Performed By: #### L 503.0106, L3410.1400, L500.4100, L501.5200, L506.1001, L3100.5475, L501.9520, L505.7010, L101.9900, L501.6710 ####[facility] [address] [place], [address] Triglyceride [Mass/Vol] 52 mg/dL Normal [facility] Comment on above: Result Comment: The drugs N-Acetylcysteine and Metamizole may falselydepress this assay.Normal range: <150 mg/dLBorderline High: 150-199 mg/dLHigh: 200-499 mg/dLVery High: >500 mg/dL Performed By: #### L 503.0106, L3410.1400, L500.4100, L501.5200, L506.1001, L3100.5475, L501.9520, L505.7010, L101.9900, L501.6710 ####[facility] [address] [place], [address] Magnesiumon 09-07-2024 Magnesium [Mass/Vol] 1.9 mg/dL Normal 1.5-2.2 [facility] Comment on above: Performed By: #### L 503.0106, L3410.1400, L500.4100, L501.5200, L506.1001, L3100.5475, L501.9520, L505.7010, L101.9900, L501.6710 ####[facility] [address] [place], [address] Magnesium (Unsp spec) [Mass/ Vol]Ordered By: María Cintron on 09-07-2024 Magnesium [Mass/Vol] 1.9 mg/dL 1.5-2.2 [facility] Magnesium measurement (mass/ volume)Ordered By: María Cintron on 09-07-2024 Magnesium (Unsp spec) [Mass/Vol] 1.9 mg/dL 1.5-2.2 [facility] Rheumatoid Factoron 09-08-19 RHEUMATOID FAC < 10.0 Normal <15 [facility] Comment on above: Performed By: #### L 503.0106, L3410.1400, L500.4100, L501.5200, L506.1001, L3100.5475, L501.9520, L505.7010, L101.9900, L501.6710 ####[facility] [address] [place], [address] Rheumatoid factor Ql (S)Orde red By: María Cintron on 09-07-2024 Rheumatoid Factor < 10.0 IU/mL <15 [facility] Screening total cholesterol/ high density lipoprotein (HDL) cholesterol ratioOrdered By: María Cintron on 09-07-2024 Cholesterol.total/Chol esterol in HDL [Mass ratio] 2.30 {ratio} [facility] Serum or plasma C reactive p rotein measurement (mass/volume)Ordered By: María Cintron on 09-07-2024 CRP [Mass/Vol] mg/L 0.0-3.0 [facility] Serum or plasma cholesterol in HDL measurement (mass/volume)Ordered By: María Cintron on 09-07-2024 Cholesterol in HDL [Mass/Vol] 75 mg/dL >40 [facility] Comment on above: National Cholesterol Education Program (NCEP) guidelines:<40 mg/dL: Low HDL-cholesterol (major risk factor for CHD)>= 60 mg/dL: High HDL-cholesterol (negative risk factor for CHD)HDL-cholesterol is affected by a number of factors, e.g. smoking, exercise, hormones, sex and age. Serum or plasma cholesterol measurement (mass/volume)Ordered By: María Cintron on 09-07-2024 Cholesterol [Mass/Vol] 172 mg/dL <201 [facility] Comment on above: Cholesterol level, D esirable <200 mg/dLBorderline high cholesterol 200-239 mg/dLHigh cholesterol >=240 mg/dLRecommendations of the NCEP Adult Treatment Panel for the following risk-cutoff thresholds for the [place] population. Serum rheumatoid factor dete ctionOrdered By: María Cintron on 09-07-2024 Rheumatoid factor Ql (S) < 10.0 IU/mL <15 [facility] TSH DL <= 0.005 mIU/L QnOrde red By: María Cintron on 09-07-2024 Thyroid Stimulating Hormone (TSH) 0.991 uIU/mL 0.300-4.20 0 [facility] TSH Qn 0.991 uIU/mL 0.300-4.20 0 [facility] Thyroid Stim Hormone (TSH)on 09-07-2024 TSH 0.991 uIU/mL Normal 0.300-4.20 0 [facility] Comment on above: Performed By: #### L 503.0106, L3410.1400, L500.4100, L501.5200, L506.1001, L3100.5475, L501.9520, L505.7010, L101.9900, L501.6710 ####[facility] [address] [place], [place], [id number] Triglycerides measurementOrd ered By: María Cintron on 09-07-2024 Triglyceride [Mass/Vol] 52 mg/dL <199 [facility] Comment on above: The drugs N-Acetylcy steine and Metamizole may falsely depress this assay. Normal range: <150 mg/dLBorderline High: 150-199 mg/dLHigh: 200-499 mg/dLVery High: >500 mg/dL Vitamin B12on 09-07-2024 Cobalamin (Vitamin B12) [Mass/Vol] 475 pg/mL Normal 180-914 [facility] Comment on above: Performed By: #### L 503.0106, L3410.1400, L500.4100, L501.5200, L506.1001, L3100.5475, L501.9520, L505.7010, L101.9900, L501.6710 ####[facility] [address], [address] Vitamin B12 ser/plasOrdered By: María Cintron on 09-07-2024 Cobalamin (Vitamin B12) [Mass/Vol] 475 pg/mL 180-914 [facility] Vitamin D, 25-hydroxyOrdered By: María Cintron on 09-07-2024 Vitamin D 25-Hydroxy 67.0 ng/mL 30-100 [facility] Comment on above: Vitamin D StatusDefi ciency: <20 ng/mL (50nmol/L)Insufficiency: 20-30 ng/mL (50-75 nmol/L)Sufficiency: 30-100 ng/mL (75-250 nmol/L)Toxicity: >100 ng/mL (>250 nmol/L) Vitamin D,25 Hydroxyon 09-07 Vitamin D 25-OH 67.0 ng/mL Normal 30-100 [facility] Comment on above: Result Comment: Shonda min D StatusDeficiency: <20 ng/mL (50nmol/L)Insufficiency: 20-30 ng/mL (50-75 nmol/L)Sufficiency: 30-100 ng/mL (75-250 nmol/L)Toxicity: >100 ng/mL (>250 nmol/L) Performed By: #### L 503.0106, L3410.1400, L500.4100, L501.5200, L506.1001, L3100.5475, L501.9520, L505.7010, L101.9900, L501.6710 ####[facility] [address] [place], [address] Knee 3 Viewson 08-21-2024 Knee 3 Views Normal [facility] Knee 4 or More Viewson 08-21 Knee 4 or More Views Normal [facility] Orthopedic Visit Reporton Orthopedic Visit Report Normal [facility] 12 Lead EKG performed by BMS on 08-18-2024 12 Lead EKG performed by BMS Normal [facility] Absolute lymphocyte countOrd ered By: Sue Macdonald on 08-18-2024 Lymphocytes Auto (Unsp spec) [#/Vol] 2.31 10*3/uL 0.83-4.51 [facility] Absolute neutrophil countOrd ered By: Sue Macdonald on 08-18-2024 Neutrophils (Bld) [#/Vol] 4.0 10*3/uL 2.0-7.7 [facility] Anion gap in Serum or Plasma Ordered By: Sue Macdonald on 08-18-2024 Anion gap [Moles/Vol] 12 mmol/L 5- [facility] Automated lymphocyte count a s percentage of total leukocytesOrdered By: Sue Macdonald on 08-18-2024 Lymphocytes/100 WBC Auto (Unsp spec) 33.1 % - [facility] BUN/creatinine ratioOrdered By: Sue Macdonald on 08-18-2024 Urea nitrogen/Creatinine [Mass ratio] 21.6 mg/mg High 03-26 [facility] Basic Metabolic Profile (BMP )on 08-18-2024 BUN/CRE 21.6 RATIO High 03-26 [facility] Comment on above: Performed By: #### L 500.2500, L100.0100 ####[facility] [address] [place], [address] Calcium [Mass/Vol] 9.5 mg/dL Normal 7.6-11.0 [facility] Comment on above: Performed By: #### L 500.2500, L100.0100 ####[facility] [address] [place], [address] Chloride [Moles/Vol] 98 mmol/L Normal 98-108 [facility] Comment on above: Performed By: #### L 500.2500, L100.0100 ####[facility] [address] [place], [address] CO2 [Moles/Vol] 23.6 mmol/L Normal 21.0-32.0 [facility] Comment on above: Performed By: #### L 500.2500, L100.0100 ####[facility] [address] [place], [address] Creatinine [Mass/Vol] 0.74 mg/dL Normal 0.70-1.20 [facility] Comment on above: Performed By: #### L 500.2500, L100.0100 ####[facility] [address] [place], [address] GAP 12 Normal 5-15 [facility] Comment on above: Performed By: #### L 500.2500, L100.0100 ####[facility] [address] [place], [address] GFR/1.73 sq M.predicted among non-blacks MDRD (S/P/Bld) [Vol rate/Area] 86 mL/min/{1.73_m2} Normal >60 [facility] Comment on above: Result Comment: mL/m in/1.73m2 CKD-EPI Creatinine Equation (2020) Performed By: #### L 500.2500, L100.0100 ####[facility] [address] [place], [address] Glucose [Mass/Vol] 93 mg/dL Normal 70-99 [facility] Comment on above: Performed By: #### L 500.2500, L100.0100 ####[facility] [address] [place], [address] Potassium [Moles/Vol] 4.1 mmol/L Normal 3.3-5.1 [facility] Comment on above: Performed By: #### L 500.2500, L100.0100 ####[facility] [address] [place], [address] Sodium [Moles/Vol] 133 mmol/L Normal 133-145 [facility] Comment on above: Performed By: #### L 500.2500, L100.0100 ####[facility] [address] [place], [address] Urea nitrogen [Mass/Vol] 16 mg/dL Normal 4-19 [facility] Comment on above: Performed By: #### L 500.2500, L100.0100 ####[facility] [address] [place], [address] Basophil percentageOrdered B y: Sue Macdonald on 08-18-2024 Basophils/100 WBC (Bld) 0.6 % 0-1 [facility] CBC W/Diff, Automatedon 08-05 Absolute Lymph 2.31 X10 3/uL Normal 0.83-4.51 [facility] Comment on above: Performed By: #### L 500.2500, L100.0100 ####[facility] [address] [place], [address] Absolute Neut 4.0 X10 3/uL Normal 2.0-7.7 [facility] Comment on above: Performed By: #### L 500.2500, L100.0100 ####[facility] [address] [place], [address] Basophils/100 WBC (Bld) 0.6 % Normal 0-1 [facility] Comment on above: Performed By: #### L 500.2500, L100.0100 ####[facility] [address] [place], [address] Eosinophils/100 WBC (Bld) 1.4 % Normal 0-5 [facility] Comment on above: Performed By: #### L 500.2500, L100.0100 ####[facility] [address] [place], [address] Erythrocyte distribution width (RBC) [Ratio] 13.1 % Normal 11.6-14.6 [facility] Comment on above: Performed By: #### L 500.2500, L100.0100 ####[facility] [address] [place], [address] Hematocrit (Bld) [Volume fraction] 35.8 % Low 37-47 [facility] Comment on above: Performed By: #### L 500.2500, L100.0100 ####[facility] [address] [place], [address] Hemoglobin (Bld) [Mass/Vol] 11.6 g/dL Low 12.0-15.0 [facility] Comment on above: Performed By: #### L 500.2500, L100.0100 ####[facility] [address] [place], [address] IG% 0.100 Normal 0.0-0.9 [facility] Comment on above: Result Comment: IG% - Immature Granulocytes (promyelocytes, myelocytes andmetamyelocytes) > 1% indicates that a LEFT SHIFT is Present. Performed By: #### L 500.2500, L100.0100 ####[facility] [address] [place], [address] Lymphocytes/100 WBC (Bld) 33.1 % Normal 19-41 [facility] Comment on above: Performed By: #### L 500.2500, L100.0100 ####[facility] [address] [place], [address] MCH (RBC) [Entitic mass] 29.0 pg Normal 27.0-32.0 [facility] Comment on above: Performed By: #### L 500.2500, L100.0100 ####[facility] [address] [place], [address] MCHC (RBC) [Mass/Vol] 32.4 g/dL Normal 32-36 [facility] Comment on above: Performed By: #### L 500.2500, L100.0100 ####[facility] [address] [place], [address] MCV (RBC) [Entitic vol] 89.5 fL Normal 81-99 [facility] Comment on above: Performed By: #### L 500.2500, L100.0100 ####[facility] [address] [place], [address] Monocytes/100 WBC (Bld) 8.0 % Normal 0-10 [facility] Comment on above: Performed By: #### L 500.2500, L100.0100 ####[facility] [address] [place], [address] Neutrophils/100 WBC (Bld) 56.8 % Normal 47-70 [facility] Comment on above: Performed By: #### L 500.2500, L100.0100 ####[facility] [address] [place], [address] Nucleated RBC (Bld) [#/Vol] 0 10*3/uL Normal 0-5 [facility] Comment on above: Performed By: #### L 500.2500, L100.0100 ####[facility] [address] [place], [address] Platelet mean volume (Bld) [Entitic vol] 9.1 fL Normal 6.2-12.0 [facility] Comment on above: Performed By: #### L 500.2500, L100.0100 ####[facility] [address] [place], [address] Platelets (Bld) [#/Vol] 351 10*3/uL Normal 150-450 [facility] Comment on above: Performed By: #### L 500.2500, L100.0100 ####[facility] [address] [place], [address] RBC (Bld) [#/Vol] 4.00 10*6/uL Low 4.2-5.4 [facility] Comment on above: Performed By: #### L 500.2500, L100.0100 ####[facility] [address] [place], [address] RDW SD 42.9 fl Normal 35.1-43.9 [facility] Comment on above: Performed By: #### L 500.2500, L100.0100 ####[facility] [address] [place], [address] WBC (Bld) [#/Vol] 7.0 10*3/uL Normal 4.4-11.0 [facility] Comment on above: Performed By: #### L 500.2500, L100.0100 ####[facility] [address] [place], [address] Carbon dioxide, total [Moles /volume] in Central venous bloodOrdered By: Sue Macdonald on 08-18-2024 CO2 [Moles/Vol] 23.6 mmol/L 21.0-32.0 [facility] Cardiology Visit Reporton Cardiology Visit Report Normal [facility] Chest PA and Lateralon 08-18 Chest PA and Lateral Normal [facility] Chloride assayOrdered By: Stella Macdonald on 08-18-2024 Chloride [Moles/Vol] 98 mmol/L 98-108 [facility] Eosinophil percentageOrdered By: Sue Macdonald on 08-18-2024 Eosinophils/100 WBC (Bld) 1.4 % 0-5 [facility] Erythrocyte distribution wid th ratioOrdered By: Sue Macdonald on 08-18-2024 Erythrocyte distribution width (RBC) [Ratio] 13.1 % 11.6-14.6 [facility] Erythrocyte distribution wid th standard deviationOrdered By: Sue Macdonald on 08-18-2024 Erythrocyte distribution width (RBC) [Entitic vol] 42.9 fL 35.1-43.9 [facility] Erythrocyte distribution width (RBC) [Ratio] 42.9 fl 35.1-43.9 [facility] GFR/1.73 sq M.predicted hannah g non-blacks MDRD (S/P/Bld) [Vol rate/Area]Ordered By: Sue Macdonadl on 08-18-2024 Estimated GFR (MDRD) Non-Af Amer 86 >60 [facility] Comment on above: mL/min/1.73m2 CKD-EP I Creatinine Equation (2020) Glomerular filtration rate ( GFR) estimation/1.73 sq m using serum, plasma, or whole bOrdered By: Sue Macdonald on 08-18-2024 GFR/1.73 sq M.predicted among non-blacks MDRD (S/P/Bld) [Vol rate/Area] 86 mL/min/{1.73_m2} >60 [facility] Comment on above: mL/min/1.73m2 CKD-EP I Creatinine Equation (2020) Hematocrit Auto (Bld) [Volum e fraction]Ordered By: Sue Macdonald on 08-18-2024 Hematocrit (Bld) [Volume fraction] 35.8 % Low 37-47 [facility] Hemoglobin measurementOrdere d By: Sue Macdonald on 08-18-2024 Hemoglobin (Bld) [Mass/Vol] 11.6 g/dL Low 12.0-15.0 [facility] Immature granulocytes/100 WB C Auto (Bld)Ordered By: Sue Macdonald on 08-18-2024 Immature granulocytes/100 WBC (Bld) 0.100 % 0.0-0.9 [facility] Comment on above: IG% - Immature Granu locytes (promyelocytes, myelocytes and metamyelocytes) > 1% indicates that a LEFT SHIFT is Present. Lymphocytes Auto (Unsp spec) [#/Vol]Ordered By: Sue Macdonald on 08-18-2024 Lymphocytes (Bld) [#/Vol] 2.31 10*3/uL 0.83-4.51 [facility] Lymphocytes/100 WBC Auto (Un sp spec)Ordered By: Sue Macdonald on 08-18-2024 Lymphocytes/100 WBC (Bld) 33.1 % 19-41 [facility] MCV (mean corpuscular volume ) determinationOrdered By: Sue Macdonald on 08-18-2024 MCV (RBC) [Entitic vol] 89.5 fL 81-99 [facility] Mean corpuscular hemoglobin (MCH) determinationOrdered By: Sue Macdonald on 08-18-2024 MCH (RBC) [Entitic mass] 29.0 pg 27.0-32.0 [facility] Mean corpuscular hemoglobin concentration (MCHC) determinationOrdered By: Sue Macdonald on 08-18-2024 MCHC (RBC) [Mass/Vol] 32.4 g/dL 32-36 [facility] Mean platelet volume determi nationOrdered By: Sue Macdonald on 08-18-2024 Platelet mean volume (Bld) [Entitic vol] 9.1 fL 6.2-12.0 [facility] Monocyte percentageOrdered B y: Sue Macdonald on 08-18-2024 Monocytes/100 WBC (Bld) 8.0 % 0-10 [facility] Neutrophil percentageOrdered By: Sue Macdonald on 08-18-2024 Neutrophils/100 WBC (Bld) 56.8 % 47-70 [facility] Nucleated red blood cell per centageOrdered By: Sue Macdonald on 08-18-2024 Nucleated RBC/100 WBC (Bld) [Ratio] 0 % 0-5 [facility] Platelet countOrdered By: Stella Macdonald on 08-18-2024 Platelets (Bld) [#/Vol] 351 10*3/uL 150-450 [facility] Potassium (Unsp spec) [Mass/ Vol]Ordered By: Sue Macdonald on 08-18-2024 Potassium [Moles/Vol] 4.1 mmol/L 3.3-5.1 [facility] Potassium measurement (mass/ volume)Ordered By: Sue Macdonald on 08-18-2024 Potassium (Unsp spec) [Mass/Vol] 4.1 mmol/L 3.3-5.1 [facility] RBC Auto (Bld) [#/Vol]Ordere d By: Sue Macdonald on 08-18-2024 RBC (Bld) [#/Vol] 4.00 10*6/uL Low 4.2-5.4 [facility] Serum creatinine measurement (mass/volume)Ordered By: Sue Macdonald on 08-18-2024 Creatinine [Mass/Vol] 0.74 mg/dL 0.70-1.20 [facility] Serum glucose measurement (m ass/volume)Ordered By: Sue Macdonald on 08-18-2024 Glucose [Mass/Vol] 93 mg/dL 70-99 [facility] Serum or plasma calcium paulina urement (mass/volume)Ordered By: Sue Macdonald on 08-18-2024 Calcium [Mass/Vol] 9.5 mg/dL 7.6-11.0 [facility] Serum or plasma urea nitroge n measurement (mass/volume)Ordered By: Sue Macdonald on 08-18-2024 Urea nitrogen [Mass/Vol] 16 mg/dL 4-19 [facility] Sodium levelOrdered By: Krish Macdonald on 08-18-2024 Sodium [Moles/Vol] 133 mmol/L 133-145 [facility] White blood cell (WBC) count Ordered By: Sue Macdonald on 08-18-2024 WBC (Bld) [#/Vol] 7.0 10*3/uL 4.4-11.0 [facility] Nasopharyngeal Cultureon NAC Normal [facility] Comment on above: Performed By: #### M 100.2000, M100.2500 ####[facility] [address] [place], [address] Gram Stainon 2024 GS Gram Stain 2+ Epithelial cells Rare White Blood Cells No organisms seen Normal [facility] Comment on above: Performed By: #### M 100.2000, M100.2500 ####[facility] [address] [place], [address] Gram stainOrdered By: Jeff Ngo on 07-28-2024 Microscopic observation Gram stain Nom (Unsp spec) [facility] Nasopharyngeal cultureOrdere d By: Bartolo Ngo on 07-28-2024 Nasopharyngeal Culture Staphylococcus aureus Abnormal [facility] EGD Reporton 07-11-2024 EGD Report Normal [facility] H Pylori (initial)on 025 H Pylori (initial) Normal [facility] Comment on above: Performed By: #### P H.PYLORI ####[facility] [address] [place], [address] MR/POSTOP.ANEon 07-11-2024 MR/POSTOP.ANE Normal [facility] [facility] MR/[id number] 07-11-2024 MR/POSTOPAN2 Normal [facility] Surgery Specimen Level Roque 07-11-2024 Surgery Specimen Level IV Normal [facility] Comment on above: Performed By: #### P SUIV ####[facility] [address] [place], [address] MR/PAT.ANEon 07-07-2024 MR/PAT.ANE Normal [facility] PT D/C Summary (1)on 025 PT D/C Summary (1) Normal [facility] Surgery Visit Reporton 06-19 Surgery Visit Report Normal [facility] Orthopedic Visit Reporton Orthopedic Visit Report Normal [facility] Re-Evaluation - PT (1)on Re-Evaluation - PT (1) Normal [facility] Discharge Instructionon 05-07 Discharge Instruction Normal [facility] MR/POSTOP.ANEon 05-23-2024 MR/POSTOP.ANE Normal [facility] MR/[id number] 05-23-2024 MR/POSTOPAN2 Normal [facility] Operative Reporton Operative Report Normal [facility] MR/PAT.ANEon 05-19-2024 MR/PAT.ANE Normal [facility] Knee 3 Viewson 05-17-2024 Knee 3 Views Normal [facility] Orthopedic Visit Reporton Orthopedic Visit Report Normal [facility] Bacteria Ur Culton Bacteria identified Cx Nom (U) ORGANISM ID: 1 10,000 -<50,000 CFU/ml Normal urogenital isabel Normal [facility] Comment on above: Performed By: #### 6 30-4 #### [facility] CLIA [id number] [address] [place] [address] [place] CTA Chest W/WO Contraston CTA Chest W/WO Contrast Normal [facility] URINALYSIS, DIPSTICK ONLYon 05-12-2024 Bilirubin Ql (U) Negative Normal Negative [facility] Comment on above: Order Comment: Speci men Type: URINE SPECIMEN Ordering Facility: [facility] Address: [address] [place] [address] Performed By: #### U A #### [facility] CLIA [id number] [address] [place] [address] [place] Clarity (Unsp spec) Clear Normal Clear [facility] Comment on above: Order Comment: Speci men Type: URINE SPECIMEN Ordering Facility: [facility] Address: [address] [place] [address] Performed By: #### U A #### [facility] CLIA [id number] [address] [place] [address] [place] Color (U) Yellow Normal Yellow [facility] Comment on above: Order Comment: Speci men Type: URINE SPECIMEN Ordering Facility: [facility] Address: [address] [place] [address] Performed By: #### U A #### [facility] CLIA [id number] [address] [id number] [place] Glucose Test strip (U) [Mass/Vol] Negative Normal Negative [facility] Comment on above: Order Comment: Speci men Type: URINE SPECIMEN Ordering Facility: [facility] Address: [address] [place] [address] Performed By: #### U A #### [facility] CLIA [id number] [address] [place] [address] [place] Hemoglobin Ql (U) Negative Normal Negative [facility] Comment on above: Order Comment: Speci men Type: URINE SPECIMEN Ordering Facility: [facility] Address: [address] [place] [address] Performed By: #### U A #### [facility] CLIA [id number] [address] [place] [address] [place] Ketones Ql (U) Negative Normal Negative [facility] Comment on above: Order Comment: Speci men Type: URINE SPECIMEN Ordering Facility: [facility] Address: [address] [place] [address] Performed By: #### U A #### [facility] CLIA [id number] [address] [place] [address] [place] Leukocyte esterase Test strip Ql (U) 2+ Abnormal Negative [facility] Comment on above: Order Comment: Speci men Type: URINE SPECIMEN Ordering Facility: [facility] Address: [address] [place] [address] Performed By: #### U A #### [facility] CLIA [id number] [address] [place] [address] [place] Nitrite Ql (U) Negative Normal Negative [facility] Comment on above: Order Comment: Speci men Type: URINE SPECIMEN Ordering Facility: [facility] Address: [address] [place] [address] Performed By: #### U A #### [facility] CLIA [id number] [address] [place] [address] [place] pH (U) 7.0 [pH] Normal <8.5 [facility] Comment on above: Order Comment: Speci men Type: URINE SPECIMEN Ordering Facility: [facility] Address: [address] [place] [address] Performed By: #### U A #### [facility] CLIA [id number] [facility] [place] [address] [place] Protein (U) [Mass/Vol] Negative Normal Negative [facility] Comment on above: Order Comment: Speci men Type: URINE SPECIMEN Ordering Facility: [facility] Address: [address] [place] [address] Performed By: #### U A #### [facility] CLIA [id number] [address] [place] [address] [place] Specific gravity (U) [Rel density] 1.008 Normal 1.005-1.03 0 [facility] Comment on above: Order Comment: Speci men Type: URINE SPECIMEN Ordering Facility: [facility] Address: [address] [place] [address] Performed By: #### U A #### [facility] CLIA [id number] [address] [place] [address] [place] Urobilinogen Ql (U) 0.2 EU/dL Normal 0.2-1.0 EU/dL [facility] Comment on above: Order Comment: Speci men Type: URINE SPECIMEN Ordering Facility: [facility] Address: [address] [place] [address] Performed By: #### U A #### [facility] CLIA [id number] [address] [place] [address] [place] 12 Lead EKG performed by BMS on 05-11-2024 12 Lead EKG performed by BMS Normal [facility] Cardiology Visit Reporton Cardiology Visit Report Normal [facility] Lower GI hemoglobin IA Ql (S tl)Ordered By: María Cintron on 05-06-2024 Stool Occult Blood (ZHANNA) [facility] Stool Occult Blood iFOBon STOB Negative Normal [facility] Comment on above: Performed By: #### M 100.4100 ####[facility] [address] [place], [address] Absolute neutrophil countOrd ered By: María Cintron on 05-05-2024 Neutrophils (Bld) [#/Vol] 3.9 10*3/uL 2.0-7.7 [facility] Albumin to globulin ratioOrd ered By: María Cintron on 05-05-2024 Albumin/Globulin [Mass ratio] 1.0 {ratio} 0.9-2.4 [facility] Basophil percentageOrdered B y: María Cintron on 05-05-2024 Basophils/100 WBC (Bld) 1.1 % High 0-1 [facility] Bilirubin Test strip Ql (U)O rdered By: María Cintron on 05-05-2024 Bilirubin Ql (U) Negative Negative [facility] Bilirubin, totalOrdered By: María Cintron on 05-05-2024 Bilirubin [Mass/Vol] 0.50 mg/dL 0.20-1.00 [facility] Comment on above: For patients on eltr ombopag therapy, use of Dimension [place] TBIL is not recommended. Blood urea nitrogen (BUN)/cr eatinine ratioOrdered By: María Cintron on 05-05-2024 Urea nitrogen/Creatinine [Mass ratio] 13.0 mg/mg 10-20 [facility] C-reactive protein measureme nt by high sensitivity methodOrdered By: María Cintron on 05-05-2024 C-Reactive Protein Extended Range < 2.90 mg/L 0.0-3.0 [facility] Comment on above: C-Reactive Protein ( CRP) provides useful information for thediagnosis, therapy and monitoring of inflammatory processesand associated diseases. For the evaluation of Relative Riskfor Cardiovascular Disease, a High Sensitivity CRP (HSCRP)should be ordered. CBC W/Diff, Automatedon 11-2 Absolute Lymph 0.87 X10 3/uL Normal 0.83-4.51 [facility] Comment on above: Performed By: #### L 100.0100, L400.2010, L500.4050, L101.9900, L501.6710 ####[facility] [address] [place], [address] Absolute Neut 3.9 X10 3/uL Normal 2.0-7.7 [facility] Comment on above: Performed By: #### L 100.0100, L4, L500.4050, L101.9900, L501.6710 ####[facility] [address] [place], [address] Basophils/100 WBC (Bld) 1.1 % High 0-1 [facility] Comment on above: Performed By: #### L 100.0100, L4, L500.4050, L101.9900, L501.6710 ####[facility] [address] [place], [address] Eosinophils/100 WBC (Bld) 1.5 % Normal 0-5 [facility] Comment on above: Performed By: #### L 100.0100, L4, L500.4050, L101.9900, L501.6710 ####[facility] [address] [place], [address] Erythrocyte distribution width (RBC) [Ratio] 12.7 % Normal 11.6-14.6 [facility] Comment on above: Performed By: #### L 100.0100, L400.2010, L500.4050, L101.9900, L501.6710 ####[facility] [address] [place], [address] Hematocrit (Bld) [Volume fraction] 35.8 % Low 37-47 [facility] Comment on above: Performed By: #### L 100.0100, L4, L500.4050, L101.9900, L501.6710 ####[facility] [address] [place], [address] Hemoglobin (Bld) [Mass/Vol] 11.4 g/dL Low 12.0-15.0 [facility] Comment on above: Performed By: #### L 100.0100, L4, L500.4050, L101.9900, L501.6710 ####[facility] [address] [place], [address] IG% 0.200 Normal 0.0-0.9 [facility] Comment on above: Result Comment: IG% - Immature Granulocytes (promyelocytes, myelocytes andmetamyelocytes) > 1% indicates that a LEFT SHIFT is Present. Performed By: #### L 100.0100, L4, L500.4050, L101.9900, L501.6710 ####[facility] [address] [place], [address] Lymphocytes/100 WBC (Bld) 16.1 % Low 19-41 [facility] Comment on above: Performed By: #### L 100.0100, L4, L500.4050, L101.9900, L501.6710 ####[facility] [address] [place], [address] MCH (RBC) [Entitic mass] 29.4 pg Normal 27.0-32.0 [facility] Comment on above: Performed By: #### L 100.0100, L4.2010, L500.4050, L101.9900, L501.6710 ####[facility] [address] [place], [address] MCHC (RBC) [Mass/Vol] 31.8 g/dL Low 32-36 [facility] Comment on above: Performed By: #### L 100.0100, L4.2010, L500.4050, L101.9900, L501.6710 ####[facility] [address] [place], [address] MCV (RBC) [Entitic vol] 92.3 fL Normal 81-99 [facility] Comment on above: Performed By: #### L 100.0100, L4.2010, L500.4050, L101.9900, L501.6710 ####[facility] [address] [place], [address] Monocytes/100 WBC (Bld) 8.9 % Normal 0-10 [facility] Comment on above: Performed By: #### L 100.0100, L4, L500.4050, L101.9900, L501.6710 ####[facility] [address] [place], [address] Neutrophils/100 WBC (Bld) 72.2 % High 47-70 [facility] Comment on above: Performed By: #### L 100.0100, L4, L500.4050, L101.9900, L501.6710 ####[facility] [address] [place], [address] Nucleated RBC (Bld) [#/Vol] 0 10*3/uL Normal 0-5 [facility] Comment on above: Performed By: #### L 100.0100, L4, L500.4050, L101.9900, L501.6710 ####[facility] [address] [place], [address] Platelet mean volume (Bld) [Entitic vol] 8.7 fL Normal 6.2-12.0 [facility] Comment on above: Performed By: #### L 100.0100, L4, L500.4050, L101.9900, L501.6710 ####[facility] [address] [place], [address] Platelets (Bld) [#/Vol] 523 10*3/uL High 150-450 [facility] Comment on above: Performed By: #### L 100.0100, L400.2010, L500.4050, L101.9900, L501.6710 ####[facility] [address] [place], [address] RBC (Bld) [#/Vol] 3.88 10*6/uL Low 4.2-5.4 [facility] Comment on above: Performed By: #### L 100.0100, L400.2010, L500.4050, L101.9900, L501.6710 ####[facility] [address] [place], [address] RDW SD 42.8 fl Normal 35.1-43.9 [facility] Comment on above: Performed By: #### L 100.0100, L400.2010, L500.4050, L101.9900, L501.6710 ####[facility] [address] [place], [address] WBC (Bld) [#/Vol] 5.4 10*3/uL Normal 4.4-11.0 [facility] Comment on above: Performed By: #### L 100.0100, L400.2010, L500.4050, L101.9900, L501.6710 ####[facility] [address] [place], [address] CRPon 05-05-2024 C-REACTIVE PROT < 2.90 Normal 0.0-3.0 [facility] Comment on above: Result Comment: C-Re active Protein (CRP) provides useful information for thediagnosis, therapy and monitoring of inflammatory processesand associated diseases. For the evaluation of Relative Riskfor Cardiovascular Disease, a High Sensitivity CRP (HSCRP)should be ordered. Performed By: #### L 100.0100, L400, L500.4050, L101.9900, L501.6710 ####[facility] [address] [place], [address] Carbon dioxide measurementOr dered By: María Cintron on 05-05-2024 CO2 [Moles/Vol] 26.0 mmol/L 21.0-32.0 [facility] Chloride measurementOrdered By: María Cintron on 05-05-2024 Chloride [Moles/Vol] 105 mmol/L 98-107 [facility] Comprehensive Metabolic Prof ilon 05-05-2024 Albumin [Mass/Vol] 3.4 g/dL Normal 3.2-5.0 [facility] Comment on above: Performed By: #### L 100.0100, L4, L500.4050, L101.9900, L501.6710 ####[facility] [address] [place], [address] Albumin/Globulin [Mass ratio] 1.0 {ratio} Normal 0.9-2.4 [facility] Comment on above: Performed By: #### L 100.0100, L4, L500.4050, L101.9900, L501.6710 ####[facility] [address] [place], [address] ALK P 96 U/L Normal 45-117 [facility] Comment on above: Performed By: #### L 100.0100, L400, L500.4050, L101.9900, L501.6710 ####[facility] [address] [place], [address] ALT [Catalytic activity/Vol] 12 U/L Low 13-56 [facility] Comment on above: Performed By: #### L 100.0100, L4, L500.4050, L101.9900, L501.6710 ####[facility] [address] [place], [address] AST [Catalytic activity/Vol] 9 U/L Low 15-37 [facility] Comment on above: Performed By: #### L 100.0100, L400.2010, L500.4050, L101.9900, L501.6710 ####[facility] [address] [place], [address] Bilirubin [Mass/Vol] 0.50 mg/dL Normal 0.20-1.00 [facility] Comment on above: Result Comment: For patients on eltrombopag therapy, use of Dimension [place] TBIL is not recommended. Performed By: #### L 100.0100, L4.2010, L500.4050, L101.9900, L501.6710 ####[facility] [address] [place], [address] BUN/CRE 13.0 RATIO Normal 10-20 [facility] Comment on above: Performed By: #### L 100.0100, L4, L500.4050, L101.9900, L501.6710 ####[facility] [address] [place], [address] CA,Total 9.7 mg/dL Normal 8.5-10.1 [facility] Comment on above: Performed By: #### L 100.0100, L4.2010, L500.4050, L101.9900, L501.6710 ####[facility] [address] [place], [address] Chloride [Moles/Vol] 105 mmol/L Normal 98-107 [facility] Comment on above: Performed By: #### L 100.0100, L400.2010, L500.4050, L101.9900, L501.6710 ####[facility] [address] [place], [address] CO2 [Moles/Vol] 26.0 mmol/L Normal 21.0-32.0 [facility] Comment on above: Performed By: #### L 100.0100, L4, L500.4050, L101.9900, L501.6710 ####[facility] [address] [place], [address] Creatinine [Mass/Vol] 1.00 mg/dL Normal 0.55-1.02 [facility] Comment on above: Result Comment: The validity of the calculated GFR GFRAA in patients over70 years has not been determined. Clinical correlation isessential. Performed By: #### L 100.0100, L4, L500.4050, L101.9900, L501.6710 ####[facility] [address] [place], [address] EST GFR - AA 70 mL/min Normal >60 [facility] Comment on above: Result Comment: Afri can Moldovan GFR Calc Performed By: #### L 100.0100, L4, L500.4050, L101.9900, L501.6710 ####[facility] [address] [place], [address] GAP 6 Normal 5-15 [facility] Comment on above: Performed By: #### L 100.0100, L4, L500.4050, L101.9900, L501.6710 ####[facility] [address] [place], [address] GFR/1.73 sq M.predicted among non-blacks MDRD (S/P/Bld) [Vol rate/Area] 58 mL/min/{1.73_m2} Low >60 [facility] Comment on above: Result Comment: Non- GFR Calc Performed By: #### L 100.0100, L4, L500.4050, L101.9900, L501.6710 ####[facility] [address] [place], [address] Globulin (S) [Mass/Vol] 3.5 g/dL Normal 2.2-4.2 [facility] Comment on above: Performed By: #### L 100.0100, L400.2010, L500.4050, L101.9900, L501.6710 ####[facility] [address] [place], [address] Glucose [Mass/Vol] 119 mg/dL High 74-106 [facility] Comment on above: Result Comment: Fast ing Glucose result from 100 to 125 mg/dLsuggests IMPAIRED HOMEOSTASIS per A.D.A. criteria. Performed By: #### L 100.0100, L4, L500.4050, L101.9900, L501.6710 ####[facility] [address] [place], [address] Potassium [Moles/Vol] 3.7 mmol/L Normal 3.5-5.1 [facility] Comment on above: Performed By: #### L 100.0100, L4, L500.4050, L101.9900, L501.6710 ####[facility] [address] [place], [address] Sodium [Moles/Vol] 136 mmol/L Normal 136-145 [facility] Comment on above: Performed By: #### L 100.0100, L4, L500.4050, L101.9900, L501.6710 ####[facility] [address] [place], [address] T PROT 6.9 g/dL Normal 6.4-8.2 [facility] Comment on above: Performed By: #### L 100.0100, L400.2010, L500.4050, L101.9900, L501.6710 ####[facility] [address] [place], [address] Urea nitrogen [Mass/Vol] 13 mg/dL Normal 7-18 [facility] Comment on above: Performed By: #### L 100.0100, L400.2010, L500.4050, L101.9900, L501.6710 ####[facility] [address] [place], [address] Eosinophil percentageOrdered By: María Cintron on 05-05-2024 Eosinophils/100 WBC (Bld) 1.5 % 0-5 [facility] Erythrocyte Sed Rateon 05-05 SED RATE 11 mm/hr Normal 0-30 [facility] Comment on above: Performed By: #### L 100.0100, L400.2010, L500.4050, L101.9900, L501.6710 ####[facility] [address] [place], [address] Erythrocyte distribution wid th ratioOrdered By: María Cintron on 05-05-2024 Erythrocyte distribution width (RBC) [Ratio] 12.7 % 11.6-14.6 [facility] Erythrocyte distribution wid th standard deviationOrdered By: María Cintron on 05-05-2024 Erythrocyte distribution width (RBC) [Entitic vol] 42.8 fL 35.1-43.9 [facility] Erythrocyte sedimentation ra teOrdered By: María Cintron on 05-05-2024 ESR (Bld) [Velocity] 11 mm/h 0-30 [facility] Estimated glomerular filtrat ion rate (GFR) AmericanOrdered By: María Cintron on 05-05-2024 Estimated GFR (MDRD) Amer 70 mL/min >60 [facility] Comment on above: GFR Calc Glomerular filtration rate ( GFR) estimationOrdered By: María Cintron on 05-05-2024 Estimated GFR (MDRD) Non-Af Amer 58 mL/min Low >60 [facility] Comment on above: Non- GFR Calc Glucose Ql (U)Ordered By: Bal Cintron on 05-05-2024 Urine Glucose (UA) Normal mg/dl Normal [facility] Glucose measurementOrdered B y: María Abdulaziz on 05-05-2024 Glucose [Mass/Vol] 119 mg/dL High 74-106 [facility] Comment on above: Fasting Glucose resu lt from 100 to 125 mg/dL suggests IMPAIRED HOMEOSTASIS per A.D.A. criteria. Hematocrit Auto (Bld) [Volum e fraction]Ordered By: María Cintron on 05-05-2024 Hematocrit (Bld) [Volume fraction] 35.8 % Low 37-47 [facility] Hemoglobin measurementOrdere d By: María Cintron on 05-05-2024 Hemoglobin (Bld) [Mass/Vol] 11.4 g/dL Low 12.0-15.0 [facility] Immature granulocytes/100 WB C Auto (Bld)Ordered By: María Cintron on 05-05-2024 Immature granulocytes/100 WBC (Bld) 0.200 % 0.0-0.9 [facility] Comment on above: IG% - Immature Granu locytes (promyelocytes, myelocytes and metamyelocytes) > 1% indicates that a LEFT SHIFT is Present. Ketones Test strip Ql (U)Ord ered By: María Cintron on 05-05-2024 Ketones Ql (U) Negative Negative [facility] Laboratory - Chemistry and C hemistry - challengeOrdered By: María Cintron on 05-05-2024 AST [Catalytic activity/Vol] 9 U/L Low 15-37 [facility] Lymphocytes Auto (Unsp spec) [#/Vol]Ordered By: María Cintron on 05-05-2024 Lymphocytes (Bld) [#/Vol] 0.87 10*3/uL 0.83-4.51 [facility] Lymphocytes/100 WBC Auto (Un sp spec)Ordered By: María Cintron on 05-05-2024 Lymphocytes/100 WBC (Bld) 16.1 % Low 19-41 [facility] MCV (mean corpuscular volume ) determinationOrdered By: María Cintron on 05-05-2024 MCV (RBC) [Entitic vol] 92.3 fL 81-99 [facility] Mean corpuscular hemoglobin (MCH) determinationOrdered By: María Cintron on 05-05-2024 MCH (RBC) [Entitic mass] 29.4 pg 27.0-32.0 [facility] Mean corpuscular hemoglobin concentration (MCHC) determinationOrdered By: María Cintron on 05-05-2024 MCHC (RBC) [Mass/Vol] 31.8 g/dL Low 32-36 [facility] Mean platelet volume determi nationOrdered By: María Cintron on 05-05-2024 Platelet mean volume (Bld) [Entitic vol] 8.7 fL 6.2-12.0 [facility] Monocyte percentageOrdered B y: María Cintron on 05-05-2024 Monocytes/100 WBC (Bld) 8.9 % 0-10 [facility] Neutrophil percentageOrdered By: María Cintron on 05-05-2024 Neutrophils/100 WBC (Bld) 72.2 % High 47-70 [facility] Nitrite Test strip Ql (U)Ord ered By: María Cintron on 05-05-2024 Nitrite Ql (U) Negative Negative [facility] Nucleated red blood cell per centageOrdered By: María Cintron on 05-05-2024 Nucleated RBC/100 WBC (Bld) [Ratio] 0 % 0-5 [facility] Platelet countOrdered By: Bal Cintron on 05-05-2024 Platelets (Bld) [#/Vol] 523 10*3/uL High 150-450 [facility] Potassium measurementOrdered By: María Cintron on 05-05-2024 Potassium [Moles/Vol] 3.7 mmol/L 3.5-5.1 [facility] Protein Test strip Ql (U)Ord ered By: María Cintron on 05-05-2024 Protein Ql (U) 15 mg/dl High Negative [facility] RBC Auto (Bld) [#/Vol]Ordere d By: María Cintron on 05-05-2024 RBC (Bld) [#/Vol] 3.88 10*6/uL Low 4.2-5.4 [facility] Serum anion gap measurementO rdered By: María Cintron on 05-05-2024 Anion gap [Moles/Vol] 6 mmol/L 5-15 [facility] Serum globulin measurementOr dered By: María Cintron on 05-05-2024 Globulin (S) [Mass/Vol] 3.5 g/dL 2.2-4.2 [facility] Serum or plasma alanine grewal otransferase (ALT) measurementOrdered By: María Cintron on 05-05-2024 ALT [Catalytic activity/Vol] 12 U/L Low 13-56 [facility] Serum or plasma albumin paulina urement (mass/volume)Ordered By: María Cintron on 05-05-2024 Albumin [Mass/Vol] 3.4 g/dL 3.2-5.0 [facility] Serum or plasma alkaline chano sphatase measurementOrdered By: María Cintron on 05-05-2024 ALP [Catalytic activity/Vol] 96 U/L 45-117 [facility] Serum or plasma calcium paulina urement (mass/volume)Ordered By: María Cintron on 05-05-2024 Calcium [Mass/Vol] 9.7 mg/dL 8.5-10.1 [facility] Serum or plasma creatinine m easurement (mass/volume)Ordered By: María Cintron on 05-05-2024 Creatinine [Mass/Vol] 1.00 mg/dL 0.55-1.02 [facility] Comment on above: The validity of the calculated GFR & GFRAA in patients over 70 years has not been determined. Clinical correlation is essential. Serum or plasma urea nitroge n measurement (mass/volume)Ordered By: María Cintron on 05-05-2024 Urea nitrogen [Mass/Vol] 13 mg/dL 7-18 [facility] Sodium levelOrdered By: Huber Cintron on 05-05-2024 Sodium [Moles/Vol] 136 mmol/L 136-145 [facility] Total proteinOrdered By: Giancarlo Cintron on 05-05-2024 Protein [Mass/Vol] 6.9 g/dL 6.4-8.2 [facility] Urinalysis, Routine (Dipstic k)on 05-05-2024 BILIRUBIN URINE Negative Normal Negative [facility] Comment on above: Order Comment: Urine , Random Performed By: #### L 100.0100, L400.2010, L500.4050, L101.9900, L501.6710 ####[facility] [address] [place], [address] Clarity (U) Sl. Cloudy Normal Clear [facility] Comment on above: Order Comment: Urine , Random Performed By: #### L 100.0100, L400.2010, L500.4050, L101.9900, L501.6710 ####[facility] [address] [place], [address] Color (U) Yellow Normal Yellow [facility] Comment on above: Order Comment: Urine , Random Performed By: #### L 100.0100, L4.2010, L500.4050, L101.9900, L501.6710 ####[facility] [address] [place], [address] GLUCOSE, UR Normal Normal Normal [facility] Comment on above: Order Comment: Urine , Random Performed By: #### L 100.0100, L4.2010, L500.4050, L101.9900, L501.6710 ####[facility] [address] [place], [address] KETONE UR Negative Normal Negative [facility] Comment on above: Order Comment: Urine , Random Performed By: #### L 100.0100, L400.2010, L500.4050, L101.9900, L501.6710 ####[facility] [address] [place], [address] LEUK ESTERASE 500 /ul Abnormal Negative [facility] Comment on above: Order Comment: Urine , Random Performed By: #### L 100.0100, L400.2010, L500.4050, L101.9900, L501.6710 ####[facility] [address] [place], [address] Nitrite Ql (U) Negative Normal Negative [facility] Comment on above: Order Comment: Urine , Random Performed By: #### L 100.0100, L400.2010, L500.4050, L101.9900, L501.6710 ####[facility] [address] [place], [address] OCCULT BLOOD-UR 50 /ul Abnormal Negative [facility] Comment on above: Order Comment: Urine , Random Performed By: #### L 100.0100, L4.2010, L500.4050, L101.9900, L501.6710 ####[facility] [address] [place], [address] pH UR 6.5 Normal 5.0 - 8.0 [facility] Comment on above: Order Comment: Urine , Random Performed By: #### L 100.0100, L4.2010, L500.4050, L101.9900, L501.6710 ####[facility] [address] [place], [address] PROT DIPSTX 15 mg/dl Abnormal Negative [facility] Comment on above: Order Comment: Urine , Random Performed By: #### L 100.0100, L4.2010, L500.4050, L101.9900, L501.6710 ####[facility] [address] [place], [address] SP.GR. DIPSTX 1.015 Normal 1.002-1.03 0 [facility] Comment on above: Order Comment: Urine , Random Performed By: #### L 100.0100, L400.2010, L500.4050, L101.9900, L501.6710 ####[facility] [address] [place], [address] UROBILI Normal Normal Normal [facility] Comment on above: Order Comment: Urine , Random Performed By: #### L 100.0100, L400.2011, L500.4050, L101.9900, L501.6710 ####[facility] [address] [place], [address] Urine blood detectionOrdered By: María Cintron on 05-05-2024 Urine Occult Blood 50 /ul High Negative [facility] Urine clarityOrdered By: Giancarlo Cintron on 05-05-2024 Clarity (U) Sl. Cloudy Clear [facility] Urine color determinationOrd ered By: María Cintron on 05-05-2024 Color (U) Yellow Yellow [facility] Urine leukocyte esterase det ection by dipstickOrdered By: María Cintron on 05-05-2024 Leukocyte esterase Test strip Ql (U) 500 /ul High Negative [facility] Urine pHOrdered By: María Cintron on 05-05-2024 pH (U) 6.5 [pH] 5.0 - 8.0 [facility] Urine specific gravity measu rementOrdered By: María Cintron on 05-05-2024 Specific gravity (U) [Rel density] 1.015 1.002-1.03 0 [facility] Urobilinogen Ql (U)Ordered B y: María Cintron on 05-05-2024 Urine Urobilinogen Normal mg/dl Normal [facility] White blood cell (WBC) count Ordered By: María Cintron on 05-05-2024 WBC (Bld) [#/Vol] 5.4 10*3/uL 4.4-11.0 [facility] CBC W/Diff, Automatedon 04-07 Absolute Lymph 1.01 X10 3/uL Normal 0.83-4.51 [facility] Comment on above: Performed By: #### L 501.9520, L503.0105, L501.5200, L500.4050, L100.0100 ####[facility] [address] [place], [address] Absolute Neut 7.6 X10 3/uL Normal 2.0-7.7 [facility] Comment on above: Performed By: #### L 501.9520, L503.0105, L501.5200, L500.4050, L100.0100 ####[facility] [address] [place], [address] Basophils/100 WBC (Bld) 0.9 % Normal 0-1 [facility] Comment on above: Performed By: #### L 501.9520, L503.0105, L501.5200, L500.4050, L100.0100 ####[facility] [address] [place], [address] Eosinophils/100 WBC (Bld) 0.8 % Normal 0-5 [facility] Comment on above: Performed By: #### L 501.9520, L503.0105, L501.5200, L500.4050, L100.0100 ####[facility] [address] [place], [address] Erythrocyte distribution width (RBC) [Ratio] 12.7 % Normal 11.6-14.6 [facility] Comment on above: Performed By: #### L 501.9520, L503.0105, L501.5200, L500.4050, L100.0100 ####[facility] [address] [place], [address] Hematocrit (Bld) [Volume fraction] 31.1 % Low 37-47 [facility] Comment on above: Performed By: #### L 501.9520, L503.0105, L501.5200, L500.4050, L100.0100 ####[facility] [address] [place], [address] Hemoglobin (Bld) [Mass/Vol] 10.2 g/dL Low 12.0-15.0 [facility] Comment on above: Performed By: #### L 501.9520, L503.0105, L501.5200, L500.4050, L100.0100 ####[facility] [address] [place], [address] IG% 0.400 Normal 0.0-0.9 [facility] Comment on above: Result Comment: IG% - Immature Granulocytes (promyelocytes, myelocytes andmetamyelocytes) > 1% indicates that a LEFT SHIFT is Present. Performed By: #### L 501.9520, L503.0105, L501.5200, L500.4050, L100.0100 ####[facility] [address] [place], [address] Lymphocytes/100 WBC (Bld) 10.8 % Low 19-41 [facility] Comment on above: Performed By: #### L 501.9520, L503.0105, L501.5200, L500.4050, L100.0100 ####[facility] [address] [place], [address] MCH (RBC) [Entitic mass] 30.7 pg Normal 27.0-32.0 [facility] Comment on above: Performed By: #### L 501.9520, L503.0105, L501.5200, L500.4050, L100.0100 ####[facility] [address] [place], [address] MCHC (RBC) [Mass/Vol] 32.8 g/dL Normal 32-36 [facility] Comment on above: Performed By: #### L 501.9520, L503.0105, L501.5200, L500.4050, L100.0100 ####[facility] [address] [place], [address] MCV (RBC) [Entitic vol] 93.7 fL Normal 81-99 [facility] Comment on above: Performed By: #### L 501.9520, L503.0105, L501.5200, L500.4050, L100.0100 ####[facility] [address] [place], [address] Monocytes/100 WBC (Bld) 5.5 % Normal 0-10 [facility] Comment on above: Performed By: #### L 501.9520, L503.0105, L501.5200, L500.4050, L100.0100 ####[facility] [address] [place], [address] Neutrophils/100 WBC (Bld) 81.6 % High 47-70 [facility] Comment on above: Performed By: #### L 501.9520, L503.0105, L501.5200, L500.4050, L100.0100 ####[facility] [address] [place], [address] Nucleated RBC (Bld) [#/Vol] 0 10*3/uL Normal 0-5 [facility] Comment on above: Performed By: #### L 501.9520, L503.0105, L501.5200, L500.4050, L100.0100 ####[facility] [address] [place], [address] Platelet mean volume (Bld) [Entitic vol] 8.5 fL Normal 6.2-12.0 [facility] Comment on above: Performed By: #### L 501.9520, L503.0105, L501.5200, L500.4050, L100.0100 ####[facility] [address] [place], [address] Platelets (Bld) [#/Vol] 463 10*3/uL High 150-450 [facility] Comment on above: Performed By: #### L 501.9520, L503.0105, L501.5200, L500.4050, L100.0100 ####[facility] [address] [place], [address] RBC (Bld) [#/Vol] 3.32 10*6/uL Low 4.2-5.4 [facility] Comment on above: Performed By: #### L 501.9520, L503.0105, L501.5200, L500.4050, L100.0100 ####[facility] [address] [place], [address] RDW SD 43.3 fl Normal 35.1-43.9 [facility] Comment on above: Performed By: #### L 501.9520, L503.0105, L501.5200, L500.4050, L100.0100 ####[facility] [address] [place], [address] WBC (Bld) [#/Vol] 9.3 10*3/uL Normal 4.4-11.0 [facility] Comment on above: Performed By: #### L 501.9520, L503.0105, L501.5200, L500.4050, L100.0100 ####[facility] [address] [place], [address] Comprehensive Metabolic [facility] 04-20-2024 Albumin [Mass/Vol] 3.2 g/dL Normal 3.2-5.0 [facility] Comment on above: Performed By: #### L 501.9520, L503.0105, L501.5200, L500.4050, L100.0100 ####[facility] [address] [place], [address] Albumin/Globulin [Mass ratio] 0.9 {ratio} Normal 0.9-2.4 [facility] Comment on above: Performed By: #### L 501.9520, L503.0105, L501.5200, L500.4050, L100.0100 ####[facility] [address] [place], [address] ALK P 86 U/L Normal 45-117 [facility] Comment on above: Performed By: #### L 501.9520, L503.0105, L501.5200, L500.4050, L100.0100 ####[facility] [address] [place], [address] ALT [Catalytic activity/Vol] 14 U/L Normal 13-56 [facility] Comment on above: Performed By: #### L 501.9520, L503.0105, L501.5200, L500.4050, L100.0100 ####[facility] [address] [place], [address] AST [Catalytic activity/Vol] 11 U/L Low 15-37 [facility] Comment on above: Performed By: #### L 501.9520, L503.0105, L501.5200, L500.4050, L100.0100 ####[facility] [address] [place], [address] Bilirubin [Mass/Vol] 0.50 mg/dL Normal 0.20-1.00 [facility] Comment on above: Result Comment: For patients on eltrombopag therapy, use of Dimension [place] TBIL is not recommended. Performed By: #### L 501.9520, L503.0105, L501.5200, L500.4050, L100.0100 ####[facility] [address] [place], [address] BUN/CRE 15.4 RATIO Normal 10-20 [facility] Comment on above: Performed By: #### L 501.9520, L503.0105, L501.5200, L500.4050, L100.0100 ####[facility] [address] [place], [address] CA,Total 9.5 mg/dL Normal 8.5-10.1 [facility] Comment on above: Performed By: #### L 501.9520, L503.0105, L501.5200, L500.4050, L100.0100 ####[facility] [address] [place], [address] Chloride [Moles/Vol] 99 mmol/L Normal 98-107 [facility] Comment on above: Performed By: #### L 501.9520, L503.0105, L501.5200, L500.4050, L100.0100 ####[facility] [address] [place], [address] CO2 [Moles/Vol] 27.0 mmol/L Normal 21.0-32.0 [facility] Comment on above: Performed By: #### L 501.9520, L503.0105, L501.5200, L500.4050, L100.0100 ####[facility] [address] [place], [address] Creatinine [Mass/Vol] 0.91 mg/dL Normal 0.55-1.02 [facility] Comment on above: Result Comment: The validity of the calculated GFR GFRAA in patients over70 years has not been determined. Clinical correlation isessential. Performed By: #### L 501.9520, L503.0105, L501.5200, L500.4050, L100.0100 ####[facility] [address] [place], [address] EST GFR - AA 78 mL/min Normal >60 [facility] Comment on above: Result Comment: Afri can Moldovan GFR Calc Performed By: #### L 501.9520, L503.0105, L501.5200, L500.4050, L100.0100 ####[facility] [address] [place], [address] GAP 7 Normal 5-15 [facility] Comment on above: Performed By: #### L 501.9520, L503.0105, L501.5200, L500.4050, L100.0100 ####[facility] [address] [place], [address] GFR/1.73 sq M.predicted among non-blacks MDRD (S/P/Bld) [Vol rate/Area] 65 mL/min/{1.73_m2} Normal >60 [facility] Comment on above: Result Comment: Non- GFR Calc Performed By: #### L 501.9520, L503.0105, L501.5200, L500.4050, L100.0100 ####[facility] [address] [place], [address] Globulin (S) [Mass/Vol] 3.5 g/dL Normal 2.2-4.2 [facility] Comment on above: Performed By: #### L 501.9520, L503.0105, L501.5200, L500.4050, L100.0100 ####[facility] [address] [place], [address] Glucose [Mass/Vol] 114 mg/dL High 74-106 [facility] Comment on above: Result Comment: Fast ing Glucose result from 100 to 125 mg/dLsuggests IMPAIRED HOMEOSTASIS per A.D.A. criteria. Performed By: #### L 501.9520, L503.0105, L501.5200, L500.4050, L100.0100 ####[facility] [address] [place], [address] Potassium [Moles/Vol] 4.1 mmol/L Normal 3.5-5.1 [facility] Comment on above: Performed By: #### L 501.9520, L503.0105, L501.5200, L500.4050, L100.0100 ####[facility] [address] [place], [address] Sodium [Moles/Vol] 132 mmol/L Low 136-145 [facility] Comment on above: Performed By: #### L 501.9520, L503.0105, L501.5200, L500.4050, L100.0100 ####[facility] [address] [place], [address] T PROT 6.7 g/dL Normal 6.4-8.2 [facility] Comment on above: Performed By: #### L 501.9520, L503.0105, L501.5200, L500.4050, L100.0100 ####[facility] [address] [place], [address] Urea nitrogen [Mass/Vol] 14 mg/dL Normal 7-18 [facility] Comment on above: Performed By: #### L 501.9520, L503.0105, L501.5200, L500.4050, L100.0100 ####[facility] [address] [place], [address] Magnesiumon 04-20-2024 Magnesium [Mass/Vol] 1.8 mg/dL Normal 1.6-2.6 [facility] Comment on above: Performed By: #### L 501.9520, L503.0105, L501.5200, L500.4050, L100.0100 ####[facility] [address] [place], [address] Thyroid Stim Hormone (TSH)on 04-20-2024 TSH 0.814 uIU/mL Normal 0.358-3.74 0 [facility] Comment on above: Performed By: #### L 501.9520, L503.0105, L501.5200, L500.4050, L100.0100 ####[facility] [address] [place], [address] Vitamin B12on 04-20-2024 Cobalamin (Vitamin B12) [Mass/Vol] 463 pg/mL Normal 211-911 [facility] Comment on above: Performed By: #### L 501.9520, L503.0105, L501.5200, L500.4050, L100.0100 ####[facility] [address] [place], [address] Orthopedic Visit Reporton Orthopedic Visit Report Normal [facility] Inital Evaluation (1) - PTon 04-10-2024 Inital Evaluation (1) - PT Normal [facility] CBC-Complete Blood Cnt No Di ffon 04-07-2024 HCT Normal 37-47 [facility] Comment on above: Result Comment: Canc elled via OM: Order cancelled - Patient discharged Performed By: #### L 100.0500 ####[facility] [address] [place], [address] HGB Normal 12.0-15.0 [facility] Comment on above: Result Comment: Canc elled via OM: Order cancelled - Patient discharged Performed By: #### L 100.0500 ####[facility] [address] [place], [address] MCH Normal 27.0-32.0 [facility] Comment on above: Result Comment: Canc elled via OM: Order cancelled - Patient discharged Performed By: #### L 100.0500 ####[facility] [address] [place], [address] MCHC Normal 32-36 [facility] Comment on above: Result Comment: Canc elled via OM: Order cancelled - Patient discharged Performed By: #### L 100.0500 ####[facility] [address] [place], [address] MCV Normal 81-99 [facility] Comment on above: Result Comment: Canc elled via OM: Order cancelled - Patient discharged Performed By: #### L 100.0500 ####[facility] [address] [place], [address] PLT Normal 150-450 [facility] Comment on above: Result Comment: Canc elled via OM: Order cancelled - Patient discharged Performed By: #### L 100.0500 ####[facility] [address] [place], [address] RBC Normal 4.2-5.4 [facility] Comment on above: Result Comment: Canc elled via OM: Order cancelled - Patient discharged Performed By: #### L 100.0500 ####[facility] [address] [place], [address] RDW CV Normal 11.6-14.6 [facility] Comment on above: Result Comment: Canc elled via OM: Order cancelled - Patient discharged Performed By: #### L 100.0500 ####[facility] [address] [place], [address] RDW SD Normal 35.1-43.9 [facility] Comment on above: Result Comment: Canc elled via OM: Order cancelled - Patient discharged Performed By: #### L 100.0500 ####[facility] [address] [place], [address] WBC Normal 4.4-11.0 [facility] Comment on above: Result Comment: Canc elled via OM: Order cancelled - Patient discharged Performed By: #### L 100.0500 ####[facility] [address] [place], [address] CBC-Complete Blood Cnt No Di ffon 04-06-2024 HCT Normal 37-47 [facility] Comment on above: Result Comment: Canc elled via OM: Order cancelled - Patient discharged Performed By: #### L 100.0500 ####[facility] [address] [place], [address] HGB Normal 12.0-15.0 [facility] Comment on above: Result Comment: Canc elled via OM: Order cancelled - Patient discharged Performed By: #### L 100.0500 ####[facility] [address] [place], [address] MCH Normal 27.0-32.0 [facility] Comment on above: Result Comment: Canc elled via OM: Order cancelled - Patient discharged Performed By: #### L 100.0500 ####[facility] [address] [place], [address] MCHC Normal 32-36 [facility] Comment on above: Result Comment: Canc elled via OM: Order cancelled - Patient discharged Performed By: #### L 100.0500 ####[facility] [address] [place], [address] MCV Normal 81-99 [facility] Comment on above: Result Comment: Canc elled via OM: Order cancelled - Patient discharged Performed By: #### L 100.0500 ####[facility] [address] [place], [address] PLT Normal 150-450 [facility] Comment on above: Result Comment: Canc elled via OM: Order cancelled - Patient discharged Performed By: #### L 100.0500 ####[facility] [address] [place], [address] RBC Normal 4.2-5.4 [facility] Comment on above: Result Comment: Canc elled via OM: Order cancelled - Patient discharged Performed By: #### L 100.0500 ####[facility] [address] [place], [address] RDW CV Normal 11.6-14.6 [facility] Comment on above: Result Comment: Canc elled via OM: Order cancelled - Patient discharged Performed By: #### L 100.0500 ####[facility] [address] [place], [address] RDW SD Normal 35.1-43.9 [facility] Comment on above: Result Comment: Canc elled via OM: Order cancelled - Patient discharged Performed By: #### L 100.0500 ####[facility] [address] [place], [address] WBC Normal 4.4-11.0 [facility] Comment on above: Result Comment: Canc elled via OM: Order cancelled - Patient discharged Performed By: #### L 100.0500 ####[facility] [address] [place], [address] Basic Metabolic Profile (BMP )on 04-05-2024 BUN/CRE 14.3 RATIO Normal - [facility] Comment on above: Performed By: #### L 100.0500, L500.2500 ####[facility] [address] [place], [address] CA,Total 9.2 mg/dL Normal 8.5-10.1 [facility] Comment on above: Performed By: #### L 100.0500, L500.2500 ####[facility] [address] [place], [address] Chloride [Moles/Vol] 105 mmol/L Normal 98-107 [facility] Comment on above: Performed By: #### L 100.0500, L500.2500 ####[facility] [address] [place], [address] CO2 [Moles/Vol] 26.0 mmol/L Normal 21.0-32.0 [facility] Comment on above: Performed By: #### L 100.0500, L500.2500 ####[facility] [address] [place], [address] Creatinine [Mass/Vol] 0.91 mg/dL Normal 0.55-1.02 [facility] Comment on above: Result Comment: The validity of the calculated GFR GFRAA in patients over70 years has not been determined. Clinical correlation isessential. Performed By: #### L 100.0500, L500.2500 ####[facility] [address] [place], [address] ECRCL 58.03 ml/min Normal [facility] Comment on above: Performed By: #### L 100.0500, L500.2500 ####[facility] [address] [place], [address] EST GFR - AA 79 mL/min Normal >60 [facility] Comment on above: Result Comment: Afri can Moldovan GFR Calc Performed By: #### L 100.0500, L500.2500 ####[facility] [address] [place], [address] GAP 5 Normal 5-15 [facility] Comment on above: Performed By: #### L 100.0500, L500.2500 ####[facility] [address] [place], [address] GFR/1.73 sq M.predicted among non-blacks MDRD (S/P/Bld) [Vol rate/Area] 65 mL/min/{1.73_m2} Normal >60 [facility] Comment on above: Result Comment: Non- GFR Calc Performed By: #### L 100.0500, L500.2500 ####[facility] [address] [place], [address] Glucose [Mass/Vol] 169 mg/dL High 74-106 [facility] Comment on above: Result Comment: Fast ing Glucose result greater than or equal to 126 mg/dLsuggests DIABETES MELLITUS per A.D.A. criteria. Performed By: #### L 100.0500, L500.2500 ####[facility] [address] [place], [address] Potassium [Moles/Vol] 4.4 mmol/L Normal 3.5-5.1 [facility] Comment on above: Performed By: #### L 100.0500, L500.2500 ####[facility] [address] [place], [address] Sodium [Moles/Vol] 136 mmol/L Normal 136-145 [facility] Comment on above: Performed By: #### L 100.0500, L500.2500 ####[facility] [address] [place], [address] Urea nitrogen [Mass/Vol] 13 mg/dL Normal 7-18 [facility] Comment on above: Performed By: #### L 100.0500, L500.2500 ####[facility] [address] [place], [address] CBC-Complete Blood Cnt No Di ffon 04-05-2024 Erythrocyte distribution width (RBC) [Ratio] 11.6 % Normal 11.6-14.6 [facility] Comment on above: Performed By: #### L 100.0500, L500.2500 ####[facility] [address] [place], [address] Hematocrit (Bld) [Volume fraction] 30.7 % Low 37-47 [facility] Comment on above: Performed By: #### L 100.0500, L500.2500 ####[facility] [address] [place], [address] Hemoglobin (Bld) [Mass/Vol] 10.0 g/dL Low 12.0-15.0 [facility] Comment on above: Performed By: #### L 100.0500, L500.2500 ####[facility] [address] [place], [address] MCH (RBC) [Entitic mass] 29.4 pg Normal 27.0-32.0 [facility] Comment on above: Performed By: #### L 100.0500, L500.2500 ####[facility] [address] [place], [address] MCHC (RBC) [Mass/Vol] 32.6 g/dL Normal 32-36 [facility] Comment on above: Performed By: #### L 100.0500, L500.2500 ####[facility] [address] [place], [address] MCV (RBC) [Entitic vol] 90.3 fL Normal 81-99 [facility] Comment on above: Performed By: #### L 100.0500, L500.2500 ####[facility] [address] [place], [address] Platelet mean volume (Bld) [Entitic vol] 9.2 fL Normal 6.2-12.0 [facility] Comment on above: Performed By: #### L 100.0500, L500.2500 ####[facility] [address] [place], [address] Platelets (Bld) [#/Vol] 299 10*3/uL Normal 150-450 [facility] Comment on above: Performed By: #### L 100.0500, L500.2500 ####[facility] [address] [place], [address] RBC (Bld) [#/Vol] 3.40 10*6/uL Low 4.2-5.4 [facility] Comment on above: Performed By: #### L 100.0500, L500.2500 ####[facility] [address] [place], [address] RDW SD 38.3 fl Normal 35.1-43.9 [facility] Comment on above: Performed By: #### L 100.0500, L500.2500 ####[facility] [address] [place], [address] WBC (Bld) [#/Vol] 14.1 10*3/uL High 4.4-11.0 [facility] Comment on above: Performed By: #### L 100.0500, L500.2500 ####[facility] [address] [place], [address] Discharge Instructionon 03-09 Discharge Instruction Normal [facility] Bedside Glucoseon 04-04-2024 FINGERSTICK GLU 111 mg/dL High 74-106 [facility] Comment on above: Result Comment: VENKATA GEMENT OF PATIENT CARE PER NURSING PROTOCOL Performed By: #### L 501.080 ####[facility] [address] [place], [address] FINGERSTICK GLU 48 mg/dL Low 74-106 [facility] Comment on above: Result Comment: VENKATA GEMENT OF PATIENT CARE PER NURSING PROTOCOL Performed By: #### L 501.080 ####[facility] [address] [place], [address] Decalcification bone/plaqueo n 04-04-2024 Decalcification bone/plaque Normal [facility] Comment on above: Performed By: #### P DEC ####[facility] [address] [place], [address] Knee 1 or 2 Viewson 04-04-20 Knee 1 or 2 Views Normal [facility] MR/POSTOP.ANEon 04-04-2024 MR/POSTOP.ANE Normal [facility] MR/HQPUHXXO9jg 04-04-2024 MR/POSTOPAN2 Normal [facility] Operative Reporton Operative Report Normal [facility] Type AND Screen - PAT ONLYon 04-04-2024 ABO and Rh group Nom (Bld) Blood group AB Rh(D) positive Normal [facility] Comment on above: Order Comment: Surge ry Date: 04/04/24Reason for Laboratory Test [id number] KNEE Performed By: #### B TSPAT ####[facility] [address] [place], [place], [address] Fructosamineon 03-28-2024 FRUCTOSAMINE 211 umol/L Normal 0-285 [facility] Comment on above: Result Comment: Publ ished reference interval for apparently healthysubjects between age 20 and 60 is 205 - 285 umol/L and in apoorly controlled diabetic population is 228 - 563 umol/Lwith a mean of 396 umol/L.Performed at: [facility] [id number] [place], [place] [id number] Director: Priyank Muller PhD, Phone: [phone] Performed By: #### M 100.651, L3400.0100, L300.3900, L300.4310, L501.9985 ####[facility] [address] [place], [place], [address] MRSA/SAID NASAL SCREENon MRSA+SAID SCRN Reason for Exam: PRE OP MRSA MRSA Negative S. AUREUS S. aureus PositiveA Normal [facility] Comment on above: Performed By: #### M 100.651, L3400.0100, L300.3900, L300.4310, L501.9985 ####[facility] [address] [place], [address] Hemoglobin A1con 03-27-2024 HbA1c (Bld) [Mass fraction] 5.6 % Normal 3.8-5.6 [facility] Comment on above: Result Comment: Norm al < 5.7 % Prediabetic 5.7 - 6.4 % Diabetic >or= 6.5 % Please note range changes. Performed By: #### M 100.651, L3400.0100, L300.3900, L300.4310, L501.9985 ####[facility] [address] [place], [place], [address] Magnesiumon 03-27-2024 Magnesium [Mass/Vol] 1.9 mg/dL Normal 1.6-2.6 [facility] Comment on above: Performed By: #### L 501.5200 ####[facility] [address] [place], [address] Partial Thromboplast Timeon 03-27-2024 aPTT Coag (Bld) [Time] 29.2 s Normal 24.1-36.2 [facility] Comment on above: Performed By: #### M 100.651, L3400.0100, L300.3900, L300.4310, L501.9985 ####[facility] [address] [place], [address] Prothrombin Time w/INRon INR Coag (PPP) [Relative time] 0.9 {INR} Normal [facility] Comment on above: Performed By: #### M 100.651, L3400.0100, L300.3900, L300.4310, L501.9985 ####[facility] [address] [place], [address] PT Coag (PPP) [Time] 12.6 s Normal 11.7-14.9 [facility] Comment on above: Performed By: #### M 100.651, L3400.0100, L300.3900, L300.4310, L501.9985 ####[facility] [address] [place], [address] Orthopedic Visit Reporton Orthopedic Visit Report Normal [facility] 12 Lead EKGon 03-16-2024 12 Lead EKG Normal [facility] Extremity Lower without Cont raon 03-16-2024 Extremity Lower without Contra Normal [facility] CBC W/Diff, Automatedon 10-0 Absolute Lymph 1.29 X10 3/uL Normal 0.83-4.51 [facility] Comment on above: Performed By: #### L 100.0100, L500.4050 ####[facility] [address] [place], [address] Absolute Neut 2.5 X10 3/uL Normal 2.0-7.7 [facility] Comment on above: Performed By: #### L 100.0100, L500.4050 ####[facility] [address] [place], [address] Basophils/100 WBC (Bld) 1.2 % High 0-1 [facility] Comment on above: Performed By: #### L 100.0100, L500.4050 ####[facility] [address] [place], [address] Eosinophils/100 WBC (Bld) 2.5 % Normal 0-5 [facility] Comment on above: Performed By: #### L 100.0100, L500.4050 ####[facility] [address] [place], [address] Erythrocyte distribution width (RBC) [Ratio] 11.7 % Normal 11.6-14.6 [facility] Comment on above: Performed By: #### L 100.0100, L500.4050 ####[facility] [address] [place], [address] Hematocrit (Bld) [Volume fraction] 36.6 % Low 37-47 [facility] Comment on above: Performed By: #### L 100.0100, L500.4050 ####[facility] [address] [place], [address] Hemoglobin (Bld) [Mass/Vol] 12.0 g/dL Normal 12.0-15.0 [facility] Comment on above: Performed By: #### L 100.0100, L500.4050 ####[facility] [address] [place], [address] IG% 0.200 Normal 0.0-0.9 [facility] Comment on above: Result Comment: IG% - Immature Granulocytes (promyelocytes, myelocytes andmetamyelocytes) > 1% indicates that a LEFT SHIFT is Present. Performed By: #### L 100.0100, L500.4050 ####[facility] [address] [place], [address] Lymphocytes/100 WBC (Bld) 29.7 % Normal 19-41 [facility] Comment on above: Performed By: #### L 100.0100, L500.4050 ####[facility] [address] [place], [address] MCH (RBC) [Entitic mass] 29.9 pg Normal 27.0-32.0 [facility] Comment on above: Performed By: #### L 100.0100, L500.4050 ####[facility] [address] [place], [address] MCHC (RBC) [Mass/Vol] 32.8 g/dL Normal 32-36 [facility] Comment on above: Performed By: #### L 100.0100, L500.4050 ####[facility] [address] [place], [address] MCV (RBC) [Entitic vol] 91.0 fL Normal 81-99 [facility] Comment on above: Performed By: #### L 100.0100, L500.4050 ####[facility] [address] [place], [address] Monocytes/100 WBC (Bld) 9.2 % Normal 0-10 [facility] Comment on above: Performed By: #### L 100.0100, L500.4050 ####[facility] [address] [place], [address] Neutrophils/100 WBC (Bld) 57.2 % Normal 47-70 [facility] Comment on above: Performed By: #### L 100.0100, L500.4050 ####[facility] [address] [place], [address] Nucleated RBC (Bld) [#/Vol] 0 10*3/uL Normal 0-5 [facility] Comment on above: Performed By: #### L 100.0100, L500.4050 ####[facility] [address] [place], [address] Platelet mean volume (Bld) [Entitic vol] 9.1 fL Normal 6.2-12.0 [facility] Comment on above: Performed By: #### L 100.0100, L500.4050 ####[facility] [address] [place], [address] Platelets (Bld) [#/Vol] 313 10*3/uL Normal 150-450 [facility] Comment on above: Performed By: #### L 100.0100, L500.4050 ####[facility] [address] [place], [address] RBC (Bld) [#/Vol] 4.02 10*6/uL Low 4.2-5.4 [facility] Comment on above: Performed By: #### L 100.0100, L500.4050 ####[facility] [address] [place], [address] RDW SD 39.2 fl Normal 35.1-43.9 [facility] Comment on above: Performed By: #### L 100.0100, L500.4050 ####[facility] [address] [place], [address] WBC (Bld) [#/Vol] 4.3 10*3/uL Low 4.4-11.0 [facility] Comment on above: Performed By: #### L 100.0100, L500.4050 ####[facility] [address] [place], [address] Comprehensive Metabolic Prof krys 03-15-2024 Albumin [Mass/Vol] 3.5 g/dL Normal 3.2-5.0 [facility] Comment on above: Performed By: #### L 100.0100, L500.4050 ####[facility] [address] [place], [address] Albumin/Globulin [Mass ratio] 1.2 {ratio} Normal 0.9-2.4 [facility] Comment on above: Performed By: #### L 100.0100, L500.4050 ####[facility] [address] [place], [address] ALK P 76 U/L Normal 45-117 [facility] Comment on above: Performed By: #### L 100.0100, L500.4050 ####[facility] [address] [place], [address] ALT [Catalytic activity/Vol] 21 U/L Normal 13-56 [facility] Comment on above: Performed By: #### L 100.0100, L500.4050 ####[facility] [address] [place], [address] AST [Catalytic activity/Vol] 17 U/L Normal 15-37 [facility] Comment on above: Performed By: #### L 100.0100, L500.4050 ####[facility] [address] [place], [address] Bilirubin [Mass/Vol] 0.40 mg/dL Normal 0.20-1.00 [facility] Comment on above: Result Comment: For patients on eltrombopag therapy, use of Dimension [place] TBIL is not recommended. Performed By: #### L 100.0100, L500.4050 ####[facility] [address] [place], [address] BUN/CRE 15.4 RATIO Normal 10-20 [facility] Comment on above: Performed By: #### L 100.0100, L500.4050 ####[facility] [address] [place], [address] CA,Total 9.2 mg/dL Normal 8.5-10.1 [facility] Comment on above: Performed By: #### L 100.0100, L500.4050 ####[facility] [address] [place], [address] Chloride [Moles/Vol] 100 mmol/L Normal 98-107 [facility] Comment on above: Performed By: #### L 100.0100, L500.4050 ####[facility] [address] [place], [address] CO2 [Moles/Vol] 26.0 mmol/L Normal 21.0-32.0 [facility] Comment on above: Performed By: #### L 100.0100, L500.4050 ####[facility] [address] [place], [address] Creatinine [Mass/Vol] 0.84 mg/dL Normal 0.55-1.02 [facility] Comment on above: Result Comment: The validity of the calculated GFR GFRAA in patients over70 years has not been determined. Clinical correlation isessential. Performed By: #### L 100.0100, L500.4050 ####[facility] [address] [place], [address] EST GFR - AA 86 mL/min Normal >60 [facility] Comment on above: Result Comment: Afri can Moldovan GFR Calc Performed By: #### L 100.0100, L500.4050 ####[facility] [address] [place], [address] GAP 7 Normal 5-15 [facility] Comment on above: Performed By: #### L 100.0100, L500.4050 ####[facility] [address] [place], [address] GFR/1.73 sq M.predicted among non-blacks MDRD (S/P/Bld) [Vol rate/Area] 71 mL/min/{1.73_m2} Normal >60 [facility] Comment on above: Result Comment: Non- GFR Calc Performed By: #### L 100.0100, L500.4050 ####[facility] [address] [place], [address] Globulin (S) [Mass/Vol] 3.0 g/dL Normal 2.2-4.2 [facility] Comment on above: Performed By: #### L 100.0100, L500.4050 ####[facility] [address], [address] Glucose [Mass/Vol] 114 mg/dL High 74-106 [facility] Comment on above: Result Comment: Fast ing Glucose result from 100 to 125 mg/dLsuggests IMPAIRED HOMEOSTASIS per A.D.A. criteria. Performed By: #### L 100.0100, L500.4050 ####[facility] [address], [address] Potassium [Moles/Vol] 4.1 mmol/L Normal 3.5-5.1 [facility] Comment on above: Performed By: #### L 100.0100, L500.4050 ####[facility] [address] [place], [address] Sodium [Moles/Vol] 133 mmol/L Low 136-145 [facility] Comment on above: Performed By: #### L 100.0100, L500.4050 ####[facility] [address] [place], [address] T PROT 6.5 g/dL Normal 6.4-8.2 [facility] Comment on above: Performed By: #### L 100.0100, L500.4050 ####[facility] [address] [place], [place], [address] Urea nitrogen [Mass/Vol] 13 mg/dL Normal 7-18 [facility] Comment on above: Performed By: #### L 100.0100, L500.4050 ####[facility] [address] [place], [place], [address] Absolute lymphocyte countOrd ered By: Nia Cintron on 09-20-2023 Lymphocytes Auto (Unsp spec) [#/Vol] 2.37 10*3/uL 0.83-4.51 [facility] Automated lymphocyte count a s percentage of total leukocytesOrdered By: Nia Cintron on 09-20-2023 Lymphocytes/100 WBC Auto (Unsp spec) 36.7 % 19-41 [facility] Basophil percentageOrdered B y: Nia Cintron on 09-20-2023 Basophils/100 WBC (Bld) 0.9 % 0-1 [facility] Bilirubin [Mass/Vol] 0.40 mg/dL 0.20-1.00 [facility] Comment on above: For patients on eltr ombopag therapy, use of Dimension [place] TBIL is not recommended. Chloride [Moles/Vol] 99 mmol/L 98-107 [facility] Eosinophils/100 WBC (Bld) 2.0 % 0-5 [facility] Glucose [Mass/Vol] 110 mg/dL 74-106 [facility] Comment on above: Fasting Glucose resu lt from 100 to 125 mg/dL suggests IMPAIRED HOMEOSTASIS per A.D.A. criteria. Hemoglobin (Bld) [Mass/Vol] 13.2 g/dL 12.0-15.0 [facility] Monocytes/100 WBC (Bld) 10.9 % 0-10 [facility] Neutrophils (Bld) [#/Vol] 3.2 10*3/uL 2.0-7.7 [facility] Neutrophils/100 WBC (Bld) 49.3 % 47-70 [facility] Potassium [Moles/Vol] 3.8 mmol/L 3.5-5.1 [facility] Protein [Mass/Vol] 7.2 g/dL 6.4-8.2 [facility] Sodium [Moles/Vol] 134 mmol/L 136-145 [facility] WBC (Bld) [#/Vol] 6.5 10*3/uL 4.4-11.0 [facility] Determination of erythrocyte mean corpuscular volume (MCV)Ordered By: Nia Cintron on 09-20-2023 MCV (RBC) [Entitic vol] 89.2 fL 81-99 [facility] Erythrocyte distribution wid th ratioOrdered By: Nia Cintron on 09-20-2023 Erythrocyte distribution width (RBC) [Ratio] 12.0 % 11.6-14.6 [facility] Erythrocyte distribution wid th standard deviationOrdered By: Nia Cintron on 09-20-2023 Erythrocyte distribution width (RBC) [Entitic vol] 38.7 fL 35.1-43.9 [facility] Hematocrit Auto (Bld) [Volum e fraction]Ordered By: Nia Cintron on 09-20-2023 Hematocrit (Bld) [Volume fraction] 39.8 % 37-47 [facility] Immature granulocytes/100 WB C Auto (Bld)Ordered By: Nia Cintron on 09-20-2023 Immature granulocytes/100 WBC (Bld) 0.200 % 0.0-0.9 [facility] Comment on above: IG% - Immature Granu locytes (promyelocytes, myelocytes and metamyelocytes) > 1% indicates that a LEFT SHIFT is Present. Laboratory - Chemistry and C hemistry - challengeOrdered By: Nia Cintron on 09-20-2023 Albumin/Globulin [Mass ratio] 1.1 {ratio} 0.9-2.4 [facility] ALP [Catalytic activity/Vol] 80 U/L 45-117 [facility] ALT [Catalytic activity/Vol] 25 U/L 13-56 [facility] CO2 [Moles/Vol] 29.0 mmol/L 21.0-32.0 [facility] Globulin (S) [Mass/Vol] 3.4 g/dL 2.2-4.2 [facility] Urea nitrogen/Creatinine [Mass ratio] 30.1 mg/mg 10-20 [facility] Laboratory - Hematology and Cell countsOrdered By: Nia Cintron on 09-20-2023 MCH (RBC) [Entitic mass] 29.6 pg 27.0-32.0 [facility] MCHC (RBC) [Mass/Vol] 33.2 g/dL 32-36 [facility] Nucleated RBC/100 WBC (Bld) [Ratio] 0 % 0-5 [facility] Platelet mean volume (Bld) [Entitic vol] 8.9 fL 6.2-12.0 [facility] Platelets (Bld) [#/Vol] 332 10*3/uL 150-450 [facility] No Panel InformationOrdered By: Nia Cintron on 09-20-2023 Estimated GFR (MDRD) Amer 77 mL/min >60 [facility] Comment on above: GFR Calc Estimated GFR (MDRD) Non-Af Amer 63 mL/min >60 [facility] Comment on above: Non- GFR Calc Troponin I High Sensitivity 4 pg/mL 3.0-54.0 [facility] Comment on above: Please Note: New Diane t Units and Gender Specific Reference Ranges. For more information see Policy Stat Procedure [place] High Sensitivity Troponin (TNIH) and attachments. RBC Auto (Bld) [#/Vol]Ordere d By: Nia Cintron on 09-20-2023 RBC (Bld) [#/Vol] 4.46 10*6/uL 4.2-5.4 [facility] Serum or plasma calcium paulina urement (mass/volume)Ordered By: Nia Cintron on 09-20-2023 Calcium [Mass/Vol] 9.5 mg/dL 8.5-10.1 [facility] Serum or plasma creatinine m easurement (mass/volume)Ordered By: Nia Cintron on 09-20-2023 Creatinine [Mass/Vol] 0.93 mg/dL 0.55-1.02 [facility] Comment on above: The validity of the calculated GFR & GFRAA in patients over 70 years has not been determined. Clinical correlation is essential. Serum or plasma thyroid stim ulating hormone (TSH) measurement (units/volume)Ordered By: Nia Cintron on 09-20-2023 TSH Qn 0.97 uIU/mL 0.358-3.74 [facility] Serum or plasma urea nitroge n measurement (mass/volume)Ordered By: Nia Cintron on 09-20-2023 Urea nitrogen [Mass/Vol] 28 mg/dL 7-18 [facility] Thin prep Papanicolaou smear with manual screeningOrdered By: Nia Cintron on 09-20-2023 Thin prep Papanicolaou smear with manual screening 3.8 g/dL 3.2-5.0 [facility] Thin prep Papanicolaou smear with manual screening 19 U/L 15-37 [facility] Thin prep Papanicolaou smear with manual screening 6 5-15 [facility] Basophil percentageOrdered B y: Jagdeep Tien on 04-13-2023 Bilirubin [Mass/Vol] 0.40 mg/dL 0.20-1.00 [facility] Comment on above: For patients on eltr ombopag therapy, use of Dimension [place] TBIL is not recommended. Cholesterol [Mass/Vol] 157 mg/dL <200 [facility] Comment on above: <200 mg/dL Desirable 200-240 mg/dL Borderline >240 mg/dL High Risk Protein [Mass/Vol] 6.7 g/dL 6.4-8.2 [facility] Triglyceride [Mass/Vol] 45 mg/dL <199 [facility] Comment on above: The drugs N-Acetylcy steine and Metamizole may falsely depress this assay.Serum Triglycerides Reference Interval Normal <150 mg/dL Borderline high 150 - 199 mg/dL High 200 - 499 mg/dL Very High > or = 500 mg/dL Direct bilirubinOrdered By: Gladbrook Tien on 04-13-2023 Bilirubin.direct [Mass/Vol] 0.13 mg/dL 0.00-0.30 [facility] Laboratory - Chemistry and C hemistry - challengeOrdered By: Gladbrook Tien on 04-13-2023 ALP [Catalytic activity/Vol] 73 U/L 45-117 [facility] ALT [Catalytic activity/Vol] 24 U/L 13-56 [facility] Globulin (S) [Mass/Vol] 3.3 g/dL 2.2-4.2 [facility] Serum or plasma albumin paulina urement (mass/volume)Ordered By: Jagdeep Chauhan on 04-13-2023 Albumin [Mass/Vol] 3.4 g/dL 3.2-5.0 [facility] Serum or plasma cholesterol in HDL measurement (mass/volume)Ordered By: Jagdeep Tien on 04-13-2023 Cholesterol in HDL [Mass/Vol] 75 mg/dL >40 [facility] Comment on above: The drugs N-Acetylcy steine and Metamizole may falsely depress this assay. Reference Range HDL <40 mg/dL Low HDL Cholesterol HDL >or= 60 mg/dL High HDL Cholesterol Serum or plasma cholesterol in VLDL measurement (mass/volume)Ordered By: Jagdeep Tien on 04-13-2023 Cholesterol in VLDL [Mass/Vol] 9 mg/dL 5-40 [facility] Serum or plasma low density lipoprotein (LDL) cholesterol measurement (mass/volume)Ordered By: Gladbrook Tien on 04-13-2023 Cholesterol in LDL [Mass/Vol] 73 mg/dL 0-130 [facility] Thin prep Papanicolaou smear with manual screeningOrdered By: Jagdeep Tien on 04-13-2023 Thin prep Papanicolaou smear with manual screening 18 U/L 15-37 [facility] Absolute lymphocyte countOrd ered By: Nia Abdulaziz on 10-30-2022 Lymphocytes Auto (Unsp spec) [#/Vol] 1.29 10*3/uL 0.83-4.51 [facility] Basophil percentageOrdered B y: Nia Cintron on 10-30-2022 Basophils/100 WBC (Bld) 1.2 % 0-1 [facility] Bilirubin [Mass/Vol] 0.40 mg/dL 0.20-1.00 [facility] Comment on above: For patients on eltr ombopag therapy, use of Dimension [place] TBIL is not recommended. Chloride [Moles/Vol] 101 mmol/L 98-107 [facility] Eosinophils/100 WBC (Bld) 2.8 % 0-5 [facility] Glucose [Mass/Vol] 114 mg/dL 74-106 [facility] Comment on above: Fasting Glucose resu lt from 100 to 125 mg/dL suggests IMPAIRED HOMEOSTASIS per A.D.A. criteria. Neutrophils (Bld) [#/Vol] 2.4 10*3/uL 2.0-7.7 [facility] Neutrophils/100 WBC (Bld) 55.0 % 47-70 [facility] Potassium [Moles/Vol] 4.1 mmol/L 3.5-5.1 [facility] Protein [Mass/Vol] 6.8 g/dL 6.4-8.2 [facility] Sodium [Moles/Vol] 137 mmol/L 136-145 [facility] WBC (Bld) [#/Vol] 4.3 10*3/uL 4.4-11.0 [facility] Basophil percentageOrdered B y: Jagdeep Tien on 10-30-2022 Cholesterol [Mass/Vol] 140 mg/dL <200 [facility] Comment on above: <200 mg/dL Desirable 200-240 mg/dL Borderline >240 mg/dL High Risk Triglyceride [Mass/Vol] 33 mg/dL <199 [facility] Comment on above: The drugs N-Acetylcy steine and Metamizole may falsely depress this assay.Serum Triglycerides Reference Interval Normal <150 mg/dL Borderline high 150 - 199 mg/dL High 200 - 499 mg/dL Very High > or = 500 mg/dL Blood erythrocytes count (nu mber/volume)Ordered By: Nia Cintron on 10-30-2022 RBC (Bld) [#/Vol] 3.91 10*6/uL 4.2-5.4 [facility] Blood hemoglobin measurement (mass/volume)Ordered By: Nia Cintron on 10-30-2022 Hemoglobin (Bld) [Mass/Vol] 11.5 g/dL 12.0-15.0 [facility] Blood lymphocytes/100 leukoc ytesOrdered By: Nia Cintron on 10-30-2022 Lymphocytes/100 WBC (Bld) 29.9 % 19-41 [facility] Blood monocytes/100 leukocyt esOrdered By: Nia Cintron on 10-30-2022 Monocytes/100 WBC (Bld) 10.9 % 0-10 [facility] Blood platelet mean volumeOr dered By: Nia Cintron on 10-30-2022 Platelet mean volume (Bld) [Entitic vol] 9.5 fL 6.2-12.0 [facility] Determination of erythrocyte mean corpuscular volume (MCV)Ordered By: Nia Cintron on 10-30-2022 MCV (RBC) [Entitic vol] 92.3 fL 81-99 [facility] Direct bilirubinOrdered By: Jagdeep Chauhan on 10-30-2022 Bilirubin.direct [Mass/Vol] 0.12 mg/dL 0.00-0.30 [facility] Hematocrit Auto (Bld) [Volum e fraction]Ordered By: Nia Cintron on 10-30-2022 Hematocrit (Bld) [Volume fraction] 36.1 % 37-47 [facility] Laboratory - Chemistry and C hemistry - challengeOrdered By: Nia Cintron on 10-30-2022 ALP [Catalytic activity/Vol] 68 U/L 45-117 [facility] ALT [Catalytic activity/Vol] 23 U/L 13-56 [facility] CO2 [Moles/Vol] 27.0 mmol/L 21.0-32.0 [facility] Cobalamin (Vitamin B12) [Mass/Vol] 1369 pg/mL 211-911 [facility] Globulin (S) [Mass/Vol] 3.5 g/dL 2.2-4.2 [facility] Urea nitrogen/Creatinine [Mass ratio] 13.8 mg/mg 10-20 [facility] Laboratory - Hematology and Cell countsOrdered By: Nia Cintron on 10-30-2022 Erythrocyte distribution width (RBC) [Entitic vol] 43.6 fL 35.1-43.9 [facility] Erythrocyte distribution width (RBC) [Ratio] 12.9 % 11.6-14.6 [facility] Immature granulocytes/100 WBC (Bld) 0.200 % 0.0-0.9 [facility] Comment on above: IG% - Immature Granu locytes (promyelocytes, myelocytes and metamyelocytes) > 1% indicates that a LEFT SHIFT is Present. MCH (RBC) [Entitic mass] 29.4 pg 27.0-32.0 [facility] Nucleated RBC/100 WBC (Bld) [Ratio] 0 % 0-5 [facility] MCHC Auto (RBC) [Mass/Vol]Or dered By: Nia Cintron on 10-30-2022 MCHC (RBC) [Mass/Vol] 31.9 g/dL 32-36 [facility] No Panel InformationOrdered By: Nia Cintron on 10-30-2022 Estimated GFR (MDRD) Amer 91 mL/min >60 [facility] Comment on above: GFR Calc Estimated GFR (MDRD) Non-Af Amer 76 mL/min >60 [facility] Comment on above: Non- GFR Calc Thyroid Stimulating Hormone (TSH) 1.65 uIU/mL 0.358-3.74 [facility] Vitamin D 25-Hydroxy 79.5 ng/mL [facility] Comment on above: Vitamin D 25(OH) Sta tus Range Deficiency <20 ng/mL (50nmol/L) Insufficiency 20 - 30 ng/mL (50 - 75 nmol/L) Sufficiency 30 - 100 ng/mL (75 - 250 nmol/L) Toxicity >100 ng/mL (>250 nmol/L) Platelets bldOrdered By: Giancarlo Cintron on 10-30-2022 Platelets (Bld) [#/Vol] 313 10*3/uL 150-450 [facility] Serum or plasma albumin paulina urement (mass/volume)Ordered By: Nia Cintron on 10-30-2022 Albumin [Mass/Vol] 3.3 g/dL 3.2-5.0 [facility] Serum or plasma albumin/glob ulin mass ratioOrdered By: Nia Cintron on 10-30-2022 Albumin/Globulin [Mass ratio] 0.9 {ratio} 0.9-2.4 [facility] Serum or plasma calcium paulina urement (mass/volume)Ordered By: Nia Cintron on 10-30-2022 Calcium [Mass/Vol] 9.2 mg/dL 8.5-10.1 [facility] Serum or plasma cholesterol in HDL measurement (mass/volume)Ordered By: Jagdeep Chauhan on 10-30-2022 Cholesterol in HDL [Mass/Vol] 67 mg/dL >40 [facility] Comment on above: The drugs N-Acetylcy steine and Metamizole may falsely depress this assay. Reference Range HDL <40 mg/dL Low HDL Cholesterol HDL >or= 60 mg/dL High HDL Cholesterol Serum or plasma cholesterol in VLDL measurement (mass/volume)Ordered By: Jagdeep Chauhan on 10-30-2022 Cholesterol in VLDL [Mass/Vol] 7 mg/dL 5-40 [facility] Serum or plasma creatinine m easurement (mass/volume)Ordered By: Nia Cintron on 10-30-2022 Creatinine [Mass/Vol] 0.80 mg/dL 0.55-1.02 [facility] Comment on above: The validity of the calculated GFR & GFRAA in patients over 70 years has not been determined. Clinical correlation is essential. Serum or plasma ferritin taylor surement (mass/volume)Ordered By: Nia Cintron on 10-30-2022 Ferritin [Mass/Vol] 44 ng/mL 8-252 [facility] Serum or plasma low density lipoprotein (LDL) cholesterol measurement (mass/volume)Ordered By: Jagdeep Chauhan on 10-30-2022 Cholesterol in LDL [Mass/Vol] 66 mg/dL 0-130 [facility] Serum or plasma urea nitroge n measurement (mass/volume)Ordered By: Nia Cintron on 10-30-2022 Urea nitrogen [Mass/Vol] 11 mg/dL 7-18 [facility] Thin prep Papanicolaou smear with manual screeningOrdered By: Nia Cintron on 10-30-2022 Thin prep Papanicolaou smear with manual screening 18 U/L 15-37 [facility] Thin prep Papanicolaou smear with manual screening 9 5-15 [facility] Laboratory - Microbiology an d Antimicrobial susceptibilityon 05-01-2022 SARS-CoV-2 (COVID-19) RNA RADHA+probe Ql (Unsp spec) Not detected [facility] Work Phone: No Panel Informationon 05-01 Influenza Types A,B Rapid (Clinic) Not detected [facility] Work Phone: Basophil percentageon 2021 Bilirubin [Mass/Vol] 0.40 mg/dL 0.20-1.00 [facility] Work Phone: Comment on above: For patients on eltr ombopag therapy, use of Dimension [place] TBIL is not recommended. Cholesterol [Mass/Vol] 180 mg/dL <200 [facility] Work Phone: Comment on above: <200 mg/dL Desirable 200-240 mg/dL Borderline >240 mg/dL High Risk Protein [Mass/Vol] 6.9 g/dL 6.4-8.2 [facility] Work Phone: [phone] Triglyceride [Mass/Vol] 37 mg/dL <199 [facility] Work Phone: Comment on above: The drugs N-Acetylcy steine and Metamizole may falsely depress this assay.Serum Triglycerides Reference Interval Normal <150 mg/dL Borderline high 150 - 199 mg/dL High 200 - 499 mg/dL Very High > or = 500 mg/dL Direct bilirubinon 2 Bilirubin.direct [Mass/Vol] 0.14 mg/dL 0.00-0.30 [facility] Work Phone: [phone] Laboratory - Chemistry and C hemistry - challengeon 04-14-2022 ALP [Catalytic activity/Vol] 75 U/L 45-117 [facility] Work Phone: [phone] ALT [Catalytic activity/Vol] 23 U/L 13-56 [facility] Work Phone: [phone] Globulin (S) [Mass/Vol] 3.4 g/dL 2.2-4.2 [facility] Work Phone: [phone] Serum or plasma albumin paulina urement (mass/volume)on 04-14-2022 Albumin [Mass/Vol] 3.5 g/dL 3.2-5.0 [facility] Work Phone: [phone] Serum or plasma cholesterol in HDL measurement (mass/volume)on 04-14-2022 Cholesterol in HDL [Mass/Vol] 81 mg/dL >40 [facility] Work Phone: Comment on above: The drugs N-Acetylcy steine and Metamizole may falsely depress this assay. Reference Range HDL <40 mg/dL Low HDL Cholesterol HDL >or= 60 mg/dL High HDL Cholesterol Serum or plasma cholesterol in VLDL measurement (mass/volume)on 04-14-2022 Cholesterol in VLDL [Mass/Vol] 7 mg/dL 5-40 [facility] Work Phone: Serum or plasma low density lipoprotein (LDL) cholesterol measurement (mass/volume)on 04-14-2022 Cholesterol in LDL [Mass/Vol] 92 mg/dL 0-130 [facility] Work Phone: Thin prep Papanicolaou smear with manual screeningon 04-14-2022 Thin prep Papanicolaou smear with manual screening 12 U/L 15-37 [facility] Work Phone: Lab Report: PAP I-G HPV Hi R iskon 02-13-2017 GE use only - for [employer] import when terms are not otherwise specified Negative Invalid Interpretation Code Negative [facility] Office Visit: new annualon 0 02-09-2017 Documentation of current medications (procedure) Done Invalid Interpretation Code [facility] Fall risk assessment No Invalid Interpretation Code [facility] Hemoglobin.gastrointes tinal Ql (St) not done Invalid Interpretation Code [facility] Protein mass conc Done [facility] Tobacco smoking status NHIS Never Invalid Interpretation Code [facility] Tobacco smoking status NHIS Never smoker [facility] Tobacco use [facility] Never smoker Invalid Interpretation Code [facility] Office Visiton 01-26-2017 Documentation of current medications (procedure) Done Invalid Interpretation Code [facility] Work Phone: [phone] Fall risk assessment No Invalid Interpretation Code [facility] Work Phone: [phone] Lab Report: Lipid Profileon 07-10-2016 Cholesterol 157 mg/dL Invalid Interpretation Code 200 [facility] Work Phone: HDL Cholesterol 67 mg/dL Invalid Interpretation Code [facility] Work Phone: [phone] LDL Cholesterol 80 mg/dL Invalid Interpretation Code 0-130 [facility] Work Phone: [phone] Triglyceride 49 mg/dL Invalid Interpretation Code [facility] Work Phone: [phone] very low density lipoproteins 10 mg/dL Invalid Interpretation Code 5-40 [facility] Work Phone: [phone] Lab Report: Liver Profileon 07-10-2016 Alanine aminotransferase (ALT) 28 U/L Invalid Interpretation Code 12-78 [facility] Work Phone: [phone] Albumin 3.8 g/dL Invalid Interpretation Code 3.4-5.0 [facility] Work Phone: [phone] Alkaline phosphatase (ALP) 78 U/L Invalid Interpretation Code 45-117 [facility] Work Phone: [phone] ALP enzyme act/vol (Bld) 78 U/L 45-117 [facility] Aspartate aminotransferase (AST) 20 U/L Invalid Interpretation Code 15-37 [facility] Work Phone: [phone] Bilirubin (direct) 0.08 mg/dL Invalid Interpretation Code 0.00-0.30 [facility] Work Phone: [phone] Bilirubin (total) 0.40 mg/dL Invalid Interpretation Code 0.20-1.00 [facility] Work Phone: [phone] Globulin 3.2 g/dL Invalid Interpretation Code 2.3-3.5 [facility] Work Phone: [phone] Globulin mass conc (S) 3.2 g/dL 2.3-3.[address] [facility] Protein 7.0 g/dL Invalid Interpretation Code 6.4-8.2 [facility] Work Phone: [phone] Clinical Lists Update: Prelo janitor helper 06-26-2016 Left ventricular Ejection fraction 60 % Invalid Interpretation Code [facility] Work Phone: [phone] Office Visit: new annualon 0 01-06-2016 MG Breast screening Normal Bilateral Invalid Interpretation Code [facility] Office Visiton 07-02-2015 Tobacco use [facility] Never smoker Invalid Interpretation Code [facility] Work Phone: [phone] Clinical Lists Update: Prelo janitor helper 06-17-2015 BUN/Creatinine Ratio 26 mg/mg Invalid Interpretation Code [facility] Work Phone: [phone] Calcium 9.6 mg/dL Invalid Interpretation Code [facility] Work Phone: [phone] Chloride 101 mmol/L Invalid Interpretation Code [facility] Work Phone: [phone] CO2 23 mmol/L Invalid Interpretation Code [facility] Work Phone: [phone] CO2 ppres (BldV) 23 mmol/L [facility] Creatinine 0.72 mg/dL Invalid Interpretation Code [facility] Work Phone: [phone] Erythrocyte distribution width Ratio (RBC) 13.4 % [facility] Erythrocytes (RBC) 4.37 10*6/uL Invalid Interpretation Code [facility] Work Phone: [phone] Globulin 2.0 g/dL Invalid Interpretation Code [facility] Work Phone: [phone] Globulin mass conc (S) 2.0 g/dL [facility] Glucose 89 mg/dL Invalid Interpretation Code [facility] Work Phone: [phone] Glucose mass conc 89 mg/dL [facility] Hematocrit (HCT) 37.8 % Invalid Interpretation Code [facility] Work Phone: [phone] Hematocrit Volume Fraction (Bld) 37.8 % [facility] Hemoglobin (HGB) 12.9 g/dL Invalid Interpretation Code [facility] Work Phone: [phone] LDL/HDL ratio, serum 1.0 Invalid Interpretation Code [facility] Work Phone: [phone] MCH 29.5 pg Invalid Interpretation Code [facility] Work Phone: [phone] MCH Entitic mass (RBC) 29.5 pg [facility] MCHC 34.1 g/dL Invalid Interpretation Code [facility] Work Phone: [phone] MCHC mass conc (RBC) 34.1 g/dL [facility] MCV 87 fL Invalid Interpretation Code [facility] Work Phone: [phone] MCV Entitic volume (RBC) 87 fL [facility] Platelets 351 10*3/mm3 Invalid Interpretation Code [facility] Work Phone: [phone] Platelets #/vol (Bld) 351 10*3/mm3 B [facility] Potassium 4.5 mmol/L Invalid Interpretation Code [facility] Work Phone: [phone] RBC #/vol (Bld) 4.37 10*6/uL [facility] RDW-CA 13.4 % Invalid Interpretation Code [facility] Work Phone: [phone] Sodium 138 mmol/L Invalid Interpretation Code [facility] Work Phone: [phone] Urea nitrogen 19 mg/dL Invalid Interpretation Code [facility] Work Phone: [phone] WBC #/vol (Bld) 5.6 10*3/uL [facility] WBC (Leukocytes) 5.6 10*3/uL Invalid Interpretation Code [facility] Work Phone: [phone] Lab Report: LIVERon 05-08-20 14 ALK 88 U/L Normal 50-136 [facility] [facility] GE use only - for [employer] import when terms are not otherwise specified 88 U/L Normal 50-136 [employer] Work Phone: [phone] Office Visiton 05-08-2014 cardiac risk group C Invalid Interpretation Code [employer] Work Phone: [phone] General cardiovascular disease 10Y risk [#] [place]D'Agostranjan N/A Invalid Interpretation Code [employer] Work Phone: [phone] Lab Report: CBCDon 4 Absolute Neutrophil count 1.6 X10 3/UL Low 2.0-7.7 [employer] Work Phone: [phone] ANC 1.6 X10 3/UL Low 2.0-7.7 [facility] Basophils/100 leukocytes 1.1 % High 0-1 [employer] Work Phone: [phone] Basophils/100 WBC (Bld) 1.1 % High 0-1 [facility] Eosinophils/100 leukocytes 3.1 % Normal 0-5 [employer] Work Phone: [phone] Eosinophils/100 WBC (Bld) 3.1 % Normal 0-5 [facility] Lymphocytes/100 leukocytes 42.5 % High 19-41 [employer] Work Phone: [phone] Lymphocytes/100 WBC (Bld) 42.5 % High 19-41 [facility] Monocytes/100 leukocytes 8.2 % Normal 0-10 [employer] Work Phone: [phone] Monocytes/100 WBC (Bld) 8.2 % Normal 0-10 [facility] Neutrophils/100 leukocytes 45.1 % Low 47-70 [facility] Work Phone: [phone] Neutrophils/100 WBC (Bld) 45.1 % Low 47-70 [facility] Platelet mean volume Entitic volume (Bld) 9.6 fL Normal 6.2-12.0 [facility] PMV by Casimiro 9.6 fL Normal 6.2-12.0 [facility] [employer] Work Phone: [phone] Lab Report: CMPon 12-01-2013 Albumin/Globulin Ratio 1.2 {ratio} Normal 0.9-2.4 [facility] [employer] Work Phone: [phone] Anion gap 5 mmol/L Normal 5-15 [facility] [employer] Work Phone: [phone] Anion gap molar conc 5 mmol/L Normal 5-15 [facility] eGFR (non-black) 95 mL/min/{1.73_m2} Normal >60 [facility] [employer] Work Phone: [phone] eGFR (non-black) 78 mL/min/{1.73_m2} Normal >60 [facility] Work Phone: [phone] GFRAA 95 mL/min Normal >60 [facility] Lab Report: PHOSon 4 PHOS 3.6 mg/dL Normal 2.5-4.9 [facility] Phosphorus Concentratation-Random 3.6 mg/dL Normal 2.5-4.9 [facility] [employer] Work Phone: [phone] Lab Report: PTHINon 12-02-19 14 Parathyrin intact (PTH) 71 pg/mL Normal 14-72 [facility] [employer] Work Phone: [phone] Lab Report: TSHon 12-01-2013 Thyroid stimulating hormone (TSH) 0.87 u[iU]/mL Normal 0.358-3.74 [facility] [employer] Work Phone: [phone] Lab Report: VITDon 4 vitamin D 25-hydroxy, serum [id number] ng/mL Normal Units converted. See lab report for original value. [facility] [employer] Work Phone: [phone] VITD [id number] ng/mL Normal Units converted. See lab report for original value. [facility] Replaced Document: Anna ANSARI Observationson 10-27-2013 EKG QRS axis 30 deg [facility] electrocardiogram interpretation Sinus Bradycardia WITHIN NORMAL LIMITS Invalid Interpretation Code [facility] Work Phone: [phone] Interpretation Sinus Bradycardia WI THIN NORMAL LIMITS [facility] P [place] 46 deg [facility] P wave axis, electrocardiogram 46 deg Invalid Interpretation Code [facility] Work Phone: [phone] ID Interval 164 ms [facility] ID interval, electrocardiogram 164 ms Invalid Interpretation Code [facility] Work Phone: [phone] Pulse (Heart Rate) 53 /min Invalid Interpretation Code [facility] [employer] Work Phone: [phone] QRS axis, electrocardiogram 30 deg Invalid Interpretation Code [employer] Work Phone: [phone] QRS Duration 92 ms [facility] QRS duration, electrocardiogram 92 ms Invalid Interpretation Code [facility] [employer] Work Phone: [phone] QT Interval new path ms [facility] QT interval, electrocardiogram new path ms Invalid Interpretation Code [facility] [employer] Work Phone: [phone] T [place] 27 deg [facility] T wave axis, electrocardiogram 27 deg Invalid Interpretation Code [facility] [employer] Work Phone: [phone] Lab Reporton 04-22-2012 C reactive protein (CRP) mg/L Invalid Interpretation Code [facility] [employer] Work Phone: [phone] Replaced Document: AMYon Amylase 46 U/L Normal 25-115 [facility] [employer] Work Phone: [phone] Replaced Document: CRPon C reactive protein (CRP) mg/L Normal 0.0-3.0 [facility] [employer] Work Phone: [phone] Replaced Document: LIPASEon 04-22-2012 LIPASE 259 U/L Normal 70-290 [facility] lipase, serum 259 U/L Normal 70-290 [facility] [employer] Work Phone: [phone] Replaced Document: SEDon Erythrocyte sedimentation rate 14 mm/h Normal 0-30 [facility] Work Phone: [phone] Gram stain for investigation of transfusion reaction Microscopic observation Gram stain Nom (Unsp spec) [facility] Work Phone: Vital Signs Date Time Vital Sign Value Performing Clinician Noah markham 11-29-2024 08:39-0400 Body height 170.2 cm Dudley Kathleen MD Work Phone: [facility] 11-29-2024 08:39-0400 Body mass index (BMI) [Ratio] 24.14 kg/m2 Dudley Kathleen MD Work Phone: [facility] 11-29-2024 08:39-0400 Body weight 69.9 kg Dudley Kathleen MD Work Phone: [facility] 10-31-2024 06:46-0400 Body height 172.72 cm María Abdulaziz DO Work Phone: [facility] 10-31-2024 06:46-0400 Body mass index (BMI) [Ratio] 1.8 kg/m2 María Abdulaziz DO Work Phone: [facility] 10-31-2024 06:46-0400 Body mass index (BMI) [Ratio] 23.1 kg/m2 María Abdulaziz DO Work Phone: [facility] 10-31-2024 06:46-0400 Body weight 5.44 kg María Abdulaziz DO Work Phone: [facility] 10-31-2024 06:46-0400 Body weight 68.94 kg María Abdulaziz DO Work Phone: [facility] 10-31-2024 06:46-0400 Diastolic blood pressure 78 mm[Hg] María Abdulaziz DO Work Phone: [facility] 10-31-2024 06:46-0400 Heart rate 58 /min María Abdulaziz DO Work Phone: [facility] 10-31-2024 06:46-0400 Respiratory rate 18 /min María Abdulaziz DO Work Phone: 8(181)967-714611 [place] [address] 10-31-2024 06:46-0400 SaO2% (BldA) [Mass fraction] 98 % María Abdulaziz DO Work Phone: 0(332)366-991818 [place] [address] 10-31-2024 06:46-0400 Systolic blood pressure 113 mm[Hg] María Abdulaziz DO Work Phone: 4(650)129-925518 [place] [address] 10-17-2024 13:37-0400 Diastolic blood pressure 71 mm[Hg] María Abdulaziz DO Work Phone: 2(840)320-141818 [place] [address] 10-17-2024 13:37-0400 Heart rate 71 /min María Abdulaziz DO Work Phone: 2(898)733-502518 [place] [address] 10-17-2024 13:37-0400 Respiratory rate 16 /min María Abdulaziz DO Work Phone: 5(154)974-369718 [place] [address] 10-17-2024 13:37-0400 SaO2% (BldA) [Mass fraction] 95 % María Abdulaziz DO Work Phone: 7(005)143-419418 [place] [address] 10-17-2024 13:37-0400 Systolic blood pressure 146 mm[Hg] María Abdulaziz DO Work Phone: 8(909)978-690418 [place] [address] 10-17-2024 13:18-0400 Body height 172.72 cm María Abdulaziz DO Work Phone: 4(620)049-841418 [place] [address] 10-17-2024 13:18-0400 Body mass index (BMI) [Ratio] 23.6 kg/m2 María Abdulaziz DO Work Phone: 6(119)563-004918 [place] [address] 10-17-2024 13:18-0400 Body temperature 96.6 [degF] María Abdulaziz DO Work Phone: 7(408)871-862118 [place] [address] 10-17-2024 13:18-0400 Body weight 70.3 kg María Abdulaziz DO Work Phone: 8(747)146-940318 [place] [address] 08-18-2024 07:44-0400 Body mass index (BMI) [Ratio] 23.4 kg/m2 María Abdulaziz DO Work Phone: 2(849)934-663811 [place] [address] 08-18-2024 07:44-0400 Body weight 69.85 kg María Abdulaziz DO Work Phone: 3(529)268-210718 [place] [address] 08-18-2024 07:44-0400 Diastolic blood pressure 76 mm[Hg] María Abdulaziz DO Work Phone: 8(966)979-564618 [place] [address] 08-18-2024 07:44-0400 Heart rate 71 /min María Abdulaziz DO Work Phone: 9(772)333-960518 [place] [address] 08-18-2024 07:44-0400 Respiratory rate 18 /min María Abdulaziz DO Work Phone: 7(237)475-155318 [place] [address] 08-18-2024 07:44-0400 SaO2% (BldA) [Mass fraction] 100 % María Abdulaziz DO Work Phone: 4(623)028-459118 [place] [address] 08-18-2024 07:44-0400 Systolic blood pressure 130 mm[Hg] María Abdulaziz DO Work Phone: 5(419)987-527418 [place] [address] 07-11-2024 11:15-0500 Body temperature 97.8 [degF] María Abdulaziz DO Work Phone: 1(146)766-408818 [place] [address] 07-11-2024 11:15-0500 Diastolic blood pressure 71 mm[Hg] María Abdulaziz DO Work Phone: 1(229)808-821818 [place] [address] 07-11-2024 11:15-0500 Heart rate 55 /min María Abdulaziz DO Work Phone: 1(012)909-505718 [place] [address] 07-11-2024 11:15-0500 Respiratory rate 16 /min María Abdulaziz DO Work Phone: 1(551)587-941018 [place] [address] 07-11-2024 11:15-0500 SaO2% (BldA) [Mass fraction] 100 % María Abdulaziz DO Work Phone: 9(105)016-965318 [place] [address] 07-11-2024 11:15-0500 Systolic blood pressure 135 mm[Hg] María Abdulaziz DO Work Phone: 3(319)413-891618 [place] [address] 07-11-2024 08:59-0500 Body height 172.72 cm María Abdulaziz DO Work Phone: 2(795)796-235818 [place] [address] 07-11-2024 08:59-0500 Body mass index (BMI) [Ratio] 22.8 kg/m2 María Abdulaziz DO Work Phone: 8(291)603-956618 [place] [address] 07-11-2024 08:59-0500 Body weight 68.03 kg María Abdulaziz DO Work Phone: 4(936)415-833318 [place] [address] 06-19-2024 12:53-0500 Body mass index (BMI) [Ratio] 23.4 kg/m2 María Abdulaziz DO Work Phone: 8(717)409-044218 [place] [address] 06-19-2024 12:53-0500 Body temperature 98 [degF] María Abdulaziz DO Work Phone: 2(905)486-072818 [place] [address] 06-19-2024 12:53-0500 Body weight 69.85 kg María Abdulaziz DO Work Phone: 0(848)764-009318 [place] [address] 06-19-2024 12:53-0500 Diastolic blood pressure 74 mm[Hg] María Abdulaziz DO Work Phone: 8(703)507-421018 [place] [address] 06-19-2024 12:53-0500 Heart rate 59 /min María Abdulaziz DO Work Phone: 3(907)129-333618 [place] [address] 06-19-2024 12:53-0500 Respiratory rate 18 /min María Abdulaziz DO Work Phone: 5(459)792-123618 [place] [address] 06-19-2024 12:53-0500 SaO2% (BldA) [Mass fraction] 97 % María Abdulaziz DO Work Phone: 2(927)996-879518 [place] [address] 06-19-2024 12:53-0500 Systolic blood pressure 143 mm[Hg] María Abdulaziz DO Work Phone: 7(185)992-218818 [place] [address] 05-23-2024 07:59-0500 Body temperature 97.5 [degF] María Abdulaziz DO Work Phone: 7(143)951-607518 [place] [address] 05-23-2024 07:59-0500 Diastolic blood pressure 77 mm[Hg] María Abdulaziz DO Work Phone: 9(898)623-635918 [place] [address] 05-23-2024 07:59-0500 Heart rate 59 /min María Abdulaziz DO Work Phone: 1(776)561-585018 [place] [address] 05-23-2024 07:59-0500 Respiratory rate 16 /min María Abdulaziz DO Work Phone: 7(929)441-900718 [place] [address] 05-23-2024 07:59-0500 SaO2% (BldA) [Mass fraction] 100 % María Abdulaziz DO Work Phone: 5(936)062-800918 [place] [address] 05-23-2024 07:59-0500 Systolic blood pressure 144 mm[Hg] María Abdulaziz DO Work Phone: 8(466)867-658018 [place] [address] 05-23-2024 06:27-0500 Body mass index (BMI) [Ratio] 22.4 kg/m2 María Abdulaziz DO Work Phone: 1(655)103-475218 [place] [address] 05-23-2024 06:27-0500 Body weight 67 kg María Abdulaziz DO Work Phone: 1(024)223-459718 [place] [address] 05-11-2024 10:52-0500 Body mass index (BMI) [Ratio] 22.6 kg/m2 María Abdulaziz DO Work Phone: 4(838)236-085718 [place] [address] 05-11-2024 10:52-0500 Body weight 67.58 kg María Abdulaziz DO Work Phone: 4(136)608-655318 [place] [address] 05-11-2024 10:52-0500 Diastolic blood pressure 85 mm[Hg] María Abdulaziz DO Work Phone: 9(733)460-972918 [place] [address] 05-11-2024 10:52-0500 Heart rate 67 /min María Abdulaziz DO Work Phone: 2(816)583-404618 [place] [address] 05-11-2024 10:52-0500 Respiratory rate 18 /min María Abdulaziz DO Work Phone: 3(297)677-77[address] [place] [address] 05-11-2024 10:52-0500 SaO2% (BldA) [Mass fraction] 99 % María Tother DO Work Phone: 3(419)634-765611 [place] [address] 05-11-2024 10:52-0500 Systolic blood pressure 129 mm[Hg] María Cassidynger DO Work Phone: 2(399)001-668632 [address] 04-13-2023 08:53-0500 Diastolic blood pressure 70 mm[Hg] Dr. Vigil [facility] 04-13-2023 08:53-0500 Systolic blood pressure 108 mm[Hg] Dr. Vigil [facility] 04-13-2023 08:26-0500 Body height 172.[address] [facility] 04-13-2023 08:26-0500 Body mass index (BMI) [Ratio] 23.1 kg/m2 Dr. Vigil [facility] 04-13-2023 08:26-0500 Body weight 68.[address] [facility] 04-13-2023 08:26-0500 Heart rate 67 /min Dr. Vigil [facility] 04-13-2023 08:26-0500 Respiratory rate 18 /min Dr. Vigil [facility] 04-13-2023 08:26-0500 SaO2% (BldA) [Mass fraction] 97 % Dr. Vigil [facility] 11-10-2022 13:15-0400 Body height 172.72 cm [facility] 10-07-2022 11:08-0400 Body temperature 98.49 [degF] Krislyn Aberegg PA Work Phone: [facility] 10-07-2022 11:08-0400 Body weight 68.77 kg Krislyn Aberegg PA Work Phone: [facility] 10-07-2022 11:08-0400 Diastolic blood pressure 64 mm[Hg] Krislyn Aberegg PA Work Phone: [facility] 10-07-2022 11:08-0400 Heart rate 94 /min Krislyn Aberegg PA Work Phone: [facility] 10-07-2022 11:08-0400 Respiratory rate 21 /min Krislyn Aberegg PA Work Phone: [facility] 10-07-2022 11:08-0400 SaO2% (BldA) [Mass fraction] 99 % Krislyn Aberegg PA Work Phone: [facility] 10-07-2022 11:08-0400 Systolic blood pressure 108 mm[Hg] Krislyn Aberegg PA Work Phone: [facility] 05-01-2022 12:40-0500 Body temperature 98 [degF] Dr. Musa Rodríguez Work Phone: [facility] Work Phone: 05-01-2022 12:40-0500 Diastolic blood pressure 80 mm[Hg] Dr. Musa Rodríguez Work Phone: [facility] Work Phone: 05-01-2022 12:40-0500 Heart rate 76 /min Dr. Musa Rodríguez Work Phone: [facility] Work Phone: 05-01-2022 12:40-0500 Respiratory rate 15 /min Dr. Musa Rodríguez Work Phone: [facility] Work Phone: 05-01-2022 12:40-0500 SaO2% (BldA) [Mass fraction] 96 % Dr. Musa Rodríguez Work Phone: [facility] Work Phone: 05-01-2022 12:40-0500 Systolic blood pressure 130 mm[Hg] Dr. Musa Rodríguez Work Phone: [facility] Work Phone: 04-14-2022 09:00-0500 Body height 172.[address] Musa Rodríguez Work Phone: [facility] Work Phone: 04-14-2022 09:00-0500 Body mass index (BMI) [Ratio] 26.3 kg/m2 Dr. Musa Rodríguez Work Phone: [facility] Work Phone: 04-14-2022 09:00-0500 Body weight 78.[address] Musa Rodríguez Work Phone: [facility] Work Phone: 04-14-2022 09:00-0500 Diastolic blood pressure 87 mm[Hg] Dr. Musa Rodríguez Work Phone: [facility] Work Phone: 04-14-2022 09:00-0500 Heart rate 64 /min Dr. Musa Rodríguez Work Phone: [facility] Work Phone: 04-14-2022 09:00-0500 Respiratory rate 16 /min Dr. Musa Rodríguez Work Phone: [facility] Work Phone: 04-14-2022 09:00-0500 SaO2% (BldA) [Mass fraction] 99 % Dr. Musa Rodríguez Work Phone: [facility] Work Phone: 04-14-2022 09:00-0500 Systolic blood pressure 129 mm[Hg] Dr. Musa Rodríguez Work Phone: [facility] Work Phone: 04-09-2022 15:36-0400 Body temperature 98 [degF] Dr. Musa Rodríguez Work Phone: [facility] Work Phone: 04-09-2022 15:36-0400 Diastolic blood pressure 80 mm[Hg] Dr. Musa Rodríguez Work Phone: [facility] Work Phone: 04-09-2022 15:36-0400 Heart rate 81 /min Dr. Musa Rodríguez Work Phone: [facility] Work Phone: 04-09-2022 15:36-0400 Respiratory rate 16 /min Dr. Musa Rodríguez Work Phone: [facility] Work Phone: 04-09-2022 15:36-0400 SaO2% (BldA) [Mass fraction] 99 % Dr. Musa Rodríguez Work Phone: [facility] Work Phone: 04-09-2022 15:36-0400 Systolic blood pressure 142 mm[Hg] Dr. Musa Rodríguez Work Phone: [facility] Work Phone: 03-10-2022 11:46-0400 Body mass index (BMI) [Ratio] 26.4 kg/m2 Dr. Musa Rodríguez Work Phone: [facility] Work Phone: 03-10-2022 11:46-0400 Body weight 78.[address] Musa Rodríguez Work Phone: [facility] Work Phone: 08-09-2021 12:13-0500 Body height 172.72 cm [facility] Work Phone: 08-09-2021 12:13-0500 Body mass index (BMI) [Ratio] 27.3 kg/m2 [facility] Work Phone: 08-09-2021 12:13-0500 Body temperature 97.9 [degF] [facility] Work Phone: 08-09-2021 12:13-0500 Body weight 81.64 kg [facility] Work Phone: 08-09-2021 12:13-0500 Diastolic blood pressure 83 mm[Hg] [facility] Work Phone: 08-09-2021 12:13-0500 Heart rate 80 /min [facility] Work Phone: 08-09-2021 12:13-0500 Respiratory rate 16 /min [facility] Work Phone: 08-09-2021 12:13-0500 SaO2% (BldA) [Mass fraction] 100 % [facility] Work Phone: 08-09-2021 12:13-0500 Systolic blood pressure 142 mm[Hg] [facility] Work Phone: 02-09-2017 08:16-0400 BMI (Body Mass Index) 27.94 kg/m2 Heather Camejo MD [facility] 02-09-2017 08:16-0400 Body Temperature 96.3 [degF] Heather Camejo MD [facility] 02-09-2017 08:16-0400 BP Diastolic 79 mm[Hg] Heather Camejo MD [facility] 02-09-2017 08:16-0400 BP Systolic 130 mm[Hg] Heather Camejo MD [facility] 02-09-2017 08:16-0400 Height 172.72 cm Heather Camejo MD [facility] 02-09-2017 08:16-0400 Pulse (Heart Rate) 60 /min Heather Camejo MD [facility] 02-09-2017 08:16-0400 Respiratory Rate 16 /min Heather Camejo MD [facility] 02-09-2017 08:16-0400 Weight 83.37 kg Heather Camejo MD [facility] 01-26-2017 09:17-0400 BMI (Body Mass Index) 26.66 kg/m2 Valerie Lozada [facility] Work Phone: 01-26-2017 09:17-0400 BP Diastolic 72 mm[Hg] [facility] Work Phone: 01-26-2017 09:17-0400 BP Systolic 130 mm[Hg] [facility]erie [facility]oz[facility] Work Phone: 01-26-2017 09:17-0400 Height 175.26 cm [facility] Work Phone: 01-26-2017 09:17-0400 Pulse (Heart Rate) 56 /min [facility] Work Phone: 01-26-2017 09:17-0400 Respiratory Rate 20 /min [facility] Work Phone: 01-26-2017 09:17-0400 Weight 81.9 kg [facility] Work Phone: 06-30-2016 10:12-0500 BSA (Body Surface Area) 1.97 m2 [facility] Work Phone: 10-27-2013 09:00-0400 Heart rate 53 /min Heather Camejo MD [facility] 03-06-2010 14:10-0400 Body Temperature 96.2 [degF] [facility] Work Phone: Encounters Encounter Date Encounter Type Care Provider Facility Start: 12-05-2024 ambulatory Jagdeep Chauhan Facility:[facility] Start: 11-29-2024 End: 11-29-2024 Office outpatient new 45 minutes Dudley Kathleen MD Work Phone: Orthopaedics Comment on above: Primary osteoarthrit is of right knee (Primary Dx); Chronic pain of left knee; Pes anserinus bursitis of left knee; Quadriceps tendonitis Start: 11-29-2024 End: 11-29-2024 ambulatory NIA CINTRON Facility:[facility] Start: 11-29-2024 End: 11-29-2024 Subsequent hospital visit by physician [facility] Work Phone: Radiology Comment on above: Pain in both knees, unspecified chronicity [M25.561, M25.562] Start: 11-13-2024 End: 11-13-2024 ambulatory María Cintron DO Work Phone: [facility] Work Phone: Start: 11-13-2024 End: 11-13-2024 Patient encounter procedure Raya Corona TURPENTINE FARMER-C -[facility] Work Phone: Start: 11-13-2024 End: 11-13-2024 ambulatory Raya Corona [employer]ER Facility:[facility] Start: 11-09-2024 ambulatory Jagdeep Chauhan [facility] Start: 11-09-2024 Non-patient / Non-[facility] Start: 11-08-2024 End: 11-08-2024 Orders Only Dudley Kathlene MD Work Phone: Orthopaedics Comment on above: Pain in both knees, unspecified chronicity (Primary Dx) Start: 10-31-2024 End: 10-31-2024 Patient encounter procedure Raya Corona TURPENTINE FARMER-C -[facility] Work Phone: Start: 10-31-2024 End: 10-31-2024 ambulatory María Cintron DO Work Phone: [facility] Work Phone: Start: 10-18-2024 [facility] Start: 10-18-2024 Non-patient / Non-visit Dr. Gannon Of shady [facility] Start: 10-18-2024 End: 10-18-2024 Telephone encounter Stiven Cote PA-C Work Phone: Pulmonology [facility] Comment on above: Intake ([facility] pre-visit phone call ) Start: 10-17-2024 End: 10-17-2024 ambulatory María Abdulaziz DO Work Phone: [facility] Work Phone: Start: 10-17-2024 End: 10-17-2024 Patient encounter procedure Sue AL -Yulia Benavidez [facility] Work Phone: Start: 10-17-2024 End: 10-17-2024 ambulatory Sue AL Facility:[facility] Start: 10-17-2024 Non-patient / Non-visit Dr. Katia DAVILA -[facility] Start: 09-07-2024 End: 09-07-2024 ambulatory María Cintron DO Work Phone: [facility] Work Phone: Start: 09-07-2024 End: 09-07-2024 Patient encounter procedure María Cintron DO -Deanna Soto Start: 09-07-2024 End: 09-07-2024 ambulatory María GARNICA Facility:[facility] Start: 09-04-2024 ambulatory Jagdeep Chauhan Facility:[facility] Start: 08-21-2024 End: 08-21-[address] Marquis Jackson DO -[facility] Work Phone: Start: 08-21-2024 End: 08-21-2024 ambulatory Marquis Jackson Facility:[facility] Start: 08-18-2024 End: 08-18-2024 Patient encounter procedure Sue AL -[facility] Work Phone: Start: 08-18-2024 End: 08-18-2024 ambulatory María Tothgurvinder COOK Work Phone: [facility] Work Phone: Start: 08-18-2024 End: 08-18-2024 ambulatory Sue AL Facility:[facility] Start: 07-28-2024 End: 07-28-2024 Patient encounter procedure Dr. Bartolo Ngo MD -Laboratory, Specimen Work Phone: Start: 07-28-2024 End: 07-28-2024 ambulatory Bartolo Ngo Facility:[facility] Start: 07-11-2024 ambulatory Tk Daley Facility :[facility] Start: 07-11-2024 Non-patient / Non-visit Dr. Tk Daley MD -[facility] Start: 07-11-2024 End: 07-11-2024 Admission to same day surgery center Dr. Tk Daely MD -Endoscopy Work Phone: Start: 07-11-2024 End: 07-11-2024 ambulatory Tk Daley Facility:[facility] Start: 07-07-2024 End: 07-07-2024 ambulatory [facility] Facility:[facility] Start: 07-07-2024 End: 07-07-[address] Marquis Jackson DO -Physical Therapy Work Phone: Start: 06-19-2024 End: 06-19-[address] Tk Daley MD -[facility] Work Phone: Start: 06-19-2024 End: 06-19-2024 ambulatory Tk Daley Facility:[facility] Start: 06-09-2024 End: 06-09-[address] Marquis Jackson DO -[facility] Work Phone: Start: 06-09-2024 End: 06-09-2024 ambulatory [place] Renetta Facility:[facility] Start: 05-23-2024 ambulatory Marquis Davidechino Facility :[facility] Start: 05-23-2024 Non-patient / Non-visit Dr. Marquis betancur DO -[facility] Start: 05-23-2024 End: 05-23-2024 Admission to same day surgery center Dr. Marquis Jackson DO -[facility] Start: 05-23-2024 End: 05-23-2024 ambulatory Marquis Augustinechino Facility:[facility] Start: 05-17-2024 End: 05-17-[address] Marquis Jackson DO -[facility] Work Phone: Start: 05-17-2024 End: 05-17-2024 ambulatory Marquis Davidechino Facility:[facility] Start: 05-12-2024 End: 05-12-2024 Patient encounter procedure Sue AL -[facility], [facility] Work Phone: Start: 05-11-2024 End: 05-11-2024 Patient encounter procedure Sue AL -[facility] Work Phone: Start: 05-11-2024 End: 05-12-2024 ambulatory Sue AL Facility:[facility] Start: 05-06-2024 End: 05-06-2024 Patient encounter procedure María Cintron DO -Laboratory Work Phone: Start: 05-06-2024 End: 05-06-2024 ambulatory María Cassidynger VSC Facility:[facility] Start: 05-05-2024 End: 05-05-2024 Patient encounter procedure María Cintron DO -Laboratory, [place] Work Phone: Start: 05-05-2024 End: 05-05-2024 ambulatory María Abdulaziz VSC Facility:[facility] Start: 04-23-2024 Encounter for other preprocedural examination Marquis Davideruso [facility] Start: 04-19-2024 End: 04-20-2024 ambulatory María Cassidynger VSC Facility:[facility] Start: 04-10-2024 Encounter for other preprocedural examination María Cintron VSC [facility] Start: 04-04-2024 ambulatory [place] Borruso Facility :[facility] Start: 04-04-2024 End: 04-05-2024 Evaluation and management of inpatient Marquis Borruso Facility:[facility] Start: 04-04-2024 ambulatory Marquis Borruso Facility :[facility] Start: 03-24-2024 End: 03-24-2024 ambulatory Marquis Borruso Facility:[facility] Start: 03-16-2024 End: 03-16-2024 ambulatory Jagdeep Chauhan Facility:[facility] Start: 03-16-2024 End: 03-16-2024 ambulatory Ragini Villalobos Facility:[facility] Start: 03-15-2024 End: 03-15-2024 ambulatory María Abdulaziz VSC Facility:[facility] Start: 09-20-2023 End: 09-20-2023 ambulatory [facility] Work Phone: Start: 09-20-2023 End: 09-20-2023 Patient encounter procedure [facility]-Laboratory, [place] Work Phone: Start: 04-13-2023 End: 04-13-[address] Musa Rodríguez [facility] Work Phone: Start: 04-13-2023 End: 04-13-[address] Musa Rodríguez [facility] Work Phone: Start: 12-21-2022 End: 12-21-2022 Discharged Recurring [facility]-Physical Therapy Work Phone: Start: 11-10-2022 End: 11-10-2022 Patient encounter procedure [facility]-Outpatient Bone Densitometry Work Phone: Start: 10-30-2022 End: 10-30-2022 ambulatory [facility] Work Phone: Start: 10-30-2022 End: 10-30-2022 Patient encounter procedure [facility]-Laboratory, [place] Work Phone: Start: 10-07-2022 End: 10-07-2022 Patient encounter procedure Héctor AL Work Phone: [facility] Comment on above: URI, acute (Primary Dx) Start: 05-11-2022 Non-patient / Non-visit Dr. Crow Rodríguez Work Phone: [facility] Start: 05-11-2022 End: 05-11-[address] Musa Rodríguez Work Phone: [facility] Work Phone: Start: 05-11-2022 End: 05-11-[address] Musa Rodríguez Work Phone: [facility]-Cardiovascula r Services Start: 05-07-2022 End: 05-07-[address] Musa Rodríguez Work Phone: [facility] Work Phone: Start: 05-07-2022 End: 05-07-[address] Musa Rodríguez Work Phone: [facility]-Laboratory, Specimen Start: 05-01-2022 End: 05-01-[address] Musa Rodríguez Work Phone: [facility] Start: 04-14-2022 End: 04-14-[address] Musa Rodríguez Work Phone: [facility] Start: 04-09-2022 End: 04-09-[address] Musa Rodríguez Work Phone: [facility] Start: 03-18-2022 End: 03-18-[address] Musa Rodríguez Work Phone: [facility] Start: 08-29-2021 End: 08-29-2021 Patient encounter procedure [facility]-Outpatient Breast Imaging Start: 08-09-2021 End: 08-09-2021 Emergency department patient visit [facility]-Emergency Department Procedures Date Procedure Procedure Detail Performing Clinician Start: 11-29-2024 Bone length studies Dudley Kathleen MD Work Phone: Start: 10-17-2024 CT angiography of coronary arteries María Cintron DO Work Phone: Start: 09-07-2024 DARRON measurement María Cintron DO Work Phone: Comment on above: Performed at: [address] Director: Priyank Muller PhD, Phone: [phone] Start: 09-07-2024 Human leukocyte antigen B27 antigen phenotyping María Cintron DO Work Phone: Comment on above: HLA-B*27 [id number] allele interpretati on for all loci based on IMGT/HLAdatabase version 3.58This test was developed and its performance characteristicsdetermined by [employer]. It has not been cleared or approvedby the Food and Drug Administration.The FDA has determined that such clearance or approval isnot necessary.[facility] CLIA ID Number [id number] test was performed using Polymerase Chain Reaction(PCR) and Sequence Specific Oligonucleotide Probes (SSOP)technique. Sequence Based Typing (SBT) may be used as asupplemental method when necessary.If you have questions, please call [facility] [employer] or email at [email or web address].Performed at: [facility] [id number] [place], [place] [id number] Director: Beatriz CALDERA, Phone: [phone] Start: 09-07-2024 Vitamin D, 25-hydroxy measurement María Cintron Puzl Work Phone: Comment on above: Vitamin D StatusDeficiency: <20 ng/mL (5 0nmol/L)Insufficiency: 20-30 ng/mL (50-75 nmol/L)Sufficiency: 30-100 ng/mL (75-250 nmol/L)Toxicity: >100 ng/mL (>250 nmol/L) Start: 08-21-2024 X-ray of knee, four or more views María Cintron DO Work Phone: Start: 08-18-2024 X-ray of chest, PA and lateral views María Cintron DO Work Phone: Start: 08-18-2024 Evaluation of diagnostic study results María Cintron Puzl Work Phone: Start: 07-28-2024 Gram stain microscopy María Cintron Puzl Work Phone: Start: 07-28-2024 End: 07-28-2024 Respiratory microbial culture María mcallister DO Work Phone: Start: 05-17-2024 XR knee, 3 views María Cintron DO Work Phone: Start: 05-12-2024 CT angiography of chest with contrast María Cintron Puzl Work Phone: Start: 05-11-2024 Evaluation of diagnostic study results María Cintron Puzl Work Phone: Start: 05-06-2024 Measurement of occult blood in stool specimen using immunoassay María Cintron Puzl Work Phone: Start: 11-10-2022 Dual energy X-ray absorptiometry Start: 11-10-2022 Screening mammography Start: 05-11-2022 Radionuclide imaging of perfusion of myocardium under exercise stress Dr. Musa Rodríguez Work Phone: Start: 03-18-2022 End: 03-18-2022 Radiologic examination of knee Dr. 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 Heather castillo MD Start: 02-09-2017 [...] 06-30-2016 MMM Jagdeep Chauhan MD Start: 10-16-2015 Mammography Héctor [place] Work Phone: Start: 07-02-2015 End: 07-02-2015 BENNETT Chauhan MD Start: 07-02-2015 End: 07-02-2015 Follow Up Appt 1 year Jagdeep Chauhan MD Start: 11-05-2014 End: 07-12-2015 Lipid panel [AGGREGATE] Vonnie Boo Start: 05-08-2014 End: 05-08-2014 BENNETT Chauhan MD Start: 05-08-2014 End: 05-08-2014 Follow [...] Start: 10-27-2013 End: 10-27-2013 Electrocardiogram, complete Jagdeep Juarez i, MD Start: 10-27-2013 End: 11-24-2013 Nuclear stress test -adenosine Jagdeep manning MD Start: 10-27-2013 End: 06-26-2016 Preoperative cardiovascular examination PRE-OPERATIVE CARDIOVASCULAR EXAMINATION Heather Camejo MD Start: 08-10-2013 End: 11-24-2013 *Hepatic Function Panel Vonnie Boo Start: 08-10-2013 End: 11-24-2013 Lipid panel [AGGREGATE] Vonnie Boo Start: 05-01-2013 End: 05-11-2013 *Hepatic Function Panel Vonnie Boo Start: 05-01-2013 End: 05-11-2013 Lipid panel [AGGREGATE] Vonnie Boo Start: 10-11-2012 End: 05-08-2014 SIGNAL TOWER OPERATOR Jagdeep Chauhan MD Start: 10-11-2012 End: [...] Lipid panel [AGGREGATE] Faustino Luque MD Start: 07-23-2010 Lipid 1996 panel - Serum or Plasma Stiven Cote PA-C Work Phone: Start: 09-14-2008 Gina AL Work Phone: Start: 01-05-1999 History of placement of stent for coronary artery disease History of coronary artery stent placement Sue AL Comment on above: [id number] 01/1999 Investigation of tra nsfusion reaction Dr. Musa Rodríguez Work Phone: Plan of Treatment Date Care Activity Detail Author Start: 2028 RSV Vaccine (1 - 1-d ose 75+ series) RSV Vaccine (1 - 1-dose 75+ series) [facility] Start: 02-05-2025 Influenza vaccination Influenz a Vaccine (Season Ended) [facility] Start: 11-29-2024 End: 11-29-2024 Patient encounter procedure Radiology Comment on above: knees 2nd opinion Bilatera l knee pain Start: 10-31-2024 Evaluation of diagno stic study results [facility] Start: 10-24-2024 End: 10-24-2024 Patient encounter procedure 10/24/2024 2:00 PM EDT Office Visit Pulmonology [facility] [address] [place] [address] Stiven Cote PA-C [address] [place] [address] CR-1 COVID - 19 LONG HAUL EVALUATION Pulmonology [facility] Comment on above: CR-1 COVID - 19 LONG HAUL EVALUATION Start: 10-17-2024 Following clinical pathway protocol [facility] Start: 09-07-2024 Human leukocyte anti gen B27 antigen phenotyping [facility] Start: 08-25-2024 Screening for malign ant neoplasm of colon Cologuard (FIT-DNA) [facility] Start: 07-11-2024 Egd transoral biopsy single/multiple EGD BIOPSY SINGLE/MULTIPLE [facility] Start: 07-11-2024 Patient discharge [facility] Start: 06-07-2024 Advance Directive Discussion Advance Directive Discussion [facility] Start: 05-23-2024 Anesthesia closed procedures knee joint ANESTH KNEE JOINT PROCEDURE [facility] Start: 05-23-2024 Manipulation knee stephanie int under general anesthesia FIXATION OF KNEE JOINT [facility] Start: 05-23-2024 Catheterization of vein [facility] Start: 05-23-2024 Following clinical pathway protocol [facility] Start: 05-23-2024 Patient discharge [facility] Start: 05-23-2024 Procedure discontinued [facility] Start: 05-23-2024 Taking patient vital signs [facility] Start: 05-23-2024 Vital signs measurements [facility] Start: 05-23-2024 [facility] Start: 05-23-2024 Medication education [facility] Start: 02-06-2024 Covid-19 Vaccine ( season) Covid-19 Vaccine () [facility] Start: 02-05-2023 Influenza vaccination INFLUENZ A (Season Ended) [facility] Start: 08-11-2022 Pneumococcal Vaccine : 50+ (2 of 2 - PCV) Pneumococcal Vaccine: 50+ (2 of 2 - PCV) [facility] Start: 06-07-2022 ADVANCE DIRECTIVE DISCUSSION ADVANCE DIRECTIVE DISCUSSION [facility] Start: 06-07-2022 DEPRESSION ASSESSMENT DEPRESSION ASS ESSMENT [facility] Start: 05-07-2022 [facility] Work Phone: Start: 10-06-2021 Urine microalbumin profile [facility] Start: 08-26-2021 Screening for malign ant neoplasm of colon Colorectal Cancer Screening [facility] Start: 08-09-2021 Control nasal hemorr brian anterior simple CONTROL OF NOSEBLEED [facility] Work Phone: Start: 07-10-2021 LIPID SCREEN LIPID SCREEN [facility] Start: 2018 BONE DENSITY BONE DENSITY [facility] Start: 2018 PNEUMOCOCCAL: 65+ (1 - PCV) PNEUMOCOCCAL: 65+ (1 - PCV) [facility] Start: 2018 Screening for osteoporosis Bone Density Screening [facility] Start: 07-08-2018 Medicare Annual Well ness Visit Medicare Annual Wellness Visit [facility] Start: 01-27-2018 End: 01-27-2018 Appointment Appointment [facility] Work Phone: Start: 02-09-2017 End: 02-09-2017 Appointment Appointment [facility] Work Phone: Start: 02-09-2017 End: 03-03-2017 Mammogram, screening Mammogram, Screening, both breasts [facility] Start: 02-08-2017 DIABETES SCREEN DIABETES SCREEN [facility] Start: 02-08-2017 Diabetes Screening Diabetes Screenin g [facility] Start: 01-26-2017 End: 01-26-2017 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 [facility] Work Phone: Start: 01-26-2017 End: 01-26-2017 Follow Up Appt 1 year Follow Up Appt 1 year [facility] Work Phone: Start: 01-07-2017 End: 07-10-2016 *Hepatic Function Panel *Hepatic Function Panel [facility] Work Phone: Start: 01-07-2017 End: 07-10-2016 Lipid panel [AGGREGATE] *Lipid Profile CC PCP [facility] Work Phone: Start: 10-15-2016 Mammography MAMMOGRAM [facility] Start: 10-15-2016 Screening for malign ant neoplasm of breast Mammogram Screening [facility] Start: 07-07-2016 End: 07-03-2016 *Hepatic Function Panel *Hepatic Function Panel [facility] Work Phone: Start: 07-07-2016 End: 07-03-2016 Lipid panel [AGGREGATE] *Lipid Profile CC PCP [facility] Work Phone: Start: 06-30-2016 End: 06-30-2016 Follow Up Appt 6 months Follow Up Appt 6 months [facility] Work Phone: Start: 06-30-2016 End: 06-30-2016 MMM MMM [facility] Work Phone: Start: 07-23-2015 Lipid panel Lipid Screening [facility] Start: 07-02-2015 End: 07-02-2015 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 [facility] Work Phone: Start: 07-02-2015 End: 07-02-2015 Follow Up Appt 1 year Follow Up Appt 1 year [facility] Work Phone: Start: 11-05-2014 End: 07-12-2015 Lipid panel [AGGREGATE] *Lipid Profile CC PCP [facility] Work Phone: Start: 05-08-2014 End: 05-08-2014 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 [facility] Work Phone: Start: 05-08-2014 End: 05-08-2014 Follow Up Appt 1 year Follow Up Appt 1 year [facility] Work Phone: Start: 05-07-2014 End: 05-08-2014 *Hepatic Function Panel *Hepatic Function Panel [facility] Work Phone: Start: 05-07-2014 End: 05-08-2014 Lipid panel [AGGREGATE] *Lipid Profile CC PCP [facility] Work Phone: Start: 11-05-2013 End: 12-01-2013 *Hepatic Function Panel *Hepatic Function Panel [facility] Work Phone: Start: 11-05-2013 End: 12-01-2013 Lipid panel [AGGREGATE] *Lipid Profile CC PCP [facility] Work Phone: Start: 10-27-2013 End: 10-27-2013 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 [facility] Work Phone: Start: 10-27-2013 End: 10-27-2013 Echocardiography Echocardiogram (complete) [facility] Work Phone: Start: 10-27-2013 End: 10-27-2013 Electrocardiogram, complete EKG (In office) [facility] Work Phone: Start: 10-27-2013 End: 10-27-2013 Follow Up Appt 6 months Follow Up Appt 6 months [facility] Work Phone: Start: 10-27-2013 End: 10-27-2013 Nuclear stress test -adenosine Nuclear stress test -adenosine [facility] Work Phone: Start: 09-14-2013 Colonoscopy COLONOSCOPY [facility] Start: 09-14-2013 COLORECTAL CANCER SCREENING COLORECTAL CANCER SCREENING [facility] Start: 09-14-2013 Screening for malign ant neoplasm of colon Colonoscopy [facility] Start: 08-10-2013 End: 11-24-2013 *Hepatic Function Panel *Hepatic Function Panel [facility] Work Phone: Start: 08-10-2013 End: 11-24-2013 Lipid panel [AGGREGATE] *Lipid Profile CC PCP [facility] Work Phone: Start: 05-01-2013 End: 05-11-2013 *Hepatic Function Panel *Hepatic Function Panel [facility] Work Phone: Start: 05-01-2013 End: 05-11-2013 Lipid panel [AGGREGATE] *Lipid Profile CC PCP [facility] Work Phone: Start: 10-11-2012 End: 05-08-2014 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 [facility] Work Phone: Start: 10-11-2012 End: 05-08-2014 Follow Up Appt 1 year Follow Up Appt 1 year [facility] Work Phone: Start: 10-05-2012 End: 10-11-2012 *Hepatic Function Panel *Hepatic Function Panel [facility] Work Phone: Start: 10-05-2012 End: 10-11-2012 Lipid panel [AGGREGATE] *Lipid Profile [facility] Work Phone: Start: 04-13-2012 End: 04-25-2012 *Hepatic Function Panel *Hepatic Function Panel [facility] Work Phone: Start: 04-13-2012 End: 04-25-2012 Lipid panel [AGGREGATE] *Lipid Profile [facility] Work Phone: Start: 11-06-2011 End: 10-09-2011 *Hepatic Function Panel *Hepatic Function Panel [facility] Work Phone: Start: 11-06-2011 End: 10-09-2011 Lipid panel [AGGREGATE] *Lipid Profile [facility] Work Phone: Start: 10-15-2011 End: 10-15-2011 Follow Up Appt 1 year Follow Up Appt 1 year [facility] Work Phone: Start: 2003 SHINGRIX VACCINE (1 of 2) CARRILLO GRIX VACCINE (1 of 2) [facility] Start: 1998 COLOGUARD (FIT-DNA) COLOGUARD (FIT-D NA) [facility] Start: [address] [facility] Start: 1998 FECAL OCCULT BLOOD FECAL OCCULT BLOO D [facility] Start: 1998 Screening for malign ant neoplasm of colon [facility] Start: 1998 SIGMOIDOSCOPY SIGMOIDOSCOPY Cleatif chavez [facility] Start: 1971 Anxiety Screening Anxiety Screening [facility] Start: 1971 Depression Screening Depression Scre ening [facility] Start: 1971 HEPATITIS C SCREENING HEPATITIS C [facility] Start: 1971 Hepatitis C screening Hepatitis C [facility] Start: 01-26-1956 COVID-19 VACCINE (#1) COVID-19 VACCI NE (#1) [facility] Catheterization of l eft [facility] HLA-B27 [Presence] b y RADHA with probe detection [facility] Nasopharyngeal Culture [facility]oph[facility] Work Phone: Patient Education [facility] Work Phone: Patient referral [facility] Work Phone: Radionuclide imaging of perfusion of myocardium under exercise stress [facility] Work Phone: [facility] Work Phone: End: 12-08-2025 XR Knee - bilateral 4 Views XR KNEE GENERAL 4V AP BOTH/PA BOTH/LAT/MERC BILATERAL Radiology Routine Pain in both knees, unspecified chronicity 1 Occurrences starting 11/08/2024 until 12/08/2025 [facility] Work Phone: Comment on above: 1 Occurrences starti ng 11/08/2024 until 12/08/2025 End: 12-08-2025 XR Lower extremity - bilateral AP W standing XR LEG FRONTAL HIP TO ANKLE MECHANICAL AXIS Radiology Routine Pain in both knees, unspecified chronicity 1 Occurrences starting 11/08/2024 until 12/08/2025 [facility] Comment on above: 1 Occurrences starti ng 11/08/2024 until 12/08/2025 [facility] Immunizations Immunization Date Immunization Notes Care Provider John leonardo 04-08-2020 influenza, injectabl e, quadrivalent, preservative free Dr. Musa [facility] 04-08-2020 influenza, seasonal, [facility] 04-08-2020 Fluad Quad (65yr up)(PF) 60 mcg (15 mcg x 4)/0.5mL IM syringe (flu vac [facility] Work Phone: 04-08-2020 influenza virus vacc ine, unspecified formulation Stiven Cote PA-C Work Phone: [facility] 04-17-2019 Fluad 2018- 65yr up(PF)45 mcg(15 mcgx3)/0.5 mL intramuscular syringe (flu vac [facility] Work Phone: 04-26-2018 influenza, injectabl e, quadrivalent, preservative free Dr. Vigil [facility] 04-26-2018 influenza, seasonal, [facility] 03-12-2017 influenza, injectabl e, quadrivalent, preservative free Dr. Vigil [facility] 03-12-2017 influenza, seasonal, [facility] 03-26-2016 influenza, injectabl e, quadrivalent, preservative free Dr. Vigil [facility] 03-26-2016 influenza, seasonal, [facility] 03-07-2014 influenza, injectabl e, quadrivalent, preservative free Dr. Vigil [facility] 03-07-2014 influenza, seasonal, [facility] 10-07-2011 tetanus toxoid, redu aria diphtheria toxoid, and acellular pertussis vaccine, adsorbed Héctor AL Work Phone: [facility] Payers Date Payer Category Payer Self-pay [id number] 2022 Private Health Insurance MMO MED ICARE SUPPLEMENT [id number] 2020 Unknown [id number] 2019 Unknown MMO MMO SUPERMED PPO [id number] 2019-Present [phone] [address] [place] [address] PPO [id number] 2018 Medicare [id number] 2018 Medicare [id number] 2003 Unknown [id number] Unknown [id number] 2.16.840.1.703505.3.579.2. 462 Unknown [id number] 2.16840.1.921007.3.579.2. 462 Unknown [id number] 2.16.840.1.321720.3.579.2. 462 Unknown [id number] 2.16.840.1.701375.3.579.2. 462 Unknown [id number] 2.16.840.1.599736.3.579.2. 462 Unknown [id number] 2.16.840.1.141290.3.579.2. 462 Unknown [id number] 2.16840.1.568598.3.579.2. 462 Unknown [id number] 2.16.840.1.391854.3.579.2. 462 Unknown [id number] 2.16.840.1.884067.3.579.2. 462 Unknown [id number] 2.16.840.1.590142.3.579.2. 462 Unknown [id number] 2.16.840.1.845866.3.579.2. 462 Unknown [id number] 2.16.840.1.331746.3.579.2. 462 Unknown [id number] 2.16840.1.348842.3.579.2. 462 Unknown [id number] 2.16840.1.267178.3.579.2. 462 Unknown [id number] 2.840.1.559014.3.579.2. 462 Unknown [id number] 2.840.1.106593.3.579.2. 462 Unknown [id number] 2.840.1.818672.3.579.2. 462 Unknown [id number] 2.840.1.081821.3.579.2. 462 Unknown [id number] 2.840.1.837640.3.579.2. 462 Unknown [id number] 2.840.1.909388.3.579.2. 462 Unknown [id number] 2.840.1.196157.3.579.2. 462 Unknown [id number] [id number]. 462 Unknown [id number] 2.16840.1.465731.3.579.2. 462 Unknown [id number] 2.16840.1.579847.3.579.2. 462 Unknown [id number] 2.16840.1.049306.3.579.2. 462 Unknown [id number] 2.16840.1.250928.3.579.2. 462 Unknown [id number] 2.840.1.710896.3.579.2. 462 Unknown [id number] 2.16.840.1.357765.3.579.2. 462 Unknown [id number] 2.16.840.1.618298.3.579.2. 462 Unknown [id number] 2.16.840.1.942980.3.579.2. 462 Unknown [id number] 2.16.840.1.632199.3.579.2. 462 Unknown [id number] 2.16.840.1.343261.3.579.2. 462 Unknown [id number] 2.16.840.1.577313.3.579.2. 462 Unknown [id number] 2.16.840.1.650180.3.579.2. 462 Unknown [id number] 2.16.840.1.601878.3.579.2. 462 Unknown [id number] 2.840.1.435459.3.579.2. 462 Unknown [id number] 2.16.840.1.748125.3.579.2. 462 Social History Date Type Detail Facility Start: 08-09-2021 End: 04-13-2023 Tobacco smoking status ILIS Unknown if ever smoked [facility] Start: 03-17-2016 None [facility] Start: 03-17-2020 Spouse/ Signif icant Other [facility] Start: 10-21-2018 Non-smoker [facility] Start: 1955 Sex Assigned At Female W [facility] Start: 09-14-2011 End: 07-07-2024 Tobacco smoking status NHIS Never smoked tobacco [facility] Start: 09-14-2011 Tobacco use and exposure Smokeless tobacco non-user [facility] Start: 10-07-2022 End: 11-29-2024 Alcohol intake Current non-drinker of alcohol (finding) [facility] Start: 1955 Sex Assigned At Not on file [facility] Start: 08-28-2024 End: 09-12-2024 Sex Female (finding) [facility] Start: 10-07-2022 End: 11-29-2024 History of Social function [facility] Start: 10-07-2022 End: 11-29-2024 Tobacco use panel [facility] National Score (1-100), lower number is lower risk Not on file [facility] Medical Equipment Procedure Code Equipment Code Equipment Origin al Text Equipment Identifier Dates Vaginal hysterectomy MESH, AXIS DERMIS FDA Start: 10-20-2018 Vaginal hysterectomy MESH, AXIS DERMIS FDA Start: 10-20-2018 Vaginal hysterectomy MESH, AXIS DERMIS FDA Start: 10-20-2018 Vaginal hysterectomy MESH, AXIS DERMIS FDA Start: 10-20-2018 Vaginal hysterectomy MESH, AXIS DERMIS FDA Start: 10-20-2018 Vaginal hysterectomy MESH, AXIS DERMIS FDA Start: 10-20-2018 Vaginal hysterectomy MESH, AXIS DERMIS FDA Start: 10-20-2018 Vaginal hysterectomy MESH, AXIS DERMIS FDA Start: 10-20-2018 Vaginal hysterectomy MESH, AXIS DERMIS FDA Start: 10-20-2018 Vaginal hysterectomy MESH, AXIS DERMIS FDA Start: 10-20-2018 Vaginal hysterectomy MESH, AXIS DERMIS FDA Start: 10-20-2018 SLING, ALTIS VAGINAL FDA Start: 10-20-2018 SLING, ALTIS VAGINAL FDA Start: 10-20-2018 SLING, ALTIS VAGINAL FDA Start: 10-20-2018 Felice Bn Smpx P Ra dpq Fd Strl - [id number] Start: 02-07-2014 Comment on above: Description: simplex P bone cement Ins Tib 4 9mm Kn X3 Uhmwpe Ps - [id number] Start: 02-07-2014 Comment on above: Description: triathl on X3 tibial bearing insert - ps Comp Pat 10mm 35 mm Asym Trthln - [id number] Start: 02-07-2014 Comment on above: Description: triathl on X3 asymmetric patella Baseplt Tib Trth ln 4 Kn Felice - [id number] Start: 02-07-2014 Comment on above: Description: triathl on primary tibial baseplate SLING, ALTIS VAGINAL FDA Start: 10-20-2018 SLING, ALTIS VAGINAL FDA Start: 10-20-2018 SLING, ALTIS VAGINAL FDA Start: 10-20-2018 SLING, ALTIS VAGINAL FDA Start: 10-20-2018 Orthopaedic ceme nt, non-antimicrobial ()[id number] FDA Start: 04-04-2024 Orthopaedic ceme nt, non-antimicrobial ()[id number] FDA Start: 04-04-2024 ([id number]) Uncoated knee fe mur prosthesis, metallic ()[id number] FDA Start: 04-04-2024 ([id number]) Uncoated knee ti bennie prosthesis, metallic ()[id number] FDA Start: 04-04-2024 ([id number]) Polyethylene patella prosthesis ()[id number] FDA Start: 04-04-2024 ([id number]) Tibial insert ()[id number] FDA Start: 04-04-2024 Red Yeast Rice Extract (Bulk) 30 GM powder Start: 02-28-2016 End: 02-06-2020 SLING, ALTIS VAGINAL FDA Start: 10-20-2018 Red Yeast Rice Extract (Bulk) 30 GM powder Start: 02-28-2016 End: 02-06-2020 Comp Fem 5 Lt Kn Felice Ps Trthln - [id number] Start: 02-07-2014 Comment on above: Description: triathl on posterior stabilized femoral SLING, ALTIS VAGINAL FDA Start: 10-20-2018 Red Yeast Rice Extract (Bulk) 30 GM powder Start: 02-28-2016 End: 02-06-2020 SLING, ALTIS VAGINAL FDA Start: 10-20-2018 Red Yeast Rice Extract (Bulk) 30 GM powder Start: 02-28-2016 End: 02-06-2020 SLING, ALTIS VAGINAL FDA Start: 10-20-2018 Red Yeast Rice Extract (Bulk) 30 GM powder Start: 02-28-2016 End: 02-06-2020 Goals Date Patient Goal Desired Activity /State Functional Status Date Assessment Result Facility 07-03-2014 Are you deaf, or do you have serious difficulty hearing No 07/03/2014 9:14 AM Alesha Greer Ma No [facility] 07-03-2014 Are you blind, or do you have serious difficulty seeing, even when wearing glasses No 07/03/2014 9:14 AM Alesha Greer Ma No [facility] 07-03-2014 Do you have serious difficulty walking or climbing stairs Yes 07/03/2014 9:14 AM Alesha Greer Ma Yes [facility] 07-03-2014 Do you have difficul ty dressing or bathing No 07/03/2014 9:14 AM Alesha Greer Ma No [facility] 07-03-2014 Because of a physica l, mental, or emotional condition, do you have difficulty doing errands alone such as visiting a physician's office or shopping No 07/03/2014 9:14 AM Alesha Greer Ma No [facility] Mental Status Date Assessment Result Facility 10-17-2024 Cognitive function Voice/Name [facility] Work Phone: 07-11-2024 Cognitive function Level Of Cons ciousness Follows Commands;Drowsy [facility] Work Phone: 05-23-2024 Cognitive function Level Of Cons ciousness Sedated [facility] Work Phone: 05-23-2024 Cognitive function Voice/Name [facility] Work Phone: 07-03-2014 Because of a physica l, mental, or emotional condition, do you have serious difficulty concentrating, remembering, or making decisions No 07/03/2014 9:14 AM Alesha Greer Ma No [facility] Clinical Notes 01-05-1999 to 11-29-2024 Dudley Kathleen MD - 11/29/2024 8:40 AM Harini Ghosh Tech - 11/29/2024 8:10 AM EDT Note Date & Type Note Facility 11-29-2024 History of Present illness Narrative Images from the original note were not included. CONSULT ORTHOPAEDIC: KNEE PRIMARY CARE PHYSICIAN: Nia Cintron DO REFERRING PROVIDER: No referring provider defined for this encounter. ASSESSMENT & PLAN This is a 69-year-old female presents with bilateral knee pain. Patient underwent a left total knee replacement with Dr. Najera in 2013 and right TKA at OSH. Patient presents with bilateral knee pain. Unfortunate she states she is always had some low-grade knee pain since her left total knee replacement. Patient denies any fevers or chills denies any trauma or falls. Denies any history of blood clots history of blood thinners history of immunosuppressive medication no history of smoking no history of diabetes. Patient has tried conservative treatment as well as activity modification continues to have pain. Impression: Left knee pain after total knee replacement done in 2013, right knee pain after TKA at OSH -Discussed the patient that she is very tight over her hamstrings and the pes bursa going into the area. She is tender over these areas as well. Has some quadriceps tendinitis of her right knee. She had her right knee done in March and is less than a year out. Denies any fevers or chills denies any problems with swelling. No signs of infection. Discussed that she can try physical therapy with emphasis on hamstring stretching on the left and quadricep stretching on the right. She will follow-up as needed. Diagnoses: (M17.11) Primary osteoarthritis of right knee (primary encounter diagnosis) (M25.562, G89.29) Chronic pain of left knee (M70.52) Pes anserinus bursitis of left knee (M76.899) Quadriceps tendonitis Risk Factors for Total Knee Arthroplasty (TKA) Major Risk Factors Obesity Unknown Risk High: BMI > 40 Moderate: BMI 30-40 Normal: BMI < 30 Diabetes normal High: A1C > 8 Moderate: A1C 7-8 Normal: A1C < 7 Hx of DVT / PE normal High: dx of DVT / PE Normal: no dx of DVT / PE Smoking normal High: Current smoker Normal: Non smoker Narcotics Use Moderate Risk High:NarxCare >=300 Moderate: 100-299 Normal: 0-99 Depression Unknown Risk High: PHQ-9 >14 Moderate: PHQ-9 5-14 Normal: PHQ-9 < 5 Area Deprivation Index (TYRELL) normal High: TYRELL Score > 75 Moderate: TYRELL 50-75 Normal: TYERLL < 50 Obesity: height and/or weight are out of date (There is no height and/or weight reading in the past 365 days, so the below BMI readings may be inaccurate) BMI Readings from Last 3 Encounters: 11/29/24 : 24.14 kg/m 10/07/22 : 23.39 kg/m 05/16/17 : 27.93 kg/m Area Deprivation Index (TYRELL) 11/29/2024 TYRELL Score National Score 36 Patient Health Questionnaire (PHQ-9) No data to display (0-4) minimal depression, (5-9) mild depression, (10-14) moderate depression, (15-19) moderately severe depression, (20-27) severe depression Bone Density Risk Screen Jenn Guy is at risk for bone loss and has not had a bone densitometry scan in the last 2 years (date of last scan: None on file). Recommend a bone densitometry scan and if indicated on the bone density results, a consult to a bone health specialist (Rheumatology, Endocrinology, or Women's Health) for bone assessment. Risk Factors: Dx of Chronic Kidney Disease (CKD) Additional Risk Factors NarxCare score NARX Narcotics: 140 (11/29/2024 8:41 AM) Malnutrition: No Malnutrition Screening Tool (MST) score on file- please complete the MST screening tool (click here to open) and refresh the note. ACTIVE PROBLEM LIST Personal History of Colonic Polyps SUBJECTIVE CHIEF COMPLAINT: Knee Pain HPI: Jenn Guy is a 69 year old patient with the presenting complaint of New and Knee Pain of the Left Knee and New and Knee Pain of the Right Knee. Jenn Guy has had progressive problems with the knee(s) most of the day over the past 2 3 years interfering with activities which include walking. The problem began limiting activities 3+ years ago. Jenn reports a current pain level of 2 . She describes the pain as Tightness, Dull, Sharp. The pain is Continuous, and has lasted for 4 Months. Interventions tried include Medication, Reposition, Relaxation. FALL RISK: Jenn is not currently at risk for falls. PROMIS Physical Function Score No data to display FUNCTIONAL STATUS: Climb a flight of stairs or walk up a hill (5.50 METs) PREVIOUS TREATMENTS: Past anti-inflammatory medications (not necessarily for this reason for visit): nabumetone Attempted Weight Loss Medical Treatments: OTC NSAIDS for 3 Months or Greater (Ibuprofen) Physical Therapy: PT Three Months or Greater 1-2 times per week REVIEW OF SYSTEMS: GENERAL: Denies fever, chills malaise and weight loss.. PAIN ASSESSMENT: See HPI. CARDIOVASCULAR: Denies chest pain, history of A-fib, valvular disease, hypertension, CHF or pacemaker/ICD.. RESPIRATORY: Denies SOB, sputum production, dyspnea, COPD and hemoptysis.. MUSCULOSKELETAL: See HPI. NEURO: Denies CVA, seizures, headaches.. ENDOCRINE: Denies diabetes, thyroid disease.. No data to display PAST MEDICAL HISTORY Diagnosis Date Arthritis Arthropathy, [...] foot bunionectomy TONSILLECTOMY PRIMARY/SECONDARY <AGE 12 Tonsillectomy FAMILY HISTORY Problem Relation Age of Onset Cancer Paternal Aunt BREAST Cancer Paternal Aunt BREAST Cancer Paternal Grandmother COLON Heart Paternal Grandfather Heart Father Breast Cancer Sister 60 2011 Social History Tobacco Use Smoking status: Never Smokeless tobacco: Never Substance Use Topics Alcohol use: No Drug use: No ALLERGIES: Patient has no known allergies. MEDICATIONS: aspirin, enteric coated (ASPIRIN, ENTERIC COATED) 81 mg EC tablet Take 81 mg by mouth once daily. losartan (COZAAR) 50 mg tablet Take 25 mg by mouth once daily. (Patient taking differently: Take 50 mg by mouth once daily.) TURMERIC ORAL Take by mouth once daily. ZINC ORAL Take by mouth once daily. omeprazole (PRILOSEC) 10 mg capsule Take 20 mg by mouth once daily. (Patient taking differently: Take 40 mg by mouth once daily.) DULoxetine (CYMBALTA) 20 mg capsule Take 60 mg by mouth once daily. (Patient taking differently: Take 40 mg by mouth once daily.) traZODone (DESYREL) 50 mg tablet Take 25 mg by mouth daily at bedtime. UBIDECARENONE/VITAMIN E MIXED (COQ10 SG 100 ORAL) Take by mouth once daily. CHOLECALCIFEROL, VITAMIN D3, (VITAMIN D-3 ORAL) Take 125 mcg by mouth once daily. rosuvastatin calcium(CRESTOR 40 MG TAB) Take one tablet daily. omega-3 fatty acids/vitamin e(FISH OIL 1,000 MG CAP) Take one tablet two times daily. (Patient taking differently: Take by mouth once daily.) fluticasone (FLONASE) 50 mcg/actuation nasal spray instill 1 TO 2 sprays into each nostril daily if needed ascorbic acid/collagen hydr (COLLAGEN SKIN RENEWAL ORAL) Take by mouth once daily. guaiFENesin (MUCINEX) 600 mg 12 hr tablet Take 2 tablets by mouth twice daily. (Patient not taking: Reported on 10/19/2024) CYANOCOBALAMIN, VITAMIN B-12, (VITAMIN B-12 ORAL) Take by mouth. (Patient not taking: Reported on 10/19/2024) RED YEAST RICE ORAL Take by mouth. (Patient not taking: Reported on 10/19/2024) metoprolol succinate(TOPROL XL 25 MG 24 HR TAB) Take 25 mg by mouth once daily. CALCIUM 500 MG TAB Take one(1) tablet twice daily. (Patient not taking: Reported on 10/19/2024) VITAMIN E 400 UNIT CAP Take one(1) tablet twice daily. (Patient not taking: Reported on 10/19/2024) OBJECTIVE PHYSICAL EXAM: Ht 170.2 cm (5' 7) Wt 69.9 kg (154 lb 1.6 oz) LMP 04/29/2006 BMI 24.14 kg/m All other systems deferred. GENERAL: Appears healthy, well-nourished, no deformities. HABITUS: Normal GAIT: Antalgic to the left KNEE EXAM: Left: Alignment: Varus deformity, Correctable Range of motion is 0 degrees in extension and 90 degrees of flexion. Extension La degrees Pain with ROM: No Effusion: Slight Tender to the palpation of Pes anserine bursa Pain with patellar compression: No Stability: Anterior/Posterior stable and Varus/Valgus stable Hip Exam: flexion to 100+ degrees, full extension, internal/external rotation adequate, and no pain with log roll Neurovascular Status: Sensation Intact, Moves foot and ankle up & down, and 2+ dorsalis pedis Right: Alignment: Valgus deformity, Correctable Range of motion is 0 degrees in extension and 100 degrees of flexion. Extension La degrees Pain with ROM: Yes Effusion: Slight Tender to the palpation quad tendon Pain with patellar compression: No Stability: Anterior/Posterior stable and Varus/Valgus stable Hip Exam: flexion to 100+ degrees, full extension, internal/external rotation adequate, and no pain with log roll Neurovascular Status: Sensation Intact, Moves foot and ankle up & down, and 2+ dorsalis pedis DATA: Most recent knee imaging was completed on 11/29/2024 (XR KNEE AP/LAT/MERCHANT MIMI) , 11/29/2024 (XR KNEE AP/LAT/MERCHANT MIMI) . Attached is imaging for the order. Diagnostic tests reviewed for today's visit: Right knee X-Ray: Post-operative xray: Implants are well aligned, Implants are well fixed, and There is no evidence of loosening and lateral exostosis on the patella along with valgus position of the knee due to the tibia position Left knee X-Ray: Post-operative XRay: Implants are well aligned. Implants are well fixed. There is no evidence of loosening. The following conditions were addressed during the office visit today: SIGNATURE: Dudley Kathleen MD PATIENT NAME: Jenn Guy DATE: November 29, 2024 TIME: 7:36 AM I spent a total of approximately 50 minutes on the date of the service which included preparing to see the patient, [id number] patient care, completing clinical documentation, obtaining and/or reviewing separately obtained history, performing a medically appropriate examination, counseling and educating the patient/family/caregiver, ordering medications, tests, or procedures, communicating with other HCPs (not separately reported), independently interpreting results (not separately reported), communicating results to the patient/family/caregiver, and care coordination (not separately reported). documented in this encounter [facility] 11-29-2024 Note HNO ID: [id number] Author: DUDLEY KATHLEEN MD Service: ? Author Type: Physician Type: Progress Notes Filed: 11/29/2024 08:53 Note Text: CONSULT ORTHOPAEDIC: KNEE PRIMARY CARE PHYSICIAN: Nia Cintron DO REFERRING PROVIDER: No referring provider defined for this encounter. ASSESSMENT AND PLAN This is a 69-year-old female presents with bilateral knee pain. Patient underwent a left total knee replacement with Dr. Najera in 2013 and right TKA at OSH. Patient presents with bilateral knee pain. Unfortunate she states she is always had some low-grade knee pain since her left total knee replacement. Patient denies any fevers or chills denies any trauma or falls. Denies any history of blood clots history of blood thinners history of immunosuppressive medication no history of smoking no history of diabetes. Patient has tried conservative treatment as well as activity modification continues to have pain. Impression: Left knee pain after total knee replacement done in 2013, right knee pain after TKA at OSH -Discussed the patient that she is very tight over her hamstrings and the pes bursa going into the area. She is tender over these areas as well. Has some quadriceps tendinitis of her right knee. She had her right knee done in March and is less than a year out. Denies any fevers or chills denies any problems with swelling. No signs of infection. Discussed that she can try physical therapy with emphasis on hamstring stretching on the left and quadricep stretching on the right. She will follow-up as needed. Diagnoses: (M17.11) Primary osteoarthritis of right knee (primary encounter diagnosis) (M25.562, G89.29) Chronic pain of left knee (M70.52) Pes anserinus bursitis of left knee (M76.899) Quadriceps tendonitis Risk Factors for Total Knee Arthroplasty (TKA) Major Risk Factors Obesity Unknown Risk High: BMI > 40 Moderate: BMI 30-40 Normal: BMI < 30 Diabetes normal High: A1C > 8 Moderate: A1C 7-8 Normal: A1C < 7 Hx of DVT / PE normal High: dx of DVT / PE Normal: no dx of DVT / PE Smoking normal High: Current smoker Normal: Non smoker Narcotics Use Moderate Risk High:NarxCare >=300 Moderate: 100-299 Normal: 0-99 Depression Unknown Risk High: PHQ-9 >14 Moderate: PHQ-9 5-14 Normal: PHQ-9 < 5 Area Deprivation Index (TYRELL) normal High: TYRELL Score > 75 Moderate: TYRELL 50-75 Normal: TYRELL < 50 Obesity: height and/or weight are out of date (There is no height and/or weight reading in the past 365 days, so the below BMI readings may be inaccurate) BMI Readings from Last 3 Encounters: 11/29/24 : 24.14 kg/m? 10/07/22 : 23.39 kg/m? 05/16/17 : 27.93 kg/m? Area Deprivation Index (TYRELL) 11/29/2024 TYRELL Score National Score 36 Patient Health Questionnaire (PHQ-9) No data to display (0-4) minimal depression, (5-9) mild depression, (10-14) moderate depression, (15-19) moderately severe depression, (20-27) severe depression Bone Density Risk Screen Jenn Guy is at risk for bone loss and has not had a bone densitometry scan in the last 2 years (date of last scan: None on file). Recommend a bone densitometry scan and if indicated on the bone density results, a consult to a bone health specialist (Rheumatology, Endocrinology, or Women's Health) for bone assessment. Risk Factors: Dx of Chronic Kidney Disease (CKD) Additional Risk Factors NarxCare score NARX Narcotics: 140 (11/29/2024 8:41 AM) Malnutrition: No Malnutrition Screening Tool (MST) score on file- please complete the MST screening tool (click here to open) and refresh the note. ACTIVE PROBLEM LIST Personal History of Colonic Polyps SUBJECTIVE CHIEF COMPLAINT: Knee Pain HPI: Jenn Guy is a 69 year old patient with the presenting complaint of New and Knee Pain of the Left Knee and New and Knee Pain of the Right Knee. Jenn Guy has had progressive problems with the knee(s) most of the day over the past 2 3 years interfering with activities which include walking. The problem began limiting activities 3+ years ago. Jnen reports a current pain level of 2 . She describes the pain as Tightness, Dull, Sharp. The pain is Continuous, and has lasted for 4 Months. Interventions tried include Medication, Reposition, Relaxation. FALL RISK: Jenn is not currently at risk for falls. PROMIS Physical Function Score No data to display FUNCTIONAL STATUS: Climb a flight of stairs or walk up a hill (5.50 METs) PREVIOUS TREATMENTS: Past anti-inflammatory medications (not necessarily for this reason for visit): nabumetone Attempted Weight Loss Medical Treatments: OTC NSAIDS for 3 Months or Greater (Ibuprofen) Physical Therapy: PT Three Months or Greater 1-2 times per week REVIEW OF SYSTEMS: GENERAL: Denies fever, chills malaise and weight loss.. PAIN ASSESSMENT: See HPI. CARDIOVASCULAR: Denies chest pain, history of A-fib, valvular disease, hypertension, CHF or pacemaker/ICD.. RESPI (more content not included)... [facility] 11-29-2024 History of Present illness Narrative Radiology Service Progress Note PATIENT NAME: Jenn Guy DATE OF SERVICE: November 29, 2024 TIME: 8:28 AM PATIENT IDENTITY VERIFICATION COMPLETED USING TWO (2) IDENTIFIERS: Name and Date of confirmed by patient verbally. FALL SCREENING: Has the patient had 2 falls in the last year or 1 fall with injury or currently using an Ambulatory Assistive Device (Walker, Cane, Wheelchair, Crutches, etc.)? No PATIENT GENDER DATA: Assigned female at . status: : No status: NO. PATIENT RELEVANT IMPLANT DATA REVIEWED: Not Applicable PATIENT PRESENTS WITH AN IMPLANTABLE OR ATTACHED LOGISTICS OFFICER: No RADIOLOGY DEPARTMENT: General X-ray: Exam(s) Completed: Lower Extremity X-Ray(s): Knee, AP / Lat / Tunne / Merchant Bilateral and Wt. Bearing and Leg Length PERIPHERAL IV DATA: Not applicable SIGNED BY: Nova Bautista November 29, 2024 8:28 AM documented in this encounter [facility] 11-29-2024 Note HNO ID: [id number] Author: HARINI ALDANA Tech Service: Radiology Author Type: Auxiliary Operator Type: Progress Notes Filed: 11/29/2024 08:28 Note Text: Radiology Service Progress Note PATIENT NAME: Jenn Guy DATE OF SERVICE: November 29, 2024 TIME: 8:28 AM PATIENT IDENTITY VERIFICATION COMPLETED USING TWO (2) IDENTIFIERS: Name and Date of confirmed by patient verbally. FALL SCREENING: Has the patient had 2 falls in the last year or 1 fall with injury or currently using an Ambulatory Assistive Device (Walker, Cane, Wheelchair, Crutches, etc.)? No PATIENT GENDER DATA: Assigned female at . status: : No status: NO. PATIENT RELEVANT IMPLANT DATA REVIEWED: Not Applicable PATIENT PRESENTS WITH AN IMPLANTABLE OR ATTACHED LOGISTICS OFFICER: No RADIOLOGY DEPARTMENT: General X-ray: Exam(s) Completed: Lower Extremity X-Ray(s): Knee, AP / Lat / Tunne / Merchant Bilateral and Wt. Bearing and Leg Length PERIPHERAL IV DATA: Not applicable SIGNED BY: Nova Bautista November 29, 2024 8:28 AM [facility] 11-09-2024 Note [facility] 10-18-2024 Radiology Diagnostic study note [facility] Imaging Services [address] [place] [address] 10/18/24 1732 MR#: [id number] Acct: [id number] Name: EJNN GUY ASHWIN Rep #:[id number] : 1955 69 From: Jagdeep Chauhan MD PCP: María Cintron DO Status:REG CLI Y Location: CT CCTA w/Cont Coronary Arteries Date of Study:: 10/17/24 Chest pain Coronary Calcium Scoring: High-resolution Computed Tomographic imaging of the chest was performed on [10/17/2024 ], with particular attention paid to the coronary arteries. Intravenous contrast agent was administered per protocol and images reconstructed and displayed. LEFT MAIN CORONARY ARTERY: Arises from the left main coronary cusp no significant stenosis noted [] LEFT ANTERIOR DESCENDING CORONARY ARTERY: This arises from the left main coronary artery with significant calcification noted in the proximal to mid coronary artery obscuring ability to determine extent of stenosis. [] LEFT CIRCUMFLEX CORONARY ARTERY: Extensive proximal to mid segment calcification also present distal mild disease present. [] RIGHT CORONARY ARTERY: Arises from the right coronary cusp with calcification likely secondary to the stent present. Distal right coronary artery is well-visualized. [] [] [] Calcium Scoring Interpretation: Different methods to categorize the overall amount of coronary plaque. Overall amount CAC SIS Visual of coronary plaque P1 Mild -100 <2 1-2 vessels with mild amount of plaque P2 Moderate 101-300 3-4 1-2 vessels with moderate amount, 3 vessels with mild amount of plaque P3 Severe 301-999 5-7 3 vessels with moderate amount, 1 vessel with severe amount of plaque P4 Extensive >1000 >8 2-3 vessels with severe amount of plaque Conclusion: Significant coronary calcification noted in the LAD and circumflex artery obscuring ability to determine extent of stenosis. 10/18/24 1736 Date _ Jagdeep Ashleyigner Signature (if applicable): Date CC: Dr. Jagdeep Chauhan MD; María Cintron DO; MIKAELA Carr ~ Signed [facility] Work Phone: 10-17-2024 Radiology Diagnostic study note [facility] Imaging Services [address] [place] [id number] Cardiac Only MR#: [id number] Acct: [id number] Name: JENN GUY Rep #: [id number] : 1955 F 69 From: Jeff Ramírez MD PCP: María Cintron DO Status: REG CLI Study:Limited Chest CT Cardiac Only Date of E xam: 10/17/24 Exam# [id number] Ordering Dr: Sue Voss PROCEDURE: LIMITED CHEST CT CARDIAC ONLY REASON FOR EXAM: CP TECHNIQUE: Supine chest CT with contrast. One or more dose reduction techniques were used (e.g., Automated exposure control, adjustment of the mA and/or kV according to patient size, use of iterative reconstruction technique). COMPARISON: Comparison is made with prior examination dated May 12, 2024. FINDINGS: Hardware: None Lymph nodes: None Heart and Vasculature: Normal heart size. No pericardial effusion. Coronary Artery Calcifications: Present Lungs and Airways: Findings suggestive of mild scarring at the lung bases and possible mild emphysematous changes. Pleura: Unremarkable Upper Abdomen: Unremarkable Bones: Bone windows are unremarkable. CT/Limited Chest CT Cardiac Only IMPRESSION: Coronary artery calcification (CAC) is is present Reading Location: [id number] CC: María Cintron DO; MIKAELA Carr ~ Loan Service Officer: Signed [facility] 08-18-2024 Evaluation note Diagnosis Onset Date Resolution Atherosclerosis of coronary artery of [place] heart without angina pectoris chronic August 18, 2024 10:22am Essential (primary) hypertension August, chronic August 18, 2024 10:22am Hyperlipidemia chronic August 10:22am Paroxysmal supraventricular tachycardia chronic August 18, 2024 10:22am History of coronary artery stent placement January, resolved August 18, 2024 10:22am Aching leg syndrome noneactive August 21, 2024 10:57am Essential (primary) hypertension August, chronic October 31, 2024 10:26am Hyperlipidemia chronic October 31, 2024 10:26am Paroxysmal supraventricular tachycardia chronic October 31, 2024 10:26am History of coronary artery stent placement January, resolved October 31, 2024 10:26am [facility] Work Phone: 1(298) 974-439003-14-2025 Radiology Diagnostic study note [facility] Imaging Services [address] [place], [place] [id number] Chest PA and Lateral MR#: [id number] Acct: [id number] Name: JENN GUY ASHWIN Rep #: [id number] : 1955 F 69 From: Harleen Correa MD PCP: María Cintron DO Status: REG CLI Study:Chest PA and Lateral Date of Exam: 08/18/24 Exam# [id number] Ordering Dr: Sue Voss PA EXAM: XR Chest, 2 Views CLINICAL INDICATION: SOB TECHNIQUE: Frontal and lateral views of the chest. COMPARISON: No relevant prior studies available. FINDINGS: LUNGS AND PLEURAL SPACES: Unremarkable. No consolidation. No pneumothorax. HEART: Unremarkable. No cardiomegaly. MEDIASTINUM: Unremarkable. Normal mediastinal contour. BONES/JOINTS: Unremarkable. No acute fracture. RAD/Chest PA and Lateral IMPRESSION: No acute cardiopulmonary process. Reading Location: [facility] CC: María Cintron DO; MIKAELA Carr ~ Loan Service Officer: Signed [facility]03-01-2025 Evaluation note* Diagnosis Onset Date Resolution Status Admit Date Essential (primary) hypertension August, chronic May 11 10:50am Hyperlipidemia chronic May 112023 10:50am Paroxysmal supraventricular tachycardia chronic May 11 10:50am History of coronary artery stent placement January, resolved May 11 10:50am Stiffness of right knee noneactive D ecember 2023 8:52am Orthopedic aftercare acute Juan M2024 9:48am Nausea acute June 19, 2024 12:39pm Nausea acute July 11, 2024 8:47am Atherosclerosis of coronary artery of [place] heart without angina pectoris chronic August 182024 10:22am Essential (primary) hypertension August, chronic August 18, 2024 10:22am Hyperlipidemia chronic August 10:22am Paroxysmal supraventricular tachycardia chronic August 18, 2024 10:22am History of coronary artery stent placement January, resolved August 18, 2024 10:22am Aching leg syndrome noneactive August 21, 2024 10:57am [facility] Work Phone: 1([phone]) 405-570002-04-2025 Evaluation note* Diagnosis Onset Date Resolution Status Admit Date Nausea acute July 11, 2024 8:47am Atherosclerosis of coronary artery of [place] heart without angina pectoris chronic August 182024 10:22am Essential (primary) hypertension August, chronic August 18, 2024 10:22am Hyperlipidemia chronic August 10:22am Paroxysmal supraventricular tachycardia chronic August 18, 2024 10:22am History of coronary artery stent placement January, resolved August 18, 2024 10:22am Aching leg syndrome noneactive August 21, 2024 10:57am [facility] Work Phone: 1(353) 743-337102-04-2025 [facility]12-17-2024 [facility]12-11-2024 Evaluation note* Diagnosis Onset Date Resolution Status Admit Date Stiffness of right knee noneactive D ecember 2023 8:52am Orthopedic aftercare acute Juan M maddie 2024 9:48am Nausea acute June 19, 2024 12:39pm Nausea acute July 11, 2024 8:47am Atherosclerosis of coronary artery of [place] heart without angina pectoris chronic August 182024 10:22am Essential (primary) hypertension August, chronic August 18, 2024 10:22am Hyperlipidemia chronic August 10:22am Paroxysmal supraventricular tachycardia chronic August 18, 2024 10:22am History of coronary artery stent placement January, resolved August 18, 2024 10:22am Aching leg syndrome noneactive August 21, 2024 10:57am [facility] Work Phone: 1([phone]) 838-284210-30-2024 [facility]10-29-2024 [facility]05-03-2023 History of Present illness Narrative* MIKAELA Brady - 10/07/2022 11:15 AM EDT This note was created using [employer]. Subjective Jenn Guy is a 67 year old female. HPI 67-year-old female presents for right ear pain, cough and body aches. Patient has had cough forthe past few days. She also has right [...] ER evaluation. MIKAELA Brady [facility]* Diagnosis Onset Date Resolution Status Essential (primary) hypertension chronic Hyperlipidemia chronic Paroxysmal supraventricular tachycardia chronic History of coronary artery stent placement January, resolved Acute sinusitis acute Contact with or suspected ex posure to other viral communicable disease acute [facility] Work Phone: 1([phone]) 182-884808-01-1999 Evaluation note* Diagnosis Onset Date Resolution Status Essential (primary) hypertension chronic Hyperlipidemia chronic Paroxysmal supraventricular tachycardia chronic History of coronary artery stent placement January, resolved [facility] Work Phone: Evaluation noteNo assessment information available [facility] Work Phone: Evaluation note* Diagnosis URI, acute- Primary Acute upper respiratory infections of unspecified site documented in this encounter [facility] note* Diagnosis Pain in both knees, unspecified chronicity- Primary documented in this encounter [facility] note* Diagnosis Primary osteoarthritis of right knee- Primary Primary localized osteoarthrosis, lower leg Chronic pain of left knee Pain in joint, lower leg Pes anserinus bursitis of left knee Pes anserinus tendinitis or bursitis Quadriceps tendonitis Other synovitis and tenosynovitis [facility] Diagnosis Pain in both knees, unspecified chronicity [facility]No reason for referral information available[facility] Work Phone: Reason for visit Narrative* Diagnostic Procedure Only (Routine) - Closed Specialty Diagnoses / Procedures Referred By Contac t Referred To Contact XR IMAGING Diagnoses Pain in both knees, unspecified chronicity Procedures XR KNEE GENERAL 4V AP BOTH/PA BOTH/LAT/MERC BILATERAL RADIOLOGIC EXAM KNEE COMPLETE 4/MORE VIEWS Dudley Kathleen MD [address] [place] [address] Phone: tel: fax: [place] [phone] Referral ID Status Reason Start Date Expiration Date V isits Requested Visits Authorized [id number] Closed Auto-Generate d Referral 11/08/2024 12/08/2025 1 1 [facility] Chief Complaint and Reason for Visit Chief Complaint nosebleed SCREENING Chief Complaint RIGHT KNEE Room 1 xray SORE SPOT/L CHEEK 1 Y FU INT LABS SORE THROAT, COUGH, EAR ACHE, CONGESTED Reason for Visit Essential (primary) hypertension Hyperlipidemia Paroxysmal supraventricular tachycardia History of coronary artery stent placement Acute sinusitis Contact with or suspected exposure to other viral communicable disease Chief Complaint RIGHT KNEE Room 1 xray SORE SPOT/L CHEEK 1 Y FU INT LABS SORE THROAT, COUGH, EAR ACHE, CONGESTED CAD ASHD Reason for Visit Essential (primary) hypertension Hyperlipidemia Paroxysmal supraventricular tachycardia History of coronary artery stent placement Acute sinusitis Contact with or suspected exposure to other viral communicable disease Chief Complaint EORDER- ABDULAZIZ AND O FORI SCREENING OSTEOPENIA RX HERE Chief Complaint OSTEOPENIA RX HERE eorders 1 Y FU Reason for Visit Essential (primary) hypertension Hyperlipidemia Paroxysmal supraventricular tachycardia History of coronary artery stent placement Chief Complaint Admit Date Request of Dr. Cintron see clinical Decem 2023 10:50am SOB May 12, 2024 4 :09pm RIGHT KNEE May 17, 2024 8:52am Room 1 May 17, 2024 9:07am Right knee Manipulation Under Anesthesia with intr May 23, 2024 5:55am Right knee Manipulation Under Anesthesia with intr May 23, 2024 7:24am RIGHT KNEE June 09, 2024 9: 48am EGD - WEIGHT LOSS/ABD PAIN June 19, 2024 12:39pm TRK RX HERE July 07, 2024 8 :00am CHRONIC SINUSITIS July 28, 2024 3:39pm 3 M FU August 18, 2024 10: 22am BILATERAL LEGS August 21, 2024 10: 57am room 1 August 21, 2024 11: 35am Reason for Visit Admit Date Essential (primary) hypertension Decembe r 2023 10:50am Hyperlipidemia May 11, 2024 1 0:50am Paroxysmal supraventricular tachycardia May 11, 2024 10:50am History of coronary artery stent placeme nt May 11, 2024 10:50am Stiffness of right knee May 17, 2 024 8:52am Orthopedic aftercare June 09, 2024 9 :48am Nausea June 19, 2024 1 2:39pm Nausea July 11, 2024 8 :47am Atherosclerosis of coronary artery of [place] heart without angina pectoris August 18, 2024 10:22am Essential (primary) hypertension August 052024 10:22am Hyperlipidemia August 18, 2024 10: 22am Paroxysmal supraventricular tachycardia August 18, 2024 10:22am History of coronary artery stent placeme nt August 18, 2024 10:22am Aching leg syndrome August 21, 2024 10: 57am Chief Complaint Admit Date RIGHT KNEE May 17, 2024 8:52am Room 1 May 17, 2024 9:07am Right knee Manipulation Under Anesthesia with intr May 23, 2024 5:55am Right knee Manipulation Under Anesthesia with intr May 23, 2024 7:24am RIGHT KNEE June 09, 2024 9: 48am EGD - WEIGHT LOSS/ABD PAIN June 19, 2024 12:39pm TRK RX HERE July 07, 2024 8 :00am CHRONIC SINUSITIS July 28, 2024 3:39pm 3 M FU August 18, 2024 10: 22am BILATERAL LEGS August 21, 2024 10: 57am room 1 August 21, 2024 11: 35am Reason for Visit Admit Date Stiffness of right knee May 17, 2 024 8:52am Orthopedic aftercare June 09, 2024 9 :48am Nausea June 19, 2024 1 2:39pm Nausea July 11, 2024 8 :47am Atherosclerosis of coronary artery of [place] heart without angina pectoris August 18, 2024 10:22am Essential (primary) hypertension August 052024 10:22am Hyperlipidemia August 18, 2024 10: 22am Paroxysmal supraventricular tachycardia August 18, 2024 10:22am History of coronary artery stent placeme nt August 18, 2024 10:22am Aching leg syndrome August 21, 2024 10: 57am Chief Complaint Admit Date TRK RX HERE July 07, 2024 8 :00am CHRONIC SINUSITIS July 28, 2024 3:39pm 3 M FU August 18, 2024 10: 22am BILATERAL LEGS August 21, 2024 10: 57am room 1 August 21, 2024 11: 35am CP October 17, 2024 1:03p m CP October 18, 2024 5:32p m Reason for Visit Admit Date Nausea July 11, 2024 8 :47am Atherosclerosis of coronary artery of [place] heart without angina pectoris August 18, 2024 10:22am Essential (primary) hypertension August 052024 10:22am Hyperlipidemia August 18, 2024 10: 22am Paroxysmal supraventricular tachycardia August 18, 2024 10:22am History of coronary artery stent placeme nt August 18, 2024 10:22am Aching leg syndrome August 21, 2024 10: 57am Chief Complaint Admit Date TRK RX HERE July 07, 2024 8 :00am CHRONIC SINUSITIS July 28, 2024 3:39pm 3 M FU August 18, 2024 10: 22am BILATERAL LEGS August 21, 2024 10: 57am room 1 August 21, 2024 11: 35am CP October 17, 2024 12:00 am CP October 17, 2024 1:03p m CP October 18, 2024 5:32p m UPDATE H&P October 31, 2024 10:26 am Chief Complaint Admit Date CHRONIC SINUSITIS July 28, 2024 3:39pm 3 M FU August 18, 2024 10: 22am BILATERAL LEGS August 21, 2024 10: 57am room 1 August 21, 2024 11: 35am CP October 17, 2024 12:00 am CP October 17, 2024 1:03p m CP October 18, 2024 5:32p m UPDATE H&P October 31, 2024 10:26 am abn calcium score November 09, 2024 2:57p m EORDERS November 13, 2024 7:33a m Reason for Visit Admit Date Atherosclerosis of coronary artery of [place] heart without angina pectoris August 18, 2024 10:22am Essential (primary) hypertension August 052024 10:22am Hyperlipidemia August 18, 2024 10: 22am Paroxysmal supraventricular tachycardia August 18, 2024 10:22am History of coronary artery stent placeme nt August 18, 2024 10:22am Aching leg syndrome August 21, 2024 10: 57am Essential (primary) hypertension October 10:26am Hyperlipidemia October 31, 2024 10:26 am Paroxysmal supraventricular tachycardia October 31, 2024 10:26am History of coronary artery stent placeme nt October 31, 2024 10:26am Family History No Family History Records Found Relationship Condition Age at Onset Recorded Date/T enrike father Cardiac disease Unknown sister Malignant neoplasm Unknown Advance Directives No Advanced Directives Records Found Advance Directive Response Recorded Date/ Time Advance Directives No February d2015 11:09pm Living Will No August 09, 2021 2:24pm Power of Architectural Job Captain No August 09 2:24pm Advance Directive Response Recorded Date/ Time Advance Directives No March 10, 2022 10:46am Living Will No March 10 10:46am Power of Architectural Job Captain No March 10 10:46am Advance Directive Response Recorded Date/ Time Advance Directives No March 10, 2022 11:46am Living Will No March 10 11:46am Power of Architectural Job Captain No March 10 11:46am Advance Directive Response Recorded Date/ Time Living Will Yes July 07 2:18pm Do you have a Healthcare Power of Architectural Job Captain? Yes July 07, 2024 2:18pm Name of Medical Power of Architectural Job Captain SPOUSE July 07, 2024 2:18pm Living Will Yes April 04 3:48pm Do you have a Healthcare Power of Architectural Job Captain? Yes April 04, 2024 3:48pm Living Will No May 19 2:27pm Do you have a Healthcare Power of Architectural Job Captain? No May 19, 2024 2:27pm Advance Directives No March 10, 2022 11:46am Advance Directive Response Recorded Date/ Time Living Will Yes July 07 2:18pm Do you have a Healthcare Power of Architectural Job Captain? Yes July 07, 2024 2:18pm Name of Medical Power of Architectural Job Captain SPOUSE July 07, 2024 2:18pm Living Will Yes April 04 3:48pm Do you have a Healthcare Power of Architectural Job Captain? Yes April 04, 2024 3:48pm Advance Directives No March 10, 2022 11:46am Advance Directive Response Recorded Date/ Time Advance Directives No March 10, 2022 11:46am Summary Purpose Additional Source Comments Goals (unrecognized section and content) Goals may be documented in a n alternate sectionGoals may be documented in an alternate sectionGoals may be documented in an alternate sectionGoals may be documented in an alternate sectionGoals may be documented in an alternate sectionGoals may be documented in an alternate sectionGoals may be documented in an alternate section Source Comments (unrecognize d section and content) In the event this informatio n is protected by the Federal Confidentiality of Alcohol and Drug Abuse Patient Records regulations: The Federal rules restrict any use of the information to criminally investigate or prosecute any alcohol or drug abuse patient.[facility] the event this information is protected by the Federal Confidentiality of Alcohol and Drug Abuse Patient Records regulations: The Federal rules restrict any use of the information to criminally investigate or prosecute any alcohol or drug abuse patient.[facility] Hospital[facility] the event this information is protected by the Federal Confidentiality of Alcohol and Drug Abuse Patient Records regulations: The Federal rules restrict any use of the information to criminally investigate or prosecute any alcohol or drug abuse patient.[facility] the event this information is protected by the Federal Confidentiality of Alcohol and Drug Abuse Patient Records regulations: The Federal rules restrict any use of the information to criminally investigate or prosecute any alcohol or drug abuse patient.[facility] Hospital[facility] the event this information is protected by the Federal Confidentiality of Alcohol and Drug Abuse Patient Records regulations: The Federal rules restrict any use of the information to criminally investigate or prosecute any alcohol or drug abuse patient.[facility] Reason for Visit (unrecogniz ed section and content) Reason Comments Ear Pain Right ear pain, coug h, body aches x 2 days Reason Comments Intake Covid [facility] pre-visit phone call Reason Comments New Knee Pain Care Teams (unrecognized sec tion and content) Heat Plant Specialist Relationship Specialty Start Date End Date Nia Cintron DO [address] [place] [address] PCP - General Family Medicine 10/07/22 Team Status: Active Member Role Status Dates Dr. Musa Rodríguez MD Family Provider Active Nia Cintron DO Primary Care Provider Active Team Status: Inactive Member Role Status Dates Nia Cintron DO Primary Care Provi lucrecia, Attending Provider, Referring Provider Active Team Status: Inactive Member Role Status Dates Nia Cintron DO Primary Care Provi lucrecia, Attending Provider, Referring Provider Active Dr. Jagdeep Chauhan MD Other Provider Active Team Status: Inactive Member Role Status Dates Dr. Musa Rodríguez MD Referring Provider Active Sue Macdonald PA, PA Attending Provider Active Nia Cintron DO Primary Care Provider Active Team Status: Inactive Member Role Status Dates Nia Cintron DO Primary Care Provider Active Dr. Jagdeep Chauhan MD Attending Provider, Referring Pro vider Active Team Status: Active Member Role Status Dates María GARNICA DO Primary Care Provider Active Team Status: Inactive Member Role Status Dates María GARNICA DO Primary Care Provider Active Start: May 05, 2024 End: May 05, 2024 María GARNICA, DO Attending Provider Active Start: May 05, 2024 End: May 05, 2024 María GARNICA, DO Referring Provider Active Start: May 05, 2024 End: May 05, 2024 Team Status: Inactive Member Role Status Dates María AGRNICA DO Primary Care Provider Active Start: May 06, 2024 End: May 06, 2024 María GARNICA, DO Attending Provider Active Start: May 06, 2024 End: May 06, 2024 Team Status: Inactive Member Role Status Dates María Cintron VSC, DO Primary Care Provider Active Start: May 11, 2024 End: May 11, 2024 María Cintron VSC, DO Referring Provider Active Start: May 11, 2024 End: May 11, 2024 Sue Macdonald PA, PA Attending Provider Active Start: May 11, 2024 End: May 11, 2024 Team Status: Inactive Member Role Status Dates María Cintron VSC, DO Primary Care Provider Active Start: May 12, 2024 End: May 12, 2024 Sue Macdonald PA, PA Attending Provider Active Start: May 12, 2024 End: May 12, 2024 Sue Macdonald PA, PA Referring Provider Active Start: May 12, 2024 End: May 12, 2024 Team Status: Inactive Member Role Status Dates María Cintron VSC, DO Primary Care Provider Active Start: May 17, 2024 End: May 17, 2024 María Cintron VSC, DO Referring Provider Active Start: May 17, 2024 End: May 17, 2024 Dr. Marquis Jackson DO Attending Provider Active Start: May 17, 2024 End: May 17, 2024 Team Status: Inactive Member Role Status Dates María Cintron VSC, DO Primary Care Provider Active Start: May 17, 2024 End: May 17, 2024 Dr. Jagdeep Chauhan MD Attending Provider Active S tart: May 17, 2024 End: May 17, 2024 Team Status: Inactive Member Role Status Dates María Cintron VSC, DO Primary Care Provider Active Start: May 23, 2024 End: May 23, 2024 Dr. Marquis Jackson DO Attending Provider Active Start: May 23, 2024 End: May 23, 2024 Dr. Marquis Jackson DO Referring Provider Active Start: May 23, 2024 End: May 23, 2024 Team Status: Active Member Role Status Dates María Abdulaziz VSC, DO Primary Care Provider Active Start: May 23, 2024 Dr. Marquis Jackson DO Attending Provider Active Start: May 23, 2024 Dr. Marquis Jackson DO Referring Provider Active Start: May 23, 2024 Dr. Marquis Jackson DO Other Provider Active St art: May 23, 2024 Team Status: Inactive Member Role Status Dates María Cintron VSC, DO Primary Care Provider Active Start: June 09, 2024 End: June 09, 2024 María Cintron VSC, DO Referring Provider Active Start: June 09, 2024 End: June 09, 2024 Dr. Marquis Jackson DO Attending Provider Active Start: June 09, 2024 End: June 09, 2024 Team Status: Inactive Member Role Status Dates María Cintron VSC, DO Primary Care Provider Active Start: June 19, 2024 End: June 19, 2024 María Cintron VSC, DO Referring Provider Active Start: June 19, 2024 End: June 19, 2024 Dr. Tk Daley MD Attending Provider Active Start: June 19, 2024 End: June 19, 2024 Team Status: Inactive Member Role Status Dates María Cintron VSC, DO Primary Care Provider Active Start: July 07, 2024 End: July 07, 2024 Dr. Marquis Jackson DO Attending Provider Active Start: July 07, 2024 End: July 07, 2024 Dr. Marquis Jackson , Referring Provider Active Start: July 07, 2024 End: July 07, 2024 Team Status: Inactive Member Role Status Dates María Cintron VSC, DO Primary Care Provider Active Start: July 11, 2024 End: July 11, 2024 María Cintron VSC, DO Referring Provider Active Start: July 11, 2024 End: July 11, 2024 Dr. Tk Daley MD Attending Provider Active Start: July 11, 2024 End: July 11, 2024 Team Status: Active Member Role Status Dates María Cintron VSC, DO Primary Care Provider Active Start: July 11, 2024 María Cintron VSC, DO Referring Provider Active Start: July 11, 2024 Dr. Tk Daley MD Attending Provider Active Start: July 11, 2024 Dr. Tk Daley MD Other Provider Active St art: July 11, 2024 Team Status: Inactive Member Role Status Dates María Cintron VSC, DO Primary Care Provider Active Start: July 28, 2024 End: July 28, 2024 Dr. Bartolo Ngo MD Attending Provider Activ e Start: July 28, 2024 End: July 28, 2024 Dr. Bartolo Ngo MD Referring Provider Activ e Start: July 28, 2024 End: July 28, 2024 Team Status: Inactive Member Role Status Dates María Cintron VSC, DO Primary Care Provider Active Start: August 18, 2024 End: August 18, 2024 María Cintron VSC, DO Referring Provider Active Start: August 18, 2024 End: August 18, 2024 Sue Macdonald PA, PA Attending Provider Active Start: August 18, 2024 End: August 18, 2024 Team Status: Inactive Member Role Status Dates María Cintron VSC, DO Primary Care Provider Active Start: August 18, 2024 End: August 18, 2024 Sue Macdonald PA, PA Attending Provider Active Start: August 18, 2024 End: August 18, 2024 Sue Macdonald PA, PA Referring Provider Active Start: August 18, 2024 End: August 18, 2024 Team Status: Inactive Member Role Status Dates María Cintron VSC, DO Primary Care Provider Active Start: August 21, 2024 End: August 21, 2024 María Cintron VSC, DO Referring Provider Active Start: August 21, 2024 End: August 21, 2024 Dr. Marquis Jackson DO Attending Provider Active Start: August 21, 2024 End: August 21, 2024 Team Status: Inactive Member Role Status Dates María Cintron VSC, DO Primary Care Provider Active Start: August 21, 2024 End: August 21, 2024 Dr. Jagdeep Chauhan MD Attending Provider Active S tart: August 21, 2024 End: August 21, 2024 Team Status: Inactive Member Role Status Dates María Cintron VSC, DO Primary Care Provider Active Start: September 07, 2024 End: September 07, 2024 María Cintron VSC, DO Attending Provider Active Start: September 07, 2024 End: September 07, 2024 Heat Plant Specialist Relationship Specialty Start Date End Date Nia Cintron DO PCP - General Family Medicine 10/07/22 Team Status: Inactive Member Role Status Dates María MAHONEY, DO Primary Care Provider Active Start: October 17, 2024 End: October 17, 2024 Sue Macdonald PA, PA Attending Provider Active Start: October 17, 2024 End: October 17, 2024 Sue Macdonald PA, PA Referring Provider Active Start: October 17, 2024 End: October 17, 2024 Team Status: Active Member Role Status Dates María Cintron [facility], DO Primary Care Provider Active Start: October 18, 2024 Sue Macdonald PA, PA Referring Provider Active Start: October 18, 2024 Sue AL, PA Other Provider Active Start: October 18, 2024 Dr. Jgadeep Chauhan MD Attending Provider Active S tart: October 18, 2024 Team Status: Active Member Role Status Dates María Cassidyesvin MAHONEY, DO Primary Care Provider Active Start: October 17, 2024 Dr. Jagdeep Chauhan MD Attending Provider Active S tart: October 17, 2024 Sue Macdonald PA, PA Referring Provider Active Start: October 17, 2024 Team Status: Inactive Member Role Status Dates María MAHONEY, DO Primary Care Provider Active Start: October 31, 2024 End: October 31, 2024 Maríaryan Cassidynger [facility], DO Referring Provider Active Start: October 31, 2024 End: October 31, 2024 Raya Corona [employer], [employer] Attending Provider Active Start: October 31, 2024 End: October 31, 2024 Heat Plant Specialist Relationship Specialty Start Date End Date Nia CintronDO PCP - General Family Medicine 10/07/22 Team Status: Active Member Role Status Dates María Abdulazizesvin MAHONEY, DO Primary Care Provider Active Start: November 09, 2024 Dr. Jagdeep Chauhan MD Attending Provider Active S tart: November 09, 2024 Dr. Jagdeep Chauhan MD Referring Provider Active S tart: November 09, 2024 Dr. Jagdeep Chauhan MD Other Provider Active Start : November 09, 2024 Team Status: Inactive Member Role Status Dates [facility] Active Start: November 13, 2024 End: November 13, 2024 Raya Corona [employer], [employer] Attending Provider Active Start: November 13, 2024 End: November 13, 2024 Raya Corona [employer], [employer] Referring Provider Active Start: November 13, 2024 End: November 13, 2024 Heat Plant Specialist Relationship Specialty Start Date End Date Nia Cintron DO PCP - General Family Medicine 10/07/22 Heat Plant Specialist Relationship Specialty Start Date End Date Nia Cintron DO PCP - General Family Medicine 10/07/22 INFORMATION SOURCE (unrecogn ized section and content) DATE CREATED AUTHOR 11/30/2024 [facility] DATE CREATED AUTHOR AUTHOR'S ORGANIZ ATION 11/30/2024 [facility] DATE CREATED AUTHOR AUTHOR'S ORGANIZ ATION 12/04/2024 [facility] FOR RECORDS PERTAINING TO PATIENTS WHO [...] BE BASED ON THE PRIMARY CLINICAL RECORDS. [employer] provides no warranty or guarantee of the accuracy or completeness of information in this document.
--- NOTE | 2025-01-15 09:46 | CL.D_ITS ---
Patient Name: KELLEN GUY Study Date: 12/05/2024 Performing: Jagdeep Chauhan MD Ht: 68 inches 172.72 cm : 1955 Wt: 154.2 lbs 69.85 kg Age: 69 Gender: female BSA: 1.83 PROCEDURE(S) PERFORMED [id number]-([id number])LHC/COR/LV CLINICAL PROFILE AND INDICATIONS Indications: Suspected CAD Heart Failure: None Stress/Imaging Cardiac CTA: Yes Result: 3VDCardiac CTA: 3VD CONCLUSIONS Moderate coronary artery calcification involving the LAD and the left circumflex systems with moderate stenosis of 50 to 60% in the proximal to mid LAD territory. Small nondominant right coronary artery with high-grade stenosis. Preserved ejection fraction. RECOMMENDATIONS Medical therapy DESCRIPTION OF PROCEDURE The patient arrived to the procedure lab. The risks and benefits of the procedure as well as a full description of our services here and current unavailability of surgical backup were fully explained to the patient and/or their significant other prior to the catheterization. The Timeout was completed, verifying the correct patient and procedure. The patient's procedural site was prepped and draped in the usual fashion. Local anesthetic was given subcutaneously to right radial region with Lidocaine 2%. Local anesthetic was given subcutaneously to right ulnar region with Lidocaine 2%. Using a modified Seldinger technique, arterial access was obtained via the right ulnar artery, a 6Fr sheath was inserted. Left Coronary Artery selective angiography was performed in multiple views using a 5 Fr. 4.0 [place] catheter. Right Coronary Artery selective angiography was then performed in multiple views using a 5 Fr. JR 5 catheter. Left Ventriculography was performed in CROUCH projection using a 5 Fr. [place] catheter. LV to AO pullback pressures were then recorded.The arterial sheath was pulled and a TR Band was applied for hemostasis. 10cc air CORONARY ANGIOGRAPHY DOMINANCE: Left Dominant LEFT HEART ASSESSMENT Left Ventricular Ejection Fraction: by LV Gram 65 % Normal LV wall motion Normal Left Ventricular systolic function LEFT MAIN: Moderate calcification LEFT ANTERIOR DESCENDING ARTERY: Moderate calcification, Is a long area of 50% stenosis noted in the proximal to mid segments and mild distal disease present. CIRCUMFLEX ARTERY: Moderate calcification, Mild luminal irregularities less than 30% RIGHT CORONARY ARTERY: Nondominant vessel with 80% mid segment stenosis present. COMPLICATIONS No Complications PROCEDURE MEDICATIONS Fentanyl 50 mcg IV Versed 1 mg IV Versed 1 mg IV Oxygen: 2 L/min via nasal cannula Heparin given IA 12/05/2024 08:21:36 Verapamil 2.5mg, Ntg 100mcgs, 3000 units of Heparin given IA 12/05/2024 08:21:36 SUMMARY OF HEMODYNAMIC DATA Time AIR REST ECG 07:15:04 AO 135/67 (99) SA 08:23:37 LV 148/1, 17 08:39:00 LV 140/-1, 14 08:39:08 LV 131/0, 16 08:39:46 LVp 133/1, 16 08:39:50 AOp 148/44 (91) 08:39:57 Signed By Jagdeep Chauhan MD On 12/05/2024 16:42:20 Jagdeep Chauhan MD
== END 2024-12-05 10:30 | disposition home or self-care (01) ==
PROVIDERS: PCP Family Medicine; Referring Provider Internal Medicine Cardiovascular Disease; Visit Provider Internal Medicine Cardiovascular Disease
DX: I25.10 Atherosclerotic heart disease of native coronary artery without angina pectoris (principal); I10 Essential (primary) hypertension; E78.5 Hyperlipidemia, unspecified; I25.2 Old myocardial infarction; Z79.82 Long term (current) use of aspirin; Z79.899 Other long term (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; Z86.718 Personal history of other venous thrombosis and embolism; Z95.5 Presence of coronary angioplasty implant and graft; R00.1 Bradycardia, unspecified
CPT/HCPCS: 93458; 99152; 99153; Q9967; C1769; C1894

== ENCOUNTER 2025-01-25 07:30 | Outpatient (RCR) | payer MEDICARE, OTHER, SELFPAY ==
--- NOTE | 2024-12-18 09:56 | HP.PTEVAL_ITS ---
Patient's Visit Information Visit Information Visit Information: KELLEN GUY is a 69 year old F referred to Physical Therapy by Dr. Dudley James MD with a diagnosis of L pes anserine bursitis. Date of Evaluation: 12/15/24 Physical Therapist: Kamaljit Larry DPT Visit Plan Frequency: 2x /Week Duration: 4 Weeks Plan: 1) US to L pes anserine 2) foam/stick rolling, IASTIM to L adductors and medial HS 3) Contract relax stretching of Adductors and HS. 4) slow loading of HS to remodel tissue Subjective Subjective: Pt. is here today for her initial evaluation with diagnosis of L pes anserine bursitis and quadriceps tendinitis. Pt. reports having issues for a few months. No Mech of injury noted. Pt. reports when she tried to bend her knee is locked up and was hard to move. Pt. reports overall doing okay, but still has pain at medial anterior knee near pes anserine region. Pt. reports doing better recently, but not fully better. Pt. is walking, but not back to doing all of her gym exercises. No N/T noted. Pt. does have some pain in adductors and HS region as well. Pt. is hopeful to reduce symptoms in order to get back to all gym and walking exercises. Pain R medial knee: Pain Intensity (Out of 10): 0 Pain Intensity Range: 9 Objective Objective: POSTURE: Pt. has fairly normal posture in stance. PALPATION: Pt. has some tenderness at pes anserine area on LLE, as well as distal HS and distal adductors. NEURO: normal throughout. ROM: Pt. has tightness in her L knee 0-0-93deg. history of TKA bilaterally. MMT: Pt. has normal strength between BLEs. Pt. has slight tenderness with HS testing. GAIT: Pt. has fairly normal gait pattern without increase in symptoms. Pt's chief complaint is pes anserine region, adductos and medial HS tightness/pain Balance/Special Test Scores Lower Extremity Functional Score: 44 Goals Goal 1:: LTG: pt. to be I with HEP. Goal Time Frame: 4-6 Weeks Goal 2:: STG: Pt. to report no muscle tension/pain in L HS, and adductors. Goal Time Frame: 2-4 Weeks Goal 3:: LTG: Pt. to ambulate without increase in L knee pain. Goal Time Frame: 2-4 Weeks Goal 4:: LTG: Pt. to report no incidences of L knee locking up on her. Goal Time Frame: 4-6 Weeks Goal 5:: LTG: pt. to have no pain at pes anserine region. Goal Time Frame: 4-6 Weeks Rehabilitation Potential Physical Therapy Diagnosis: Pt. has signs and symptoms consistent with L pes anserine bursitis. Pt. has marked muscle tension at adductors and HS. Pt. has pain in same region as well as pes anserine region. Pt. would benefit from PT to address the above limitations progressing back to all previous levels of function. Rehabilitation Potential: Excellent Anticipated Interventions Patient/Client Instruction: Educate patient on: Condition, Plan of Care, Risk Factors and Benefits of Fitness Program For the Purpose of:: To foster healthy habits, To improve decision making, To facilitate caregiver knowledge, To improve self management, To prevent re-injury and To improve ability to perform tasks related to life management Therapeutic Exercise to Include: Strength training, Power training, Postural training, Flexibilty training, Passive ROM and Active ROM For the Purpose of:: To decrease pain, To decrease swelling/inflammation, To increase ROM, To improve nutrient delivery to tissue, To increase oxygenation perfusion, To improve muscle performance and motor function, To improve ability of physical actions for home/community/work/leisure, To improve gait and loco motor functions, To improve health of tissue and To decrease soft tissue restriction Manual Therapy Techniques to Include: Soft tissue mobilization Comment: IASTIM For the Purpose of:: To decrease pain, To decrease swelling/inflammation, To increase ROM, To improve nutrient delivery to tissue and To increase oxygenation perfusion Ultrasound (thermal/non thermal): Yes For the Purpose of:: To decrease pain, To decrease swelling/inflammation, To increase ROM and To improve nutrient delivery to tissue Text: Thank you for the opportunity to evaluate your patient. For Medicare and Medicare HMO plans, please review the plan of care and approve it. It will need to be FAXED BACK to us at [phone] for Medicare purposes. For Medicare only, by signing this I certify the plan of care. Please let me know if there are questions or concerns regarding this plan of care. Physician Signature: Date:
--- NOTE | 2025-01-05 08:34 | HP.PTREVAL ---
Re-Evaluation Intro: Dr. Dudley James MD, It has been my pleasure to treat JENN GUY over the last 7 visits for L pes anserine bursitis. Please see the progress note below for an update on the physical therapy plan of care! Subjective Subjective: Pt. is here for her recheck for her L knee pain. Pt. reports today is better than it has been. Pt. reports having 0/10 pain currently. She does have some pain with initial walking after prolonged stretching. Objective Objective/Function: Pt. has great strength throughout BLEs. Pt. has no pain today with all testing. Today is the first day she was much better and pain was minimal. GAIT: great pattern no issues. STAIRS: doing great with reciprocal pattern. She has good strength with slight increase with HS testing. Overall doing well. I would like her to continue with PT for another 1-2 weeks to make sure her pain level stays reduced Plan Plan Plan: I am recerting Jenn for 2 weeks. Cont. with US/IASTIM as needed. Add in HS loading as tolerated. Balance/Gait/Functional tests Balance/Special Test Scores Lower Extremity Functional Score: 52 Goals Goals Goal 1:: LTG: pt. to be I with HEP. Goal Time Frame: 4-6 Weeks Goal Progress: Goal Met Goal 2:: STG: Pt. to report no muscle tension/pain in L HS, and adductors. Goal Time Frame: 2-4 Weeks Goal Progress: Goal Met Goal 3:: LTG: Pt. to ambulate without increase in L knee pain. Goal Time Frame: 2-4 Weeks Goal Progress: Progressing Goal 4:: LTG: Pt. to report no incidences of L knee locking up on her. Goal Time Frame: 4-6 Weeks Goal Progress: Goal Met Goal 5:: LTG: pt. to have no pain at pes anserine region. Goal Time Frame: 4-6 Weeks Goal Progress: Progressing Anticipated Interventions Anticipated Interventions Patient/Client Instruction: Educate patient on: Condition, Plan of Care, Risk Factors and Benefits of Fitness Program For the Purpose of:: To foster healthy habits, To improve decision making, To facilitate caregiver knowledge, To improve self management, To prevent re-injury and To improve ability to perform tasks related to life management Therapeutic Exercise to Include: Strength training, Power training, Postural training, Flexibilty training, Passive ROM and Active ROM For the Purpose of:: To decrease pain, To decrease swelling/inflammation, To increase ROM, To improve nutrient delivery to tissue, To increase oxygenation perfusion, To improve muscle performance and motor function, To improve ability of physical actions for home/community/work/leisure, To improve gait and locomotor functions, To improve health of tissue and To decrease soft tissue restriction Manual Therapy Techniques to Include: Soft tissue mobilization Comment: IASTIM For the Purpose of:: To decrease pain, To decrease swelling/inflammation, To increase ROM, To improve nutrient delivery to tissue and To increase oxygenation perfusion Ultrasound (thermal/non thermal): Yes For the Purpose of:: To decrease pain, To decrease swelling/inflammation, To increase ROM and To improve nutrient delivery to tissue Re-Evaluation Ending Re-evaluation ending: Please do not hesitate to contact me at [phone] by phone or if you have questions or concerns regarding this new plan of care! Sincerely, DEBBI MunozT
--- NOTE | 2025-01-25 08:21 | HP.PTDCSUM ---
Discharge Summary D/C summary: It has been my pleasure to treat KELLEN GUY referred by Dr. Dudley James MD, with the diagnosis of L pes anserine bursitis for a total of 10 visit(s). Discharge Date: Please see the following information for a summary of their discharge status. Subjective Subjective: Pt. reports that her knee is doing much better, but is having some ischial pain. Pt. reports sitting is sore, but most other things is ok. Pain R medial knee: Pain Intensity (Out of 10): 0 L knee: Pain Intensity (Out of 10): 0 L ischial tub region: Pain Intensity (Out of 10): 2 Overall Improvement % Improvement: 75 Objective Objective/Function: Pt. has great strength throughout BLEs. Pt. does have some soreness with end range L HS stretching at ischial tub. She also has slight pain with eccentric HS loading. I suggested that she work on HS eccentrics , end range HS stretching and DFM to her L proximal HS tendon. Pt. reports being I with all knee exercises. Pt. will be DC from PT at this point in time. Goals Goal 1:: LTG: pt. to be I with HEP. Goal Progress: Goal Met Goal 2:: STG: Pt. to report no muscle tension/pain in L HS, and adductors. Goal Progress: Goal Met Goal 3:: LTG: Pt. to ambulate without increase in L knee pain. Goal Progress: Goal Met Goal 4:: LTG: Pt. to report no incidences of L knee locking up on her. Goal Progress: Goal Met Goal 5:: LTG: pt. to have no pain at pes anserine region. Goal Progress: Goal Met Plan Plan: Pt. to be DC from PT. Pt. is to trial exercises for her L ischial issues, but if not improving over the next few weeks she will follow up with physician about her symptoms. D/C Information d/c sentence: If there are questions or concerns regarding this patient's physical therapy, please feel free to call me at [phone]. Thank you for the referral of this patient. Sincerely, Kamaljit Purdy Sipos, DPT Balance/Gait/Functional tests Balance/Special Test Scores Lower Extremity Functional Score: 52 Improvement % Improvement: 75
== END 2025-01-25 08:31 | disposition home or self-care (01) ==
LOC: PT 07:30
PROVIDERS: PCP Family Medicine; Referring Provider Orthopaedic Surgery Adult Reconstructive Orthopaedic Surgery; Visit Provider Orthopaedic Surgery Adult Reconstructive Orthopaedic Surgery
DX: M70.52 Other bursitis of knee, left knee (principal); M76.899 Other specified enthesopathies of unspecified lower limb, excluding foot
CPT/HCPCS: 97035; 97110; 97140; 97161; 97530

== ENCOUNTER → 2025-02-16 | Outpatient (CLI) | payer MEDICARE, OTHER, SELFPAY ==
--- NOTE | 2025-02-16 12:46 | RAD_ITS ---
PROCEDURE: LUMBAR SPINE 2 OR 3 VIEWS 02/16/2025 REASON FOR EXAM: BACK PAIN TECHNIQUE: Procedure Code: RADSPLL Modality: DX Procedure: LUMBAR SPINE 2 OR 3 VIEWS COMPARISON: None FINDINGS: Vertebrae: Wedge compression fracture involving the superior endplate of T12. A proximally 30% height loss. Discs: Marginal endplate spurring L2/3, L3/4. Facet hypertrophy L4/5. Alignment: Very mild curvature lower lumbar spine to the left at L3/4. Other: Tubal ligation clips are seen. RAD/Lumbar Spine 2 or 3 Views IMPRESSION: Multilevel degenerative change greatest at L2/3, L3/4. Wedge compression fracture T12 with 30% height loss. Age indeterminate. Reading Location: [id number]
--- NOTE | 2025-02-16 12:46 | RAD_ITS ---
PROCEDURE: HIPS B/L MIN 2 VIEWS W/ PELVIS 02/16/2025 REASON FOR EXAM: BACK PAIN TECHNIQUE: Procedure Code: RADHPELP Modality: DX Procedure: HIPS B/L MIN 2 VIEWS W/ PELVIS Laterality: Bilateral hips. COMPARISON: None FINDINGS: Bones: No fracture is seen. Joints: Degenerative changes of the symphysis pubis. Mild degree of osteoarthritis of both hip joints. Soft tissues: Bilateral tubal ligation clips are seen. Other: RAD/Hips B/L min 2 views w/ Pelvis IMPRESSION: Mild degree of osteoarthritis of both hip joints. Degenerative changes of the symphysis pubis. Reading Location: [place] [id number]
== END | disposition home or self-care (01) ==
LOC: MTRAD 12:45
PROVIDERS: PCP Family Medicine; Referring Provider Family Medicine; Visit Provider Family Medicine
DX: M54.50 Low back pain, unspecified (principal)
CPT/HCPCS: 72100; 73521

== ENCOUNTER → 2025-03-21 | Outpatient (CLI) | payer MEDICARE, OTHER, SELFPAY ==
--- NOTE | 2025-03-21 10:59 | BI_ITS ---
EXAM: SCRN MAMM (CAD)W/REDD BILAT DATE: 03/21/2025 CLINICAL HISTORY: F, Age 69 y/o , SCREENING Sister with breast cancer. TECHNIQUE: Procedure Code: [id number] Modality: MG Procedure: SCRN MAMM (CAD)W/REDD BILAT COMPARISON: Prior exam(s) dated November 10, 2022.. FINDINGS: TISSUE DENSITY: There are scattered areas of fibroglandular density. Bilateral Breast Mammographic Findings: No significant masses, calcifications or other abnormalities are identified. No suspicious masses, areas of developing architectural distortion, or suspicious calcifications. There has been no significant interval change. BI/SCRN MAMM (CAD)W/REDD BILAT IMPRESSION: Stable bilateral screening mammogram. OVERALL FINAL ASSESSMENT BI-RADS 1: NEGATIVE. RECOMMENDATION: Routine annual follow-up in 1 Year Additional Recommendation none A letter with findings and recommendations will be mailed to the patient. Reading Location: [place] [id number]
--- NOTE | 2025-03-21 11:05 | BD_ITS ---
PROCEDURE: DEXA BONE DENSITY STUDY 03/21/2025 REASON FOR EXAM: F, age 69 y/o . Postmenopausal. TECHNIQUE: Procedure Code: BDDBD Modality: DX Procedure: DEXA BONE DENSITY STUDY COMPARISON: November 10, 2022. FINDINGS: BMD and T-SCORES Lumbar spine: 0.820 g/cm2, T-score -2.0 Levels: L1 through L4 Change from prior: Loss of 3.3%. Left femoral neck: 0.596 g/cm2, T-score -2.3 Femoral neck comparison data not recommended for monitoring change. Left total hip: 0.638 g/cm2, T-score -2.5 Change from prior: Loss of 5.8%. Right femoral neck: 0.584 g/cm2, T-score -2.4 Femoral neck comparison data not recommended for monitoring change. Right total hip: 0.629 g/cm2, T-score -2.6 Change from prior: Loss of 5.1%. The World Health Organization has defined the following categories based on bone density: Normal bone density: T-score equal to or greater than -1.0 Osteopenia: T-score between -1.0 and -2.5 Osteoporosis: T-score equal to or less than -2.5 FRAX (or Comparable) Fracture Risk Assessment: 10 Year Probability of Fracture: Major Osteoporotic Fracture: 22% Hip Fracture: 5.4% (Note: FRAX is not to be reported in setting of normal range bone density, osteoporosis on DEXA, known history of osteoporosis, prior osteoporotic hip or vertebral fracture, or for any patient undergoing pharmacological treatment for bone loss.) The National Osteoporosis Foundation (NOF) recommends pharmacological treatment for patients with a FRAX 10-year risk of 3% or higher for a hip fracture, or 20% or higher for a major osteoporotic fracture, to prevent osteoporosis and reduce fracture risk. The patient does meet the pharmacological treatment recommendations for prevention of osteoporosis. BD/Dexa Bone Density Study IMPRESSION: OSTEOPOROSIS. Recommend follow-up as clinically warranted. Reading Location: [place] [id number]
== END | disposition home or self-care (01) ==
LOC: OPBD 10:58
PROVIDERS: PCP Family Medicine; Referring Provider Nurse Practitioner Family; Visit Provider Nurse Practitioner Family
DX: Z12.31 Encounter for screening mammogram for malignant neoplasm of breast (principal); Z78.0 Asymptomatic menopausal state; M81.0 Age-related osteoporosis without current pathological fracture
CPT/HCPCS: 77063; 77067; 77080